=== PATIENT | female | born 1945 | race Caucasian/White ===

== ENCOUNTER → 2017-03-07 | Outpatient (CLI) | payer MEDICARE ==
--- NOTE | 2017-03-07 15:28 | FL ---
EXAMINATION TYPE: FL barium swallow DATE OF EXAM: 03/07/2017 LAP BANDING LIMITED ESOPHAGRAM: CLINICAL HISTORY: Dysphasia TECHNIQUE: Limited esophagram is performed utilizing 2-3 oz of barium. COMPARISON: 08/17/2010. FINDINGS: There is no evidence of obstruction or extravasation. Contrast spilled immediately from the esophagus into the stomach and subsequently into the small bowel. Lap band appear to be of normal orientation and stable from 08/17/2010. IMPRESSION: 1. No evidence of obstruction or extravasation.
[2017-03-07 15:46] VITALS: BP 119/83; PULSE 103; TEMP 98.6; BMI 31.7
== END ==
LOC: BARWHC3 14:00
PROVIDERS: ATTEND Surgery
DX: Z09 Encounter for follow-up examination after completed treatment for conditions other than malignant neoplasm (principal); Z98.84 Bariatric surgery status; R13.10 Dysphagia, unspecified; R11.2 Nausea with vomiting, unspecified
CPT/HCPCS: 74220; G0463; 99213

== ENCOUNTER 2018-03-12 11:01 | Day surgery (SDC) | payer MEDICARE ==
[2018-03-06 15:54] VITALS: BMI 30.3
[~2018-03-12 11:01] MED LIST: ALPRAZolam 0.25 MG TAB PO PRN; ALPRAZolam 0.5 MG TAB PO PRN; ASPIRIN 325 MG TAB PO STA; ATORVASTATIN 80 MG TAB PO STA; NITROGLYCERIN SL TABS 0.4 MG TAB SUBLINGUAL PRN; SODIUM CHLORIDE 0.9% 1,000 ML in EMPTY BAG 1 BAG IV ONE
[2018-03-12] MEDS ORDERED: GABAPENTIN 400 MG CAP PO STA (11:31)
[2018-03-12] MEDS ORDERED: HYDROcodone/APAP 5-325MG 1 EACH TAB ONE (11:32)
[2018-03-12] MEDS ORDERED: SODIUM CHLORIDE 0.9% 1,000 ML IV ONE (11:36)
[2018-03-12 11:47] LABS: Glucose,Whole Blood 128 mg/dL (75-99)
[2018-03-12 11:49] VITALS: TEMP 98
[2018-03-12] MEDS ORDERED: MIDAZOLAM 2 MG/2 ML VIAL IVP ONE (13:18)
[2018-03-12] MEDS ORDERED: LIDOCAINE 1% INJ 10MG/ML (20 ML MDV) SQ ONE (13:23)
[2018-03-12] MEDS: VERAPAMIL SYRINGE (5 MG/10 ML) INTRAARTER ONE ×2 (13:25→13:49)
[2018-03-12] MEDS ORDERED: BIVALIRUDIN BOLUS 250 MG/50 ML IV ONE (13:27)
[2018-03-12] MEDS ORDERED: BIVALIRUDIN 250 MG in SODIUM CHLORIDE 0.9% 50 ML IV ONE (13:29)
[2018-03-12] MEDS ORDERED: ADENOSINE 90 MG in SODIUM CHLORIDE 0.9% 60 ML IVP ONE (13:47)
[2018-03-12] MEDS ORDERED: RX INFO: IV CONTRAST WAS GIVEN 1 EACH MISC MISCELLANE PRN (13:53)
[2018-03-12] MEDS ORDERED: fentaNYL (PF) 50 MCG/ML 2 ML AMP IVP ONE (13:57)
[2018-03-12] MEDS ORDERED: IOPAMIDOL-370 125ML BTL INJ ONE (13:57)
[2018-03-12] MEDS ORDERED: SODIUM CHLORIDE 0.9% 1,000 ML IV SCH (14:00)
[2018-03-12 16:39] VITALS: RESP 16
[2018-03-12 17:06] VITALS: BP 156/87; PULSE 102
--- NOTE | 2018-03-12 19:51 | PCN ---
PROCEDURE NOTE DATE OF SERVICE: March 12, 2018 PERFORMING PHYSICIAN: Scotty Gonzalez MD. PROCEDURE PERFORMED: Factional flow reserve of the left circumflex. INDICATION: This is a pleasant 72-year-old female patient who underwent recently heart catheterization and that revealed intermediate to severe disease involving the left circumflex, which was brought today to undergo an FFR of the left circumflex. APPROACH: Right radial artery. COMPLICATION: None. LEVEL OF SEDATION: Moderate sedation length of 31 minutes. PROCEDURE DESCRIPTION: After obtaining an informed consent, the patient was brought to cardiac laboratory inspector. The right radial artery was cannulated using micropuncture technique and a micropuncture wire passed easily then I placed a 6-[place] sheath in the right radial artery. Subsequently I gave the patient 2 mg of verapamil IA. Anticoagulation was initiated using Angiomax. Subsequently I did engage the left main using JL3 guide. After zeroing the Doppler wire and equalizing between the Doppler wire and the guiding catheter, I did FFR per IV adenosine infusion after the left circumflex was wired. The FFR came in to be 0.96, which is nonischemic. The procedure was completed without any complication. CONCLUSION: Fractional flow reserve was performed on the left circumflex and came in to be nonischemic at 0.86. POSTPROCEDURE MANAGEMENT: Medical treatment and follow up with the patient. MMODL / IJN: [id number] /
== END 2018-03-12 18:37 | disposition home or self-care (01) ==
LOC: CATHCVL 11:01
PROVIDERS: ATTEND Internal Medicine Interventional Cardiology
DX: I25.10 Atherosclerotic heart disease of native coronary artery without angina pectoris (principal); I11.0 Hypertensive heart disease with heart failure; I50.33 Acute on chronic diastolic (congestive) heart failure; F17.210 Nicotine dependence, cigarettes, uncomplicated; I48.2 Chronic atrial fibrillation; E78.5 Hyperlipidemia, unspecified; I34.0 Nonrheumatic mitral (valve) insufficiency; Z79.01 Long term (current) use of anticoagulants; Z79.4 Long term (current) use of insulin; Z79.51 Long term (current) use of inhaled steroids; Z79.899 Other long term (current) drug therapy; Z88.5 Allergy status to narcotic agent
CPT/HCPCS: 93571; 93454; C1769 ×2; C1887 ×3; C1894; J2250; J2001; J3010; J0583; J0153; Q9967

== ENCOUNTER → 2018-05-04 | Outpatient (CLI) | payer MEDICARE ==
--- NOTE | 2018-05-04 14:43 | US ---
EXAMINATION TYPE: US duplex aorta DATE OF EXAM: 05/04/2018 COMPARISON: NONE CLINICAL HISTORY: Z13.9 Screening, I71.4 Abdominal Aortic Aneurysm. Screening EXAM MEASUREMENTS: Abdominal Aorta: Proximal: 1.9 x 1.5cm Mid: 1.5 x 1.8cm Distal: 1.2 x 1.4cm Bifurcation: obscured Technical limitations due to large amount of overlying bowel content. No evidence of AAA at this ti me within visualized portions. Bifurcation obscured. Calcifications noted throughout IMPRESSION: No evidence of AAA at this time within visualized portions.
== END | disposition home or self-care (01) ==
LOC: RADUSWWP 08:52
PROVIDERS: ATTEND Family Medicine
DX: Z13.6 Encounter for screening for cardiovascular disorders (principal)
CPT/HCPCS: 93979

== ENCOUNTER 2018-06-30 12:57 | Inpatient (IN) | payer MEDICARE ==
[2018-06-30] MEDS ORDERED: FUROSEMIDE 10 MG/ML 4 ML VIAL IV STA (13:23)
[2018-06-30] MEDS ORDERED: IPRATROPIUM-ALBUTEROL 3 ML NEB INHALATION STA ×2 (13:23→15:45)
--- NOTE | 2018-06-30 13:27 | ED ---
SOB HPI - General Chief Complaint: Shortness of Breath Stated Complaint: feet swelling/slurred speech Time Seen by Provider: 06/30/18 13:10 Source: patient, family Mode of arrival: wheelchair Limitations: no limitations - History of Present Illness Initial Comments: This is a 73-year-old female history of CHF who states she's had shortness of breath going on for about the past week with some exertional dyspnea. She states 4 days ago she had episodes of sharp chest pain or intermittent lasting for a told time about 30 minutes. She never had check after that. She states she's had ankle edema which is somewhat improved now her close her titer. She has not really noticed a weight gain. No fevers chills nausea vomiting sweats she feels like she had with previous CHF episodes. MD Complaint: shortness of breath - Related Data Home Medications Medication Instructions Recorded Confirmed ALPRAZolam [Xanax] 0.25 mg PO DAILY PRN 01/15/16 06/30/18 Ascorbic Acid [Vitamin C] 1,000 mg PO DAILY 01/15/16 06/30/18 Cholecalciferol [Vitamin D3] 1,000 unit PO DAILY 01/15/16 06/30/18 Citalopram Hydrobromide 40 mg PO DAILY 01/15/16 06/30/18 [Citalopram HBr] Furosemide [Lasix] 40 mg PO BID 01/15/16 06/30/18 Gabapentin 800 mg PO TID 01/15/16 06/30/18 HYDROcodone/APAP 5-325MG [[place] 1 tab PO TID PRN 01/15/16 06/30/18 5-325] Vitamin B Complex 1 cap PO DAILY 01/15/16 06/30/18 Vitamin E (Dl,Tocopheryl Acet) 400 unit PO DAILY 01/15/16 06/30/18 [Vitamin E] Insulin Glargine [Lantus] 30 unit SQ HS 05/04/16 06/30/18 Budesonide-Formot 160-4.5 Mcg 2 puff INHALATION RT-BID PRN 03/06/18 06/30/18 [Symbicort 160-4.5 Mcg Inhaler] Dulaglutide [Trulicity] 0.75 mg SQ TU 03/06/18 06/30/18 Metoprolol Tartrate [Lopressor] 100 mg PO BID 03/06/18 06/30/18 Previous Rx's Medication Instructions Recorded Atorvastatin [Lipitor] 20 mg PO HS #30 tab 01/17/16 Lisinopril [Zestril] 10 mg PO DAILY #0 05/05/16 Allergies Allergy/AdvReac Type Severity Reaction Status Date / Time digoxin Allergy Rash/Hives Verified 06/30/18 13:33 meperidine HCl [From Demerol] AdvReac SEIZURES Verified 06/30/18 13:33 morphine AdvReac Vomiting Verified 06/30/18 13:33 Review of Systems ROS Statement: Those systems with pertinent positive or pertinent negative responses have been documented in the HPI. ROS Other: All systems not noted in ROS Statement are negative. Past Medical History Past Medical History: Atrial Fibrillation, Heart Failure, Diabetes Mellitus, Hyperlipidemia, Hypertension, Pneumonia, Sleep Apnea/CPAP/BIPAP Additional Past Medical History / Comment(s): back and leg pain, looses balance History of Any Multi-Drug Resistant Organisms: None Reported Past Surgical History: Section Additional Past Surgical History / Comment(s): bilateral rotator cuff, right carotid endartectomy, lap band 2007, bilateral cataracts removed Past Anesthesia/Blood Transfusion Reactions: No Reported Reaction Past Psychological History: Anxiety, Depression Smoking Status: Former smoker - Past Family History Mother Family Medical History: No Reported History, Hypertension Father Family Medical History: Unable to Obtain General Exam - General Exam Comments Initial Comments: This is a well-developed asthenic appearing female who is awake alert oriented 3 Limitations: no limitations General appearance: alert, anxious Head exam: Present: atraumatic, normocephalic, normal inspection Eye exam: Present: normal appearance, PERRL, EOMI. Absent: scleral icterus, conjunctival injection, periorbital swelling ENT exam: Present: normal exam, mucous membranes moist Neck exam: Present: normal inspection, full ROM, other (No stridor JVD or bruits ). Absent: tenderness, meningismus, lymphadenopathy Respiratory exam: Present: normal lung sounds bilaterally, rales, decreased breath sounds. Absent: wheezes, rhonchi, stridor Cardiovascular Exam: Present: regular rate, normal rhythm, normal heart sounds. Absent: systolic murmur, diastolic murmur, rubs, gallop, clicks GI/Abdominal exam: Present: soft, normal bowel sounds. Absent: distended, tenderness, guarding, rebound, rigid Extremities exam: Present: normal inspection, full ROM, normal capillary refill , pedal edema. Absent: tenderness, joint swelling, calf tenderness Back exam: Present: normal inspection Neurological exam: Present: alert, oriented X3, CN II-XII intact Psychiatric exam: Present: normal affect, normal mood Skin exam: Present: warm, dry, intact, normal color. Absent: rash Course Vital Signs 06/30/18 06/30/18 13:04 13:44 Temperature 97.3 F L 98.4 F Pulse Rate 68 66 Respiratory 18 18 Rate Blood Pressure 103/70 109/81 O2 Sat by Pulse 97 100 Oximetry - Reevaluation(s) Reevaluation #1: 06/30/18 15:18 The patient did get slight relief from her dyspnea after the initial treatment Medical Decision Making - Medical Decision Making I did discuss the findings with patient family members as well as with Dr. colvin the patient will be admitted with cardiology consultation. Patient does see Dr. Hartman - Lab Data Result diagrams: 06/30/18 13:40 06/30/18 13:40 Lab Results 06/30/18 06/30/18 06/30/18 Range/Units 13:40 13:40 13:40 WBC 8.6 (3.8-10.6) k/uL RBC 4.24 (3.80-5.40) m/uL Hgb 12.7 (11.4-16.0) gm/dL Hct 40.7 (34.0-46.0) % MCV 95.9 (80.0-100.0) fL MCH 30.0 (25.0-35.0) pg MCHC 31.3 (31.0-37.0) g/dL RDW 15.0 (11.5-15.5) % Plt Count 229 (150-450) k/uL Neutrophils % 73 % Lymphocytes % 15 % Monocytes % 6 % Eosinophils % 4 % Basophils % 0 % Neutrophils # 6.2 (1.3-7.7) k/uL Lymphocytes # 1.3 (1.0-4.8) k/uL Monocytes # 0.6 (0-1.0) k/uL Eosinophils # 0.4 (0-0.7) k/uL Basophils # 0.0 (0-0.2) k/uL Hypochromasia Moderate PT (9.0-12.0) sec INR (<1.2) APTT (22.0-30.0) sec Sodium 136 L (137-145) mmol/L Potassium 6.0 H (3.5-5.1) mmol/L Chloride 99 (98-107) mmol/L Carbon Dioxide 24 (22-30) mmol/L Anion Gap 13 mmol/L BUN 32 H (7-17) mg/dL Creatinine 1.06 H (0.52-1.04) mg/dL Est GFR (CKD-EPI)AfAm 61 (>60 ml/min/1.73 sqM) Est GFR (CKD-EPI)NonAf 53 (>60 ml/min/1.73 sqM) Glucose 100 H (74-99) mg/dL Calcium 9.1 (8.4-10.2) mg/dL Magnesium 1.8 (1.6-2.3) mg/dL Total Bilirubin 0.7 (0.2-1.3) mg/dL AST 71 H (14-36) U/L ALT 62 H (9-52) U/L Alkaline Phosphatase 103 (38-126) U/L Total Creatine Kinase 70 (30-135) U/L CK-MB (CK-2) 0.9 (0.0-2.4) ng/mL CK-MB (CK-2) Rel Index 1.3 Troponin I 0.064 H* (0.000-0.034) ng/mL NT-Pro-B Natriuret Pep pg/mL Total Protein 6.5 (6.3-8.2) g/dL Albumin 3.5 (3.5-5.0) g/dL 06/30/18 06/30/18 Range/Units 13:40 13:40 WBC (3.8-10.6) k/uL RBC (3.80-5.40) m/uL Hgb (11.4-16.0) gm/dL Hct (34.0-46.0) % MCV (80.0-100.0) fL MCH (25.0-35.0) pg MCHC (31.0-37.0) g/dL RDW (11.5-15.5) % Plt Count (150-450) k/uL Neutrophils % % Lymphocytes % % Monocytes % % Eosinophils % % Basophils % % Neutrophils # (1.3-7.7) k/uL Lymphocytes # (1.0-4.8) k/uL Monocytes # (0-1.0) k/uL Eosinophils # (0-0.7) k/uL Basophils # (0-0.2) k/uL Hypochromasia PT 12.2 H (9.0-12.0) sec INR 1.2 H (<1.2) APTT 27.2 (22.0-30.0) sec Sodium (137-145) mmol/L Potassium (3.5-5.1) mmol/L Chloride (98-107) mmol/L Carbon Dioxide (22-30) mmol/L Anion Gap mmol/L BUN (7-17) mg/dL Creatinine (0.52-1.04) mg/dL Est GFR (CKD-EPI)AfAm (>60 ml/min/1.73 sqM) Est GFR (CKD-EPI)NonAf (>60 ml/min/1.73 sqM) Glucose (74-99) mg/dL Calcium (8.4-10.2) mg/dL Magnesium (1.6-2.3) mg/dL Total Bilirubin (0.2-1.3) mg/dL AST (14-36) U/L ALT (9-52) U/L Alkaline Phosphatase (38-126) U/L Total Creatine Kinase (30-135) U/L CK-MB (CK-2) (0.0-2.4) ng/mL CK-MB (CK-2) Rel Index Troponin I (0.000-0.034) ng/mL NT-Pro-B Natriuret Pep 6540 pg/mL Total Protein (6.3-8.2) g/dL Albumin (3.5-5.0) g/dL - EKG Data -: EKG Interpreted by Ar EKG shows normal: sinus rhythm (Sinus rhythm first-degree AV block rate is 66. Interval 214 QRS 80 QT since QTC 456/478 evidence of left axis deviation.) - Radiology Data Radiology results: report reviewed (I did review the imaging there does appear to be prominence of the interstitium consistent with congestive failure), image reviewed Critical Care Time Critical Care Time: Yes Critical Care Time: 31 minutes of critical care time which was initial presentation with history physical labs x-rays reevaluation patient responsive therapy discuss with the patient and family regarding findings discussion with the main physician review of old charting that was available admission orders and documentation of the above Disposition Clinical Impression: Congestive heart failure (CHF), Bronchospasm, acute, Renal insufficiency syndrome, Hyperkalemia, Elevated troponin Disposition: ADMITTED IP TO THIS [facility] Condition: Serious Referrals: Luis Carlos Dow MD [Primary Care Provider] - 1-2 days
[2018-06-30 14:01] LABS: Basophils % (A) 0 %; Eosinophils # (A) 0.4 k/uL (0-0.7); Eosinophils % (A) 4 %; HCT 40.7 % (34.0-46.0); HGB 12.7 gm/dL (11.4-16.0); Hypochromasia Moderate; Lymphocytes # (A) 1.3 k/uL (1.0-4.8); Lymphocytes % (A) 15 %; MCHC 31.3 g/dL (31.0-37.0); MCV 95.9 fL (80.0-100.0); Mean Platelet Volume 8.1; Monocytes # (A) 0.6 k/uL (0-1.0); Monocytes % (A) 6 %; Neutrophils # (A) 6.2 k/uL (1.3-7.7); Neutrophils % (A) 73 %; Platelet Count 229 k/uL (150-450); RBC 4.24 m/uL (3.80-5.40); WBC 8.6 k/uL (3.8-10.6)
[2018-06-30 14:13] LABS: Albumin 3.5 g/dL (3.5-5.0); Calcium 9.1 mg/dL (8.4-10.2); Total Bilirubin 0.7 mg/dL (0.2-1.3); Total Protein 6.5 g/dL (6.3-8.2)
[2018-06-30 14:32] LABS: Magnesium 1.8 mg/dL (1.6-2.3)
[2018-06-30 14:40] LABS: Creatine Kinase MB 0.9 ng/mL (0.0-2.4)
[2018-06-30 14:45] LABS: Troponin I 0.064 ng/mL (0.000-0.034)
--- NOTE | 2018-06-30 15:06 | XR ---
EXAMINATION TYPE: XR chest 2V DATE OF EXAM: 06/30/2018 COMPARISON: 05/04/2016 HISTORY: 73 year-old female shortness of breath, difficulty breathing TECHNIQUE: PA and lateral views FINDINGS: Heart mild to moderately enlarged. Diffuse interstitial changes. No sizable effusion or davin consoli dation. IMPRESSION: Mild/moderate cardiomegaly and interstitial changes. Correlate for mild CHF with pulmonary vascular c ongestion. No davin pulmonary edema.
[2018-06-30 15:13] LABS: INR 1.2 (<1.2); Partial Thromboplastin Time 27.2 sec (22.0-30.0); Prothrombin Time 12.2 sec (9.0-12.0)
[2018-06-30] MEDS ORDERED: ACETAMINOPHEN TAB 325 MG TAB PO STA (15:18)
[2018-06-30] MEDS ORDERED: SODIUM POLYSTYRENE SULFONATE 15 GM/60 ML BOTTLE PO ONE ×2 (15:22→22:26)
[2018-06-30] MEDS ORDERED: HEPARIN SODIUM,PORCINE 5,000 UNIT/ML 1 ML VIAL IV ONE (15:44)
[2018-06-30] MEDS ORDERED: HEPARIN SOD,PORK IN 0.45% NACL 25,000 UNIT in 0.45% NACL 1 250ML.BAG IV SCH (15:45)
[2018-06-30] MEDS: IPRATROPIUM-ALBUTEROL 3 ML NEB INHALATION SCH ×2 (16:16→19:05)
[2018-06-30 16:22] LABS: Glucose,Whole Blood 90 mg/dL (75-99)
[2018-06-30] MEDS: NITROGLYCERIN OINT 1 INCH/GM PACKET TOPICAL SCH ×2 (17:17→21:39)
[2018-06-30 17:24] LABS: Glucose,Whole Blood 140 mg/dL (75-99)
[2018-06-30] MEDS: INSULIN ASPART 100 UNIT/ML 1 ML 10 ML VIAL SQ SCH ×2 (17:40→21:39)
[2018-06-30] MEDS: GABAPENTIN 400 MG CAP PO SCH ×2 (17:40→21:38)
[2018-06-30] MEDS: METOPROLOL TARTRATE 50 MG TAB PO SCH (20:15)
[2018-06-30] MEDS: ATORVASTATIN 20 MG TAB PO SCH (20:15)
[2018-06-30] MEDS: ALPRAZolam 0.25 MG TAB PO PRN (20:16)
[2018-06-30] MEDS: HYDROcodone/APAP 5-325MG 1 EACH TAB PO PRN (20:16)
[2018-06-30 20:25] LABS: Glucose,Whole Blood 202 mg/dL (75-99)
[2018-06-30] MEDS ORDERED: INSULIN DETEMIR 100 UNIT/ML 10 ML VIAL SQ SCH (21:00)
[2018-06-30] MEDS ORDERED: FUROSEMIDE 40 MG TAB PO SCH (21:00)
[2018-06-30 21:09] LABS: Creatine Kinase MB 0.9 ng/mL (0.0-2.4)
[2018-06-30 22:13] LABS: Calcium 8.9 mg/dL (8.4-10.2)
[2018-06-30 22:22] LABS: Potassium 5.4 mmol/L (3.5-5.1)
[2018-06-30] MEDS ORDERED: ALPRAZolam 0.25 MG TAB PO PRN (22:45)
[2018-06-30] MEDS: FUROSEMIDE 40 MG TAB PO SCH (23:21)
[2018-07-01] MEDS: IPRATROPIUM-ALBUTEROL 3 ML NEB INHALATION SCH ×7 (01:32→23:50)
[2018-07-01 01:51] LABS: Creatine Kinase MB 0.7 ng/mL (0.0-2.4)
[2018-07-01 01:53] LABS: Troponin I 0.047 ng/mL (0.000-0.034)
[2018-07-01 02:02] LABS: Appearance,Urine Clear (Clear); Bacteria,Urine Rare /hpf; Bilirubin,Urine Negative (Negative); Blood,Urine Negative (Negative); Color,Urine Light Yellow; Glucose,Urine (UA) Negative (Negative); Ketones,Urine Negative (Negative); Leukocyte Esterase,Urine Moderate (Negative); Mucus,Urine Rare /hpf; Nitrite,Urine Negative (Negative); PH, Urine 6.5 (5.0-8.0); Protein,Urine Negative (Negative); RBC,Urine 1 /hpf (0-5); Specific Gravity,Urine 1.006 (1.001-1.035); Squamous Epithelial Cell,Urine 1 /hpf (0-4); Urobilinogen,Urine <2.0 mg/dL (<2.0); WBC,Urine 9 /hpf (0-5)
[2018-07-01 06:04] LABS: Glucose,Whole Blood 49 mg/dL (75-99)
[2018-07-01] MEDS: INSULIN ASPART 100 UNIT/ML 1 ML 10 ML VIAL SQ SCH ×4 (06:21→21:37)
[2018-07-01 06:22] LABS: Glucose,Whole Blood 89 mg/dL (75-99)
[2018-07-01] MEDS: PANTOPRAZOLE 40 MG TABLET PO SCH (06:23)
[2018-07-01] MEDS: SYMBICORT 160-4.5 MCG INHALER INHALATION PRN ×2 (07:17→19:39)
[2018-07-01 08:29] LABS: Basophils % (A) 0 %; Eosinophils # (A) 0.4 k/uL (0-0.7); Eosinophils % (A) 7 %; HCT 39.5 % (34.0-46.0); HGB 11.6 gm/dL (11.4-16.0); Hypochromasia Marked; Lymphocytes # (A) 1.2 k/uL (1.0-4.8); Lymphocytes % (A) 20 %; MCHC 29.3 g/dL (31.0-37.0); MCV 98.7 fL (80.0-100.0); Macrocytosis Slight; Mean Platelet Volume 7.7; Monocytes # (A) 0.3 k/uL (0-1.0); Monocytes % (A) 6 %; Neutrophils # (A) 3.7 k/uL (1.3-7.7); Neutrophils % (A) 65 %; Platelet Count 202 k/uL (150-450); RDW 15.1 % (11.5-15.5); WBC 5.8 k/uL (3.8-10.6)
[2018-07-01 08:41] LABS: Calcium 9.1 mg/dL (8.4-10.2); Potassium 4.5 mmol/L (3.5-5.1)
[2018-07-01] MEDS ORDERED: LISINOPRIL 10 MG TAB PO SCH (09:00)
--- NOTE | 2018-07-01 09:33 | HP ---
HISTORY AND PHYSICAL DATE OF SERVICE: 06/30/2018. I am covering for Dr. Dow. CHIEF COMPLAINT: Shortness of breath as well as leg swelling. HISTORY OF PRESENT ILLNESS: This 73-year-old woman with a past medical history of multiple medical problems including atrial fibrillation, CHF, diabetes, hypertension, history of pneumonia, history of sleep apnea, being followed by Dr. Luis Carlos Dow in the outpatient setting, complains of shortness of breath over the last one week and also exertional dyspnea. The patient also had episode of sharp chest pain, intermittent, lasting about 30 minutes. The patient came to [facility]. Chest x-ray showed CHF and BNP was elevated. The patient was admitted for evaluation and treatment. Troponin also found to be 0.64. Cardiology evaluation has been ordered. There is no history of fevers or rigors. No headache, loss of consciousness, seizures at this time. PAST MEDICAL HISTORY: History of atrial fibrillation, CHF, diabetes mellitus, hypertension, hyperlipidemia, history pneumonia, sleep apnea, history of anxiety and depression. MEDICATIONS: Home medications are: 1. Eliquis 5 mg p.o. b.i.d. 2. Lantus 30 units subcu at bedtime. 3. [place] 5 mg t.i.d. p.r.n. 4. Lasix 40 mg b.i.d. 5. Trulicity 0.7 mg subcu Monday. 6. Symbicort 160/4.5 two puffs b.i.d. 7. Lipitor 10 mg at bedtime. 8. Xanax 0.5 daily p.r.n. 9. Vitamin E 400 units daily. 10.Vitamin B complex 1 p.o. daily. 11.Lopressor 100 mg p.o. b.i.d. 12.Zestril 10 mg p.o. daily. 13.Gabapentin 800 mg p.o. t.i.d. 14.Celexa 40 mg. 15.Vitamin D 3000 daily. 16.Vitamin C 1000 daily. ALLERGIES: DIGOXIN, DEMEROL, MORPHINE. FAMILY HISTORY: History of hypertension in the family. SOCIAL HISTORY: Previous history of smoking. No history of current smoking or alcohol intake. REVIEW OF SYSTEMS: ENT: No diminished vision or hearing. CARDIOVASCULAR: As mentioned. GI: No nausea or vomiting. : None. ALLERGY/IMMUNOLOGY: None. MUSCULOSKELETAL: As mentioned. HEMATOLOGY: As mentioned. ENDOCRINE: As mentioned earlier. CONSTITUTIONAL: As mentioned. RHEUMATOLOGY: As mentioned. PSYCHIATRY: As mentioned. PHYSICAL EXAMINATION: GENERAL: Alert, oriented x3. VITAL SIGNS: Pulse 72, blood pressure 112/52, respirations 18, temperature 97 degrees, pulse ox 94% on room air. HEENT: Conjunctivae normal. Oral mucosa moist. NECK: No jugular venous distention. No lymph node enlargement. CARDIOVASCULAR: No stenosis. Ejection systolic murmur, especially at the bases. Bilateral scattered rhonchi and crackles. ABDOMEN: Soft, nontender. LEGS: Bilateral leg edema. NERVOUS SYSTEM: Higher functions as mentioned. Moves all limbs. LYMPHATICS: No lymph nodes palpable in the neck, axillae or groin. SKIN: No rash. LABS: WBC 8.2, hemoglobin 12.7. INR 1.2. Sodium 134, potassium 5.4, glucose 202. AST 71, ALT 62. Troponin 0.664. ASSESSMENT: 1. Congestive heart failure acute exacerbation with possibly acute on chronic diastolic dysfunction. Previous ejection fraction 50% to 60% in 2016. 2. Moderate mitral regurgitation on the previous echo. 3. Chest pain, rule out coronary artery disease. Troponin 0.064. 4. Increased creatinine with chronic kidney disease stage III. 5. Hyponatremia. 6. Hyperkalemia. 7. Diabetes mellitus type 2. 8. Atrial fibrillation. 9. History of congestive heart failure. 10.Diabetes mellitus type 2. 11.Hypertension. 12.History of pneumonia. 13.History of sleep apnea. 14.History of back and leg pain. 15.History of sections. 16.History of anxiety and depression. 17.Remote history of nicotine dependence. RECOMMENDATIONS AND DISCUSSION: In this 73-year-old woman who presented with multiple complex medical issues, we will monitor the patient closely, continue the current management. Will initiate IV diuresis and IV heparin also for elevated troponin. Cardiology consultation. Monitor fluid and electrolytes balance closely. Bronchodilators. Resume the home medications. Overall prognosis is guarded because of multiple complex medical issues. We will also repeat a 2D echo with Doppler. Prognosis is guarded. Further recommendations to follow. Medication reconciliation has been done. MMODL / IJN: [id number] /
[2018-07-01] MEDS: ASCORBIC ACID 500 MG TAB PO SCH (09:35)
[2018-07-01] MEDS: CITALOPRAM HYDROBROMIDE 20 MG TAB PO SCH (09:35)
[2018-07-01] MEDS: METOPROLOL TARTRATE 50 MG TAB PO SCH ×2 (09:35→21:37)
[2018-07-01] MEDS: CHOLECALCIFEROL 1,000 UNIT TAB PO SCH (09:35)
[2018-07-01] MEDS: GABAPENTIN 400 MG CAP PO SCH ×3 (09:35→21:37)
[2018-07-01] MEDS: VITAMIN E (DL,TOCOPHERYL ACET) 400 UNIT CAP PO SCH (09:35)
[2018-07-01] MEDS: NITROGLYCERIN OINT 1 INCH/GM PACKET TOPICAL SCH ×4 (09:36→21:48)
[2018-07-01] MEDS: FUROSEMIDE 40 MG TAB PO SCH (09:36)
[2018-07-01] MEDS: NON-FORMULARY DRUG (Vitamin B Complex [Vitamin B Complex] 1 CAP) PO SCH (09:36)
[2018-07-01] MEDS: HYDROcodone/APAP 5-325MG 1 EACH TAB PO PRN ×2 (09:43→21:44)
[2018-07-01 12:16] LABS: Glucose,Whole Blood 211 mg/dL (75-99)
--- NOTE | 2018-07-01 13:58 | P.CRDCN ---
History of Present Illness Consult date: 07/01/18 Requesting physician: Abdulkadir E Sheet Consult reason: congestive heart failure Chief complaint: Shortness of breath History of present illness: This is a pleasant 73-year-old female who follows with Dr. Hartman in the office. She has a known history of paroxysmal atrial fibrillation, diabetes , hyperlipidemia, hypertension, prior history of smoking, PAD, history of right- sided carotid endarterectomy with subsequent stenting, presents to the hospital with symptoms of progressively worsening shortness of breath for over a week duration. She also states that she had noticed swelling in her lower extremities and her clothes fit tighter than usual. She does weigh herself at home, states that her weight didn't seem to have gone out much. Chest x-ray on admission here revealed mild to moderate cardiomegaly and interstitial changes, correlate for mild CHF with pulmonary vascular congestion. EKG showed normal sinus rhythm with first-degree AV block, left axis deviation. Blood pressure 126/56, heart rate in the 70s, 94% on room air. White blood cell count 5.8, hemoglobin 11.6, platelet count 202. Sodium 138, potassium 4.5, BUN 33, creatinine 0.9. AST 71 and ALT 62. BNP level 6540. Troponins 0.06, 0.04, 0.04. Patient was initiated on IV Lasix in the emergency room and has been diuresing well. At the time of my examination today, she does state that the swelling is significantly improved in her lower extremities, and overall her breathing is improving although she still feels quite short of breath. Positive PND and orthopnea on presentation here. Past Medical History Past Medical History: Atrial Fibrillation, Heart Failure, Diabetes Mellitus, Hyperlipidemia, Hypertension, Pneumonia, Sleep Apnea/CPAP/BIPAP Additional Past Medical History / Comment(s): back and leg pain, looses balance History of Any Multi-Drug Resistant Organisms: None Reported Past Surgical History: Section Additional Past Surgical History / Comment(s): bilateral rotator cuff, right carotid endartectomy, lap band 2007, bilateral cataracts removed Past Anesthesia/Blood Transfusion Reactions: No Reported Reaction Past Psychological History: Anxiety, Depression Smoking Status: Former smoker Past Alcohol Use History: None Reported Past Drug Use History: None Reported - Past Family History Mother Family Medical History: No Reported History, Hypertension Father Family Medical History: Unable to Obtain Medications and Allergies Home Medications Medication Instructions Recorded Confirmed Type ALPRAZolam [Xanax] 0.25 mg PO DAILY PRN 01/15/16 06/30/18 History Ascorbic Acid [Vitamin C] 1,000 mg PO DAILY 01/15/16 06/30/18 History Cholecalciferol [Vitamin D3] 1,000 unit PO DAILY 01/15/16 06/30/18 History Citalopram Hydrobromide 40 mg PO DAILY 01/15/16 06/30/18 History [Citalopram HBr] Furosemide [Lasix] 40 mg PO BID 01/15/16 06/30/18 History Gabapentin 800 mg PO TID 01/15/16 06/30/18 History HYDROcodone/APAP 5-325MG [Ebro 1 tab PO TID PRN 01/15/16 06/30/18 History 5-325] Vitamin B Complex 1 cap PO DAILY 01/15/16 06/30/18 History Vitamin E (Dl,Tocopheryl Acet) 400 unit PO DAILY 01/15/16 06/30/18 History [Vitamin E] Atorvastatin [Lipitor] 20 mg PO HS #30 tab 01/17/16 06/30/18 Rx Insulin Glargine [Lantus] 30 unit SQ HS 05/04/16 06/30/18 History Lisinopril [Zestril] 10 mg PO DAILY #0 05/05/16 06/30/18 Rx Budesonide-Formot 160-4.5 Mcg 2 puff INHALATION RT-BID PRN 03/06/18 06/30/18 History [Symbicort 160-4.5 Mcg Inhaler] Dulaglutide [Trulicity] 0.75 mg SQ TU 03/06/18 06/30/18 History Metoprolol Tartrate [Lopressor] 100 mg PO BID 03/06/18 06/30/18 History Apixaban [Eliquis] 5 mg PO BID 06/30/18 06/30/18 History Allergies Allergy/AdvReac Type Severity Reaction Status Date / Time digoxin Allergy Rash/Hives Verified 06/30/18 13:33 meperidine HCl [From Demerol] AdvReac SEIZURES Verified 06/30/18 13:33 morphine AdvReac Vomiting Verified 06/30/18 13:33 Physical Exam Vitals: Vital Signs Temp Pulse Pulse Resp BP BP Pulse Ox 07/01/18 11:42 72 07/01/18 11:31 76 07/01/18 08:00 97 F L 63 18 127/55 94 L 07/01/18 07:29 76 07/01/18 07:18 72 07/01/18 04:00 97.5 F L 63 18 142/73 93 L 07/01/18 00:00 98 F 61 18 127/60 94 L 06/30/18 20:23 97.0 F L 72 18 112/53 94 L 06/30/18 19:44 68 06/30/18 19:32 97 06/30/18 19:31 70 06/30/18 16:57 98.0 F 65 16 110/63 98 06/30/18 16:22 67 16 06/30/18 16:14 67 16 06/30/18 16:05 68 18 130/63 93 L 06/30/18 15:35 98.2 F 66 15 146/65 99 Intake and Output 06/30/18 07/01/18 07/01/18 22:59 06:59 14:59 Intake Total 240 331.544 Output Total 1100 Balance 240 -1100 331.544 Intake: Intake, IV Titration 131.544 Amount Heparin Sod,Pork in 0.45% 131.544 NaCl 25,000 unit In 0.45 % NaCl 1 250ml.bag @ 12 UNITS/KG/HR 7.83 mls/hr IV .Q24H [facility] Rx#: [id number] Oral 240 200 Output: Urine 1100 Other: Voiding Method Toilet Toilet Toilet # Voids 1 Weight 67.5 kg 67 kg PHYSICAL EXAMINATION: GENERAL: 73-year-old female in no acute distress at the time of my examination HEENT: Head is atraumatic, normocephalic. Pupils equal, round. Sclera anicteric. Conjunctiva are clear. Mucous membranes of the mouth are moist. Neck is supple. There is elevated jugular venous pressure. No carotid bruit is heard. HEART EXAMINATION: Heart S1-S2 systolic murmur heard CHEST EXAMINATION: Reveal fine rales to bilateral bases, diminished air entry to the bases. ABDOMEN: Soft, nontender. Bowel sounds are heard. No organomegaly noted. EXTREMITIES: 2+ peripheral pulses with trace to 1+ evidence of peripheral edema and no calf tenderness noted. NEUROLOGIC patient is awake, alert and oriented 3 . . Results 07/01/18 07:38 07/01/18 07:38 Cardiac Enzymes 06/30/18 06/30/18 06/30/18 Range/Units 13:40 13:40 19:37 AST 71 H (14-36) U/L CK-MB (CK-2) 0.9 0.9 (0.0-2.4) ng/mL Troponin I 0.064 H* (0.000-0.034) ng/mL 06/30/18 07/01/18 Range/Units 19:37 01:01 AST (14-36) U/L CK-MB (CK-2) 0.7 (0.0-2.4) ng/mL Troponin I 0.042 H* 0.047 H* (0.000-0.034) ng/mL Coagulation 06/30/18 06/30/18 07/01/18 Range/Units 13:40 21:19 07:38 PT 12.2 H (9.0-12.0) sec APTT 27.2 57.4 H 35.1 H (22.0-30.0) sec Lipids 07/01/18 Range/Units 07:38 Triglycerides 77 (<150) mg/dL Cholesterol 89 (<200) mg/dL HDL Cholesterol 36 L (40-60) mg/dL CBC 06/30/18 07/01/18 Range/Units 13:40 07:38 WBC 8.6 5.8 (3.8-10.6) k/uL RBC 4.24 4.00 (3.80-5.40) m/uL Hgb 12.7 11.6 (11.4-16.0) gm/dL Hct 40.7 39.5 (34.0-46.0) % Plt Count 229 202 (150-450) k/uL Comprehensive Metabolic Panel 06/30/18 06/30/18 07/01/18 Range/Units 13:40 21:19 07:38 Sodium 136 L 134 L 138 (137-145) mmol/L Potassium 6.0 H 5.4 H 4.5 (3.5-5.1) mmol/L Chloride 99 96 L 99 (98-107) mmol/L Carbon Dioxide 24 27 29 (22-30) mmol/L BUN 32 H 38 H 33 H (7-17) mg/dL Creatinine 1.06 H 1.11 H 0.95 (0.52-1.04) mg/dL Glucose 100 H 206 H 140 H (74-99) mg/dL Calcium 9.1 8.9 9.1 (8.4-10.2) mg/dL AST 71 H (14-36) U/L ALT 62 H (9-52) U/L Alkaline Phosphatase 103 (38-126) U/L Total Protein 6.5 (6.3-8.2) g/dL Albumin 3.5 (3.5-5.0) g/dL Current Medications Generic Name Dose Route Start Last Admin Trade Name Freq PRN Reason Stop Dose Admin Acetaminophen 500 mg 06/30/18 22:44 Tylenol Tab PO Q6HR PRN Fever and/ or Pain Hydrocodone Bitart/Acetaminophen 1 each 06/30/18 15:39 07/01/18 09:43 Ebro 5-325 PO 1 each TID PRN Administration Pain Albuterol/Ipratropium 3 ml 06/30/18 16:00 07/01/18 11:31 Duoneb 0.5 Mg-3 Mg/3 Ml Soln INHALATION 3 ml RT-Q4H [facility] Administration Alprazolam 0.25 mg 06/30/18 15:39 06/30/18 20:16 Xanax PO 0.25 mg DAILY PRN Administration Anxiety Alprazolam 0.25 mg 06/30/18 22:45 Xanax PO TID PRN Anxiety Ascorbic Acid 1,000 mg 07/01/18 09:00 07/01/18 09:35 Vitamin C PO 1,000 mg DAILY [facility] Administration Atorvastatin Calcium 20 mg 06/30/18 21:00 06/30/18 20:15 Lipitor PO 20 mg HS [facility] Administration Budesonide/Formoterol Fumarate 2 puff 06/30/18 22:43 07/01/18 07:17 Symbicort 160-4.5 Mcg Inhaler INHALATION 2 puff RT-BID PRN Administration Shortness Of Breath Cholecalciferol 1,000 unit 07/01/18 09:00 07/01/18 09:35 Vitamin D3 PO 1,000 unit DAILY [facility] Administration Citalopram Hydrobromide 40 mg 07/01/18 09:00 07/01/18 09:35 Celexa PO 40 mg DAILY [facility] Administration Furosemide 40 mg 07/01/18 00:00 07/01/18 09:36 Lasix PO 40 mg Q8HR [facility] Administration Gabapentin 800 mg 06/30/18 16:00 07/01/18 09:35 Neurontin PO 800 mg TID [facility] Administration Heparin Sodium/Sodium Chloride 250 mls @ 7.83 mls/hr 06/30/18 15:45 07/01/18 09:30 25,000 unit/ Sodium Chloride IV 13.94 units/kg/hr .Q24H [facility] 9.1 mls/hr Titration Protocol 12 UNITS/KG/HR Insulin Aspart 0 unit 06/30/18 17:30 07/01/18 12:22 Novolog SQ 3 unit ACHS [facility] Administration Protocol Insulin Detemir 30 unit 06/30/18 21:00 06/30/18 21:39 Levemir SQ 30 unit HS [facility] Administration Metoprolol Tartrate 100 mg 06/30/18 21:00 07/01/18 09:35 Lopressor PO 100 mg BID [facility] Administration Nitroglycerin 0.5 inch 06/30/18 18:00 07/01/18 12:22 Nitro-Bid Oint TOPICAL 0.5 inch QID [facility] Administration Non-Formulary Medication 0.75 mg 07/03/18 12:00 Dulaglutide [Trulicity] SQ TU [facility] Non-Formulary Medication 1 cap 07/01/18 09:00 07/01/18 09:36 Vitamin B Complex [Vitamin B Complex] PO Not Given DAILY [facility] Pantoprazole Sodium 40 mg 07/01/18 07:30 07/01/18 06:23 Protonix PO 40 mg AC-BRKFST [facility] Administration Vitamin E 400 unit 07/01/18 09:00 07/01/18 09:35 Vitamin E PO 400 unit DAILY [facility] Administration Intake and Output 06/30/18 07/01/18 07/01/18 22:59 06:59 14:59 Intake Total 240 331.544 Output Total 1100 Balance 240 -1100 331.544 Intake: Intake, IV Titration 131.544 Amount Heparin Sod,Pork in 0.45% 131.544 NaCl 25,000 unit In 0.45 % NaCl 1 250ml.bag @ 12 UNITS/KG/HR 7.83 mls/hr IV .Q24H [facility] Rx#: [id number] Oral 240 200 Output: Urine 1100 Other: Voiding Method Toilet Toilet Toilet # Voids 1 Weight 67.5 kg 67 kg 07/01/18 07:38 07/01/18 07:38 EKG Interpretations (text) EKG shows a normal sinus rhythm with first-degree AV block. Assessment and Plan Plan: Assessment and plan #1 congestive cardiac failure, likely diastolic, acute on chronic. Most recent echo was performed in 2015 which revealed an ejection fraction of 55-60%. #2 coronary artery disease, patient underwent a cardiac catheterization which revealed intermediate to severe disease involving the circumflex, and FFR was performed on the left circumflex and came back to be nonischemic at 0.86. #3 hypertension #4 diabetes #5 hyperlipidemia #6 paroxysmal atrial fibrillation #7 PAD with prior carotid endarterectomy and stenting #8 sleep apnea #9 history of pneumonia #10 renal insufficiency #11 remote history of smoking #12 abnormality in troponin with no significant rise and fall pattern, not suggestive of acute coronary syndrome. Plan We will repeat an echocardiogram with Doppler study. Continue diuresing the patient with IV Lasix, monitoring intake and output along with daily weights and daily lytes BUN and creatinine. We'll discontinue the IV heparin and resume the patient's Eliquis. Further recommendations to follow. DNP note has been reviewed, I agree with a documented findings and plan of care. Patient was seen and examined.
[2018-07-01] MEDS ORDERED: Acetaminophen-Codeine 300-30mg TAB PO PRN (15:19)
--- NOTE | 2018-07-01 16:17 | CT ---
EXAMINATION TYPE: CT brain wo con DATE OF EXAM: 07/01/2018 COMPARISON: None HISTORY: Headache post fall. On blood thinners. CT DLP: 1078.4 mGycm Automated exposure control for dose reduction was used. FINDINGS: There is cerebral cortical atrophy. There is no mass effect nor midline shift. There is no sign of in tracranial hemorrhage. There is some cortical hypodensity inferior right frontal lobe. Calvarium is i ntact. IMPRESSION: CEREBRAL ATROPHY. OLD INFERIOR RIGHT FRONTAL LOBE CORTICAL INFARCT. NO ACUTE ABNORMALITY.
[2018-07-01 17:14] LABS: Glucose,Whole Blood 182 mg/dL (75-99)
[2018-07-01] MEDS: FUROSEMIDE 10 MG/ML 4 ML VIAL IV SCH ×2 (18:47→23:37)
[2018-07-01 21:18] LABS: Glucose,Whole Blood 219 mg/dL (75-99)
[2018-07-01] MEDS: ATORVASTATIN 20 MG TAB PO SCH (21:37)
[2018-07-01] MEDS: APIXABAN 5 MG TAB PO SCH (21:37)
[2018-07-01] MEDS: INSULIN DETEMIR 100 UNIT/ML 10 ML VIAL SQ SCH (21:37)
[2018-07-01] MEDS: ALPRAZolam 0.25 MG TAB PO PRN (21:44)
[2018-07-01] MEDS: ACETAMINOPHEN TAB 500 MG TAB PO PRN (23:35)
[2018-07-02] MEDS: IPRATROPIUM-ALBUTEROL 3 ML NEB INHALATION SCH ×5 (04:09→20:17)
[2018-07-02 06:01] LABS: Glucose,Whole Blood 134 mg/dL (75-99)
[2018-07-02] MEDS: INSULIN ASPART 100 UNIT/ML 1 ML 10 ML VIAL SQ SCH ×4 (06:15→21:38)
[2018-07-02] MEDS: PANTOPRAZOLE 40 MG TABLET PO SCH (06:15)
[2018-07-02 07:22] LABS: Basophils % (A) 0 %; Eosinophils # (A) 0.4 k/uL (0-0.7); Eosinophils % (A) 7 %; HCT 36.6 % (34.0-46.0); HGB 11.1 gm/dL (11.4-16.0); Hypochromasia Moderate; Lymphocytes % (A) 17 %; MCH 29.2 pg (25.0-35.0); MCHC 30.4 g/dL (31.0-37.0); MCV 95.9 fL (80.0-100.0); Mean Platelet Volume 7.9; Monocytes # (A) 0.3 k/uL (0-1.0); Monocytes % (A) 6 %; Neutrophils % (A) 68 %; Platelet Count 191 k/uL (150-450); RBC 3.82 m/uL (3.80-5.40); RDW 15.1 % (11.5-15.5); WBC 5.9 k/uL (3.8-10.6)
[2018-07-02 07:27] LABS: Potassium 4.5 mmol/L (3.5-5.1)
[2018-07-02] MEDS: SYMBICORT 160-4.5 MCG INHALER INHALATION PRN ×2 (07:42→20:19)
--- NOTE | 2018-07-02 07:50 | PN ---
PROGRESS NOTE DATE OF SERVICE: 07/01/2018 This 73-year-old woman who was admitted with CHF acute exacerbation also had medical history, some chest pain, also multiple consultants seen the patient. Cardiology following the patient closely. The brain CAT scan was also done which showed old inferior right frontal infarct. The patient also had a fall and the patient is on heparin also. No chest pain or palpitation. Patient complained of headache. REVIEW OF SYSTEMS: ENT: As mentioned earlier. CARDIOVASCULAR SYSTEM: As mentioned earlier. RESPIRATORY SYSTEM: As mentioned earlier. GI: No nausea. : No dysuria. NERVOUS SYSTEM: As mentioned earlier. CURRENT MEDICATIONS: Current medications are reviewed and include: 1. Tylenol p.r.n. 2. [place] 5 mg 3. DuoNeb q.i.d. and p.r.n. 4. Xanax 0.25 daily. 5. Eliquis 5 mg 7. Symbicort. 8. Vitamin D3. 9. Celexa. 10.Neurontin. 11.NovoLog. 12.Lopressor. Other medication doses are reviewed. PHYSICAL EXAMINATION: On exam, alert and oriented x3. Pulse 64, blood pressure 141/36, respiration 18, temperature 96.9, pulse ox 94% on room air. HEENT: Conjunctivae normal. NECK: No jugular venous distention. CARDIOVASCULAR: S1, S2 muffled. RESPIRATORY: Breath sounds diminished at the bases. Bilateral scattered rhonchi and crackles. Abdomen is soft, nontender. LEGS: No edema, no swelling. NERVOUS SYSTEM: No focal deficits. LABS: Labs are WBC 5.8, hemoglobin 11.6. ASSESSMENT: 1. Congestive heart failure acute exacerbation with possible acute on chronic diastolic dysfunction. Previous ejection fraction 50% to 60% in 2016. 2. Moderate mitral regurgitation on the previous echo. 3. Chest pain possible coronary artery disease. Troponin 0.064. 4. Increased creatinine with chronic kidney disease stage III. 5. Hyponatremia. 6. Hyperkalemia. 7. 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 8. Diabetes mellitus type 2. 9. Atrial fibrillation. 10.History of congestive heart failure. 11.Hypertension. 12.History of pneumonia. 13.History of headache. 14.History of sleep apnea. 15.History of back and leg pain. 16.History of section. 17.History of anxiety, depression. 18.Remote history of nicotine dependence. RECOMMENDATIONS AND DISCUSSION: Recommend to continue current medications, continue symptomatic treatment. CT scan as mentioned earlier. Continue the rest of medications. Closely follow with Cardiology. Guarded prognosis. PT, OT evaluation. Prognosis guarded. Further recommendations to follow. LAUREN / ANGEL: [id number] / MTDD
[2018-07-02] MEDS: NON-FORMULARY DRUG (Vitamin B Complex [Vitamin B Complex] 1 CAP) PO SCH (08:24)
[2018-07-02] MEDS: METOPROLOL TARTRATE 50 MG TAB PO SCH ×2 (08:32→21:38)
[2018-07-02] MEDS: VITAMIN E (DL,TOCOPHERYL ACET) 400 UNIT CAP PO SCH (08:32)
[2018-07-02] MEDS: APIXABAN 5 MG TAB PO SCH ×2 (08:32→21:38)
[2018-07-02] MEDS: ASCORBIC ACID 500 MG TAB PO SCH (08:32)
[2018-07-02] MEDS: NITROGLYCERIN OINT 1 INCH/GM PACKET TOPICAL SCH ×4 (08:33→21:40)
[2018-07-02] MEDS: CITALOPRAM HYDROBROMIDE 20 MG TAB PO SCH (08:33)
[2018-07-02] MEDS: CHOLECALCIFEROL 1,000 UNIT TAB PO SCH (08:33)
[2018-07-02] MEDS: FUROSEMIDE 10 MG/ML 4 ML VIAL IV SCH ×2 (08:33→16:32)
[2018-07-02] MEDS: GABAPENTIN 400 MG CAP PO SCH ×3 (08:33→21:38)
[2018-07-02 11:13] LABS: Glucose,Whole Blood 195 mg/dL (75-99)
--- NOTE | 2018-07-02 11:52 | P.PN ---
Subjective Progress Note Date: 07/02/18 This is a pleasant 73-year-old female who follows with Dr. Hartman in the office. She has a known history of paroxysmal atrial fibrillation, diabetes , hyperlipidemia, hypertension, prior history of smoking, PAD, history of right- sided carotid endarterectomy with subsequent stenting, presents to the hospital with symptoms of progressively worsening shortness of breath for over a week duration. She also states that she had noticed swelling in her lower extremities and her clothes fit tighter than usual. She does weigh herself at home, states that her weight didn't seem to have gone out much. Chest x-ray on admission here revealed mild to moderate cardiomegaly and interstitial changes, correlate for mild CHF with pulmonary vascular congestion. EKG showed normal sinus rhythm with first-degree AV block, left axis deviation. Blood pressure 126/56, heart rate in the 70s, 94% on room air. White blood cell count 5.8, hemoglobin 11.6, platelet count 202. Sodium 138, potassium 4.5, BUN 33, creatinine 0.9. AST 71 and ALT 62. BNP level 6540. Troponins 0.06, 0.04, 0.04. Patient was initiated on IV Lasix in the emergency room and has been diuresing well. At the time of my examination today, she does state that the swelling is significantly improved in her lower extremities, and overall her breathing is improving although she still feels quite short of breath. Positive PND and orthopnea on presentation here. 07/02/2018 Patient was seen and examined this morning, overall states that she's feeling better, diuresing well on IV Lasix. Creatinine today 0.8, echocardiogram with Doppler study remains pending. Blood pressure 102/60 with a heart rate in the 60s to 70s, 90% on room air. Objective - Vital Signs Vital signs: Vital Signs Temp 97.0 F L 07/02/18 07:40 Pulse 70 07/02/18 11:28 Resp 16 07/02/18 07:40 BP 102/62 07/02/18 07:40 Pulse Ox 90 L 07/02/18 07:40 Intake & Output 07/01/18 07/02/18 07/02/18 18:59 06:59 18:59 Intake Total 331.544 240 Output Total 1000 1999 Balance -668.456 -2000 240 Weight 68.4 kg Intake: Intake, IV Titration 131.544 Amount Heparin Sod,Pork in 0.45% 131.544 NaCl 25,000 unit In 0.45 % NaCl 1 250ml.bag @ 12 UNITS/KG/HR 7.83 mls/hr IV .Q24H [facility] Rx#: [id number] Oral 200 240 Output: Urine 1000 2000 Other: Voiding Method Toilet Toilet # Voids 1 - Exam PHYSICAL EXAMINATION: GENERAL: 73-year-old female in no acute distress at the time of my examination HEENT: Head is atraumatic, normocephalic. Pupils equal, round. Sclera anicteric. Conjunctiva are clear. Mucous membranes of the mouth are moist. Neck is supple. There is no elevated jugular venous pressure. No carotid bruit is heard. HEART EXAMINATION: Heart S1-S2 systolic murmur heard CHEST EXAMINATION: Reveal fine rales to bilateral bases, diminished air entry to the bases. ABDOMEN: Soft, nontender. Bowel sounds are heard. No organomegaly noted. EXTREMITIES: 2+ peripheral pulses with trace evidence of peripheral edema and no calf tenderness noted. NEUROLOGIC patient is awake, alert and oriented 3 . - Labs CBC & Chem 7: 07/02/18 06:42 07/02/18 06:42 Labs: Abnormal Lab Results - Last 24 Hours (Table) 07/01/18 07/01/18 07/01/18 Range/Units 12:09 17:08 21:16 Hgb (11.4-16.0) gm/dL MCHC (31.0-37.0) g/dL BUN (7-17) mg/dL Glucose (74-99) mg/dL POC Glucose (mg/dL) 211 H 182 H 219 H (75-99) mg/dL 07/02/18 07/02/18 07/02/18 Range/Units 06:00 06:42 06:42 Hgb 11.1 L (11.4-16.0) gm/dL MCHC 30.4 L (31.0-37.0) g/dL BUN 32 H (7-17) mg/dL Glucose 114 H (74-99) mg/dL POC Glucose (mg/dL) 134 H (75-99) mg/dL 07/02/18 Range/Units 11:11 Hgb (11.4-16.0) gm/dL MCHC (31.0-37.0) g/dL BUN (7-17) mg/dL Glucose (74-99) mg/dL POC Glucose (mg/dL) 195 H (75-99) mg/dL Assessment and Plan Plan: Assessment and plan #1 congestive cardiac failure, likely diastolic, acute on chronic. Most recent echo was performed in 2016 which revealed an ejection fraction of 55-60%. #2 coronary artery disease, patient underwent a cardiac catheterization which revealed intermediate to severe disease involving the circumflex, and FFR was performed on the left circumflex and came back to be nonischemic at 0.86. #3 hypertension #4 diabetes #5 hyperlipidemia #6 paroxysmal atrial fibrillation #7 PAD with prior carotid endarterectomy and stenting #8 sleep apnea #9 history of pneumonia #10 renal insufficiency #11 remote history of smoking #12 abnormality in troponin with no significant rise and fall pattern, not suggestive of acute coronary syndrome. Plan From cardiology's perspective, we'll recommend to continue current dose of IV Lasix. We will review the echocardiogram with Doppler study. Repeat chest x- ray in the morning. DNP note has been reviewed, I agree with a documented findings and plan of care. Patient was seen and examined.
--- NOTE | 2018-07-02 14:38 | XR ---
EXAMINATION TYPE: XR chest 2V DATE OF EXAM: 07/02/2018 COMPARISON: Chest x-ray from 2 days ago. HISTORY: CHF with shortness of breath. TECHNIQUE: Frontal and lateral views of the chest are obtained. FINDINGS: The cardiac silhouette size remains enlarged with atherosclerotic thoracic aorta. Mild [place] tral vascular congestion is felt to remain present. Eventrated right hemidiaphragm is seen. No large pleural effusion or pneumothorax is noted. Multilevel disc space narrowing is redemonstrated with mul tilevel spurring. IMPRESSION: Cardiomegaly with perhaps mild central vascular congestion. No significant change from p rior study.
[2018-07-02 15:02] VITALS: BMI 33.7
[2018-07-02 16:02] LABS: Glucose,Whole Blood 259 mg/dL (75-99)
[2018-07-02] MEDS: HYDROcodone/APAP 5-325MG 1 EACH TAB PO PRN (16:31)
--- NOTE | 2018-07-02 20:25 | PN ---
PROGRESS NOTE DATE OF SERVICE: 07/02/2018 This 73-year-old woman who was admitted with CHF acute exacerbation also had moderate mitral regurgitation. The patient being closely monitored. No chest pain. No palpitations. No fever. The most recent chest x-ray done showed today cardiomegaly with mild central vascular congestion. No chest pain. No palpitations. No fever. EXAM: Alert and oriented times three. Pulse 68. Blood pressure 130/72, respirations 16, temperature 98.2, pulse ox 91 percent on room air. HEENT: Conjunctivae normal. NECK: No jugular venous distention. CARDIOVASCULAR: S1, S2 muffled. RESPIRATORY: Breath sounds diminished in the bases. A few scattered rhonchi and crackles. ABDOMEN: Soft. Nontender. CENTRAL NERVOUS SYSTEM: No focal deficits. LABS: WBC 5.9, hemoglobin 11.1. ASSESSMENT: 1. Congestive heart failure acute exacerbation with acute on chronic diastolic dysfunction ejection fraction 50-60 percent in 2016. 2. Moderate mitral regurgitation on the previous echo. 3. Chest pain possible coronary artery disease, troponin 0.064. 4. Increased creatinine with chronic kidney disease stage 3. 5. Hyponatremia. 6. Hyperkalemia. 7. Cerebral atrophy and inferior right frontal lobe cortical infarct in the CT scan. 8. Diabetes mellitus type 2. 9. Atrial fibrillation. 10.Congestive heart failure. 11.Hypertension. 12.History of pneumonia. 13.History of headaches. 14.History of sleep apnea. 15.History of back and leg pain. 16.History of Caesarean section. 17.History of anxiety/depression. 18.Remote history of nicotine dependence. RECOMMENDATIONS AND DISCUSSION: Recommend to continue current medications, management and symptomatic treatment. Otherwise at this time I would recommend continue to monitor. The prognosis guarded. Monitor fluid and electrolytes balance closely. Further recommendations to follow. MMODL / IJN: [id number] /
[2018-07-02 21:16] LABS: Glucose,Whole Blood 201 mg/dL (75-99)
[2018-07-02] MEDS: ALPRAZolam 0.25 MG TAB PO PRN (21:38)
[2018-07-02] MEDS: ATORVASTATIN 20 MG TAB PO SCH (21:38)
[2018-07-02] MEDS: INSULIN DETEMIR 100 UNIT/ML 10 ML VIAL SQ SCH (21:57)
[2018-07-03] MEDS: IPRATROPIUM-ALBUTEROL 3 ML NEB INHALATION SCH ×6 (00:20→16:17)
[2018-07-03] MEDS: HYDROcodone/APAP 5-325MG 1 EACH TAB PO PRN (00:28)
[2018-07-03] MEDS: FUROSEMIDE 10 MG/ML 4 ML VIAL IV SCH ×2 (00:29→08:19)
[2018-07-03 06:05] LABS: Glucose,Whole Blood 112 mg/dL (75-99)
[2018-07-03] MEDS: INSULIN ASPART 100 UNIT/ML 1 ML 10 ML VIAL SQ SCH ×2 (06:07→12:23)
[2018-07-03] MEDS: PANTOPRAZOLE 40 MG TABLET PO SCH (06:23)
[2018-07-03] MEDS: ACETAMINOPHEN TAB 500 MG TAB PO PRN (06:42)
[2018-07-03 08:01] LABS: Basophils % (A) 1 %; Eosinophils # (A) 0.5 k/uL (0-0.7); Eosinophils % (A) 7 %; HCT 38.8 % (34.0-46.0); HGB 12.1 gm/dL (11.4-16.0); Hypochromasia Moderate; Lymphocytes # (A) 1.2 k/uL (1.0-4.8); Lymphocytes % (A) 18 %; MCH 29.8 pg (25.0-35.0); MCHC 31.2 g/dL (31.0-37.0); MCV 95.3 fL (80.0-100.0); Mean Platelet Volume 8.2; Monocytes # (A) 0.4 k/uL (0-1.0); Monocytes % (A) 7 %; Neutrophils # (A) 4.4 k/uL (1.3-7.7); Neutrophils % (A) 66 %; Platelet Count 201 k/uL (150-450); RBC 4.07 m/uL (3.80-5.40); RDW 15.1 % (11.5-15.5); WBC 6.6 k/uL (3.8-10.6)
[2018-07-03 08:12] LABS: Calcium 9.2 mg/dL (8.4-10.2); Potassium 4.6 mmol/L (3.5-5.1)
[2018-07-03] MEDS: GABAPENTIN 400 MG CAP PO SCH ×2 (08:18→15:30)
[2018-07-03] MEDS: ASCORBIC ACID 500 MG TAB PO SCH (08:18)
[2018-07-03] MEDS: APIXABAN 5 MG TAB PO SCH (08:18)
[2018-07-03] MEDS: NITROGLYCERIN OINT 1 INCH/GM PACKET TOPICAL SCH (08:18)
[2018-07-03] MEDS: CITALOPRAM HYDROBROMIDE 20 MG TAB PO SCH (08:18)
[2018-07-03] MEDS: CHOLECALCIFEROL 1,000 UNIT TAB PO SCH (08:18)
[2018-07-03] MEDS: METOPROLOL TARTRATE 50 MG TAB PO SCH (08:19)
[2018-07-03] MEDS: NON-FORMULARY DRUG (Vitamin B Complex [Vitamin B Complex] 1 CAP) PO SCH (08:19)
[2018-07-03] MEDS: VITAMIN E (DL,TOCOPHERYL ACET) 400 UNIT CAP PO SCH (08:19)
[2018-07-03 09:49] VITALS: RESP 16
[2018-07-03] MEDS: SYMBICORT 160-4.5 MCG INHALER INHALATION PRN (09:54)
[2018-07-03 11:51] LABS: Glucose,Whole Blood 132 mg/dL (75-99)
[2018-07-03] MEDS ORDERED: NON-FORMULARY DRUG (Dulaglutide [Trulicity] 0.75 MG) SQ SCH (12:00)
--- NOTE | 2018-07-03 12:43 | P.PN ---
Subjective Progress Note Date: 07/03/18 This is a pleasant 73-year-old female who follows with Dr. Hartman in the office. She has a known history of paroxysmal atrial fibrillation, diabetes , hyperlipidemia, hypertension, prior history of smoking, PAD, history of right- sided carotid endarterectomy with subsequent stenting, presents to the hospital with symptoms of progressively worsening shortness of breath for over a week duration. She also states that she had noticed swelling in her lower extremities and her clothes fit tighter than usual. She does weigh herself at home, states that her weight didn't seem to have gone out much. Chest x-ray on admission here revealed mild to moderate cardiomegaly and interstitial changes, correlate for mild CHF with pulmonary vascular congestion. EKG showed normal sinus rhythm with first-degree AV block, left axis deviation. Blood pressure 126/56, heart rate in the 70s, 94% on room air. White blood cell count 5.8, hemoglobin 11.6, platelet count 202. Sodium 138, potassium 4.5, BUN 33, creatinine 0.9. AST 71 and ALT 62. BNP level 6540. Troponins 0.06, 0.04, 0.04. Patient was initiated on IV Lasix in the emergency room and has been diuresing well. At the time of my examination today, she does state that the swelling is significantly improved in her lower extremities, and overall her breathing is improving although she still feels quite short of breath. Positive PND and orthopnea on presentation here. 07/02/2018 Patient was seen and examined this morning, overall states that she's feeling better, diuresing well on IV Lasix. Creatinine today 0.8, echocardiogram with Doppler study remains pending. Blood pressure 102/60 with a heart rate in the 60s to 70s, 90% on room air. 07/03/2018 Patient seen and examined today, breathing is significantly improved, no further edema. Weight is down 1 kg, creatinine 1.0. Chest x-ray showed significant improvement. Objective - Vital Signs Vital signs: Vital Signs Temp 97.7 F 07/03/18 12:00 Pulse 61 07/03/18 12:00 Resp 16 07/03/18 12:00 BP 138/70 07/03/18 12:00 Pulse Ox 94 L 07/03/18 12:00 Intake & Output 07/02/18 07/03/1819 18:59 06:59 18:59 Intake Total 960 240 Output Total 400 2425 Balance 560 -2425 240 Weight 68.4 kg 67.4 kg Intake: Oral 960 240 Output: Urine 400 2425 Other: # Voids 2 - Exam PHYSICAL EXAMINATION: GENERAL: 73-year-old female in no acute distress at the time of my examination HEENT: Head is atraumatic, normocephalic. Pupils equal, round. Sclera anicteric. Conjunctiva are clear. Mucous membranes of the mouth are moist. Neck is supple. There is no elevated jugular venous pressure. No carotid bruit is heard. HEART EXAMINATION: Heart S1-S2 systolic murmur heard CHEST EXAMINATION: Clear to auscultation and mild diminished air entry to the bases ABDOMEN: Soft, nontender. Bowel sounds are heard. No organomegaly noted. EXTREMITIES: 2+ peripheral pulses with no evidence of peripheral edema and no calf tenderness noted. NEUROLOGIC patient is awake, alert and oriented 3 . - Labs CBC & Chem 7: 07/03/18 07:07 07/03/18 07:07 Labs: Abnormal Lab Results - Last 24 Hours (Table) 07/02/18 07/02/18 07/03/18 Range/Units 15:57 21:13 06:04 Carbon Dioxide (22-30) mmol/L BUN (7-17) mg/dL POC Glucose (mg/dL) 259 H 201 H 112 H (75-99) mg/dL 07/03/18 07/03/18 Range/Units 07:07 11:46 Carbon Dioxide 31 H (22-30) mmol/L BUN 31 H (7-17) mg/dL POC Glucose (mg/dL) 132 H (75-99) mg/dL Assessment and Plan Plan: Assessment and plan #1 congestive cardiac failure, likely diastolic, acute on chronic. Most recent echo was performed in 2016 which revealed an ejection fraction of 55-60%. #2 coronary artery disease, patient underwent a cardiac catheterization which revealed intermediate to severe disease involving the circumflex, and FFR was performed on the left circumflex and came back to be nonischemic at 0.86. #3 hypertension #4 diabetes #5 hyperlipidemia #6 paroxysmal atrial fibrillation #7 PAD with prior carotid endarterectomy and stenting #8 sleep apnea #9 history of pneumonia #10 renal insufficiency #11 remote history of smoking #12 abnormality in troponin with no significant rise and fall pattern, not suggestive of acute coronary syndrome. Plan From cardiology's perspective, we'll discontinue the IV Lasix and start the patient on oral diuretics. Discharged home once cleared by primary. We will make her a follow-up appointment in the office post discharge. DNP note has been reviewed, I agree with a documented findings and plan of care. Patient was seen and examined.
--- NOTE | 2018-07-03 15:24 | P.DS ---
Providers Date of admission: 06/30/18 15:36 Expected date of discharge: 07/03/18 Attending physician: Luis Carlos Glover Consults: 06/30/18 15:36 Consult Physician Routine Consulting Provider: Scotty Gonzalez Consult Reason/Comments: At bedtime, elevated troponin Do you want consulting provider notified?: Yes Primary care physician: Luis Carlos Dow Hospital Course: Final Diagnoses: - acute on chronic CHF exacerbation, diastolic dysfunction, EF 55-60% congestive cardiac failure, likely diastolic, acute on chronic. -Moderate mitral regurgitation on previous echo -Chest pain, possibly CAD, troponin 0.064, not suggestive of acute coronary syndrome pathway as per cardiology. -Acute on chronic renal failure, stage III. Improving. 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 Evaluated by cardiology. Diuresind well on Lasix IV push. Significant clinical improvement. Cleared by cardiology for discharge. Patient is being discharged home in a stable condition with guarded prognosis. EXAM: GENERAL: Sitting up at side of bed, no acute distress, alert and oriented 3 CARDIOVASCULAR: S1, S2 muffled. Systolic murmur RESPIRATION: Breath sounds diminished in the bases. No rhonchi or crackles. ABDOMEN: Soft, nontender . No guarding. no masses palpable.Bowel sounds heard. No focal deficits. The impression and plan of care has been dictated as directed. : I performed a history and examination of this patient, discussed the same with the dictator. I agree with the dictator's note ,documented as a scribe. Any additional findings or plans will be noted. Time taken: 35 minutes Patient Condition at Discharge: Stable Plan - Discharge Summary Discharge Rx Participant: No New Discharge Prescriptions: New Pantoprazole [Protonix] 40 mg PO AC-BRKFST #30 tablet. Continue Cholecalciferol [Vitamin D3] 1,000 unit PO DAILY Ascorbic Acid [Vitamin C] 1,000 mg PO DAILY Vitamin B Complex 1 cap PO DAILY Gabapentin 800 mg PO TID Furosemide [Lasix] 40 mg PO BID Vitamin E (Dl,Tocopheryl Acet) [Vitamin E] 400 unit PO DAILY HYDROcodone/APAP 5-325MG [[place] 5-325] 1 tab PO TID PRN PRN Reason: Pain ALPRAZolam [Xanax] 0.25 mg PO DAILY PRN PRN Reason: Anxiety Citalopram Hydrobromide [Citalopram HBr] 40 mg PO DAILY Atorvastatin [Lipitor] 20 mg PO HS #30 tab Metoprolol Tartrate [Lopressor] 100 mg PO BID Budesonide-Formot 160-4.5 Mcg [Symbicort 160-4.5 Mcg Inhaler] 2 puff INHALATION RT-BID PRN PRN Reason: Shortness Of Breath Dulaglutide [Trulicity] 0.75 mg SQ TU Apixaban [Eliquis] 5 mg PO BID Changed Insulin Glargine [Lantus] 20 unit SQ HS #0 Discontinued Lisinopril [Zestril] 10 mg PO DAILY #0 Discharge Medication List ALPRAZolam [Xanax] 0.25 mg PO DAILY PRN 01/15/16 [History] Ascorbic Acid [Vitamin C] 1,000 mg PO DAILY 01/15/16 [History] Cholecalciferol [Vitamin D3] 1,000 unit PO DAILY 01/15/16 [History] Citalopram Hydrobromide [Citalopram HBr] 40 mg PO DAILY 01/15/16 [History] Furosemide [Lasix] 40 mg PO BID 01/15/16 [History] Gabapentin 800 mg PO TID 01/15/16 [History] HYDROcodone/APAP 5-325MG [[place] 5-325] 1 tab PO TID PRN 01/15/16 [History] Vitamin B Complex 1 cap PO DAILY 01/15/16 [History] Vitamin E (Dl,Tocopheryl Acet) [Vitamin E] 400 unit PO DAILY 01/15/16 [History] Atorvastatin [Lipitor] 20 mg PO HS #30 tab 01/17/16 [Rx] Budesonide-Formot 160-4.5 Mcg [Symbicort 160-4.5 Mcg Inhaler] 2 puff INHALATION RT-BID PRN 03/06/18 [History] Dulaglutide [Trulicity] 0.75 mg SQ TU 03/06/18 [History] Metoprolol Tartrate [Lopressor] 100 mg PO BID 03/06/18 [History] Apixaban [Eliquis] 5 mg PO BID 06/30/18 [History] Insulin Glargine [Lantus] 20 unit SQ HS #0 07/03/18 [Rx] Pantoprazole [Protonix] 40 mg PO AC-BRKFST #30 tablet. 07/03/18 [Rx] Follow up Appointment(s)/Referral(s): Luis Carlos Dow MD [Primary Care Provider] - 07/09/18 11:15 am (Monday with WATER PUMP OPERATOR) Scotty Gonzalez MD [STAFF PHYSICIAN] - 07/17/18 3:00 pm (Monday) Ambulatory/Diagnostic Orders: Complete Blood Count w/diff [LAB.AMB] Time Frame: 3 Days, Location: None Selected Patient Instructions/Handouts: Heart Failure (DC)
[2018-07-03] MEDS ORDERED: FUROSEMIDE 40 MG TAB PO SCH (16:00)
[2018-07-03 16:37] LABS: Glucose,Whole Blood 254 mg/dL (75-99)
[2018-07-03 17:05] VITALS: BP 152/59; PULSE 67; TEMP 97.5
--- NOTE | 2018-07-03 18:35 | ECHOF ---
Referral Reason:chf MEASUREMENTS -------- HEIGHT: 147.3 cm WEIGHT: 68.0 kg BP: 127/66 RVIDd: 4.4 cm (< 3.3) IVSd: 1.0 cm (0.6 - 1.1) LVIDd: 3.9 cm (3.9 - 5.3) LVPWd: 1.3 cm (0.6 - 1.1) IVSs: 1.6 cm LVIDs: 2.6 cm LVPWs: 1.7 cm LAESV Index (A-L): 56.73 ml/m Ao Diam: 2.6 cm (2.0 - 3.7) AV Cusp: 1.1 cm (1.5 - 2.6) LA Diam: 4.3 cm (2.7 - 3.8) MV EXCURSION: 17.354 mm (> 18.000) MV EF SLOPE: 37 mm/s (70 - 150) EPSS: 1.2 cm MV E Bola: 1.89 m/s MV DecT: 259 ms MV A Bola: 0.80 m/s MV E/A Ratio: 2.35 AV maxP.15 mmHg AV meanP.13 mmHg RAP: 20.00 mmHg RVSP: 86.61 mmHg FINDINGS -------- Sinus rhythm. This was a technically good study. The left ventricular size is normal. Left ventricular wall thickness is normal. Overall left vent ricular systolic function is normal with, an EF between 55 - 60 %. The right ventricle is moderate to severely enlarged. LA is severely dilated >40 ml/m2 The right atrium is mildly enlarged. Aortic valve is trileaflet and is mildly thickened. There is mild aortic stenosis present. Peak/m ellen gradient across the Aortic Valve is 19.15mmHg / 10.13mmHg. The mitral valve leaflets are moderately thickened. Moderate mitral annular calcification present. Mild mitral regurgitation is present. Mild mitral stenosis. Severe tricuspid regurgitation present. There is severe pulmonary hypertension. PAP not well quanti fied. Pulmonic valve appears structurally normal. The aortic root size is normal. The inferior vena cava is dilated with no significant inspiratory collapse which is consistent estima delphine right atrial pressure of >20 mmHg. The pericardium is normal. CONCLUSIONS -------- 1. Sinus rhythm. 2. This was a technically good study. 3. The left ventricular size is normal. 4. Left ventricular wall thickness is normal. 5. Overall left ventricular systolic function is normal with, an EF between 55 - 60 %. 6. The right ventricle is moderate to severely enlarged. 7. LA is severely dilated >40 ml/m2 8. The right atrium is mildly enlarged. 9. Aortic valve is trileaflet and is mildly thickened. 10. There is mild aortic stenosis present. 11. Peak/mean gradient across the Aortic Valve is 19.15mmHg / 10.13mmHg. 12. The mitral valve leaflets are moderately thickened. 13. Moderate mitral annular calcification present. 14. Mild mitral regurgitation is present. 15. Severe tricuspid regurgitation present. 16. There is severe pulmonary hypertension. 17. Pulmonic valve appears structurally normal. 18. The aortic root size is normal. 19. The inferior vena cava is dilated with no significant inspiratory collapse which is consistent es timated right atrial pressure of >20 mmHg. 20. The pericardium is normal. BRUSH FILLER HAND: Mayra Strange RDCS
== END 2018-07-03 17:09 | disposition home or self-care (01) | DRG 291 ==
LOC: EC 12:57 → 3SCARD 15:36
PROVIDERS: ADMIT Family Medicine; ATTEND Family Medicine
DX: I13.0 Hypertensive heart and chronic kidney disease with heart failure and stage 1 through stage 4 chronic kidney disease, or unspecified chronic kidney disease (principal); I50.33 Acute on chronic diastolic (congestive) heart failure; E87.1 Hypo-osmolality and hyponatremia; N17.9 Acute kidney failure, unspecified; E11.22 Type 2 diabetes mellitus with diabetic chronic kidney disease; E87.5 Hyperkalemia; N18.3 Chronic kidney disease, stage 3 (moderate); I34.0 Nonrheumatic mitral (valve) insufficiency; I48.0 Paroxysmal atrial fibrillation; E78.5 Hyperlipidemia, unspecified; F41.9 Anxiety disorder, unspecified; G31.9 Degenerative disease of nervous system, unspecified; I25.10 Atherosclerotic heart disease of native coronary artery without angina pectoris; J98.01 Acute bronchospasm; I44.0 Atrioventricular block, first degree; G47.30 Sleep apnea, unspecified; R77.8 Other specified abnormalities of plasma proteins; Z79.01 Long term (current) use of anticoagulants; Z79.51 Long term (current) use of inhaled steroids; Z79.4 Long term (current) use of insulin; Z79.899 Other long term (current) drug therapy; Z87.01 Personal history of pneumonia (recurrent); Z99.89 Dependence on other enabling machines and devices; Z98.891 History of uterine scar from previous surgery; Z87.891 Personal history of nicotine dependence; Z86.73 Personal history of transient ischemic attack (TIA), and cerebral infarction without residual deficits; Z86.79 Personal history of other diseases of the circulatory system; Z95.828 Presence of other vascular implants and grafts; Z98.84 Bariatric surgery status; Z98.42 Cataract extraction status, left eye; Z98.41 Cataract extraction status, right eye; Z88.5 Allergy status to narcotic agent; Z88.8 Allergy status to other drugs, medicaments and biological substances; Z82.49 Family history of ischemic heart disease and other diseases of the circulatory system
CPT/HCPCS: 36415; 70450; 71046; 80048; 80053; 80061; 81001; 82550; 82553; 83735; 83880; 84484; 85025; 85610; 85730; 93005; 93306; 94640; 94760; 96374; 96375; 99291

== ENCOUNTER → 2018-08-24 | Outpatient (CLI) | payer MEDICARE ==
--- NOTE | 2018-08-24 17:43 | XR ---
EXAMINATION TYPE: XR chest 2V DATE OF EXAM: 08/24/2018 COMPARISON: 07/02/2018 INDICATION: Injury to chest injury to left shoulder and rib pain fall TECHNIQUE: Frontal and lateral views of the chest are obtained. FINDINGS: The heart size is enlarged. The pulmonary vasculature is normal. The lungs are clear. No pneumothorax is evident. Spondylosis and scoliosis within the thoracic spine . IMPRESSION: 1. Cardiomegaly. 2. No pneumothorax is evident. No displaced rib fractures are evident. 3. Scoliosis
--- NOTE | 2018-08-24 17:44 | XR ---
EXAMINATION TYPE: XR shoulder complete LT DATE OF EXAM: 08/24/2018 COMPARISON: NONE HISTORY: Pain TECHNIQUE: Shoulder examined in 3 views FINDINGS: The humeral head articulates with the glenoid. The acromio-clavicular junction is normal. No acute fractures or dislocations are evident. Postsurgical anchors are within the humeral head A follow up study can be performed 7-10 days from acute trauma for continued pain. IMPRESSION: 1. Normal Shoulder postsurgical changes.
== END | disposition home or self-care (01) ==
LOC: RADXRMAIN 12:53
PROVIDERS: ATTEND Family Medicine
DX: S20.212A Contusion of left front wall of thorax, initial encounter (principal); S49.92XA Unspecified injury of left shoulder and upper arm, initial encounter; I51.7 Cardiomegaly; M41.84 Other forms of scoliosis, thoracic region; Z98.890 Other specified postprocedural states
CPT/HCPCS: 71046

== ENCOUNTER 2018-09-13 18:29 | Inpatient (IN) | payer MEDICARE ==
[2018-09-13] MEDS: MORPHINE SULFATE 2 MG/ML SYRINGE IVP STA ×2 (19:18→19:20)
[2018-09-13] MEDS: ONDANSETRON 4 MG/2 ML VIAL IVP STA ×2 (19:18→19:20)
[2018-09-13 19:25] LABS: Basophils % (A) 0 %; Eosinophils # (A) 0.1 k/uL (0-0.7); Eosinophils % (A) 1 %; HCT 39.1 % (34.0-46.0); HGB 11.8 gm/dL (11.4-16.0); Hypochromasia Moderate; Lymphocytes # (A) 0.5 k/uL (1.0-4.8); Lymphocytes % (A) 3 %; MCH 29.3 pg (25.0-35.0); MCHC 30.2 g/dL (31.0-37.0); Mean Platelet Volume 8.2; Monocytes # (A) 0.8 k/uL (0-1.0); Monocytes % (A) 4 %; Neutrophils # (A) 18.9 k/uL (1.3-7.7); Neutrophils % (A) 92 %; Platelet Count 264 k/uL (150-450); RBC 4.03 m/uL (3.80-5.40); RDW 14.7 % (11.5-15.5); WBC 20.6 k/uL (3.8-10.6)
[2018-09-13] MEDS ORDERED: HYDROmorphone 1 MG/ML 1 ML SYRINGE IVP STA (19:26)
[2018-09-13 19:36] LABS: INR 1.4 (<1.2); Partial Thromboplastin Time 29.7 sec (22.0-30.0); Prothrombin Time 13.9 sec (9.0-12.0)
--- NOTE | 2018-09-13 19:44 | CT ---
EXAMINATION TYPE: CT brain wo con DATE OF EXAM: 09/13/2018 COMPARISON: 07/01/2018 HISTORY: Multiple fall injuries CT DLP: 1032.4 mGycm Automated exposure control for dose reduction was used. FINDINGS: There is cerebral cortical atrophy. There is no mass effect nor midline shift. There is no sign of in tracranial hemorrhage. There is hypodensity inferior right frontal lobe. Calvarium is intact. IMPRESSION: OLD INFARCT IN THE RIGHT FRONTAL LOBE. NO ACUTE INTRACRANIAL ABNORMALITY. CEREBRAL ATROPHY. NO CHANGE .
--- NOTE | 2018-09-13 19:47 | ED ---
Fall HPI <Jean-Pierre Brenner - Last Filed: 09/13/18 21:50> - General Source: patient, family Mode of arrival: wheelchair <Yulissa Sharpe - Last Filed: 09/13/18 23:32> - General Chief Complaint: Fall Stated Complaint: fall, confusion, knocked out Time Seen by Provider: 09/13/18 18:47 - History of Present Illness Initial Comments: 73-year-old female patient is brought to the emergency department today for evaluation of frequent falls. Over the last 3 days patient has fallen multiple times. Today patient apparently fell in the bathroom and did strike her head. She is unsure if she lost consciousness. Reports that she was lying on the floor for a couple of hours. Patient states she is unsure why she keeps falling. Family member states that it seems like her legs seem to give out on her. Patient states she has been having some shortness of breath and family members state she has gained 10lbs over the last couple of weeks. She does report frequent cough. She denies extremity swelling. Patient is reporting "tailbone" pain after her falls. She denies any radiation of the pain down her legs, loss of bowel or bladder control, or saddle anesthesia. Patient family states she has been increasingly confused throughout the day. Patient denies any dizziness, headache, visual changes, numbness or tingling to her extremities, or focal weakness. Patient denies any recent rash, fever, chills, chest pain, abdominal pain, nausea, vomiting, diarrhea, constipation, hematuria, dysuria, urinary urgency, urinary frequency, or any other complaints. (Yulissa Sharpe) - Related Data Home Medications Medication Instructions Recorded Confirmed ALPRAZolam [Xanax] 0.25 mg PO DAILY PRN 01/15/16 09/13/18 Ascorbic Acid [Vitamin C] 1,000 mg PO DAILY 01/15/16 09/13/18 Cholecalciferol [Vitamin D3] 1,000 unit PO DAILY 01/15/16 09/13/18 Citalopram Hydrobromide 40 mg PO DAILY 01/15/16 09/13/18 [Citalopram HBr] Furosemide [Lasix] 40 mg PO DAILY 01/15/16 09/13/18 Gabapentin 800 mg PO TID 01/15/16 09/13/18 Vitamin B Complex 1 cap PO DAILY 01/15/16 09/13/18 Vitamin E (Dl,Tocopheryl Acet) 400 unit PO DAILY 01/15/16 09/13/18 [Vitamin E] Dulaglutide [Trulicity] 0.75 mg SQ TU 03/06/18 09/13/18 Metoprolol Tartrate [Lopressor] 100 mg PO BID 03/06/18 09/13/18 Apixaban [Eliquis] 5 mg PO BID 06/30/18 09/13/18 HYDROcodone/APAP 7.5-325MG [[place] 1 tab PO TID PRN 09/13/18 09/13/18 7.5-325] Insulin Glargine [Lantus] 30 unit SQ HS 09/13/18 09/13/18 metFORMIN HCL [metFORMIN HCL ER 1,000 mg PO BID 09/13/18 09/13/18 Osmotic] Previous Rx's Medication Instructions Recorded Atorvastatin [Lipitor] 20 mg PO HS #30 tab 01/17/16 Pantoprazole [Protonix] 40 mg PO AC-BRKFST #30 tablet. 07/03/18 Allergies Allergy/AdvReac Type Severity Reaction Status Date / Time digoxin Allergy Rash/Hives Verified 09/13/18 19:14 meperidine HCl [From Demerol] AdvReac SEIZURES Verified 09/13/18 19:14 morphine AdvReac Vomiting Verified 09/13/18 19:14 Review of Systems ROS Other: All systems not noted in ROS Statement are negative. <Jean-Pierre Brenner - Last Filed: 09/13/18 21:50> ROS Other: All systems not noted in ROS Statement are negative. <Yulissa Sharpe - Last Filed: 09/13/18 23:32> ROS Statement: Those systems with pertinent positive or pertinent negative responses have been documented in the HPI. Past Medical History Past Medical History: Atrial Fibrillation, Heart Failure, COPD, Diabetes Mellitus, Hyperlipidemia, Hypertension, Pneumonia, Sleep Apnea/CPAP/BIPAP Additional Past Medical History / Comment(s): back and leg pain, looses balance History of Any Multi-Drug Resistant Organisms: None Reported Past Surgical History: Section Additional Past Surgical History / Comment(s): bilateral rotator cuff, right carotid endartectomy, lap band 2007, bilateral cataracts removed Past Anesthesia/Blood Transfusion Reactions: No Reported Reaction Past Psychological History: Anxiety, Depression Smoking Status: Former smoker Past Alcohol Use History: None Reported Past Drug Use History: None Reported - Past Family History Mother Family Medical History: No Reported History, Hypertension Father Family Medical History: Unable to Obtain <Yulissa Sharpe - Last Filed: 09/13/18 23:32> General Exam Limitations: no limitations General appearance: alert, in no apparent distress, other (This is a well- developed, well-nourished adult female patient in no acute distress. Vital signs upon presentation are temperature 98.8F, pulse 134, respirations 18, blood pressure 116/72, pulse ox 97% on room air.) Eye exam: Present: normal appearance, PERRL, EOMI. Absent: scleral icterus, conjunctival injection, periorbital swelling ENT exam: Present: normal exam, normal oropharynx, mucous membranes moist Neck exam: Present: normal inspection, full ROM, other (Nontender, no step-off, no deformity to firm midline palpation of the posterior cervical spine. Full range of motion without pain or limitation.). Absent: tenderness, meningismus, lymphadenopathy Respiratory exam: Present: rales (Left lung posteriorly and anteriorly). Absent: normal lung sounds bilaterally, respiratory distress, wheezes, rhonchi, stridor Cardiovascular Exam: Present: regular rate, normal rhythm, normal heart sounds. Absent: systolic murmur, diastolic murmur, rubs, gallop, clicks GI/Abdominal exam: Present: soft, normal bowel sounds. Absent: distended, tenderness, guarding, rebound, rigid Back exam: Present: normal inspection, vertebral tenderness (Sacral) Neurological exam: Present: alert, oriented X3, CN II-XII intact, other (Strength in all 4 extremities is 4/5) Psychiatric exam: Present: normal affect, normal mood Skin exam: Present: warm, dry, intact, normal color. Absent: rash <Yulissa Sharpe - Last Filed: 09/13/18 23:32> Course <Jean-Pierre Brenner - Last Filed: 09/13/18 21:50> <Yulissa Sharpe - Last Filed: 09/13/18 23:32> Vital Signs 09/13/18 09/13/18 09/13/18 18:34 19:30 20:00 Temperature 98.8 F Pulse Rate 134 H 134 H 130 H Respiratory 18 12 12 Rate Blood Pressure 116/72 113/76 124/79 O2 Sat by Pulse 87 L 95 94 L Oximetry 09/13/18 09/13/18 09/13/18 20:24 20:30 21:00 Temperature 98.9 F Pulse Rate 128 H 129 H Respiratory 12 12 Rate Blood Pressure 124/79 127/66 O2 Sat by Pulse 94 L 94 L Oximetry 09/13/18 09/13/18 22:00 23:15 Temperature Pulse Rate 120 H 123 H Respiratory 16 16 Rate Blood Pressure 103/55 99/69 O2 Sat by Pulse 95 96 Oximetry - Reevaluation(s) Reevaluation #1: 09/13/18 20:15 Patient diagnosed with sepsis at this time. 2100ml of fluid ordered per protocol, will monitor patient's breathing status. There is concern for PE so CT angio of the chest will be ordered. Antibiotics initiated. (Yulissa Sharpe) Reevaluation #2: 09/13/18 21:50 N P supervision: I proceeded [id number] evaluation the patient she did present with reports of frequent falls for past several days. She does demonstrate evidence of a pneumonic process CAT scan shows no PE however. She has elevated white count low-grade temperature lactic acid is elevated at 4.1 some this is likely on the basis of renal insufficiency in addition to evidence of infection. The BNP is markedly elevated though there is no clinical evidence other than some basilar rales of CHF. I did discuss the case with Dr. Glover. Patient will be admitted. (Jean-Pierre Brenner) Procedures - Sepsis Sepsis Focused Exam #1 Time Sepsis Criteria Met: 21:50 Sepsis Focused Exam Date: 09/13/18 Sepsis Focused Exam Time: 23:31 Sepsis Focused Exam Complete: Yes Vital Signs & RN Notes Reviewed: Yes Capillary Refill: < 2 Seconds: Fingers, Toes Peripheral Pulses: Normal: Radial (R), Radial (L) Skin Color: Normal for Patient Respiratory Exam: rales (Left posterior lobe) Cardiovascular Exam: tachycardia <Yulissa Sharpe - Last Filed: 09/13/18 23:32> Medical Decision Making - Lab Data Result diagrams: 09/13/18 19:03 09/13/18 19:03 <Jean-Pierre Brenner - Last Filed: 09/13/18 21:50> - Lab Data Result diagrams: 09/13/18 19:03 09/13/18 19:03 - Radiology Data Radiology results: report reviewed, image reviewed <Yulissa Sharpe - Last Filed: 09/13/18 23:32> - Medical Decision Making 73-year-old female patient presented to the emergency department today with multiple complaints including frequent falls, weakness, confusion, shortness of breath, and cough. Physical examination did reveal crackles in the left posterior lung arevalo. Patient was tachycardic in the 130s with oxygen saturation in the 80s upon arrival. Initially patient was afebrile with normal pressure. Labs reviewed and did reveal an elevated white blood cell count at 20.6 with a neutrophil count of 18.9. Sodium 134, BUN 36, creatinine 1.17, glucose 300, anion gap of 15,, bili 2.2, mildly elevated AST, a LT, troponin 0.033, BNP 19,200. Lactic acid 4.1. Chest x-ray showed no evidence for heart failure however there was evidence for new left lower lobe pneumonia. Patient's oxygen saturation continued to be low and heart rate continued to be high so we did obtain a CT of the chest to rule out pulmonary embolism, this is negative for PE however did show some consolidation and atelectasis at the left lower lung base. Given lab findings, x-ray findings, CT findings, and patient's symptoms is concerned for pneumonia with sepsis, we'll start azithromycin and Rocephin. Blood sugar has been treated with insulin. We did ordered 2100 mL of normal saline per sepsis protocol. Patient was evaluated after 1 L of fluid respiratory status remains intact and she denies any current shortness of breath we will continue fluids at this time. Patient will be admitted to the hospital for further IV antibiotics, evaluation, and treatment. She'll be admitted to Dr. Glover covering for Dr. Dow. (Yulissa Sharpe) - Lab Data Lab Results 09/13/18 09/13/18 09/13/18 Range/Units 19:03 19:03 19:03 WBC 20.6 H (3.8-10.6) k/uL RBC 4.03 (3.80-5.40) m/uL Hgb 11.8 (11.4-16.0) gm/dL Hct 39.1 (34.0-46.0) % MCV 97.0 (80.0-100.0) fL MCH 29.3 (25.0-35.0) pg MCHC 30.2 L (31.0-37.0) g/dL RDW 14.7 (11.5-15.5) % Plt Count 264 (150-450) k/uL Neutrophils % 92 % Lymphocytes % 3 % Monocytes % 4 % Eosinophils % 1 % Basophils % 0 % Neutrophils # 18.9 H (1.3-7.7) k/uL Lymphocytes # 0.5 L (1.0-4.8) k/uL Monocytes # 0.8 (0-1.0) k/uL Eosinophils # 0.1 (0-0.7) k/uL Basophils # 0.0 (0-0.2) k/uL Hypochromasia Moderate PT (9.0-12.0) sec INR (<1.2) APTT (22.0-30.0) sec Sodium 134 L (137-145) mmol/L Potassium 4.6 (3.5-5.1) mmol/L Chloride 94 L (98-107) mmol/L Carbon Dioxide 25 (22-30) mmol/L Anion Gap 15 mmol/L BUN 36 H (7-17) mg/dL Creatinine 1.17 H (0.52-1.04) mg/dL Est GFR (CKD-EPI)AfAm 54 (>60 ml/min/1.73 sqM) Est GFR (CKD-EPI)NonAf 47 (>60 ml/min/1.73 sqM) Glucose 300 H (74-99) mg/dL Lactic Ac Sepsis Rflx Plasma Lactic Acid Alok 4.1 H* (0.7-2.0) mmol/L Calcium 9.6 (8.4-10.2) mg/dL Total Bilirubin 2.2 H (0.2-1.3) mg/dL AST 94 H (14-36) U/L ALT 89 H (9-52) U/L Alkaline Phosphatase 144 H (38-126) U/L Creatine Kinase 76 (30-135) U/L Troponin I (0.000-0.034) ng/mL NT-Pro-B Natriuret Pep pg/mL Total Protein 7.0 (6.3-8.2) g/dL Albumin 3.8 (3.5-5.0) g/dL 09/13/18 09/13/18 09/13/18 Range/Units 19:03 19:03 19:03 WBC (3.8-10.6) k/uL RBC (3.80-5.40) m/uL Hgb (11.4-16.0) gm/dL Hct (34.0-46.0) % MCV (80.0-100.0) fL MCH (25.0-35.0) pg MCHC (31.0-37.0) g/dL RDW (11.5-15.5) % Plt Count (150-450) k/uL Neutrophils % % Lymphocytes % % Monocytes % % Eosinophils % % Basophils % % Neutrophils # (1.3-7.7) k/uL Lymphocytes # (1.0-4.8) k/uL Monocytes # (0-1.0) k/uL Eosinophils # (0-0.7) k/uL Basophils # (0-0.2) k/uL Hypochromasia PT 13.9 H (9.0-12.0) sec INR 1.4 H (<1.2) APTT 29.7 (22.0-30.0) sec Sodium (137-145) mmol/L Potassium (3.5-5.1) mmol/L Chloride (98-107) mmol/L Carbon Dioxide (22-30) mmol/L Anion Gap mmol/L BUN (7-17) mg/dL Creatinine (0.52-1.04) mg/dL Est GFR (CKD-EPI)AfAm (>60 ml/min/1.73 sqM) Est GFR (CKD-EPI)NonAf (>60 ml/min/1.73 sqM) Glucose (74-99) mg/dL Lactic Ac Sepsis Rflx Plasma Lactic Acid Alok (0.7-2.0) mmol/L Calcium (8.4-10.2) mg/dL Total Bilirubin (0.2-1.3) mg/dL AST (14-36) U/L ALT (9-52) U/L Alkaline Phosphatase (38-126) U/L Creatine Kinase (30-135) U/L Troponin I 0.033 (0.000-0.034) ng/mL NT-Pro-B Natriuret Pep 22163 pg/mL Total Protein (6.3-8.2) g/dL Albumin (3.5-5.0) g/dL 09/13/18 Range/Units 19:55 WBC (3.8-10.6) k/uL RBC (3.80-5.40) m/uL Hgb (11.4-16.0) gm/dL Hct (34.0-46.0) % MCV (80.0-100.0) fL MCH (25.0-35.0) pg MCHC (31.0-37.0) g/dL RDW (11.5-15.5) % Plt Count (150-450) k/uL Neutrophils % % Lymphocytes % % Monocytes % % Eosinophils % % Basophils % % Neutrophils # (1.3-7.7) k/uL Lymphocytes # (1.0-4.8) k/uL Monocytes # (0-1.0) k/uL Eosinophils # (0-0.7) k/uL Basophils # (0-0.2) k/uL Hypochromasia PT (9.0-12.0) sec INR (<1.2) APTT (22.0-30.0) sec Sodium (137-145) mmol/L Potassium (3.5-5.1) mmol/L Chloride (98-107) mmol/L Carbon Dioxide (22-30) mmol/L Anion Gap mmol/L BUN (7-17) mg/dL Creatinine (0.52-1.04) mg/dL Est GFR (CKD-EPI)AfAm (>60 ml/min/1.73 sqM) Est GFR (CKD-EPI)NonAf (>60 ml/min/1.73 sqM) Glucose (74-99) mg/dL Lactic Ac Sepsis Rflx Y Plasma Lactic Acid Alok (0.7-2.0) mmol/L Calcium (8.4-10.2) mg/dL Total Bilirubin (0.2-1.3) mg/dL AST (14-36) U/L ALT (9-52) U/L Alkaline Phosphatase (38-126) U/L Creatine Kinase (30-135) U/L Troponin I (0.000-0.034) ng/mL NT-Pro-B Natriuret Pep pg/mL Total Protein (6.3-8.2) g/dL Albumin (3.5-5.0) g/dL - Radiology Data CT brain without contrast was obtained. Report reviewed in its entirety. 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 No acute intracranial abnormality. Cerebral atrophy. No change. Two-view x-ray of the chest is obtained. Report is reviewed in its entirety. Impression by Dr. Early shows new left lower lobe pneumonia compared to last exam. Cardiomegaly. No heart failure seen. 5 views of the lumbosacral spine were obtained. Report was reviewed in its entirety. Impression by Dr. Early shows multilevel spondylosis. Degenerative first-degree L3 to [address] spondylolisthesis. No compression fracture. CT of the chest angiography for PE was obtained. Report is reviewed in its entirety. Impression by Dr. Early shows no evidence of pulmonary embolism. Moderate cardiomegaly. Interstitial pulmonary fibrotic changes in the lower lo bes. There is a 5 cm area of airspace consolidation atelectasis in the left lower lobe. (Yulissa Sharpe) Disposition <Jean-Pierre Brenner - Last Filed: 09/13/18 21:50> Decision to Admit Reason: Admit from EC Decision Date: 09/13/18 Decision Time: 22:07 <Yulissa Sharpe - Last Filed: 09/13/18 23:32> Clinical Impression: Pneumonia, Sepsis, Renal insufficiency, CHF (congestive heart failure) Disposition: ADMITTED IP TO THIS HOSP Condition: Serious Referrals: Luis Carlos Dow MD [Primary Care Provider] - 1-2 days
[2018-09-13 19:50] LABS: Albumin 3.8 g/dL (3.5-5.0); Calcium 9.6 mg/dL (8.4-10.2); Potassium 4.6 mmol/L (3.5-5.1); Total Bilirubin 2.2 mg/dL (0.2-1.3)
--- NOTE | 2018-09-13 19:51 | XR ---
EXAMINATION TYPE: XR chest 2V DATE OF EXAM: 09/13/2018 COMPARISON: 08/24/2018 HISTORY: Weakness TECHNIQUE: Frontal and lateral views of the chest are obtained. FINDINGS: Heart is enlarged. There is no heart failure. Costophrenic angles are clear. Thoracic aort a is atheromatous. There is patchy infiltrate in the left lower lobe in the anterior segment. Bony th orax is intact. IMPRESSION: There is new left lower lobe pneumonia compared to last exam. Cardiomegaly. No heart fabrice lure seen.
[2018-09-13] MEDS ORDERED: AZITHROMYCIN 500 MG in SODIUM CHLORIDE 0.9% 250 ML IVPB STA (20:02)
[2018-09-13] MEDS ORDERED: INSULIN ASPART (NovoLOG) 100 UNIT/ML VIAL SQ STA (20:04)
[2018-09-13] MEDS ORDERED: cefTRIAXone IN SWFI 1,000 MG/10 ML SYRINGE IVP STA (20:10)
[2018-09-13] MEDS ORDERED: SODIUM CHLORIDE 0.9% 1,000 ML IV ONE (20:15)
[2018-09-13] MEDS ORDERED: ACETAMINOPHEN TAB 500 MG TAB PO STA (20:15)
--- NOTE | 2018-09-13 20:16 | XR ---
EXAMINATION TYPE: XR lumbosacral spine min 4V DATE OF EXAM: 09/13/2018 COMPARISON: NONE HISTORY: Pain TECHNIQUE: 5 views FINDINGS: Vertebra have fairly normal alignment. There is degenerative disc space narrowing from L3 t o S1. There is obliteration of the L4-5 disc. Posterior elements are intact. There is no compression fracture. Sacroiliac joints are intact. There is a few millimeter anterior subluxation of L3 in relat ion to L4. IMPRESSION: Multilevel spondylosis. Degenerative first-degree L3-4 spondylolisthesis. No compression fracture.
[2018-09-13] MEDS ORDERED: SODIUM CHLORIDE 0.9% 1,100 ML IV ONE (20:31)
--- NOTE | 2018-09-13 21:10 | CT ---
EXAMINATION TYPE: CT chest angio for PE DATE OF EXAM: 09/13/2018 COMPARISON: None HISTORY: Fall, confusion, knocked out chest pain CT DLP: 372.9 mGycm Automated exposure control for dose reduction was used. CONTRAST: CT Chest for pulmonary embolism performed with with IV Contrast, patient injected with 80 mL of Isovu e 300. FINDINGS: There are 3-D post processed images. There is coarse interstitial density in both lungs. There is some airspace consolidation atelectasis left lower lobe. Heart is enlarged. There is no pericardial effusion. Thoracic aorta is atheromatous. There is no mediastinal adenopathy. There are no hilar masses. There is normal contrast opacification of the pulmonary arteries. There are no filling defects. The b arti thorax is intact. There is spurring in the thoracic spine.. IMPRESSION: No evidence of pulmonary embolism. Moderate cardiomegaly. Interstitial pulmonary fibrotic changes in the lower lobes. There is 5 cm area of airspace consolidation and atelectasis left lower lobe.
[2018-09-13] MEDS ORDERED: ACETAMINOPHEN TAB 325 MG TAB PO PRN (21:49)
[2018-09-13] MEDS ORDERED: NALOXONE 0.4 MG/ML 1 ML VIAL IV PRN (21:49)
[2018-09-13] MEDS ORDERED: ALPRAZolam 0.25 MG TAB PO PRN (21:57)
[2018-09-13 23:53] LABS: Glucose,Whole Blood 223 mg/dL (75-99)
[2018-09-14] MEDS: APIXABAN 5 MG TAB PO SCH ×3 (00:02→21:27)
[2018-09-14] MEDS: METOPROLOL TARTRATE 25 MG TAB PO SCH ×3 (00:02→21:29)
[2018-09-14] MEDS: GABAPENTIN 400 MG CAP PO SCH ×4 (00:04→21:29)
[2018-09-14] MEDS ORDERED: EPINEPHrine 10 ML SYRINGE (0.1 MG/ML) ONE ×2 (00:08→11:29)
[2018-09-14 06:03] LABS: Glucose,Whole Blood 218 mg/dL (75-99)
[2018-09-14] MEDS: INSULIN ASPART (NovoLOG) 100 UNIT/ML VIAL SQ SCH ×4 (06:06→21:26)
[2018-09-14 06:55] LABS: Basophils % (A) 0 %; Eosinophils % (A) 0 %; HCT 34.7 % (34.0-46.0); HGB 10.8 gm/dL (11.4-16.0); Hypochromasia Moderate; Lymphocytes # (A) 0.7 k/uL (1.0-4.8); Lymphocytes % (A) 4 %; MCH 30.2 pg (25.0-35.0); MCV 97.3 fL (80.0-100.0); Mean Platelet Volume 7.8; Monocytes # (A) 0.7 k/uL (0-1.0); Monocytes % (A) 4 %; Neutrophils # (A) 15.8 k/uL (1.3-7.7); Neutrophils % (A) 91 %; Platelet Count 241 k/uL (150-450); RBC 3.57 m/uL (3.80-5.40); WBC 17.4 k/uL (3.8-10.6)
[2018-09-14 07:23] LABS: Albumin 3.3 g/dL (3.5-5.0); Calcium 8.9 mg/dL (8.4-10.2); Potassium 4.4 mmol/L (3.5-5.1); Total Bilirubin 0.9 mg/dL (0.2-1.3); Total Protein 6.2 g/dL (6.3-8.2)
[2018-09-14] MEDS ORDERED: PANTOPRAZOLE 40 MG TABLET PO SCH (07:30)
[2018-09-14] MEDS ORDERED: FUROSEMIDE 40 MG TAB PO SCH (09:00)
[2018-09-14] MEDS ORDERED: METOPROLOL TARTRATE 25 MG TAB PO SCH (09:00)
[2018-09-14] MEDS ORDERED: APIXABAN 5 MG TAB PO SCH (09:00)
[2018-09-14] MEDS ORDERED: NON-FORMULARY DRUG (Vitamin B Complex [Vitamin B Complex] 1 CAP) PO SCH (09:00)
[2018-09-14] MEDS: CITALOPRAM HYDROBROMIDE 20 MG TAB PO SCH (09:04)
[2018-09-14] MEDS: VITAMIN E (DL,TOCOPHERYL ACET) 400 UNIT CAP PO SCH (09:04)
[2018-09-14] MEDS: CHOLECALCIFEROL 1,000 UNIT TAB PO SCH (09:04)
[2018-09-14] MEDS: ASCORBIC ACID 500 MG TAB PO SCH (09:04)
[2018-09-14] MEDS ORDERED: NOREPINEPHRINE 1 MG/ML 4 ML VIAL IV ONE (11:29)
[2018-09-14 11:35] LABS: Glucose,Whole Blood 252 mg/dL (75-99)
[2018-09-14] MEDS ORDERED: DILTIAZEM DRIP BOLUS FROM BAG 1 MG SOLN IV ONE (13:12)
[2018-09-14] MEDS: DILTIAZEM 125 MG in SODIUM CHLORIDE 0.9% 100 ML IV SCH (13:42)
[2018-09-14] MEDS ORDERED: SODIUM CHLORIDE 0.9% 500 ML 500 ML IV ONE ×2 (14:06→14:51)
--- NOTE | 2018-09-14 15:50 | P.HPIM ---
History of Present Illness 71-year-old female came in emergency department with frequent falls, is found to have leukocytosis sources with crackles in the right lower lung bases because of which patient underwent imaging studies which showed right lower lobe c onsolidation 8 sprays disease and interstitial fibrosis. Patient was diagnosed with chronic diastolic dysfunction the past does have chronic A. fib presently sinus rhythm sinus tachycardia. Patient is on Eliquis. Patient remains tachycardic history is also complaining of shortness of breath no wheezing on exam patient does not have any elevated JVD. Patient will be hydrated cautiously and closely patient was started on Rocephin and the azithromycin I'm switching Rocephin to cefepime because of her recent hospitalization couple months ago need to be treated for healthcare associated pneumonia blood cultures and sputum cultures are were obtained Review of Systems REVIEW OF SYSTEMS: CONSTITUTIONAL: No fever, no malaise, no fatigue. HEENT: No recent visual problems or hearing problems. Denied any sore throat. CARDIOVASCULAR: No chest pain, orthopnea, PND, no palpitations, no syncope. PULMONARY: As mentioned in HPI GASTROINTESTINAL: No diarrhea, no nausea, no vomiting, no abdominal pain. NEUROLOGICAL: No headaches, no weakness, no numbness. HEMATOLOGICAL: Denies any bleeding or petechiae. GENITOURINARY: Denies any burning micturition, frequency, or urgency. MUSCULOSKELETAL/RHEUMATOLOGICAL: Denies any joint pain, swelling, or any muscle pain. ENDOCRINE: Denies any polyuria or polydipsia. The rest of the 14-point review of systems is negative. Past Medical History Past Medical History: Atrial Fibrillation, Heart Failure, COPD, Diabetes Mellitus, Hyperlipidemia, Hypertension, Pneumonia, Sleep Apnea/CPAP/BIPAP Additional Past Medical History / Comment(s): back and leg pain, looses balance History of Any Multi-Drug Resistant Organisms: None Reported Past Surgical History: Section Additional Past Surgical History / Comment(s): bilateral rotator cuff, right carotid endartectomy, lap band 2008, bilateral cataracts removed Past Anesthesia/Blood Transfusion Reactions: No Reported Reaction Past Psychological History: Anxiety, Depression Smoking Status: Former smoker Past Alcohol Use History: None Reported Past Drug Use History: None Reported - Past Family History Mother Family Medical History: No Reported History, Hypertension Father Family Medical History: Unable to Obtain Medications and Allergies Home Medications Medication Instructions Recorded Confirmed Type ALPRAZolam [Xanax] 0.25 mg PO DAILY PRN 01/15/16 09/13/18 History Ascorbic Acid [Vitamin C] 1,000 mg PO DAILY 01/15/16 09/13/18 History Cholecalciferol [Vitamin D3] 1,000 unit PO DAILY 01/15/16 09/13/18 History Citalopram Hydrobromide 40 mg PO DAILY 01/15/16 09/13/18 History [Citalopram HBr] Furosemide [Lasix] 40 mg PO DAILY 01/15/16 09/13/18 History Gabapentin 800 mg PO TID 01/15/16 09/13/18 History Vitamin B Complex 1 cap PO DAILY 01/15/16 09/13/18 History Vitamin E (Dl,Tocopheryl Acet) 400 unit PO DAILY 01/15/16 09/13/18 History [Vitamin E] Atorvastatin [Lipitor] 20 mg PO HS #30 tab 01/17/16 09/13/18 Rx Dulaglutide [Trulicity] 0.75 mg SQ TU 03/06/18 09/13/18 History Metoprolol Tartrate [Lopressor] 100 mg PO BID 03/06/18 09/13/18 History Apixaban [Eliquis] 5 mg PO BID 06/30/18 09/13/18 History Pantoprazole [Protonix] 40 mg PO AC-AGUSTINAKFSAlvin #30 tablet. 07/03/18 09/13/18 Rx HYDROcodone/APAP 7.5-325MG [[place] 1 tab PO TID PRN 09/13/18 09/13/18 History 7.5-325] Insulin Glargine [Lantus] 30 unit SQ HS 09/13/18 09/13/18 History metFORMIN HCL [metFORMIN HCL ER 1,000 mg PO BID 09/13/18 09/13/18 History Osmotic] Allergies Allergy/AdvReac Type Severity Reaction Status Date / Time digoxin Allergy Rash/Hives Verified 09/13/18 19:14 meperidine HCl [From Demerol] AdvReac SEIZURES Verified 09/13/18 19:14 morphine AdvReac Vomiting Verified 09/13/18 19:14 Physical Exam Vitals: Vital Signs Temp Pulse Pulse Resp BP BP Pulse Ox 09/14/18 08:00 95 09/14/18 07:55 97.6 F 130 H 20 118/67 97 03/22/19 04:00 98.5 F 125 H 20 124/83 95 09/14/18 00:00 98.3 F 131 H 19 128/86 92 L 09/13/18 23:15 123 H 16 99/69 96 09/13/18 22:00 120 H 16 103/55 95 09/13/18 21:00 129 H 12 127/66 94 L 09/13/18 20:30 128 H 12 124/79 94 L 09/13/18 20:24 98.9 F 09/13/18 20:00 130 H 12 124/79 94 L 09/13/18 19:30 134 H 12 113/76 95 09/13/18 18:34 98.8 F 134 H 18 116/72 87 L Intake and Output 09/14/18 09/14/18 09/14/18 06:59 14:59 22:59 Intake Total 200 720 Output Total 1 Balance 199 720 Intake: Oral 200 720 Output: Urine 1 Other: # Bowel Movements 1 Weight 69 kg PHYSICAL EXAMINATION: GENERAL: The patient is alert and oriented x3, not in any acute distress. Well developed, well nourished. HEENT: Pupils are round and equally reacting to light. EOMI. No scleral icterus. No conjunctival pallor. Normocephalic, atraumatic. No pharyngeal erythema. No thyromegaly. CARDIOVASCULAR: S1 and S2 present. No murmurs, rubs, or gallops. PULMONARY: Yessica and right lower lung bases ABDOMEN: Soft, nontender, nondistended, normoactive bowel sounds. No palpable organomegaly. MUSCULOSKELETAL: No joint swelling or deformity. EXTREMITIES: No cyanosis, clubbing, or pedal edema. NEUROLOGICAL: Gross neurological examination did not reveal any focal deficits. SKIN: No rashes. Results CBC & Chem 7: 09/14/18 06:29 09/14/18 06:29 Labs: Abnormal Lab Results - Last 24 Hours (Table) 09/13/18 09/13/18 09/13/18 Range/Units 19:03 19:03 19:03 WBC 20.6 H (3.8-10.6) k/uL RBC (3.80-5.40) m/uL Hgb (11.4-16.0) gm/dL MCHC 30.2 L (31.0-37.0) g/dL Neutrophils # 18.9 H (1.3-7.7) k/uL Lymphocytes # 0.5 L (1.0-4.8) k/uL PT (9.0-12.0) sec INR (<1.2) Sodium 134 L (137-145) mmol/L Chloride 94 L (98-107) mmol/L BUN 36 H (7-17) mg/dL Creatinine 1.17 H (0.52-1.04) mg/dL Glucose 300 H (74-99) mg/dL POC Glucose (mg/dL) (75-99) mg/dL Plasma Lactic Acid Alok 4.1 H* (0.7-2.0) mmol/L Total Bilirubin 2.2 H (0.2-1.3) mg/dL AST 94 H (14-36) U/L ALT 89 H (9-52) U/L Alkaline Phosphatase 144 H (38-126) U/L Total Protein (6.3-8.2) g/dL Albumin (3.5-5.0) g/dL 09/13/18 09/13/18 09/14/18 Range/Units 19:03 23:52 06:00 WBC (3.8-10.6) k/uL RBC (3.80-5.40) m/uL Hgb (11.4-16.0) gm/dL MCHC (31.0-37.0) g/dL Neutrophils # (1.3-7.7) k/uL Lymphocytes # (1.0-4.8) k/uL PT 13.9 H (9.0-12.0) sec INR 1.4 H (<1.2) Sodium (137-145) mmol/L Chloride (98-107) mmol/L BUN (7-17) mg/dL Creatinine (0.52-1.04) mg/dL Glucose (74-99) mg/dL POC Glucose (mg/dL) 223 H 218 H (75-99) mg/dL Plasma Lactic Acid Alok (0.7-2.0) mmol/L Total Bilirubin (0.2-1.3) mg/dL AST (14-36) U/L ALT (9-52) U/L Alkaline Phosphatase (38-126) U/L Total Protein (6.3-8.2) g/dL Albumin (3.5-5.0) g/dL 09/14/18 09/14/18 09/14/18 Range/Units 06:29 06:29 11:23 WBC 17.4 H (3.8-10.6) k/uL RBC 3.57 L (3.80-5.40) m/uL Hgb 10.8 L (11.4-16.0) gm/dL MCHC (31.0-37.0) g/dL Neutrophils # 15.8 H (1.3-7.7) k/uL Lymphocytes # 0.7 L (1.0-4.8) k/uL PT (9.0-12.0) sec INR (<1.2) Sodium (137-145) mmol/L Chloride (98-107) mmol/L BUN 38 H (7-17) mg/dL Creatinine (0.52-1.04) mg/dL Glucose 215 H (74-99) mg/dL POC Glucose (mg/dL) 252 H (75-99) mg/dL Plasma Lactic Acid Alok (0.7-2.0) mmol/L Total Bilirubin (0.2-1.3) mg/dL AST 53 H (14-36) U/L ALT 77 H (9-52) U/L Alkaline Phosphatase (38-126) U/L Total Protein 6.2 L (6.3-8.2) g/dL Albumin 3.3 L (3.5-5.0) g/dL Assessment and Plan Plan: -Sepsis: Secondary to pneumonia patient admitted to be treated for healthcare associated pneumonia because of her hospitalization less than 3 months ago patient will be started on cefepime certain cultures and the blood cultures are pending. Patient will need IV hydration patient means tachycardic Lasix will be held. Patient does have chronic diastolic dysfunction need close monitoring for pulmonary edema. -Congestive heart failure chronic diastolic dysfunction presently not in acute exacerbation patient will be cautiously hydrated with close clinical monitoring -Sinus tachycardia history of A. fib probably proximal A. fib continue with a nticoagulation patient sinus tachycardia secondary to sepsis patient will be hydrated as mentioned above discontinue Cardizem drip continue with metoprolol -COPD without any significant exacerbation presently can you to inhalational treatments -Type 2 diabetes mellitus -Hyperlipidemia -Hypertension -Sleep apnea. For above-mentioned chronic mental problems patient will be resumed and continued on appropriate home medications patient will not need any additional pharmacology DVT prophylaxis as patient is already on Eliquis
[2018-09-14] MEDS ORDERED: CEFEPIME 1 GM in SODIUM CHLORIDE 0.9% 100 ML IVPB SCH (16:00)
[2018-09-14 16:37] LABS: Glucose,Whole Blood 173 mg/dL (75-99)
[2018-09-14] MEDS: CEFEPIME 1 GM in SODIUM CHLORIDE 0.9% 50 ML IVPB SCH (16:49)
[2018-09-14 20:41] LABS: Glucose,Whole Blood 261 mg/dL (75-99)
[2018-09-14 20:51] LABS: Appearance,Urine Clear (Clear); Bilirubin,Urine Negative (Negative); Blood,Urine Negative (Negative); Color,Urine Yellow; Glucose,Urine (UA) Negative (Negative); Hyaline Casts,Urine 4 /lpf (0-2); Ketones,Urine Negative (Negative); Leukocyte Esterase,Urine Small (Negative); Mucus,Urine Rare /hpf; Nitrite,Urine Negative (Negative); PH, Urine 5.5 (5.0-8.0); Protein,Urine Negative (Negative); RBC,Urine 1 /hpf (0-5); Specific Gravity,Urine 1.017 (1.001-1.035); Squamous Epithelial Cell,Urine 4 /hpf (0-4); Urobilinogen,Urine <2.0 mg/dL (<2.0); WBC,Urine 5 /hpf (0-5)
[2018-09-14] MEDS ORDERED: AZITHROMYCIN 500 MG in SODIUM CHLORIDE 0.9% 250 ML IVPB SCH (21:00)
[2018-09-14] MEDS: HYDROcodone/APAP 7.5-325MG 1 EACH TAB PO PRN (21:27)
[2018-09-14] MEDS: INSULIN DETEMIR (LEVEMIR) 100 UNIT/ML SYR SQ SCH (21:27)
[2018-09-14] MEDS: ATORVASTATIN 20 MG TAB PO SCH (21:27)
[2018-09-14] MEDS ORDERED: ONDANSETRON 4 MG/2 ML VIAL IVP PRN (22:59)
[2018-09-14] MEDS ORDERED: ALPRAZolam 0.25 MG TAB PO PRN (23:01)
[2018-09-14 23:10] LABS: Glucose,Whole Blood 316 mg/dL (75-99)
[2018-09-14] MEDS ORDERED: SUCCINYLCHOLINE CHLORIDE VIAL 200 MG/10 ML VIAL IV ONE (23:30)
[2018-09-14] MEDS ORDERED: MIDAZOLAM 1 MG/ML 5 ML VIAL ONE (23:30)
--- NOTE | 2018-09-14 23:44 | ED ---
Medical Decision Making - Medical Decision Making I was called to the floor for a CODE BLUE for this patient. Arrived to find ACLS for call in progress. Patient receiving CPR and had just received a dose of epinephrine. Patient did have ROSC, Shelia after my arrival there. The patient resumed spontaneous breathing. The patient however was not responsive and not protecting airway therefore was intubated by the DIRECTOR OF SUPPLY CHAIN with assistance from myself. The patient does have blood pressure and heart rate is tachycardic. Patient will be transferred to the ICU. - Lab Data Result diagrams: 09/18/18 04:26 09/18/18 04:26 Lab Results 09/13/18 09/13/18 09/13/18 Range/Units 00:01 19:03 19:03 WBC 20.6 H (3.8-10.6) k/uL RBC 4.03 (3.80-5.40) m/uL Hgb 11.8 (11.4-16.0) gm/dL Hct 39.1 (34.0-46.0) % MCV 97.0 (80.0-100.0) fL MCH 29.3 (25.0-35.0) pg MCHC 30.2 L (31.0-37.0) g/dL RDW 14.7 (11.5-15.5) % Plt Count 264 (150-450) k/uL Neutrophils % 92 % Lymphocytes % 3 % Monocytes % 4 % Eosinophils % 1 % Basophils % 0 % Neutrophils # 18.9 H (1.3-7.7) k/uL Lymphocytes # 0.5 L (1.0-4.8) k/uL Monocytes # 0.8 (0-1.0) k/uL Eosinophils # 0.1 (0-0.7) k/uL Basophils # 0.0 (0-0.2) k/uL Hypochromasia Moderate PT (9.0-12.0) sec INR (<1.2) APTT (22.0-30.0) sec Sodium 134 L (137-145) mmol/L Potassium 4.6 (3.5-5.1) mmol/L Chloride 94 L (98-107) mmol/L Carbon Dioxide 25 (22-30) mmol/L Anion Gap 15 mmol/L BUN 36 H (7-17) mg/dL Creatinine 1.17 H (0.52-1.04) mg/dL Est GFR (CKD-EPI)AfAm 54 (>60 ml/min/1.73 sqM) Est GFR (CKD-EPI)NonAf 47 (>60 ml/min/1.73 sqM) Glucose 300 H (74-99) mg/dL Lactic Ac Sepsis Rflx Plasma Lactic Acid Alok 1.4 (0.7-2.0) mmol/L Calcium 9.6 (8.4-10.2) mg/dL Total Bilirubin 2.2 H (0.2-1.3) mg/dL AST 94 H (14-36) U/L ALT 89 H (9-52) U/L Alkaline Phosphatase 144 H (38-126) U/L Creatine Kinase 76 (30-135) U/L Troponin I (0.000-0.034) ng/mL NT-Pro-B Natriuret Pep pg/mL Total Protein 7.0 (6.3-8.2) g/dL Albumin 3.8 (3.5-5.0) g/dL 09/13/18 09/13/18 09/13/18 Range/Units 19:03 19:03 19:03 WBC (3.8-10.6) k/uL RBC (3.80-5.40) m/uL Hgb (11.4-16.0) gm/dL Hct (34.0-46.0) % MCV (80.0-100.0) fL MCH (25.0-35.0) pg MCHC (31.0-37.0) g/dL RDW (11.5-15.5) % Plt Count (150-450) k/uL Neutrophils % % Lymphocytes % % Monocytes % % Eosinophils % % Basophils % % Neutrophils # (1.3-7.7) k/uL Lymphocytes # (1.0-4.8) k/uL Monocytes # (0-1.0) k/uL Eosinophils # (0-0.7) k/uL Basophils # (0-0.2) k/uL Hypochromasia PT 13.9 H (9.0-12.0) sec INR 1.4 H (<1.2) APTT 29.7 (22.0-30.0) sec Sodium (137-145) mmol/L Potassium (3.5-5.1) mmol/L Chloride (98-107) mmol/L Carbon Dioxide (22-30) mmol/L Anion Gap mmol/L BUN (7-17) mg/dL Creatinine (0.52-1.04) mg/dL Est GFR (CKD-EPI)AfAm (>60 ml/min/1.73 sqM) Est GFR (CKD-EPI)NonAf (>60 ml/min/1.73 sqM) Glucose (74-99) mg/dL Lactic Ac Sepsis Rflx Plasma Lactic Acid Alok 4.1 H* (0.7-2.0) mmol/L Calcium (8.4-10.2) mg/dL Total Bilirubin (0.2-1.3) mg/dL AST (14-36) U/L ALT (9-52) U/L Alkaline Phosphatase (38-126) U/L Creatine Kinase (30-135) U/L Troponin I (0.000-0.034) ng/mL NT-Pro-B Natriuret Pep 28737 pg/mL Total Protein (6.3-8.2) g/dL Albumin (3.5-5.0) g/dL 09/13/18 09/13/18 Range/Units 19:03 19:55 WBC (3.8-10.6) k/uL RBC (3.80-5.40) m/uL Hgb (11.4-16.0) gm/dL Hct (34.0-46.0) % MCV (80.0-100.0) fL MCH (25.0-35.0) pg MCHC (31.0-37.0) g/dL RDW (11.5-15.5) % Plt Count (150-450) k/uL Neutrophils % % Lymphocytes % % Monocytes % % Eosinophils % % Basophils % % Neutrophils # (1.3-7.7) k/uL Lymphocytes # (1.0-4.8) k/uL Monocytes # (0-1.0) k/uL Eosinophils # (0-0.7) k/uL Basophils # (0-0.2) k/uL Hypochromasia PT (9.0-12.0) sec INR (<1.2) APTT (22.0-30.0) sec Sodium (137-145) mmol/L Potassium (3.5-5.1) mmol/L Chloride (98-107) mmol/L Carbon Dioxide (22-30) mmol/L Anion Gap mmol/L BUN (7-17) mg/dL Creatinine (0.52-1.04) mg/dL Est GFR (CKD-EPI)AfAm (>60 ml/min/1.73 sqM) Est GFR (CKD-EPI)NonAf (>60 ml/min/1.73 sqM) Glucose (74-99) mg/dL Lactic Ac Sepsis Rflx Y Plasma Lactic Acid Alok (0.7-2.0) mmol/L Calcium (8.4-10.2) mg/dL Total Bilirubin (0.2-1.3) mg/dL AST (14-36) U/L ALT (9-52) U/L Alkaline Phosphatase (38-126) U/L Creatine Kinase (30-135) U/L Troponin I 0.033 (0.000-0.034) ng/mL NT-Pro-B Natriuret Pep pg/mL Total Protein (6.3-8.2) g/dL Albumin (3.5-5.0) g/dL Disposition Clinical Impression: Pneumonia, Sepsis, Renal insufficiency, CHF (congestive heart failure) Disposition: ADMITTED IP TO THIS HOSP Condition: Serious Is patient prescribed a controlled substance at d/c from ED?: No Procedures - Sepsis Sepsis Focused Exam #1 Time Sepsis Criteria Met: 21:50
[2018-09-14 23:46] LABS: Glucose,Whole Blood 336 mg/dL (75-99)
[2018-09-15] MEDS ORDERED: SODIUM BICARB 8.4% 50 ML SYR (1 MEQ/ML) ONE (00:10)
[2018-09-15 00:32] LABS: Allen Test Performed? Yes
[2018-09-15 00:33] LABS: ABG PCO2 43 mmHg (35-45); ABG PO2 170 mmHg (83-108); ABG TCO2 10 mmol/L (19-24)
[2018-09-15] MEDS ORDERED: VANCOMYCIN IV PER PHARMACY 1 EACH MISC MISCELLANE PRN (00:53)
[2018-09-15] MEDS ORDERED: SODIUM CHLORIDE 0.9% 2,000 ML IV ONE (00:53)
--- NOTE | 2018-09-15 00:59 | XR ---
EXAM: XR Chest, 1 View CLINICAL HISTORY: Reason: intubated, code blue TECHNIQUE: Frontal view of the chest. COMPARISON: Chest x-ray 09/13/2018 FINDINGS: Lungs: Pulmonary vascular congestion. Bilateral pulmonary opacities most suggestive of congestive failure and pulmonary edema. Pleural space: Probable small left pleural effusion. No evidence of pneumothorax. Heart: Prominent enlargement of cardiac silhouette. Mediastinum: Unremarkable. Bones/joints: Degenerative changes about both shoulders. Tubes, lines and devices: Endotracheal tube has its tip approximately 3.5 cm above the myesha. Nasogastric tube extends into the stomach, distal tip not included on chest radiograph. IMPRESSION: Interval placement of endotracheal tube with its tip well above the myesha. Nasogastric tube extends into the stomach. Prominent cardiomegaly with findings suggestive of congestive failure and pulmonary edema. Small left pleural effusion. <MYCVCSECTION> Critical Value [employer] 09/15/18 01:18 Verify Receipt Verified receipt with JEREMIAS Leon in 3S (patient is moving to ICU) on 09/15 01:18 (-04:00)
[2018-09-15] MEDS: NOREPINEPHRINE 4 MG in SODIUM CHLORIDE 0.9% 250 ML IV SCH (01:00)
[2018-09-15 01:17] LABS: HGB 11.7 gm/dL (11.4-16.0); Hypochromasia Marked; MCHC 27.2 g/dL (31.0-37.0); Macrocytosis Moderate; Platelet Count 224 k/uL (150-450); RBC 4.02 m/uL (3.80-5.40); RDW 14.7 % (11.5-15.5); WBC 20.6 k/uL (3.8-10.6)
[2018-09-15 01:21] LABS: MCV 106.9 fL (80.0-100.0)
[2018-09-15 01:35] LABS: Albumin 2.8 g/dL (3.5-5.0); Calcium 8.3 mg/dL (8.4-10.2); Magnesium 2.1 mg/dL (1.6-2.3); Phosphorus 7.4 mg/dL (2.5-4.5); Potassium 4.4 mmol/L (3.5-5.1); Total Bilirubin 0.9 mg/dL (0.2-1.3); Total Protein 5.6 g/dL (6.3-8.2)
[2018-09-15 01:59] LABS: ABG HCO3 15 mmol/L (21-25); ABG Oxygen Saturation 99.9 % (94-97); ABG PCO2 32 mmHg (35-45); ABG PH 7.28 (7.35-7.45); ABG PO2 323 mmHg (83-108); ABG TCO2 16 mmol/L (19-24); Allen Test Performed? Yes
[2018-09-15] MEDS ORDERED: VANCOMYCIN 1,250 MG in SODIUM CHLORIDE 0.9% 250 ML IVPB SCH ×2 (02:00→21:00)
[2018-09-15] MEDS: IPRATROPIUM-ALBUTEROL 3 ML NEB INHALATION SCH ×6 (03:09→23:22)
[2018-09-15] MEDS: PROPOFOL 1,000 MG in EMPTY BAG 1 BAG IV SCH ×3 (03:15→21:41)
[2018-09-15] MEDS: DILTIAZEM 125 MG in SODIUM CHLORIDE 0.9% 100 ML IV SCH ×2 (03:20→16:43)
[2018-09-15] MEDS: LEVOFLOXACIN 500MG-D5W PMX 500 MG in DEXTROSE/WATER 1 100ML.BAG IVPB SCH (03:32)
[2018-09-15 03:59] LABS: Appearance,Urine Clear (Clear); Bacteria,Urine Rare /hpf; Bilirubin,Urine Negative (Negative); Blood,Urine Negative (Negative); Color,Urine Yellow; Glucose,Urine (UA) Negative (Negative); Ketones,Urine Negative (Negative); Leukocyte Esterase,Urine Negative (Negative); Mucus,Urine Rare /hpf; Nitrite,Urine Negative (Negative); PH, Urine 5.5 (5.0-8.0); Protein,Urine 1+ (Negative); Specific Gravity,Urine 1.017 (1.001-1.035); Squamous Epithelial Cell,Urine <1 /hpf (0-4)
[2018-09-15] MEDS: HYDROcodone/APAP 7.5-325MG 1 EACH TAB PO PRN (04:43)
[2018-09-15 05:25] LABS: ABG Base Excess -4.6 mmol/L; ABG HCO3 19 mmol/L (21-25); ABG Oxygen Saturation 98.6 % (94-97); ABG PCO2 26 mmHg (35-45); ABG PH 7.48 (7.35-7.45); ABG PO2 151 mmHg (83-108); ABG TCO2 20 mmol/L (19-24); Allen Test Performed? Yes
[2018-09-15 05:38] LABS: Basophils % (A) 0 %; Eosinophils # (A) 0.1 k/uL (0-0.7); Eosinophils % (A) 0 %; HCT 32.7 % (34.0-46.0); HGB 10.3 gm/dL (11.4-16.0); Hypochromasia Slight; Lymphocytes # (A) 0.6 k/uL (1.0-4.8); Lymphocytes % (A) 5 %; MCH 30.6 pg (25.0-35.0); MCHC 31.5 g/dL (31.0-37.0); Mean Platelet Volume 7.8; Monocytes # (A) 0.8 k/uL (0-1.0); Monocytes % (A) 6 %; Neutrophils # (A) 12.3 k/uL (1.3-7.7); Neutrophils % (A) 89 %; Platelet Count 186 k/uL (150-450); RBC 3.36 m/uL (3.80-5.40); WBC 13.9 k/uL (3.8-10.6)
[2018-09-15 05:39] LABS: MCV 97.2 fL (80.0-100.0)
[2018-09-15 05:42] LABS: Calcium 7.4 mg/dL (8.4-10.2); Magnesium 1.5 mg/dL (1.6-2.3); Phosphorus 2.9 mg/dL (2.5-4.5); Potassium 3.8 mmol/L (3.5-5.1)
[2018-09-15] MEDS: CEFEPIME 1 GM in SODIUM CHLORIDE 0.9% 50 ML IVPB SCH ×3 (06:01→16:53)
[2018-09-15 06:27] LABS: Glucose,Whole Blood 242 mg/dL (75-99)
--- NOTE | 2018-09-15 06:44 | XR ---
EXAMINATION TYPE: XR chest 1V portable DATE OF EXAM: 09/15/2018 HISTORY: Tube placement. REFERENCE: Previous study dated 09/15/2018. FINDINGS: The patient is ET tube and NG tube remain in place, unchanged in appearance. The heart is enlarged. There is left basilar airspace disease. There is a small left effusion. Vascul ar congestion and pulmonary edema have improved slightly. IMPRESSION: IMPROVING CHANGES OF PULMONARY EDEMA AND CONGESTIVE HEART FAILURE.
[2018-09-15] MEDS ORDERED: POTASSIUM BICARBONATE/CIT AC 20 MEQ TABLET.EFF NG-TUBE SCH (07:00)
[2018-09-15 09:08] LABS: Glucose,Whole Blood 230 mg/dL (75-99)
[2018-09-15] MEDS: MAGNESIUM SULFATE-D5W PMX 1 GM in DEXTROSE/WATER 1 100ML.BAG IVPB SCH ×2 (09:21→10:11)
[2018-09-15] MEDS: CHLORHEXIDINE GLUCONATE 15 ML CUP MUCOUS MEM SCH ×2 (09:21→21:28)
[2018-09-15] MEDS: VITAMIN E (DL,TOCOPHERYL ACET) 400 UNIT CAP PO SCH (09:22)
[2018-09-15] MEDS: ASCORBIC ACID 500 MG TAB PO SCH (09:22)
[2018-09-15] MEDS: GABAPENTIN 400 MG CAP PO SCH ×3 (09:22→21:28)
[2018-09-15] MEDS: CITALOPRAM HYDROBROMIDE 20 MG TAB PO SCH (09:22)
[2018-09-15] MEDS: CHOLECALCIFEROL 1,000 UNIT TAB PO SCH (09:22)
[2018-09-15] MEDS: APIXABAN 5 MG TAB PO SCH ×2 (09:22→21:29)
[2018-09-15] MEDS: PANTOPRAZOLE 40 MG/10 ML VIAL IV SCH (09:23)
[2018-09-15] MEDS: METOPROLOL TARTRATE 25 MG TAB PO SCH ×2 (09:23→21:33)
[2018-09-15] MEDS: INSULIN ASPART (NovoLOG) 100 UNIT/ML VIAL SQ SCH ×3 (09:24→19:41)
[2018-09-15 11:55] LABS: Glucose,Whole Blood 213 mg/dL (75-99)
[2018-09-15] MEDS ORDERED: CISATRACURIUM 2 MG/ML 5 ML VIAL IV ONE (13:00)
--- NOTE | 2018-09-15 13:58 | XR ---
EXAMINATION TYPE: XR chest 1V portable DATE OF EXAM: 09/15/2018 HISTORY: central line verification. REFERENCE: Previous study dated 09/15/2018. FINDINGS: The patient is ET tube and NG tube remain in place, unchanged in appearance. A left subclav stephen catheter is been inserted. Its tip is at the cavoatrial junction. The heart is enlarged. There is bibasilar airspace disease, worse on the left than the right. There i s a left-sided effusion. IMPRESSION: I DO NOT SEE A POST CATHETER INSERTION COMPLICATION.
--- NOTE | 2018-09-15 14:38 | P.CNPUL ---
History of Present Illness Consult date: 09/15/18 Chief complaint: Acute cardiopulmonary arrest History of present illness: This is a 71-year-old female patient who comes into the hospital because of generalized weakness, difficulty with mobility, frequent falls and suspicion for an underlying pneumonia. The patient was initially brought into the emergency department. She has fallen multiple times at home. She has fallen in the bathroom and she did have a head trauma. No reported history of loss of consciousness. The patient was laying down the floor for a couple of hours before she was found by friends. At that point the patient was transferred to our hospital. According to the family the patient gained weight in the order of 10 pounds over the past couple of weeks. The patient reported pain over her tailbone he has she denied having any chest pain. She denies having any other complaints. In the emergency, the patient was diagnosed having a left lower lobe pneumonia. The patient underwent CT angiogram of the chest that showed a limited left lower lobe pulmonary infiltration and for that reason the patient was hospitalized and she was started on antibiotics. Overnight, the patient went into an acute cardiac arrest. The patient was found to be in PEA. She was started on CPR. Code team was activated and the patient was immediately intubated with a #7 orotracheal tube. The initial code was for a total of 3 minutes and following that the patient got to the ICU. She had another episode of PEA here in the ICU that lasts for 4 minutes. During which the patient received CPR and the patient received epinephrine. She had spontaneous return and circulation. I was informed of the admission overnight. I Patient intubated. Initial blood gas showed metabolic acidosis with a pH of 6.9. I made the necessary vent changes. I give the patient fluids and she immediately received a total of 3-1/2 L. The patient's subsequent blood gases showed a pH of 7.48 with a pCO2 of 26 and pO2 151 and this was done this morning while her being on an assist-control mode of ventilator with a rate of 24 and tidal volume of 500 with an FiO2 of 60% and a PEEP of 5. She remained having atrial fibrillation however the rate was somewhere between 101 20. She briefly req uired some pressors in the form of levo fed and she's been off pressors since 3 AM this morning. Urine output was adequate in the order of 20-30 mL an hour. The patient was given Broderson spectrum of antibiotics and the patient was covered with a combination of vancomycin, Levaquin and cefepime and Zithromax were discontinued. She is currently afebrile. She is sedated with Diprivan. Cardiac rhythm is A. fib. CAT scan of the brain that was done in emergency department showed no acute abnormalities. Echocardiogram was ordered and the results are still pending for now. The cardiac enzymes showed a troponin of 0.06. The EKG was nonspecific and was consistent atrial fibrillation. The p atient had a non-anion gap metabolic acidosis with serum bicarb level of 18 improving compared to yesterday. Creatinine was as high as 1.5 and has dropped down to 1.25. UA erythematous admission was also negative. No seizure activity. Upon getting a brief sedation holiday the patient was able to arouse and move extremities without any limitation In terms of her past medical history, the patient is known to have history of diabetes mellitus, history of chronic atrial fibrillation for which she has been maintained on long-term anticoagulation with Eliquis. The patient also has history of coronary artery disease. The patient had intermediate to severe disease involving the left circumflex and the last catheterization was done by Dr. Hartman back in February 2018 and the patient underwent a fractional flow reserve of the left circumflex and the findings were negative for ischemia. The patient also has history of hypertension, sleep apnea, hyperlipidemia and previous echocardiogram has revealed an ejection of 55-60% and this was based on a echocardiogram from June 2018. The patient had moderate severe RV enlargement, RA was mildly enlarged, mild aortic stenosis, moderate mitral regurgitation and severe tricuspid regurgitation and severe pulmonary hypertension was identified. Review of Systems ROS unobtainable: due to endotracheal tube Past Medical History Past Medical History: Atrial Fibrillation, Heart Failure, COPD, Diabetes Mellitus, Hyperlipidemia, Hypertension, Pneumonia, Sleep Apnea/CPAP/BIPAP Additional Past Medical History / Comment(s): Severe pulmonary hypertension, preserved LV function with an ejection fraction of 55%, diabetes mellitus, chronic atrial fibrillation, hypertension, hyperlipidemia, obstructive sleep apnea, history of falls, chronic arthritis, chronic back pain, History of Any Multi-Drug Resistant Organisms: None Reported Past Surgical History: Section Additional Past Surgical History / Comment(s): bilateral rotator cuff, right carotid endartectomy, lap band 2007, bilateral cataracts removed Past Anesthesia/Blood Transfusion Reactions: No Reported Reaction Past Psychological History: Anxiety, Depression Smoking Status: Former smoker Past Alcohol Use History: None Reported Past Drug Use History: None Reported - Past Family History Mother Family Medical History: No Reported History, Hypertension Father Family Medical History: Unable to Obtain Medications and Allergies Home Medications Medication Instructions Recorded Confirmed Type ALPRAZolam [Xanax] 0.25 mg PO DAILY PRN 01/15/16 09/13/18 History Ascorbic Acid [Vitamin C] 1,000 mg PO DAILY 01/15/16 09/13/18 History Cholecalciferol [Vitamin D3] 1,000 unit PO DAILY 01/15/16 09/13/18 History Citalopram Hydrobromide 40 mg PO DAILY 01/15/16 09/13/18 History [Citalopram HBr] Furosemide [Lasix] 40 mg PO DAILY 01/15/16 09/13/18 History Gabapentin 800 mg PO TID 01/15/16 09/13/18 History Vitamin B Complex 1 cap PO DAILY 01/15/16 09/13/18 History Vitamin E (Dl,Tocopheryl Acet) 400 unit PO DAILY 01/15/16 09/13/18 History [Vitamin E] Atorvastatin [Lipitor] 20 mg PO HS #30 tab 01/17/16 09/13/18 Rx Dulaglutide [Trulicity] 0.75 mg SQ TU 03/06/18 09/13/18 History Metoprolol Tartrate [Lopressor] 100 mg PO BID 03/06/18 09/13/18 History Apixaban [Eliquis] 5 mg PO BID 06/30/18 09/13/18 History Pantoprazole [Protonix] 40 mg PO AC-BRKFST #30 tablet. 07/03/18 09/13/18 Rx HYDROcodone/APAP 7.5-325MG [[place]ranford 1 tab PO TID PRN 09/13/18 09/13/18 History 7.5-325] Insulin Glargine [Lantus] 30 unit SQ HS 09/13/18 09/13/18 History metFORMIN HCL [metFORMIN HCL ER 1,000 mg PO BID 09/13/18 09/13/18 History Osmotic] Allergies Allergy/AdvReac Type Severity Reaction Status Date / Time digoxin Allergy Rash/Hives Verified 09/13/18 19:14 meperidine HCl [From Demerol] AdvReac SEIZURES Verified 09/13/18 19:14 morphine AdvReac Vomiting Verified 09/13/18 19:14 Physical Exam Vitals: Vital Signs Temp Pulse Pulse Pulse Resp BP Pulse Ox 09/15/18 11:45 120 H 09/15/18 11:32 115 H 09/15/18 08:02 108 H 09/15/18 07:52 120 H 09/15/18 06:00 110 H 24 100 09/15/18 05:45 115 H 24 100 09/15/18 05:30 116 H 24 100 09/15/18 05:15 114 H 24 100 09/15/18 05:00 115 H 24 100 09/15/18 04:45 118 H 24 100 09/15/18 04:30 118 H 24 99 09/15/18 04:15 120 H 24 99 09/15/18 04:00 118 H 24 99 09/15/18 03:45 98.6 F 116 H 24 98 09/15/18 03:30 115 H 24 99 09/15/18 03:25 117 H 09/15/18 03:15 115 H 24 100 09/15/18 03:11 112 H 09/15/18 03:00 112 H 24 100 09/15/18 02:45 112 H 24 100 09/15/18 02:30 117 H 24 99 09/15/18 02:15 121 H 24 98 09/15/18 02:00 109 H 24 108/73 98 09/15/18 01:45 70 24 100 09/15/18 01:30 112 H 24 77/39 99 09/15/18 01:15 97.9 F 112 H 24 76/48 100 09/15/18 01:00 106 H 20 75/50 100 09/15/18 00:45 124 H 20 79/56 100 09/15/18 00:30 128 H 20 84/47 98 09/15/18 00:15 125 H 20 107/74 94 L 09/14/18 20:00 112 H 09/14/18 19:40 112 H 14 09/14/18 19:33 96.5 F L 112 H 14 96/54 96 09/14/18 17:02 125 H 14 09/14/18 16:00 97.5 F L 125 H 18 115/58 100 Intake and Output 09/14/18 09/15/18 09/15/18 22:59 06:59 14:59 Intake Total 2109 2119.625 127.61 Output Total 380 205 Balance 2109 1739.625 -77.39 Intake: IV 2059 80 NS 2059 80 Intake, IV Titration 1050 59.625 47.61 Amount Cefepime 1 gm In Sodium 50 Chloride 0.9% 50 ml @ 100 mls/hr IVPB Q8HR STACI Rx# :[id number] Norepinephrine 4 mg In 43.375 Sodium Chloride 0.9% 250 ml @ 0.02 MCG/KG/MIN 5. 258 mls/hr IV .Q24H STACI Rx#:[id number] Propofol 1,000 mg In 16.250 47.61 Empty Bag 1 bag @ Titrate IV .Q0M STACI Rx#: [id number] Sodium Chloride 0.9% 500 1000 ml 500 ml @ 999 mls/hr IV .Q31M ONE Rx#:[id number] Oral 1060 Output: Urine 380 205 Other: Voiding Method Toilet Indwelling Catheter # Voids 1 Gen. appearance, comfortable sedated on a mechanical ventilator on Diprivan. Very much success with the mechanical ventilator for now. Head exam was generally normal. There was no scleral icterus or corneal arcus. Mucous membranes were moist. Neck was supple and without jugular venous distension, thyromegaly, or carotid bruits. Carotids were easily palpable bilaterally. There was no adenopathy. The patient has positive JVDs. The patient has a #7 orotracheal tube. The patient also has a orogastric tube in place. No neck stiffness. Lungs sounds are diminished and there is some crackles at lung bases bilaterally along some scattered rhonchi. Heart sounds are irregular S1-S2 and there is accentuation of the second heart sound. Faint murmur can be also appreciated. Abdominal exam revealed normal bowel sounds. The abdomen was soft, non-tender, and without masses, organomegaly, or appreciable enlargement of the abdominal aorta. Extremities show some varicose veins bilaterally. No cyanosis or clubbing at this point in time. Examination of the skin revealed no evidence of significant rashes, suspicious appearing nevi or other concerning lesions. Neurologic the patient is sedated however the patient has been grimacing to painful stimulation in all 4 extremities and she has equal and symmetrical pupils which are reactive to light. No nystagmus. No clonus. No neck stiffness. Results - Laboratory Findings CBC and BMP: 09/15/18 05:00 09/15/18 05:00 ABG ABG pH 7.48 (7.35-7.45) H 09/15/18 05:22 ABG pCO2 26 mmHg (35-45) L 09/15/18 05:22 ABG pO2 151 mmHg (83-108) H 09/15/18 05:22 ABG O2 Saturation 98.6 % (94-97) H 09/15/18 05:22 PT/INR, D-dimer PT 13.9 sec (9.0-12.0) H 09/13/18 19:03 INR 1.4 (<1.2) H 09/13/18 19:03 D-Dimer 13.10 mg/L FEU (<0.60) H 09/15/18 00:59 Abnormal lab findings: Abnormal Labs 09/13/18 09/13/18 09/13/18 19:03 19:03 19:03 WBC 20.6 H RBC Hgb Hct MCV MCHC 30.2 L Neutrophils # 18.9 H Lymphocytes # 0.5 L PT INR D-Dimer ABG pH ABG pCO2 ABG pO2 ABG HCO3 ABG Total CO2 ABG O2 Saturation Sodium 134 L Chloride 94 L Carbon Dioxide BUN 36 H Creatinine 1.17 H Glucose 300 H POC Glucose (mg/dL) Plasma Lactic Acid Alok 4.1 H* Calcium Phosphorus Magnesium Total Bilirubin 2.2 H AST 94 H ALT 89 H Alkaline Phosphatase 144 H Troponin I Total Protein Albumin Urine Protein Ur Leukocyte Esterase Urine Bacteria Hyaline Casts Urine Mucus 09/13/18 09/13/18 09/14/18 19:03 23:52 06:00 WBC RBC Hgb Hct MCV MCHC Neutrophils # Lymphocytes # PT 13.9 H INR 1.4 H D-Dimer ABG pH ABG pCO2 ABG pO2 ABG HCO3 ABG Total CO2 ABG O2 Saturation Sodium Chloride Carbon Dioxide BUN Creatinine Glucose POC Glucose (mg/dL) 223 H 218 H Plasma Lactic Acid Alok Calcium Phosphorus Magnesium Total Bilirubin AST ALT Alkaline Phosphatase Troponin I Total Protein Albumin Urine Protein Ur Leukocyte Esterase Urine Bacteria Hyaline Casts Urine Mucus 09/14/18 09/14/18 09/14/18 06:29 06:29 11:23 WBC 17.4 H RBC 3.57 L Hgb 10.8 L Hct MCV MCHC Neutrophils # 15.8 H Lymphocytes # 0.7 L PT INR D-Dimer ABG pH ABG pCO2 ABG pO2 ABG HCO3 ABG Total CO2 ABG O2 Saturation Sodium Chloride Carbon Dioxide BUN 38 H Creatinine Glucose 215 H POC Glucose (mg/dL) 252 H Plasma Lactic Acid Alok Calcium Phosphorus Magnesium Total Bilirubin AST 53 H ALT 77 H Alkaline Phosphatase Troponin I Total Protein 6.2 L Albumin 3.3 L Urine Protein Ur Leukocyte Esterase Urine Bacteria Hyaline Casts Urine Mucus 09/14/18 09/14/18 09/14/18 16:28 18:30 20:40 WBC RBC Hgb Hct MCV MCHC Neutrophils # Lymphocytes # PT INR D-Dimer ABG pH ABG pCO2 ABG pO2 ABG HCO3 ABG Total CO2 ABG O2 Saturation Sodium Chloride Carbon Dioxide BUN Creatinine Glucose POC Glucose (mg/dL) 173 H 261 H Plasma Lactic Acid Alok Calcium Phosphorus Magnesium Total Bilirubin AST ALT Alkaline Phosphatase Troponin I Total Protein Albumin Urine Protein Ur Leukocyte Esterase Small H Urine Bacteria Hyaline Casts 4 H Urine Mucus Rare H 09/14/18 09/14/18 09/15/18 23:08 23:45 00:23 WBC RBC Hgb Hct MCV MCHC Neutrophils # Lymphocytes # PT INR D-Dimer ABG pH <7.00 L* ABG pCO2 ABG pO2 170 H ABG HCO3 9 L* ABG Total CO2 10 L ABG O2 Saturation 98.0 H Sodium Chloride Carbon Dioxide BUN Creatinine Glucose POC Glucose (mg/dL) 316 H 336 H Plasma Lactic Acid Alok Calcium Phosphorus Magnesium Total Bilirubin AST ALT Alkaline Phosphatase Troponin I Total Protein Albumin Urine Protein Ur Leukocyte Esterase Urine Bacteria Hyaline Casts Urine Mucus 09/15/18 09/15/18 09/15/18 00:59 00:59 00:59 WBC 20.6 H RBC Hgb Hct MCV 106.9 H D MCHC 27.2 L Neutrophils # Lymphocytes # PT INR D-Dimer 13.10 H ABG pH ABG pCO2 ABG pO2 ABG HCO3 ABG Total CO2 ABG O2 Saturation Sodium 136 L Chloride Carbon Dioxide 15 L BUN 39 H Creatinine 1.59 H Glucose 270 H POC Glucose (mg/dL) Plasma Lactic Acid Alok Calcium 8.3 L Phosphorus 7.4 H Magnesium Total Bilirubin AST 428 H ALT 193 H Alkaline Phosphatase 267 H Troponin I Total Protein 5.6 L Albumin 2.8 L Urine Protein Ur Leukocyte Esterase Urine Bacteria Hyaline Casts Urine Mucus 09/15/18 09/15/18 09/15/18 01:27 03:28 05:00 WBC 13.9 H RBC 3.36 L Hgb 10.3 L Hct 32.7 L MCV MCHC Neutrophils # 12.3 H Lymphocytes # 0.6 L PT INR D-Dimer ABG pH 7.28 L ABG pCO2 32 L ABG pO2 323 H ABG HCO3 15 L ABG Total CO2 16 L ABG O2 Saturation 99.9 H Sodium Chloride Carbon Dioxide BUN Creatinine Glucose POC Glucose (mg/dL) Plasma Lactic Acid Alok Calcium Phosphorus Magnesium Total Bilirubin AST ALT Alkaline Phosphatase Troponin I Total Protein Albumin Urine Protein 1+ H Ur Leukocyte Esterase Urine Bacteria Rare H Hyaline Casts Urine Mucus Rare H 09/15/18 09/15/18 09/15/18 05:00 05:22 06:26 WBC RBC Hgb Hct MCV MCHC Neutrophils # Lymphocytes # PT INR D-Dimer ABG pH 7.48 H ABG pCO2 26 L ABG pO2 151 H ABG HCO3 19 L ABG Total CO2 ABG O2 Saturation 98.6 H Sodium 134 L Chloride 108 H Carbon Dioxide 18 L BUN 44 H Creatinine 1.25 H Glucose 233 H POC Glucose (mg/dL) 242 H Plasma Lactic Acid Alok Calcium 7.4 L Phosphorus Magnesium 1.5 L Total Bilirubin AST ALT Alkaline Phosphatase Troponin I Total Protein Albumin Urine Protein Ur Leukocyte Esterase Urine Bacteria Hyaline Casts Urine Mucus 09/15/18 09/15/18 09/15/18 07:20 09:06 11:53 WBC RBC Hgb Hct MCV MCHC Neutrophils # Lymphocytes # PT INR D-Dimer ABG pH ABG pCO2 ABG pO2 ABG HCO3 ABG Total CO2 ABG O2 Saturation Sodium Chloride Carbon Dioxide BUN Creatinine Glucose POC Glucose (mg/dL) 230 H 213 H Plasma Lactic Acid Alok Calcium Phosphorus Magnesium Total Bilirubin AST ALT Alkaline Phosphatase Troponin I 0.060 H* Total Protein Albumin Urine Protein Ur Leukocyte Esterase Urine Bacteria Hyaline Casts Urine Mucus - Diagnostic Findings Chest x-ray: image reviewed Assessment and Plan Plan: Assessment 1 Acute cardio pulmonary arrest, currently under investigation. The patient is hemodynamically stable. Exact cause for this underlying cardiac/pulmonary arrest is not clear. Suspect pulmonary edema causing respiratory failure and subsequent cardiac arrest. 2 severe right-sided heart failure with pulmonary hypertension 3 chronic atrial fibrillation 4 acute hypoxic respiratory failure currently intubated on a mechanical ventilator 5 acute kidney injury improving and creatinine is down to 1.25 6 diabetes mellitus 7 hypertension 8 hyperlipidemia 9 carotid artery disease 10. Performance and functional status with frequent falls which was one of the main reason for this patient presented to the hospital. 11 limited left lower lobe pneumonia currently on a combination of antibiotics. Plan 2 new vent support. The necessary vent changes were done. Incidental triple- lumen catheter. Monitor CVP. Repeat an echocardiogram. Consider diuretics. The patient's echocardiogram is completed and would like to get this patient negative fluid balance. The chest exit is showing some degree of pulmonary vessel congestion and edema. Keep the patient sedated for now. We'll use pressors if needed. Continue Eliquis. Broad-spectrum antibiotic coverage. We'll continue to follow make further recommendations based on her progress. Condition is critical for now. This evaluation was done and more than 30 minutes. Case was discussed with the family. Time with Patient: Greater than 30
[2018-09-15] MEDS ORDERED: MAGNESIUM SULFATE-D5W PMX 1 GM in DEXTROSE/WATER 1 100ML.BAG IVPB ONE (16:04)
--- NOTE | 2018-09-15 16:10 | P.PN ---
Subjective History of present illness, from records 71-year-old female came in emergency department with frequent falls, is found to have leukocytosis sources with crackles in the right lower lung bases because of which patient underwent imaging studies which showed right lower lobe consolidation 8 sprays disease and interstitial fibrosis. Patient was diagnosed with chronic diastolic dysfunction the past does have chronic A. fib presently sinus rhythm sinus tachycardia. Patient is on Eliquis. Patient remains tachycardic history is also complaining of shortness of breath no wheezing on exam patient does not have any elevated JVD. Patient will be hydrated cautiously and closely patient was started on Rocephin and the azithromycin I'm switching Rocephin to cefepime because of her recent hospitalization couple months ago need to be treated for healthcare associated pneumonia blood cultures and sputum cultures are were obtained However patient overnight did coded twice and she was resuscitated over few minutes, 4-5 minutes, patient was resuscitated back. However she needed to be intubated and go to the intensive care unit. Patient could not provide information. Patient antibiotic, but was upgraded to cefepime plus levofloxacin. He was still tachycardic with heart rate 108-120. Blood pressure 105/65. Her FiO2 is 60% while intubated. Her WBC is coming down to 13.9 K. Rest of CBC was unremarkable and stable. Her creatinine is coming down 1.5 to 1.2. Troponin is slightly elevated at 0.06. Ejection fraction 55-60%, with moderate mitral regurgitation and severe tricuspid regurgitation and severe pulmonary hypertension. And to continue on Eliquis for now. Chest x-ray showing bibasilar airspace disease, worse on the left side, with left-sided pleural effusion. Liver enzymes are elevated. Bilirubin within normal limits. Magnesium 1.5. Review of system: N/a Medication: Tylenol, albuterol, Eliquis, vitamin C, Lipitor, vitamin D, chlorhexidine, Celexa, Cardizem, Neurontin, Independence, insulin, Lopressor, Narcan, ~CT, liver fluids drip, Zofran, Protonix, vitamin E, propofol. Objective - Vital Signs Vital signs: Vital Signs Temp 98.6 F 09/15/18 03:45 Pulse 120 H 09/15/18 11:45 Resp 24 09/15/18 06:00 BP 108/73 09/15/18 02:00 Pulse Ox 100 09/15/18 06:00 Intake & Output 09/14/18 09/15/18 09/15/18 18:59 06:59 18:59 Intake Total 2610 2339.625 207.61 Output Total 380 385 Balance 2610 1959.625 -177.39 Intake: IV 2060 160 NS 2060 160 Intake, IV Titration 1050 59.625 47.61 Amount Cefepime 1 gm In Sodium 50 Chloride 0.9% 50 ml @ 100 mls/hr IVPB Q8HR [facility] Rx# :[id number] Norepinephrine 4 mg In 43.375 Sodium Chloride 0.9% 250 ml @ 0.02 MCG/KG/MIN 5. 258 mls/hr IV .Q24H [facility] Rx#:[id number] Propofol 1,000 mg In 16.250 47.61 Empty Bag 1 bag @ Titrate IV .Q0M [facility] Rx#: [id number] Sodium Chloride 0.9% 500 1000 ml 500 ml @ 999 mls/hr IV .Q31M ONE Rx#:[id number] Oral 1560 220 Output: Urine 380 385 Other: Voiding Method Indwelling Catheter # Voids 1 ABP, PAP, CO, CI - Last Documented Arterial Blood Pressure 105/65 - Exam -GENERAL: Patient is intubated and sedated HEENT: Pupils are round and equally reacting to light. EOMI. No scleral icterus. No conjunctival pallor. Normocephalic, atraumatic. No pharyngeal erythema. No thyromegaly. CARDIOVASCULAR: S1 and S2 present. No murmurs, rubs, or gallops. PULMONARY: Chest is clear to auscultation, no wheezing or crackles. ABDOMEN: Soft, nontender, nondistended, normoactive bowel sounds. No palpable organomegaly. MUSCULOSKELETAL: No joint swelling or deformity. -EXTREMITIES: No cyanosis, clubbing, . Bilateral leg edema. NEUROLOGICAL: Gross neurological examination did not reveal any focal deficits. SKIN: No rashes. - Labs CBC & Chem 7: 09/15/18 05:00 09/15/18 05:00 Labs: Abnormal Lab Results - Last 24 Hours (Table) 09/14/18 09/14/18 09/14/18 Range/Units 16:28 18:30 20:40 WBC (3.8-10.6) k/uL RBC (3.80-5.40) m/uL Hgb (11.4-16.0) gm/dL Hct (34.0-46.0) % MCV (80.0-100.0) fL MCHC (31.0-37.0) g/dL Neutrophils # (1.3-7.7) k/uL Lymphocytes # (1.0-4.8) k/uL D-Dimer (<0.60) mg/L FEU ABG pH (7.35-7.45) ABG pCO2 (35-45) mmHg ABG pO2 (83-108) mmHg ABG HCO3 (21-25) mmol/L ABG Total CO2 (19-24) mmol/L ABG O2 Saturation (94-97) % Sodium (137-145) mmol/L Chloride (98-107) mmol/L Carbon Dioxide (22-30) mmol/L BUN (7-17) mg/dL Creatinine (0.52-1.04) mg/dL Glucose (74-99) mg/dL POC Glucose (mg/dL) 173 H 261 H (75-99) mg/dL Calcium (8.4-10.2) mg/dL Phosphorus (2.5-4.5) mg/dL Magnesium (1.6-2.3) mg/dL AST (14-36) U/L ALT (9-52) U/L Alkaline Phosphatase (38-126) U/L Troponin I (0.000-0.034) ng/mL Total Protein (6.3-8.2) g/dL Albumin (3.5-5.0) g/dL Urine Protein (Negative) Ur Leukocyte Esterase Small H (Negative) Urine Bacteria (None) /hpf Hyaline Casts 4 H (0-2) /lpf Urine Mucus Rare H (None) /hpf 09/14/18 09/14/18 09/15/18 Range/Units 23:08 23:45 00:23 WBC (3.8-10.6) k/uL RBC (3.80-5.40) m/uL Hgb (11.4-16.0) gm/dL Hct (34.0-46.0) % MCV (80.0-100.0) fL MCHC (31.0-37.0) g/dL Neutrophils # (1.3-7.7) k/uL Lymphocytes # (1.0-4.8) k/uL D-Dimer (<0.60) mg/L FEU ABG pH <7.00 L* (7.35-7.45) ABG pCO2 (35-45) mmHg ABG pO2 170 H (83-108) mmHg ABG HCO3 9 L* (21-25) mmol/L ABG Total CO2 10 L (19-24) mmol/L ABG O2 Saturation 98.0 H (94-97) % Sodium (137-145) mmol/L Chloride (98-107) mmol/L Carbon Dioxide (22-30) mmol/L BUN (7-17) mg/dL Creatinine (0.52-1.04) mg/dL Glucose (74-99) mg/dL POC Glucose (mg/dL) 316 H 336 H (75-99) mg/dL Calcium (8.4-10.2) mg/dL Phosphorus (2.5-4.5) mg/dL Magnesium (1.6-2.3) mg/dL AST (14-36) U/L ALT (9-52) U/L Alkaline Phosphatase (38-126) U/L Troponin I (0.000-0.034) ng/mL Total Protein (6.3-8.2) g/dL Albumin (3.5-5.0) g/dL Urine Protein (Negative) Ur Leukocyte Esterase (Negative) Urine Bacteria (None) /hpf Hyaline Casts (0-2) /lpf Urine Mucus (None) /hpf 09/15/18 09/15/18 09/15/18 Range/Units 00:59 00:59 00:59 WBC 20.6 H (3.8-10.6) k/uL RBC (3.80-5.40) m/uL Hgb (11.4-16.0) gm/dL Hct (34.0-46.0) % MCV 106.9 H D (80.0-100.0) fL MCHC 27.2 L (31.0-37.0) g/dL Neutrophils # (1.3-7.7) k/uL Lymphocytes # (1.0-4.8) k/uL D-Dimer 13.10 H (<0.60) mg/L FEU ABG pH (7.35-7.45) ABG pCO2 (35-45) mmHg ABG pO2 (83-108) mmHg ABG HCO3 (21-25) mmol/L ABG Total CO2 (19-24) mmol/L ABG O2 Saturation (94-97) % Sodium 136 L (137-145) mmol/L Chloride (98-107) mmol/L Carbon Dioxide 15 L (22-30) mmol/L BUN 39 H (7-17) mg/dL Creatinine 1.59 H (0.52-1.04) mg/dL Glucose 270 H (74-99) mg/dL POC Glucose (mg/dL) (75-99) mg/dL Calcium 8.3 L (8.4-10.2) mg/dL Phosphorus 7.4 H (2.5-4.5) mg/dL Magnesium (1.6-2.3) mg/dL AST 428 H (14-36) U/L ALT 193 H (9-52) U/L Alkaline Phosphatase 267 H (38-126) U/L Troponin I (0.000-0.034) ng/mL Total Protein 5.6 L (6.3-8.2) g/dL Albumin 2.8 L (3.5-5.0) g/dL Urine Protein (Negative) Ur Leukocyte Esterase (Negative) Urine Bacteria (None) /hpf Hyaline Casts (0-2) /lpf Urine Mucus (None) /hpf 09/15/18 09/15/18 09/15/18 Range/Units 01:27 03:28 05:00 WBC 13.9 H (3.8-10.6) k/uL RBC 3.36 L (3.80-5.40) m/uL Hgb 10.3 L (11.4-16.0) gm/dL Hct 32.7 L (34.0-46.0) % MCV (80.0-100.0) fL MCHC (31.0-37.0) g/dL Neutrophils # 12.3 H (1.3-7.7) k/uL Lymphocytes # 0.6 L (1.0-4.8) k/uL D-Dimer (<0.60) mg/L FEU ABG pH 7.28 L (7.35-7.45) ABG pCO2 32 L (35-45) mmHg ABG pO2 323 H (83-108) mmHg ABG HCO3 15 L (21-25) mmol/L ABG Total CO2 16 L (19-24) mmol/L ABG O2 Saturation 99.9 H (94-97) % Sodium (137-145) mmol/L Chloride (98-107) mmol/L Carbon Dioxide (22-30) mmol/L BUN (7-17) mg/dL Creatinine (0.52-1.04) mg/dL Glucose (74-99) mg/dL POC Glucose (mg/dL) (75-99) mg/dL Calcium (8.4-10.2) mg/dL Phosphorus (2.5-4.5) mg/dL Magnesium (1.6-2.3) mg/dL AST (14-36) U/L ALT (9-52) U/L Alkaline Phosphatase (38-126) U/L Troponin I (0.000-0.034) ng/mL Total Protein (6.3-8.2) g/dL Albumin (3.5-5.0) g/dL Urine Protein 1+ H (Negative) Ur Leukocyte Esterase (Negative) Urine Bacteria Rare H (None) /hpf Hyaline Casts (0-2) /lpf Urine Mucus Rare H (None) /hpf 09/15/18 09/15/18 09/15/18 Range/Units 05:00 05:22 06:26 WBC (3.8-10.6) k/uL RBC (3.80-5.40) m/uL Hgb (11.4-16.0) gm/dL Hct (34.0-46.0) % MCV (80.0-100.0) fL MCHC (31.0-37.0) g/dL Neutrophils # (1.3-7.7) k/uL Lymphocytes # (1.0-4.8) k/uL D-Dimer (<0.60) mg/L FEU ABG pH 7.48 H (7.35-7.45) ABG pCO2 26 L (35-45) mmHg ABG pO2 151 H (83-108) mmHg ABG HCO3 19 L (21-25) mmol/L ABG Total CO2 (19-24) mmol/L ABG O2 Saturation 98.6 H (94-97) % Sodium 134 L (137-145) mmol/L Chloride 108 H (98-107) mmol/L Carbon Dioxide 18 L (22-30) mmol/L BUN 44 H (7-17) mg/dL Creatinine 1.25 H (0.52-1.04) mg/dL Glucose 233 H (74-99) mg/dL POC Glucose (mg/dL) 242 H (75-99) mg/dL Calcium 7.4 L (8.4-10.2) mg/dL Phosphorus (2.5-4.5) mg/dL Magnesium 1.5 L (1.6-2.3) mg/dL AST (14-36) U/L ALT (9-52) U/L Alkaline Phosphatase (38-126) U/L Troponin I (0.000-0.034) ng/mL Total Protein (6.3-8.2) g/dL Albumin (3.5-5.0) g/dL Urine Protein (Negative) Ur Leukocyte Esterase (Negative) Urine Bacteria (None) /hpf Hyaline Casts (0-2) /lpf Urine Mucus (None) /hpf 09/15/18 09/15/18 09/15/18 Range/Units 07:20 09:06 11:53 WBC (3.8-10.6) k/uL RBC (3.80-5.40) m/uL Hgb (11.4-16.0) gm/dL Hct (34.0-46.0) % MCV (80.0-100.0) fL MCHC (31.0-37.0) g/dL Neutrophils # (1.3-7.7) k/uL Lymphocytes # (1.0-4.8) k/uL D-Dimer (<0.60) mg/L FEU ABG pH (7.35-7.45) ABG pCO2 (35-45) mmHg ABG pO2 (83-108) mmHg ABG HCO3 (21-25) mmol/L ABG Total CO2 (19-24) mmol/L ABG O2 Saturation (94-97) % Sodium (137-145) mmol/L Chloride (98-107) mmol/L Carbon Dioxide (22-30) mmol/L BUN (7-17) mg/dL Creatinine (0.52-1.04) mg/dL Glucose (74-99) mg/dL POC Glucose (mg/dL) 230 H 213 H (75-99) mg/dL Calcium (8.4-10.2) mg/dL Phosphorus (2.5-4.5) mg/dL Magnesium (1.6-2.3) mg/dL AST (14-36) U/L ALT (9-52) U/L Alkaline Phosphatase (38-126) U/L Troponin I 0.060 H* (0.000-0.034) ng/mL Total Protein (6.3-8.2) g/dL Albumin (3.5-5.0) g/dL Urine Protein (Negative) Ur Leukocyte Esterase (Negative) Urine Bacteria (None) /hpf Hyaline Casts (0-2) /lpf Urine Mucus (None) /hpf Microbiology - Last 24 Hours (Table) 09/13/18 20:46 Blood Culture - Preliminary Blood No Growth after 24 hours Assessment and Plan Assessment: -Status post cardiac arrest, with acute hypoxic respiratory failure, patient is intubated and in the ICU -Severe sepsis, secondary to pneumonia -Right sided heart failure with pulmonary hypertension -Atrial fibrillation, on Eliquis -Diabetes mellitus,-essential hypertension -Hyperlipidemia -History of coronary artery disease -Generalized weakness -Multilevel spondylolisthesis Plan: This is a 73 years old female who presents with severe sepsis and pneumonia, so she had cardiac arrest. She is intubated intensive care unit. Continue with p ulmonary/critical care recommendation. Continue with broad-spectrum antibiotics. Continue with the Eliquis. Continue present treatment.Labs and medication were reviewed.. Continue same treatment. Continue with symptomatic treatment. Resume home medication. Monitor lytes and vitals. DVT and GI prophylaxis. Further recommendations of the clinical course of the patient DVT prophylaxis: Eliquis GI Prophylaxis: Ppi Prognosis is guarded
--- NOTE | 2018-09-15 17:24 | CONS ---
CONSULTATION This is a 73-year-old lady with a known history of COPD. She has chronic atrial fibrillation. She was brought into the emergency room with an episode of having fallen a few times. It is unsure as to what the cause of her fall was. However, she was hospitalized and she has a known history of COPD and also chronic persistent atrial fibrillation, for which she is on metoprolol and Eliquis 5 mg b.i.d. Apparently while she was on the floor she had an episode of bradycardia, but this was never properly documented. I am unable to find this in the note. She was found unresponsive and a code was called. There was apparently some pulseless electrical activity. The exact circumstances and the rhythm at the time of the code was unclear to me. However, she received brief CPR and epinephrine, resuscitated, brought into the ICU. While she was in the ICU also unfortunately we do not have any rhythm strips, but she had another episode when she was not responsive, and there was no rhythm to correlate at that time. She had another spell and received brief CPR as well. At the time of my evaluation, she is in atrial fibrillation. The rate is moderate. She is deeply sedated on a propofol drip. I have not seen any documented pauses since the episode of early this morning in the ICU. She is resting comfortably at the time of my evaluation. She is not on any drips. Her Levophed which was used very briefly has been discontinued. She is only on a propofol drip. PAST MEDICAL HISTORY: Past medical history is remarkable for chronic persistent atrial fibrillation, type 2 diabetes, hypertension, hyperlipidemia, history of pneumonia and probable sleep apnea. She has had previous rotator cuff surgery and a lap band procedure in the past and also a right carotid endarterectomy. SOCIAL HISTORY: Patient is a past smoker. Does not consume alcohol. The patient has oxygen-dependent COPD. PHYSICAL EXAMINATION: Blood pressure is 112/80. Pulse rate is about 108 per minute, irregular. HEENT unremarkable. Fundus was not examined by me. Patient is on a ventilator. Heart exam reveals S1, S2 with irregular rate, rhythm, short systolic murmur. Lungs reveal diminished air entry, bilateral lung arevalo. Abdomen is soft, nontender. Lower extremities reveal diminished pulses. Central nervous system assessment was not performed. Patient is on a ventilator. Review of the chart suggests that there was an echo performed in June 2018 which revealed ejection fraction of about 50% to 55% with aortic valve sclerosis with mild gradient across the aortic valve. There was also significant pulmonary hypertension, but this was not well quantified. IMPRESSION: 1. Episode of CPR on 2 occasions, and unfortunately there was no availability of a concomitant rhythm tracing to suggest if this was a bradycardia episode or a tachycardia episode. No arrhythmia since then. 2. History of what seems to be a paroxysmal atrial fibrillation, on Lopressor and Eliquis. 3. Episode of CPR x2, probably related to a bradyarrhythmia, but this has not been quantified. 4. Type 2 diabetes mellitus. 5. Sleep apnea syndrome. 6. History of pneumonia. 7. History of previous carotid surgery. 8. History of a non-critical CAD with a negative FFR in the left circumflex artery. RECOMMENDATIONS: I am recommending that we will continue to monitor her closely, avoid beta blockers for now. Check serial troponins and echocardiogram. Supplement magnesium and potassium. Based on clinical course, I will make further recommendations. Prognosis remains guarded. MMODL / IJN: [id number] /
--- NOTE | 2018-09-15 18:29 | PCN ---
PROCEDURE NOTE PREOP DIAGNOSIS: Acute cardiopulmonary arrest. POSTOP DIAGNOSIS: Acute cardiopulmonary arrest. PROCEDURE: Insertion of triple-lumen catheter. TRIPLE LUMEN CATHETER PLACEMENT: Indication Hemodynamic monitoring/Intravenous access. A time-out was completed verifying correct patient, procedure, site, positioning, and implant(s) or special equipment if applicable. The patient was placed in a dependent position appropriate for triple lumen catheter placement based on the vein to be cannulated. The patient's left shoulder was prepped and draped in sterile fashion. 1% Lidocaine was used to anesthetize the surrounding skin area. A triple lumen 9F Cordis catheter was introduced into the subclavian vein using Seldinger technique. The catheter was threaded smoothly over the guide wire and appropriate blood return was obtained. Each lumen of the catheter was evacuated of air and flushed with sterile saline. The catheter was then sutured in place to the skin and a sterile dressing applied. Perfusion to the extremity distal to the point of catheter insertion was checked and found to be adequate. No bedside complications or bleeding. MMODL / IJN: [id number] /
--- NOTE | 2018-09-15 18:30 | ECHOF ---
Referral Reason:EF function MEASUREMENTS -------- HEIGHT: 142.2 cm WEIGHT: 68.9 kg BP: 112/66 RVIDd: 2.5 cm (< 3.3) IVSd: 1.3 cm (0.6 - 1.1) LVIDd: 3.4 cm (3.9 - 5.3) LVPWd: 1.4 cm (0.6 - 1.1) IVSs: 1.6 cm LVIDs: 2.6 cm LVPWs: 1.7 cm LAESV Index (A-L): 41.46 ml/m Ao Diam: 2.7 cm (2.0 - 3.7) AV Cusp: 1.0 cm (1.5 - 2.6) LA Diam: 4.6 cm (2.7 - 3.8) EPSS: 0.6 cm AV maxP.71 mmHg AV meanP.78 mmHg RAP: 15.00 mmHg RVSP: 53.97 mmHg MV EF SLOPE: 86.57 mm/s (70 - 150) MV EXCURSION: 1.90 cm (> 18.000) FINDINGS -------- Atrial fibrillation. This was a technically adequate study. The left ventricular size is normal. There is mild concentric left ventricular hypertrophy. Overa ll left ventricular systolic function is mildly impaired with, an EF between 45 - 50 %. Septal Hypo kinesis The right ventricle is mildly enlarged. LA is severely dilated >40 ml/m2 RA appears enlarged. Aortic valve is trileaflet and is moderately thickened. Trace amount of aortic regurgitation. Th ere is mild aortic stenosis present. Peak/mean gradient across the Aortic Valve is 14.71mmHg / 8.78 mmHg. The mitral valve leaflets are mild to moderately thickened. Mild mitral annular calcification pres ent. Veuk-gl-iuzpmkqy mitral regurgitation is present. Xbrz-lh-egjkdfxc tricuspid regurgitation present. There is mild to moderate pulmonary hypertension. The right ventricular systolic pressure, as measured by Doppler, is 53.97mmHg. Trace/mild (physiologic) pulmonic regurgitation. The aortic root size is normal. The inferior vena cava is dilated with poor inspiratory collapse which is consistent with estimated r ight atrial pressure of 20 mmHg. There is a small, generalized pericardial effusion present. CONCLUSIONS -------- 1. Atrial fibrillation. 2. This was a technically adequate study. 3. The left ventricular size is normal. 4. There is mild concentric left ventricular hypertrophy. 5. Septal Hypokinesis 6. LA is severely dilated >40 ml/m2 7. RA appears enlarged. 8. Aortic valve is trileaflet and is moderately thickened. 9. Trace amount of aortic regurgitation. 10. There is mild aortic stenosis present. 11. Peak/mean gradient across the Aortic Valve is 14.71mmHg / 8.78mmHg. 12. Mild mitral annular calcification present. 13. Vuxm-mi-jvlqveuk mitral regurgitation is present. 14. Lexc-gi-hyorenpb tricuspid regurgitation present. 15. There is mild to moderate pulmonary hypertension. 16. The right ventricular systolic pressure, as measured by Doppler, is 53.97mmHg. 17. Trace/mild (physiologic) pulmonic regurgitation. 18. The aortic root size is normal. 19. There is a small, generalized pericardial effusion present. BULLARD OPERATOR: Davon Mahoney RDCS
[2018-09-15 18:51] LABS: Glucose,Whole Blood 144 mg/dL (75-99)
[2018-09-15] MEDS ORDERED: AZITHROMYCIN 500 MG TAB PO SCH (21:00)
[2018-09-15] MEDS: ATORVASTATIN 20 MG TAB PO SCH (21:28)
[2018-09-15] MEDS: INSULIN DETEMIR (LEVEMIR) 100 UNIT/ML SYR SQ SCH (21:28)
[2018-09-15 21:46] LABS: Glucose,Whole Blood 154 mg/dL (75-99)
--- NOTE | 2018-09-15 23:26 | CT ---
EXAM: CT Head Without Intravenous Contrast CLINICAL HISTORY: ITS.REASON CT Reason: right side weakness TECHNIQUE: Axial computed tomography images of the head/brain without intravenous contrast. CTDI is 50 mGy and DLP is 1099 mGy-cm. This CT exam was performed using one or more of the following dose reduction techniques: automated exposure control, adjustment of the mA and/or kV according to patient size, and/or use of iterative reconstruction technique. COMPARISON: 09/13/18 CT head FINDINGS: No hemorrhage, hydrocephalus or mass effect. Unchanged encephalomalacia of the right inferior frontal lobe. No new large hypodensities. IMPRESSION: No acute hemorrhage, hydrocephalus, or mass effect.
[2018-09-16] MEDS: CEFEPIME 1 GM in SODIUM CHLORIDE 0.9% 50 ML IVPB SCH ×3 (00:13→20:39)
[2018-09-16 00:27] LABS: Glucose,Whole Blood 137 mg/dL (75-99)
[2018-09-16] MEDS: INSULIN ASPART (NovoLOG) 100 UNIT/ML VIAL SQ SCH ×5 (00:28→23:42)
[2018-09-16] MEDS: LEVOFLOXACIN 500MG-D5W PMX 500 MG in DEXTROSE/WATER 1 100ML.BAG IVPB SCH (00:49)
[2018-09-16] MEDS: NOREPINEPHRINE 4 MG in SODIUM CHLORIDE 0.9% 250 ML IV SCH (03:07)
[2018-09-16] MEDS: DILTIAZEM 125 MG in SODIUM CHLORIDE 0.9% 100 ML IV SCH ×3 (03:08→23:41)
[2018-09-16] MEDS: IPRATROPIUM-ALBUTEROL 3 ML NEB INHALATION SCH ×6 (03:38→23:16)
[2018-09-16 05:09] LABS: ABG Base Excess -2.3 mmol/L; ABG HCO3 20 mmol/L (21-25); ABG Oxygen Saturation 96.5 % (94-97); ABG PCO2 23 mmHg (35-45); ABG PO2 85 mmHg (83-108); ABG TCO2 21 mmol/L (19-24); Allen Test Performed? Yes
[2018-09-16 05:14] LABS: Basophils % (A) 0 %; Eosinophils # (A) 0.3 k/uL (0-0.7); Eosinophils % (A) 3 %; HCT 32.1 % (34.0-46.0); HGB 10.4 gm/dL (11.4-16.0); Hypochromasia Slight; Lymphocytes % (A) 12 %; MCH 30.8 pg (25.0-35.0); MCHC 32.6 g/dL (31.0-37.0); MCV 94.4 fL (80.0-100.0); Mean Platelet Volume 8.2; Monocytes # (A) 0.5 k/uL (0-1.0); Monocytes % (A) 6 %; Neutrophils # (A) 6.6 k/uL (1.3-7.7); Neutrophils % (A) 78 %; Platelet Count 187 k/uL (150-450); RDW 15.5 % (11.5-15.5); WBC 8.5 k/uL (3.8-10.6)
[2018-09-16 05:35] LABS: ABG PH 7.56 (7.35-7.45)
[2018-09-16 05:35] LABS: Magnesium 1.9 mg/dL (1.6-2.3); Phosphorus 2.5 mg/dL (2.5-4.5); Potassium 3.3 mmol/L (3.5-5.1)
[2018-09-16 05:56] LABS: Glucose,Whole Blood 120 mg/dL (75-99)
[2018-09-16] MEDS ORDERED: Potassium Replacement Protocol 1 EACH MISC MISCELLANE PRN (05:59)
[2018-09-16] MEDS ORDERED: Magnesium Replacement Protocol 1 EACH MISC MISCELLANE PRN (05:59)
[2018-09-16] MEDS ORDERED: Phosphorus Replacement Protoco 1 EACH MISC MISCELLANE PRN (05:59)
[2018-09-16] MEDS: MAGNESIUM SULFATE-D5W PMX 1 GM in DEXTROSE/WATER 1 100ML.BAG IVPB SCH ×2 (06:25→09:33)
[2018-09-16] MEDS: POTASSIUM CHLORIDE 20 MEQ in WATER FOR INJECTION 1 100ML.BAG IVPB SCH ×2 (06:25→07:46)
[2018-09-16] MEDS: PROPOFOL 1,000 MG in EMPTY BAG 1 BAG IV SCH (06:26)
[2018-09-16] MEDS ORDERED: POTASSIUM PHOSPHATE 10 MMOL in SODIUM CHLORIDE 0.9% 100 ML IV ONE (06:30)
--- NOTE | 2018-09-16 08:48 | PN ---
PROGRESS NOTE This is a lady who had 2 episodes of CPR for pulseless electrical activity type picture. She is in atrial fib which is not new. She is still on a vent. Today she will probably be given a sedation already to see how she recovers. Hemodynamically, she is stable. She is also somewhat tachycardic. I am recommending that we add IV Cardizem bolus and drip in addition to the metoprolol tartrate that she is getting orally. We will also continue Eliquis. Echo revealed ejection fraction of 45%-50% with septal hypokinesia. S1, S2 heard normally, irregular rhythm noted. Short systolic murmur noted. Lungs revealed decent air entry with the respirator assisted breaths. Rest of physical exam unchanged. Neurological exam was not performed. MARCIANOL / GREGORION: [id number] /
--- NOTE | 2018-09-16 08:52 | XR ---
EXAMINATION TYPE: XR chest 1V portable DATE OF EXAM: 09/16/2018 Comparison: 09/15/2018 Clinical History: 73-year-old female tube placement Findings: ET tube tip approximately 2.7 cm from the myesha. Left subclavian CVC tip in the right atrium. NG tub e courses below the diaphragm. Heart remains enlarged. Interstitial prominence with increasing bibasi lar opacities and underlying effusions. Impression: Cardiomegaly with interstitial changes and increasing bibasilar opacities and pleural effusions. Bi elate for possible CHF as an etiology.
[2018-09-16] MEDS ORDERED: POTASSIUM BICARBONATE/CIT AC 20 MEQ TABLET.EFF PO ONE (09:00)
[2018-09-16] MEDS ORDERED: DILTIAZEM DRIP BOLUS FROM BAG 1 MG SOLN IV ONE (09:00)
[2018-09-16] MEDS: CHLORHEXIDINE GLUCONATE 15 ML CUP MUCOUS MEM SCH ×2 (09:33→20:34)
[2018-09-16] MEDS: ASCORBIC ACID 500 MG TAB PO SCH (09:34)
[2018-09-16] MEDS: APIXABAN 5 MG TAB PO SCH ×2 (09:34→20:34)
[2018-09-16] MEDS: CHOLECALCIFEROL 1,000 UNIT TAB PO SCH (09:35)
[2018-09-16] MEDS: GABAPENTIN 400 MG CAP PO SCH ×3 (09:35→20:35)
[2018-09-16] MEDS: CITALOPRAM HYDROBROMIDE 20 MG TAB PO SCH (09:35)
[2018-09-16] MEDS: PANTOPRAZOLE 40 MG/10 ML VIAL IV SCH (09:35)
[2018-09-16] MEDS: VITAMIN E (DL,TOCOPHERYL ACET) 400 UNIT CAP PO SCH (09:35)
[2018-09-16] MEDS: METOPROLOL TARTRATE 25 MG TAB PO SCH ×2 (09:35→20:35)
--- NOTE | 2018-09-16 11:20 | P.PN ---
Subjective Progress Note Date: 09/16/18 On today's evaluation of 09/16/2018 I'm seeing this patient for a follow-up. This morning the patient is intubated on a mechanical ventilator. She is calm and comfortable. She is on propofol.. Overnight she was given a sedation holiday and his was noted and the patient was noted that the patient was not moving her right lower extremity effectively. Based on this a CAT scan of the brain was obtained and it was negative for any acute abnormalities on an acute CVA or bleed. This morning were doing the same. The patient is currently off the propofol hour monitoring her mentation very closely. He would open up her eyes pH is withdrawing to painful stim additional 4 extremities. The ventilator from this morning was set at a tidal volume of 500 with an FiO2 of 40% and a PEEP of 5 and a respiratory rate of 24 the blood gas showed a pH of 7.56 with a pCO2 of 23 and pO2 of 85 and this was consistent with respiratory alkalosis. Based on this, the necessity ventilator changes will be done. The chest x-rays also showing cardiomegaly and pulmonary interstitial edema. The patient has not required diuresis. The patient is producing a good 100 mL of urine output on hourly basis. In terms of antibiotic coverage, the patient currently is on a combination of cefepime and Levaquin. Also, Cardizem drip was started at 5 mg an hour earlier this morning as the patient was encountering symptoms like tachycardia with an underlying rhythm IV atrial fibrillation. She is on it was for long-term anticoagulation. Her outpatient medications have been the consult. The daughters have a ride from [place] and I informed them and update them on her condition. Otherwise, no other significant events overnight. The patient is resting comfortably in bed for now. Echocardiogram was noted an d the patient was found to have severe pulmonary hypertension with a PA pressure of around 53. The patient's ejection fraction is 45-50%. There is [id number] MR, mild to moderate tricuspid regurgitation and no other significant valvular abnormalities. No evidence of any significant pericardial effusion. Objective - Vital Signs Vital signs: Vital Signs Temp 98.7 F 09/16/18 04:00 Pulse 120 H 09/16/18 07:49 Resp 24 09/16/18 07:00 BP 105/65 09/15/18 19:50 Pulse Ox 97 09/16/18 04:00 Intake & Output 09/15/18 09/16/18 09/16/18 18:59 06:59 18:59 Intake Total 412.61 752.700 26 Output Total 385 1050 50 Balance 27.61 -297.300 -24 Weight 77.9 kg Intake: IV 265 662 26 Cefepime 1 gm In Sodium 50 Chloride 0.9% 50 ml @ 100 mls/hr IVPB Q8HR [facility] Rx# :[id number] Levofloxacin 500Mg-D5w 100 Pmx 500 mg In Dextrose/ Water 1 100ml.bag @ 100 mls/hr IVPB Q24H [facility] Rx#: [id number] Magnesium Sulfate-D5w Pmx 100 1 gm In Dextrose/Water 1 100ml.bag @ 100 mls/hr IVPB ONCE ONE Rx#: [id number] NS 220 240 20 Potassium Chloride 20 meq 100 In Water For Injection 1 100ml.bag @ 50 mls/hr IVPB Q2H [facility] Rx#: [id number] Pressure Bags 45 72 6 Intake, IV Titration 147.61 90.700 Amount Propofol 1,000 mg In 147.61 90.700 Empty Bag 1 bag @ Titrate IV .Q0M [facility] Rx#: [id number] Output: Urine 385 1050 50 Other: Voiding Method Indwelling Catheter Indwelling Catheter ABP, PAP, CO, CI - Last Documented Arterial Blood Pressure 108/57 - Exam Gen. appearance, comfortable sedated on a mechanical ventilator on Diprivan. Very much success with the mechanical ventilator for now. Head exam was generally normal. There was no scleral icterus or corneal arcus. Mucous membranes were moist. Neck was supple and without jugular venous distension, thyromegaly, or carotid bruits. Carotids were easily palpable bilaterally. There was no adenopathy. The patient has positive JVDs. The patient has a #7 orotracheal tube. The patient also has a orogastric tube in place. No neck stiffness. Lungs sounds are diminished and there is some crackles at lung bases bilaterally along some scattered rhonchi. Heart sounds are irregular S1-S2 and there is accentuation of the second heart sound. Faint murmur can be also appreciated. Abdominal exam revealed normal bowel sounds. The abdomen was soft, non-tender, and without masses, organomegaly, or appreciable enlargement of the abdominal aorta. Extremities show some varicose veins bilaterally. No cyanosis or clubbing at this point in time. Examination of the skin revealed no evidence of significant rashes, suspicious appearing nevi or other concerning lesions. Neurologic the patient is sedated however the patient has been grimacing to painful stimulation in all 4 extremities and she has equal and symmetrical pupils which are reactive to light. No nystagmus. No clonus. No neck stiffness. - Labs CBC & Chem 7: 09/16/18 05:00 09/16/18 05:00 Labs: Abnormal Lab Results - Last 24 Hours (Table) 09/15/18 09/15/18 09/15/18 Range/Units 11:53 15:25 18:48 RBC (3.80-5.40) m/uL Hgb (11.4-16.0) gm/dL Hct (34.0-46.0) % ABG pH (7.35-7.45) ABG pCO2 (35-45) mmHg ABG HCO3 (21-25) mmol/L Potassium (3.5-5.1) mmol/L Chloride (98-107) mmol/L Carbon Dioxide (22-30) mmol/L BUN (7-17) mg/dL Creatinine (0.52-1.04) mg/dL Glucose (74-99) mg/dL POC Glucose (mg/dL) 213 H 144 H (75-99) mg/dL Calcium (8.4-10.2) mg/dL Troponin I 0.049 H* (0.000-0.034) ng/mL 09/15/18 09/16/18 09/16/18 Range/Units 21:45 00:25 05:00 RBC 3.40 L (3.80-5.40) m/uL Hgb 10.4 L (11.4-16.0) gm/dL Hct 32.1 L (34.0-46.0) % ABG pH (7.35-7.45) ABG pCO2 (35-45) mmHg ABG HCO3 (21-25) mmol/L Potassium (3.5-5.1) mmol/L Chloride (98-107) mmol/L Carbon Dioxide (22-30) mmol/L BUN (7-17) mg/dL Creatinine (0.52-1.04) mg/dL Glucose (74-99) mg/dL POC Glucose (mg/dL) 154 H 137 H (75-99) mg/dL Calcium (8.4-10.2) mg/dL Troponin I (0.000-0.034) ng/mL 09/16/18 09/16/18 09/16/18 Range/Units 05:00 05:00 05:06 RBC (3.80-5.40) m/uL Hgb (11.4-16.0) gm/dL Hct (34.0-46.0) % ABG pH 7.56 H* (7.35-7.45) ABG pCO2 23 L (35-45) mmHg ABG HCO3 20 L (21-25) mmol/L Potassium 3.3 L (3.5-5.1) mmol/L Chloride 113 H (98-107) mmol/L Carbon Dioxide 19 L (22-30) mmol/L BUN 36 H (7-17) mg/dL Creatinine 1.09 H (0.52-1.04) mg/dL Glucose 117 H (74-99) mg/dL POC Glucose (mg/dL) (75-99) mg/dL Calcium 8.0 L (8.4-10.2) mg/dL Troponin I 0.038 H* (0.000-0.034) ng/mL 09/16/18 Range/Units 05:55 RBC (3.80-5.40) m/uL Hgb (11.4-16.0) gm/dL Hct (34.0-46.0) % ABG pH (7.35-7.45) ABG pCO2 (35-45) mmHg ABG HCO3 (21-25) mmol/L Potassium (3.5-5.1) mmol/L Chloride (98-107) mmol/L Carbon Dioxide (22-30) mmol/L BUN (7-17) mg/dL Creatinine (0.52-1.04) mg/dL Glucose (74-99) mg/dL POC Glucose (mg/dL) 120 H (75-99) mg/dL Calcium (8.4-10.2) mg/dL Troponin I (0.000-0.034) ng/mL Microbiology - Last 24 Hours (Table) 09/15/18 23:21 Sputum Culture - Preliminary Sputum 09/15/18 01:02 Blood Culture - Preliminary Blood No Growth after 24 hours 09/13/18 20:46 Blood Culture - Preliminary Blood No Growth after 48 hours Assessment and Plan Plan: Assessment 1 Acute cardio pulmonary arrest, currently under investigation. The patient is hemodynamically stable. Exact cause for this underlying cardiac/pulmonary arrest is not clear. Suspect pulmonary edema causing respiratory failure and subsequent cardiac arrest. On today's evaluation of 09/16/2018, the patient remains hemodynamically stable on no pressors. The blood gases from today showing a component of respiratory alkalosis and necessity ventilator changes will be done. The patient will be given a sedation holiday. Underlying neuro status will be reevaluated. There is a concern for a CVA as the patient was noted not to move the right lower extremity. The patient CAT scan of the brain came back negative. 2 severe right-sided heart failure with pulmonary hypertension, a repeat echocardiac Yeyo was done and the patient has significant pulmonary hypertension without any LV dysfunction. 3 chronic atrial fibrillation, started on a Cardizem drip at 5 mg an hour and the patient is currently on Eliquis 4 acute hypoxic respiratory failure currently intubated on a mechanical ventilator 5 acute kidney injury improving and the creatinine is down to 1.01. 6 diabetes mellitus 7 hypertension 8 hyperlipidemia 9 carotid artery disease 10. Performance and functional status with frequent falls which was one of the main reason for this patient presented to the hospital. 11 limited left lower lobe pneumonia currently on a combination of antibiotics. Plan The ventilator support. Dropped the tidal volume 450. Dropped a respiratory rate down to 14. FiO2 at 40%. Add Lasix 20 mg IV push every 12 hours. Continue Cardizem drip for rate control. Continue Eliquis for long-term and to coagulation. Continue same antibiotic coverage and the patient is currently on a combination of Levaquin and cefepime. Proceed with sedation holiday. May need another CAT scan of the brain within next 24 hours if there is any true concern for a stroke. We will initiate tube feeds today if we are unable to extubate. This will largely depend on her progress, sedation holiday, weaning parameters and her ability to proceed with a spontaneous breathing trial. Daughter is at the bedside. She was updated on her condition. We'll continue to follow and make further recommendations based on her progress. Respiratory care evaluation more than 30 minutes Time with Patient: Greater than 30
[2018-09-16 12:58] LABS: Glucose,Whole Blood 169 mg/dL (75-99)
[2018-09-16] MEDS: FUROSEMIDE 10 MG/ML 2 ML VIAL IV SCH ×2 (13:05→20:38)
--- NOTE | 2018-09-16 14:12 | P.PN ---
Subjective History of present illness, from records 71-year-old female came in emergency department with frequent falls, is found to have leukocytosis sources with crackles in the right lower lung bases because of which patient underwent imaging studies which showed right lower lobe consolidation 8 sprays disease and interstitial fibrosis. Patient was diagnosed with chronic diastolic dysfunction the past does have chronic A. fib presently sinus rhythm sinus tachycardia. Patient is on Eliquis. Patient remains tachycardic history is also complaining of shortness of breath no wheezing on exam patient does not have any elevated JVD. Patient will be hydrated cautiously and closely patient was started on Rocephin and the azithromycin I'm switching Rocephin to cefepime because of her recent hospitalization couple months ago need to be treated for healthcare associated pneumonia blood cultures and sputum cultures are were obtained However patient overnight did coded twice and she was resuscitated over few minutes, 4-5 minutes, patient was resuscitated back. However she needed to be intubated and go to the intensive care unit. Patient could not provide information. Patient antibiotic, but was upgraded to cefepime plus levofloxacin. He was still tachycardic with heart rate 108-120. Blood pressure 105/65. Her FiO2 is 60% while intubated. Her WBC is coming down to 13.9 K. Rest of CBC was unremarkable and stable. Her creatinine is coming down 1.5 to 1.2. Troponin is slightly elevated at 0.06. Ejection fraction 55-60%, with moderate mitral regurgitation and severe tricuspid regurgitation and severe pulmonary hypertension. And to continue on Eliquis for now. Chest x-ray showing bibasilar airspace disease, worse on the left side, with left-sided pleural effusion. Liver enzymes are elevated. Bilirubin within normal limits. Magnesium 1.5. 09/16/2018 Patient remains in the ICU, intubated and sedated. Critical-care input and management is appreciated. Patient is on FiO2 of 40% and PEEP of 5. Sedation is weaned off for possible extubation today or tomorrow. Patient is started on diuresis by Lasix. Cardiology team are following the patient for her A. fib with rapid ventricular rate which has been managed by beta sydni and Cardizem drips. Patient also might need Levophed at times. She has negative CAT scan of the head for suspected stroke. Family at bedside . Review of system: N/a Medication: Tylenol, albuterol, Eliquis, vitamin C, Lipitor, vitamin D, chlorhexidine, Celexa, Cardizem, Neurontin, [place], insulin, Lopressor, Narcan, ~CT, liver fluids drip, Zofran, Protonix, vitamin E, propofol. Objective - Vital Signs Vital signs: Vital Signs Temp 98.6 F 09/16/18 12:00 Pulse 198 H 09/16/18 13:00 Resp 21 09/16/18 13:00 BP 106/71 09/16/18 13:00 Pulse Ox 100 09/16/18 12:00 Intake & Output 09/15/18 09/16/18 09/16/18 18:59 06:59 18:59 Intake Total 412.61 752.700 536 Output Total 385 1050 1075 Balance 27.61 -297.300 -539 Weight 77.9 kg Intake: IV 265 662 536 Cefepime 1 gm In Sodium 50 100 Chloride 0.9% 50 ml @ 100 mls/hr IVPB Q8HR [facility] Rx# :[id number] Levofloxacin 500Mg-D5w 100 Pmx 500 mg In Dextrose/ Water 1 100ml.bag @ 100 mls/hr IVPB Q24H [facility] Rx#: [id number] Magnesium Sulfate-D5w Pmx 100 100 1 gm In Dextrose/Water 1 100ml.bag @ 100 mls/hr IVPB ONCE ONE Rx#: [id number] NS 220 240 200 Potassium Chloride 20 meq 100 100 In Water For Injection 1 100ml.bag @ 50 mls/hr IVPB Q2H [facility] Rx#: [id number] Pressure Bags 45 72 36 Intake, IV Titration 147.61 90.700 Amount Propofol 1,000 mg In 147.61 90.700 Empty Bag 1 bag @ Titrate IV .Q0M [facility] Rx#: [id number] Output: Urine 385 1050 1075 Other: Voiding Method Indwelling Catheter Indwelling Catheter ABP, PAP, CO, CI - Last Documented Arterial Blood Pressure 101/59 - Exam -GENERAL: Patient is intubated and sedated HEENT: Pupils are round and equally reacting to light. EOMI. No scleral icterus. No conjunctival pallor. Normocephalic, atraumatic. No pharyngeal erythema. No thyromegaly. CARDIOVASCULAR: S1 and S2 present. No murmurs, rubs, or gallops. PULMONARY: Chest is clear to auscultation, no wheezing or crackles. ABDOMEN: Soft, nontender, nondistended, normoactive bowel sounds. No palpable organomegaly. MUSCULOSKELETAL: No joint swelling or deformity. -EXTREMITIES: No cyanosis, clubbing, . Bilateral leg edema. NEUROLOGICAL: Gross neurological examination did not reveal any focal deficits. SKIN: No rashes. - Labs CBC & Chem 7: 09/16/18 05:00 09/16/18 05:00 Labs: Abnormal Lab Results - Last 24 Hours (Table) 09/15/18 09/15/18 09/15/18 Range/Units 15:25 18:48 21:45 RBC (3.80-5.40) m/uL Hgb (11.4-16.0) gm/dL Hct (34.0-46.0) % ABG pH (7.35-7.45) ABG pCO2 (35-45) mmHg ABG HCO3 (21-25) mmol/L Potassium (3.5-5.1) mmol/L Chloride (98-107) mmol/L Carbon Dioxide (22-30) mmol/L BUN (7-17) mg/dL Creatinine (0.52-1.04) mg/dL Glucose (74-99) mg/dL POC Glucose (mg/dL) 144 H 154 H (75-99) mg/dL Calcium (8.4-10.2) mg/dL Troponin I 0.049 H* (0.000-0.034) ng/mL 09/16/18 09/16/18 09/16/18 Range/Units 00:25 05:00 05:00 RBC 3.40 L (3.80-5.40) m/uL Hgb 10.4 L (11.4-16.0) gm/dL Hct 32.1 L (34.0-46.0) % ABG pH (7.35-7.45) ABG pCO2 (35-45) mmHg ABG HCO3 (21-25) mmol/L Potassium 3.3 L (3.5-5.1) mmol/L Chloride 113 H (98-107) mmol/L Carbon Dioxide 19 L (22-30) mmol/L BUN 36 H (7-17) mg/dL Creatinine 1.09 H (0.52-1.04) mg/dL Glucose 117 H (74-99) mg/dL POC Glucose (mg/dL) 137 H (75-99) mg/dL Calcium 8.0 L (8.4-10.2) mg/dL Troponin I (0.000-0.034) ng/mL 09/16/18 09/16/18 09/16/18 Range/Units 05:00 05:06 05:55 RBC (3.80-5.40) m/uL Hgb (11.4-16.0) gm/dL Hct (34.0-46.0) % ABG pH 7.56 H* (7.35-7.45) ABG pCO2 23 L (35-45) mmHg ABG HCO3 20 L (21-25) mmol/L Potassium (3.5-5.1) mmol/L Chloride (98-107) mmol/L Carbon Dioxide (22-30) mmol/L BUN (7-17) mg/dL Creatinine (0.52-1.04) mg/dL Glucose (74-99) mg/dL POC Glucose (mg/dL) 120 H (75-99) mg/dL Calcium (8.4-10.2) mg/dL Troponin I 0.038 H* (0.000-0.034) ng/mL 09/16/18 Range/Units 12:56 RBC (3.80-5.40) m/uL Hgb (11.4-16.0) gm/dL Hct (34.0-46.0) % ABG pH (7.35-7.45) ABG pCO2 (35-45) mmHg ABG HCO3 (21-25) mmol/L Potassium (3.5-5.1) mmol/L Chloride (98-107) mmol/L Carbon Dioxide (22-30) mmol/L BUN (7-17) mg/dL Creatinine (0.52-1.04) mg/dL Glucose (74-99) mg/dL POC Glucose (mg/dL) 169 H (75-99) mg/dL Calcium (8.4-10.2) mg/dL Troponin I (0.000-0.034) ng/mL Microbiology - Last 24 Hours (Table) 09/15/18 23:21 Sputum Culture - Preliminary Sputum 09/15/18 01:02 Blood Culture - Preliminary Blood No Growth after 24 hours 09/13/18 20:46 Blood Culture - Preliminary Blood No Growth after 48 hours Assessment and Plan Assessment: -Status post cardiac arrest, with acute hypoxic respiratory failure, patient is intubated and in the ICU -Severe sepsis, secondary to pneumonia -Right sided heart failure with pulmonary hypertension. No LV dysfunction -Atrial fibrillation, on Eliquis -Diabetes mellitus,-essential hypertension -Hyperlipidemia -History of coronary artery disease -Generalized weakness -Multilevel spondylolisthesis Plan: This is a 73 years old female who presents with severe sepsis and pneumonia, so she had cardiac arrest. She is intubated intensive care unit. Continue with pulmonary/critical care recommendation. Continue with broad-spectrum antibiotics. Continue with the Eliquis. Continue present treatment.Labs and medication were reviewed.. Continue same treatment. Continue with symptomatic treatment. Resume home medication. Monitor lytes and vitals. DVT and GI pr ophylaxis. Further recommendations of the clinical course of the patient DVT prophylaxis: Eliquis GI Prophylaxis: Ppi Prognosis is guarded
[2018-09-16 17:42] LABS: Glucose,Whole Blood 153 mg/dL (75-99)
[2018-09-16] MEDS ORDERED: POTASSIUM BICARBONATE/CIT AC 20 MEQ TABLET.EFF NG-TUBE SCH (20:00)
[2018-09-16] MEDS: ATORVASTATIN 20 MG TAB PO SCH (20:34)
[2018-09-16 21:06] LABS: Glucose,Whole Blood 129 mg/dL (75-99)
[2018-09-16] MEDS: INSULIN DETEMIR (LEVEMIR) 100 UNIT/ML SYR SQ SCH (21:40)
[2018-09-16 23:39] LABS: Glucose,Whole Blood 142 mg/dL (75-99)
[2018-09-17] MEDS: NOREPINEPHRINE 4 MG in SODIUM CHLORIDE 0.9% 250 ML IV SCH (01:00)
[2018-09-17] MEDS: IPRATROPIUM-ALBUTEROL 3 ML NEB INHALATION SCH ×7 (03:40→23:13)
[2018-09-17] MEDS ORDERED: VANCOMYCIN 1,250 MG in SODIUM CHLORIDE 0.9% 250 ML IVPB SCH (04:00)
[2018-09-17 04:29] LABS: ABG Base Excess -4.8 mmol/L; ABG HCO3 20 mmol/L (21-25); ABG Oxygen Saturation 95.6 % (94-97); ABG PCO2 31 mmHg (35-45); ABG PH 7.42 (7.35-7.45); ABG PO2 86 mmHg (83-108); ABG TCO2 21 mmol/L (19-24); Allen Test Performed? Yes
[2018-09-17 04:49] LABS: Basophils % (A) 0 %; Eosinophils # (A) 0.2 k/uL (0-0.7); Eosinophils % (A) 2 %; HCT 35.8 % (34.0-46.0); HGB 10.8 gm/dL (11.4-16.0); Hypochromasia Moderate; Lymphocytes # (A) 0.7 k/uL (1.0-4.8); Lymphocytes % (A) 6 %; MCH 28.9 pg (25.0-35.0); MCV 96.5 fL (80.0-100.0); Mean Platelet Volume 8.6; Monocytes # (A) 0.8 k/uL (0-1.0); Monocytes % (A) 7 %; Neutrophils # (A) 9.7 k/uL (1.3-7.7); Neutrophils % (A) 83 %; Platelet Count 203 k/uL (150-450); RBC 3.72 m/uL (3.80-5.40); RDW 15.5 % (11.5-15.5); WBC 11.6 k/uL (3.8-10.6)
[2018-09-17 05:13] LABS: Calcium 8.7 mg/dL (8.4-10.2); Magnesium 1.8 mg/dL (1.6-2.3); Potassium 3.9 mmol/L (3.5-5.1)
[2018-09-17 05:58] LABS: Glucose,Whole Blood 171 mg/dL (75-99)
[2018-09-17] MEDS ORDERED: POTASSIUM CHLORIDE ER 20 MEQ TAB.ER PO SCH (06:00)
[2018-09-17] MEDS: INSULIN ASPART (NovoLOG) 100 UNIT/ML VIAL SQ SCH ×4 (06:02→23:16)
[2018-09-17] MEDS: MAGNESIUM SULFATE-D5W PMX 1 GM in DEXTROSE/WATER 1 100ML.BAG IVPB SCH ×2 (06:02→07:08)
[2018-09-17] MEDS ORDERED: POTASSIUM BICARBONATE/CIT AC 20 MEQ TABLET.EFF NG-TUBE SCH ×2 (07:00)
--- NOTE | 2018-09-17 07:08 | XR ---
EXAMINATION TYPE: XR chest 1V portable DATE OF EXAM: 09/17/2018 COMPARISON: 09/16/2018 HISTORY: Ventilatory dependent respiratory failure. TECHNIQUE: Single frontal view of the chest is obtained. FINDINGS: There is stable positioning of the endotracheal and enteric tubes. Retrocardiac density re rashad however there is improved aeration of the right lung base. Minimal pulmonary vascular congestio n is again evident. Heart is enlarged. Rotator cuff anchors are again seen within the humeral heads. IMPRESSION: Improved aeration of the right lung base with stable retrocardiac airspace disease that may represent a small pleural effusion with atelectasis or persistent pneumonia. Interstitial edema, likely from congestive heart failure, has also improved.
[2018-09-17] MEDS: METOPROLOL TARTRATE 25 MG TAB PO SCH ×2 (08:31→20:47)
[2018-09-17] MEDS: CHOLECALCIFEROL 1,000 UNIT TAB PO SCH (08:32)
[2018-09-17] MEDS: APIXABAN 5 MG TAB PO SCH ×2 (08:32→20:47)
[2018-09-17] MEDS: ASCORBIC ACID 500 MG TAB PO SCH (08:32)
[2018-09-17] MEDS: GABAPENTIN 400 MG CAP PO SCH ×3 (08:32→20:47)
[2018-09-17] MEDS: CITALOPRAM HYDROBROMIDE 20 MG TAB PO SCH (08:33)
[2018-09-17] MEDS: CHLORHEXIDINE GLUCONATE 15 ML CUP MUCOUS MEM SCH ×2 (08:33→20:46)
[2018-09-17] MEDS: FUROSEMIDE 10 MG/ML 2 ML VIAL IV SCH ×2 (08:33→20:46)
[2018-09-17] MEDS: PANTOPRAZOLE 40 MG/10 ML VIAL IV SCH (08:33)
[2018-09-17] MEDS: VITAMIN E (DL,TOCOPHERYL ACET) 400 UNIT CAP PO SCH (08:34)
[2018-09-17] MEDS: CEFEPIME 1 GM in SODIUM CHLORIDE 0.9% 50 ML IVPB SCH ×2 (08:43→20:45)
[2018-09-17 10:46] LABS: Calcium 8.8 mg/dL (8.4-10.2); Magnesium 2.2 mg/dL (1.6-2.3); Phosphorus 3.4 mg/dL (2.5-4.5)
[2018-09-17 11:40] LABS: ABG Base Excess -5.1 mmol/L; ABG HCO3 20 mmol/L (21-25); ABG Oxygen Saturation 96.7 % (94-97); ABG PCO2 33 mmHg (35-45); ABG PH 7.39 (7.35-7.45); ABG PO2 88 mmHg (83-108); ABG TCO2 21 mmol/L (19-24); Allen Test Performed? Yes
--- NOTE | 2018-09-17 11:57 | P.PN ---
Subjective Progress Note Date: 09/17/18 Principal diagnosis: Acute cardiopulmonary arrest requiring intubation and mechanical ventilation. This is a 71-year-old female patient who comes into the hospital because of gene ralized weakness, difficulty with mobility, frequent falls and suspicion for an underlying pneumonia. The patient was initially brought into the emergency department. She has fallen multiple times at home. She has fallen in the bathroom and she did have a head trauma. No reported history of loss of consciousness. The patient was laying down the floor for a couple of hours before she was found by friends. At that point the patient was transferred to our hospital. According to the family the patient gained weight in the order of 10 pounds over the past couple of weeks. The patient reported pain over her tailbone he has she denied having any chest pain. She denies having any other complaints. In the emergency, the patient was diagnosed having a left lower lobe pneumonia. The patient underwent CT angiogram of the chest that showed a limited left lower lobe pulmonary infiltration and for that reason the patient was hospitalized and she was started on antibiotics. Overnight, the patient went into an acute cardiac arrest. The patient was found to be in PEA. She was started on CPR. Code team was activated and the patient was immediately intubated with a #7 orotracheal tube. The initial code was for a total of 3 minutes and following that the patient got to the ICU. She had another episode of PEA here in the ICU that lasts for 4 minutes. During which the patient received CPR and the patient received epinephrine. She had spontaneous return and circulation. Initial blood gas showed metabolic acidosis with a pH of 6.9. Necessary vent changes were made by Dr. Kerr over the phone.. Gave the patient fluids and she immediately received a total of 3-1/2 L. The patient's subsequent blood gases showed a pH of 7.48 with a pCO2 of 26 and pO2 151 and this was done this morning while her being on an assist-control mode of ventilator with a rate of 24 and tidal volume of 500 with an FiO2 of 60% and a PEEP of 5. She briefly required some pressors in the form of levo fed and she's been off pressors since 3 AM this morning. Urine output was adequate in the order of 20-30 mL an hour. The patient was given Broderson spectrum of antibiotics and the patient was covered with a combination of vancomycin, Levaquin and cefepime and Zithromax were discontinued. She is currently afebrile. She is sedated with Diprivan. Cardiac rhythm is A. fib. CAT scan of the brain that was done in emergency department showed no acute abnormalities. Echocardiogram was ordered and the results are still pending for now. The cardiac enzymes showed a troponin of 0.06. The EKG was nonspecific and was consistent atrial fibrillation. The patient had a non-anion gap metabolic acidosis with serum bicarb level of 18 improving compared to yesterday. Creatinine was as high as 1.5 and has dropped down to 1.25. UA erythematous admission was also negative. No seizure activity. Upon getting a brief sedation holiday the patient was able to arouse and move extremities without any limitation the patient is known to have history of diabetes mellitus, history of chronic atrial fibrillation for which she has been maintained on long-term anticoagulation with Eliquis. The patient also has history of coronary artery disease. The patient had intermediate to severe disease involving the left circumflex and the last catheterization was done by Dr. Hartman back in February 2018 and the patient underwent a fractional flow reserve of the left circumflex and the findings were negative for ischemia. The patient also has history of hypertension, sleep apnea, hyperlipidemia and previous echocardiogram has revealed an ejection of 55-60% and this was based on a echocardiogram from June 2018. The patient had moderate severe RV enlargement, RA was mildly enlarged, mild aortic stenosis, moderate mitral regurgitation and severe tricuspid regurgitation and severe pulmonary hypertension was identified. Patient was reevaluated today on 09/17/2018, remains on mechanical ventilation, and her ventilator settings are assist control rate of 16 FiO2 of 40%, tidal volume of 450, and PEEP of 5. Patient has been off propofol for the last 2 days, she is arousable, followed all simple instructions, she was wiggling her toes, squeezing hands, and sticking out her tongue upon request. Patient seemed to be appropriate, hence I recommended a trial of pressure support of 10 and C PAP. Patient has a size 7.0 endotracheal tube. Chest x-ray was reviewed, showed improved aeration of the right lung base, small pleural effusion was noted, and atelectasis is noted. Slight interstitial edema is also suspected but improved since admission. ABG this morning showed a pO2 of 88 pCO2 of 33 pH of 7.39. Patient has orogastric tube in place, may consider initiation of tube feeding if the patient is not extubated today. Her basic metabolic profile is normal. And the rest of the labs were noted to be relatively unremarkable. Objective - Vital Signs Vital signs: Vital Signs Temp 99.3 F 09/17/18 08:00 Pulse 100 09/17/18 11:38 Resp 16 09/17/18 09:56 BP 137/67 09/17/18 09:56 Pulse Ox 96 09/17/18 09:56 Intake & Output 09/16/18 09/17/18 09/17/18 18:59 06:59 18:59 Intake Total 666 440.833 323 Output Total 1875 1400 620 Balance -1209 -959.167 -297 Weight 73.7 kg Intake: IV 666 388 178 Cefepime 1 gm In Sodium 100 50 100 Chloride 0.9% 50 ml @ 100 mls/hr IVPB Q8HR [facility] Rx# :[id number] Magnesium Sulfate-D5w Pmx 100 1 gm In Dextrose/Water 1 100ml.bag @ 100 mls/hr IVPB ONCE ONE Rx#: [id number] NS 280 260 60 Potassium Chloride 20 meq 120 In Water For Injection 1 100ml.bag @ 50 mls/hr IVPB Q2H [facility] Rx#: [id number] Pressure Bags 66 78 18 Intake, IV Titration 52.833 85 Amount Diltiazem 125 mg In 52.833 85 Sodium Chloride 0.9% 100 ml @ Per Protocol IV .Q0M [facility] Rx#:[id number] Oral 60 Output: Urine 1875 1400 620 Other: Voiding Method Indwelling Catheter Indwelling Catheter Indwelling Catheter ABP, PAP, CO, CI - Last Documented Arterial Blood Pressure 125/53 - Exam Physical Exam: Revealed a 73-year-old female, on mechanical ventilation, arousable, followed instructions, in no distress. Head: Atraumatic, normocephalic. HEENT:[Neck is supple.] [No neck masses.] [No thyromegaly.] [No JVD.] Chest: [Clear throughout, minimal fine crackles at the bases, no rhonchi and no wheezes, symmetrical chest expansion noted. Cardiac Exam: [Normal S1 and S2, no S3 gallop, no murmur.] Abdomen: [Soft, nontender, no megaly, no rebound, no guarding, normal bowel sounds.] Extremities: [No clubbing, no edema, no cyanosis.] Neurological Exam: Arousable, follows all simple instructions, [No focal neurologic deficit.] Psychiatric: Normal mood, affect and mental status examination. Lymphatics: No lymphadenopathy. Skin: No rashes. - Labs CBC & Chem 7: 09/17/18 04:34 09/17/18 10:04 Labs: Abnormal Lab Results - Last 24 Hours (Table) 09/16/18 09/16/18 09/16/18 Range/Units 12:56 17:40 21:03 WBC (3.8-10.6) k/uL RBC (3.80-5.40) m/uL Hgb (11.4-16.0) gm/dL MCHC (31.0-37.0) g/dL Neutrophils # (1.3-7.7) k/uL Lymphocytes # (1.0-4.8) k/uL ABG pCO2 (35-45) mmHg ABG HCO3 (21-25) mmol/L Chloride (98-107) mmol/L Carbon Dioxide (22-30) mmol/L BUN (7-17) mg/dL Glucose (74-99) mg/dL POC Glucose (mg/dL) 169 H 153 H 129 H (75-99) mg/dL 09/16/18 09/17/18 09/17/18 Range/Units 23:38 04:25 04:34 WBC 11.6 H (3.8-10.6) k/uL RBC 3.72 L (3.80-5.40) m/uL Hgb 10.8 L (11.4-16.0) gm/dL MCHC 30.0 L (31.0-37.0) g/dL Neutrophils # 9.7 H (1.3-7.7) k/uL Lymphocytes # 0.7 L (1.0-4.8) k/uL ABG pCO2 31 L (35-45) mmHg ABG HCO3 20 L (21-25) mmol/L Chloride (98-107) mmol/L Carbon Dioxide (22-30) mmol/L BUN (7-17) mg/dL Glucose (74-99) mg/dL POC Glucose (mg/dL) 142 H (75-99) mg/dL 09/17/18 09/17/18 09/17/18 Range/Units 04:34 05:56 10:04 WBC (3.8-10.6) k/uL RBC (3.80-5.40) m/uL Hgb (11.4-16.0) gm/dL MCHC (31.0-37.0) g/dL Neutrophils # (1.3-7.7) k/uL Lymphocytes # (1.0-4.8) k/uL ABG pCO2 (35-45) mmHg ABG HCO3 (21-25) mmol/L Chloride 113 H 113 H (98-107) mmol/L Carbon Dioxide 19 L 20 L (22-30) mmol/L BUN 26 H 23 H (7-17) mg/dL Glucose 143 H 169 H (74-99) mg/dL POC Glucose (mg/dL) 171 H (75-99) mg/dL 09/17/18 Range/Units 11:37 WBC (3.8-10.6) k/uL RBC (3.80-5.40) m/uL Hgb (11.4-16.0) gm/dL MCHC (31.0-37.0) g/dL Neutrophils # (1.3-7.7) k/uL Lymphocytes # (1.0-4.8) k/uL ABG pCO2 33 L (35-45) mmHg ABG HCO3 20 L (21-25) mmol/L Chloride (98-107) mmol/L Carbon Dioxide (22-30) mmol/L BUN (7-17) mg/dL Glucose (74-99) mg/dL POC Glucose (mg/dL) (75-99) mg/dL Microbiology - Last 24 Hours (Table) 09/15/18 01:02 Blood Culture - Preliminary Blood No Growth after 48 hours 09/13/18 20:46 Blood Culture - Preliminary Blood No Growth after 72 hours 09/15/18 23:21 Gram Stain - Preliminary Sputum Sputum Culture - Preliminary Assessment and Plan Assessment: Impression: Cardiopulmonary arrest, exact etiology is not clear, investigation is in progress. History of severe right sided congestive heart failure and pulmonary hypertension, presently improving. Chronic atrial fibrillation Acute hypoxic respiratory failure requiring intubation and mechanical ventil ation during her cardiac arrest. Acute kidney injury improving Carotid artery disease Possible left lower lobe pneumonia, could also be related to atelectasis, on antibiotics empirically. Type 2 diabetes Recommendation: Continue ventilatory support, patient will be placed on pressure support and CPAP trial, we will recheck ABG on pressure support mode of mechanical ventilation and CPAP, and if reasonable may consider extubating the patient. In the meantime continue present treatment including empiric antibiotics, cardiac meds for atrial fibrillation, continue insulin, bronchodilators, GI and DVT prophylaxis, we will hold on the tube feeding just in case if we end up extubating the patient in the next few hours. Even if extubated, the patient will need to be closely monitored in the intensive care unit. Her family is all at bedside, discussed her condition with them, and made aware that she may be extubated later today. Critical care time is 35 minutes. Time with Patient: Greater than 30
[2018-09-17] MEDS: DILTIAZEM 125 MG in SODIUM CHLORIDE 0.9% 100 ML IV SCH ×2 (12:20→23:09)
[2018-09-17 12:21] LABS: Glucose,Whole Blood 194 mg/dL (75-99)
[2018-09-17 12:29] LABS: ABG HCO3 9 mmol/L (21-25); ABG PH <7.00 (7.35-7.45)
--- NOTE | 2018-09-17 17:39 | P.PN ---
Subjective Patient remains in the intensive care unit. Patient was extubated this morning no noted to be on BiPAP. Discussed condition with family. Patient remains full code. Patient continues on Cardizem for uncontrolled atrial fibrillation. Patient able to understand simple commands. Objective - Vital Signs Vital signs: Vital Signs Temp 98.7 F 09/17/18 16:00 Pulse 98 09/17/18 17:00 Resp 19 09/17/18 17:00 BP 148/63 09/17/18 17:00 Pulse Ox 98 09/17/18 17:00 Intake & Output 09/16/18 09/17/18 09/17/18 18:59 06:59 18:59 Intake Total 666 440.833 583.042 Output Total 1875 1400 1320 Balance -1209 -959.167 -736.958 Weight 73.7 kg Intake: IV 666 388 360 Cefepime 1 gm In Sodium 100 50 100 Chloride 0.9% 50 ml @ 100 mls/hr IVPB Q8HR [facility] Rx# :[id number] Magnesium Sulfate-D5w Pmx 100 1 gm In Dextrose/Water 1 100ml.bag @ 100 mls/hr IVPB ONCE ONE Rx#: [id number] NS 280 260 200 Potassium Chloride 20 meq 120 In Water For Injection 1 100ml.bag @ 50 mls/hr IVPB Q2H [facility] Rx#: [id number] Pressure Bags 66 78 60 Intake, IV Titration 52.833 163.042 Amount Diltiazem 125 mg In 52.833 163.042 Sodium Chloride 0.9% 100 ml @ Per Protocol IV .Q0M [facility] Rx#:[id number] Oral 60 Output: Urine 1875 1400 1320 Other: Voiding Method Indwelling Catheter Indwelling Catheter Indwelling Catheter ABP, PAP, CO, CI - Last Documented Arterial Blood Pressure 125/53 - Constitutional General appearance: Present: mild distress - EENT Eyes: Present: PERRLA Ears: bilateral: normal - Neck Neck: Present: normal ROM - Respiratory Respiratory: bilateral: diminished, rhonchi - Cardiovascular Rhythm: irregularly irregular - Gastrointestinal General gastrointestinal: Present: soft - Integumentary Integumentary: Present: normal - Neurologic Neurologic: Present: CNII-XII intact - Musculoskeletal Musculoskeletal: Present: generalized weakness - Psychiatric Psychiatric Comment(s): Patient able to respond to simple commands - Labs CBC & Chem 7: 09/17/18 04:34 09/17/18 10:04 Labs: Abnormal Lab Results - Last 24 Hours (Table) 09/15/18 09/16/18 09/16/18 Range/Units 00:23 17:40 21:03 WBC (3.8-10.6) k/uL RBC (3.80-5.40) m/uL Hgb (11.4-16.0) gm/dL MCHC (31.0-37.0) g/dL Neutrophils # (1.3-7.7) k/uL Lymphocytes # (1.0-4.8) k/uL ABG pH <7.00 L* (7.35-7.45) ABG pCO2 (35-45) mmHg ABG HCO3 9 L* (21-25) mmol/L Chloride (98-107) mmol/L Carbon Dioxide (22-30) mmol/L BUN (7-17) mg/dL Glucose (74-99) mg/dL POC Glucose (mg/dL) 153 H 129 H (75-99) mg/dL 09/16/18 09/17/18 09/17/18 Range/Units 23:38 04:25 04:34 WBC 11.6 H (3.8-10.6) k/uL RBC 3.72 L (3.80-5.40) m/uL Hgb 10.8 L (11.4-16.0) gm/dL MCHC 30.0 L (31.0-37.0) g/dL Neutrophils # 9.7 H (1.3-7.7) k/uL Lymphocytes # 0.7 L (1.0-4.8) k/uL ABG pH (7.35-7.45) ABG pCO2 31 L (35-45) mmHg ABG HCO3 20 L (21-25) mmol/L Chloride (98-107) mmol/L Carbon Dioxide (22-30) mmol/L BUN (7-17) mg/dL Glucose (74-99) mg/dL POC Glucose (mg/dL) 142 H (75-99) mg/dL 09/17/18 09/17/18 09/17/18 Range/Units 04:34 05:56 10:04 WBC (3.8-10.6) k/uL RBC (3.80-5.40) m/uL Hgb (11.4-16.0) gm/dL MCHC (31.0-37.0) g/dL Neutrophils # (1.3-7.7) k/uL Lymphocytes # (1.0-4.8) k/uL ABG pH (7.35-7.45) ABG pCO2 (35-45) mmHg ABG HCO3 (21-25) mmol/L Chloride 113 H 113 H (98-107) mmol/L Carbon Dioxide 19 L 20 L (22-30) mmol/L BUN 26 H 23 H (7-17) mg/dL Glucose 143 H 169 H (74-99) mg/dL POC Glucose (mg/dL) 171 H (75-99) mg/dL 09/17/18 09/17/18 Range/Units 11:37 12:13 WBC (3.8-10.6) k/uL RBC (3.80-5.40) m/uL Hgb (11.4-16.0) gm/dL MCHC (31.0-37.0) g/dL Neutrophils # (1.3-7.7) k/uL Lymphocytes # (1.0-4.8) k/uL ABG pH (7.35-7.45) ABG pCO2 33 L (35-45) mmHg ABG HCO3 20 L (21-25) mmol/L Chloride (98-107) mmol/L Carbon Dioxide (22-30) mmol/L BUN (7-17) mg/dL Glucose (74-99) mg/dL POC Glucose (mg/dL) 194 H (75-99) mg/dL Microbiology - Last 24 Hours (Table) 09/15/18 23:21 Gram Stain - Preliminary Sputum Sputum Culture - Preliminary 09/15/18 01:02 Blood Culture - Preliminary Blood No Growth after 48 hours 09/13/18 20:46 Blood Culture - Preliminary Blood No Growth after 72 hours - Imaging and Cardiology Chest x-ray: report reviewed CT Scan - head: report reviewed Assessment and Plan Plan: Assessment Post cardiac arrest 2 with acute hypoxic respiratory failure patient intubated in the intensive care unit Patient now extubated on BiPAP Sepsis secondary to pneumonia Right-sided Congestive heart failure severe pulmonary hypertension Atrial fibrillation on Cardizem Diabetes type 2 Hypertension Hyperlipidemia History of coronary disease Generalized weakness Acute kidney injury Plan Patient on Levaquin and cefepime Continue consultation with liquor bridge operator Continue consultation with cardiology When stabilized MRI of the brain
[2018-09-17 17:41] LABS: Glucose,Whole Blood 181 mg/dL (75-99)
[2018-09-17 20:46] LABS: Glucose,Whole Blood 179 mg/dL (75-99)
[2018-09-17] MEDS: INSULIN DETEMIR (LEVEMIR) 100 UNIT/ML SYR SQ SCH (20:46)
[2018-09-17] MEDS: ATORVASTATIN 20 MG TAB PO SCH (20:47)
--- NOTE | 2018-09-17 21:23 | PN ---
PROGRESS NOTE Mrs. Thomas is a lady who is still on a vent. She has had what appears to be a cardiac arrest type picture. There was a question of bradycardia, but we have not seen any such bradyarrhythmia. She remains in atrial fibrillation. Rate is in the 90-110 range. She is on 10 mg of Cardizem, which we will continue. Weaning efforts are in progress. I would recommend that we switch her to oral medications if she is weaned when she is able to take oral pills. LV function is fairly well preserved. She is off Levophed. Vitals are stable today. Blood pressure is 118. Pulse rate is about 110. S1, S2 heard normally with irregular rhythm. Lungs reveal improved air entry. Abdomen and lower extremity exam unchanged. Hopefully patient will be weaned today. MMODL / IJN: [id number] /
[2018-09-17 23:15] LABS: Glucose,Whole Blood 202 mg/dL (75-99)
[2018-09-18] MEDS ORDERED: LEVOFLOXACIN 500 MG TAB PO SCH
[2018-09-18] MEDS: NOREPINEPHRINE 4 MG in SODIUM CHLORIDE 0.9% 250 ML IV SCH (00:27)
[2018-09-18 04:46] LABS: African American GFR (CKD) >90 (>60 ml/min/1.73 sqM); Anion Gap 9 mmol/L; Blood Urea Nitrogen 21 mg/dL (7-17); Calcium 8.7 mg/dL (8.4-10.2); Carbon Dioxide 21 mmol/L (22-30); Chloride 115 mmol/L (98-107); Glucose 183 mg/dL (74-99); Magnesium 1.7 mg/dL (1.6-2.3); Phosphorus 3.6 mg/dL (2.5-4.5); Potassium 3.4 mmol/L (3.5-5.1); Sodium 145 mmol/L (137-145)
[2018-09-18 04:49] LABS: Anisocytosis Slight; HCT 31.9 % (34.0-46.0); HGB 10.1 gm/dL (11.4-16.0); Hypochromasia Moderate; MCH 30.7 pg (25.0-35.0); MCHC 31.6 g/dL (31.0-37.0); MCV 96.9 fL (80.0-100.0); Macrocytosis Slight; Mean Platelet Volume 8.8; Platelet Count 169 k/uL (150-450); RDW 16.2 % (11.5-15.5); WBC 11.4 k/uL (3.8-10.6)
[2018-09-18] MEDS: IPRATROPIUM-ALBUTEROL 3 ML NEB INHALATION SCH ×6 (05:10→23:49)
[2018-09-18] MEDS: POTASSIUM CHLORIDE 20 MEQ in WATER FOR INJECTION 1 100ML.BAG IVPB SCH ×2 (06:11→09:32)
[2018-09-18] MEDS: MAGNESIUM SULFATE-D5W PMX 1 GM in DEXTROSE/WATER 1 100ML.BAG IVPB SCH ×2 (06:12→08:45)
[2018-09-18 06:19] LABS: Glucose,Whole Blood 180 mg/dL (75-99)
[2018-09-18] MEDS: INSULIN ASPART (NovoLOG) 100 UNIT/ML VIAL SQ SCH ×4 (06:21→23:37)
--- NOTE | 2018-09-18 08:14 | XR ---
EXAMINATION TYPE: XR chest 1V portable DATE OF EXAM: 09/18/2018 COMPARISON: 09/17/2018 HISTORY: Shortness of breath. Follow-up for ventilatory dependent respiratory failure with recent ext ubation. TECHNIQUE: Single frontal view of the chest is obtained. FINDINGS: There has been interval extubation and removal of the enteric tube. Subclavian approach a left-sided central venous catheter again terminates within the high right atrium. Cardiomediastinal s ilhouette is enlarged with obscuration of the retrocardiac airspace and silhouetting of the left marianne diaphragm and costophrenic angle. Right costophrenic angle is slightly blunted. Continued improvement of the pulmonary vascular congestion, now appearing resolved. Left humeral head rotator cuff repair anchors are present. IMPRESSION: Interval extubation and removal of the enteric tube with persistent retrocardiac opacity , small left pleural effusion and trace right pleural effusion.
[2018-09-18] MEDS: CEFEPIME 1 GM in SODIUM CHLORIDE 0.9% 50 ML IVPB SCH ×2 (08:45→20:25)
[2018-09-18] MEDS: CHLORHEXIDINE GLUCONATE 15 ML CUP MUCOUS MEM SCH (08:48)
[2018-09-18] MEDS: FUROSEMIDE 10 MG/ML 2 ML VIAL IV SCH ×2 (09:32→20:26)
[2018-09-18] MEDS: DEXTROSE 5%-0.45% NACL 1,000 ML IV SCH (10:30)
[2018-09-18] MEDS: APIXABAN 5 MG TAB PO SCH ×2 (11:08→20:25)
[2018-09-18] MEDS: METOPROLOL TARTRATE 25 MG TAB PO SCH ×2 (11:08→20:26)
[2018-09-18] MEDS: GABAPENTIN 400 MG CAP PO SCH ×3 (11:13→20:26)
[2018-09-18] MEDS: NON-FORMULARY DRUG (Dulaglutide [Trulicity] 0.75 MG) SQ SCH (11:13)
[2018-09-18 11:45] LABS: Glucose,Whole Blood 239 mg/dL (75-99)
--- NOTE | 2018-09-18 11:49 | P.PN ---
Subjective Patient awake and alert. Continues to have weakness on the right side. Noted difficulty with swallowing solids study ordered Objective - Vital Signs Vital signs: Vital Signs Temp 97.7 F 09/18/18 08:00 Pulse 121 H 09/18/18 11:32 Resp 15 09/18/18 11:00 BP 146/55 09/17/18 18:59 Pulse Ox 95 09/18/18 11:00 Intake & Output 09/17/18 09/18/18 09/18/18 18:59 06:59 18:59 Intake Total 622.709 505.250 774.334 Output Total 1395 1095 615 Balance -772.291 -589.750 159.334 Weight 72.8 kg 72.8 kg Intake: IV 386 388 104 Cefepime 1 gm In Sodium 100 50 Chloride 0.9% 50 ml @ 100 mls/hr IVPB Q8HR [facility] Rx# :[id number] NS 220 260 80 Pressure Bags 66 78 24 Intake, IV Titration 176.709 117.250 550.334 Amount Cefepime 1 gm In Sodium 50 Chloride 0.9% 50 ml @ 100 mls/hr IVPB Q12HR [facility] Rx #:[id number] Dextrose 5%-0.45% NaCl 1, 50 000 ml @ 50 mls/hr IV . Q20H [facility] Rx#:[id number] Diltiazem 125 mg In 176.709 117.250 50.334 Sodium Chloride 0.9% 100 ml @ Per Protocol IV .Q0M [facility] Rx#:[id number] Magnesium Sulfate-D5w Pmx 200 1 gm In Dextrose/Water 1 100ml.bag @ 100 mls/hr IVPB Q1H [facility] Rx#: [id number] Potassium Chloride 20 meq 200 In Water For Injection 1 100ml.bag @ 50 mls/hr IVPB Q2H [facility] Rx#: [id number] Oral 60 120 Output: Urine 1395 1095 615 Other: Voiding Method Indwelling Catheter Indwelling Catheter ABP, PAP, CO, CI - Last Documented Arterial Blood Pressure 162/73 - Constitutional General appearance: Present: mild distress - EENT Eyes: Present: PERRLA Ears: bilateral: normal - Neck Neck: Present: normal ROM - Respiratory Respiratory: bilateral: rhonchi - Cardiovascular Rhythm: irregularly irregular - Gastrointestinal General gastrointestinal: Present: soft - Integumentary Integumentary: Present: normal - Neurologic Neurologic: Present: CNII-XII intact - Musculoskeletal Musculoskeletal: Present: generalized weakness - Psychiatric Psychiatric Comment(s): Awake and alert able to state and name and birthdate - Labs CBC & Chem 7: 09/18/18 04:26 09/18/18 04:26 Labs: Abnormal Lab Results - Last 24 Hours (Table) 09/15/18 09/17/18 09/17/18 Range/Units 00:23 12:13 17:38 WBC (3.8-10.6) k/uL RBC (3.80-5.40) m/uL Hgb (11.4-16.0) gm/dL Hct (34.0-46.0) % RDW (11.5-15.5) % ABG pH <7.00 L* (7.35-7.45) ABG HCO3 9 L* (21-25) mmol/L Potassium (3.5-5.1) mmol/L Chloride (98-107) mmol/L Carbon Dioxide (22-30) mmol/L BUN (7-17) mg/dL Glucose (74-99) mg/dL POC Glucose (mg/dL) 194 H 181 H (75-99) mg/dL 09/17/18 09/17/18 09/18/18 Range/Units 20:44 23:14 04:26 WBC 11.4 H (3.8-10.6) k/uL RBC 3.30 L (3.80-5.40) m/uL Hgb 10.1 L (11.4-16.0) gm/dL Hct 31.9 L (34.0-46.0) % RDW 16.2 H (11.5-15.5) % ABG pH (7.35-7.45) ABG HCO3 (21-25) mmol/L Potassium (3.5-5.1) mmol/L Chloride (98-107) mmol/L Carbon Dioxide (22-30) mmol/L BUN (7-17) mg/dL Glucose (74-99) mg/dL POC Glucose (mg/dL) 179 H 202 H (75-99) mg/dL 09/18/18 09/18/18 09/18/18 Range/Units 04:26 06:18 11:43 WBC (3.8-10.6) k/uL RBC (3.80-5.40) m/uL Hgb (11.4-16.0) gm/dL Hct (34.0-46.0) % RDW (11.5-15.5) % ABG pH (7.35-7.45) ABG HCO3 (21-25) mmol/L Potassium 3.4 L (3.5-5.1) mmol/L Chloride 115 H (98-107) mmol/L Carbon Dioxide 21 L (22-30) mmol/L BUN 21 H (7-17) mg/dL Glucose 183 H (74-99) mg/dL POC Glucose (mg/dL) 180 H 239 H (75-99) mg/dL Microbiology - Last 24 Hours (Table) 09/15/18 23:21 Gram Stain - Final Sputum Sputum Culture - Final 09/15/18 01:02 Blood Culture - Preliminary Blood No Growth after 72 hours 09/13/18 20:46 Blood Culture - Preliminary Blood No Growth after 96 hours - Imaging and Cardiology Chest x-ray: report reviewed Assessment and Plan Plan: Assessment Post cardiac arrest 2 CEA with acute hypoxic respiratory failure patient was intubated and in ICU Patient remains in ICU but extubated Severe sepsis secondary to pneumonia Right-sided heart failure with severe pulmonary hypertension Atrial fib on Cardizem drip Diabetes type 2 Hypertension Hyperlipidemia History of coronary disease History of CVA Generalized weakness Acute kidney injury Plan Continue antibiotics Pulmonology and cardiology Swallow study
[2018-09-18] MEDS: DILTIAZEM 125 MG in SODIUM CHLORIDE 0.9% 100 ML IV SCH (14:11)
--- NOTE | 2018-09-18 15:05 | P.PN ---
Subjective Progress Note Date: 09/18/18 Principal diagnosis: Acute cardiopulmonary arrest requiring intubation and mechanical ventilation. This is a 71-year-old female patient who comes into the hospital because of gene ralized weakness, difficulty with mobility, frequent falls and suspicion for an underlying pneumonia. The patient was initially brought into the emergency department. She has fallen multiple times at home. She has fallen in the bathroom and she did have a head trauma. No reported history of loss of consciousness. The patient was laying down the floor for a couple of hours before she was found by friends. At that point the patient was transferred to our hospital. According to the family the patient gained weight in the order of 10 pounds over the past couple of weeks. The patient reported pain over her tailbone he has she denied having any chest pain. She denies having any other complaints. In the emergency, the patient was diagnosed having a left lower lobe pneumonia. The patient underwent CT angiogram of the chest that showed a limited left lower lobe pulmonary infiltration and for that reason the patient was hospitalized and she was started on antibiotics. Overnight, the patient went into an acute cardiac arrest. The patient was found to be in PEA. She was started on CPR. Code team was activated and the patient was immediately intubated with a #7 orotracheal tube. The initial code was for a total of 3 minutes and following that the patient got to the ICU. She had another episode of PEA here in the ICU that lasts for 4 minutes. During which the patient received CPR and the patient received epinephrine. She had spontaneous return and circulation. Initial blood gas showed metabolic acidosis with a pH of 6.9. Necessary vent changes were made by Dr. Kerr over the phone.. Gave the patient fluids and she immediately received a total of 3-1/2 L. The patient's subsequent blood gases showed a pH of 7.48 with a pCO2 of 26 and pO2 151 and this was done this morning while her being on an assist-control mode of ventilator with a rate of 24 and tidal volume of 500 with an FiO2 of 60% and a PEEP of 5. She briefly required some pressors in the form of levo fed and she's been off pressors since 3 AM this morning. Urine output was adequate in the order of 20-30 mL an hour. The patient was given Broderson spectrum of antibiotics and the patient was covered with a combination of vancomycin, Levaquin and cefepime and Zithromax were discontinued. She is currently afebrile. She is sedated with Diprivan. Cardiac rhythm is A. fib. CAT scan of the brain that was done in emergency department showed no acute abnormalities. Echocardiogram was ordered and the results are still pending for now. The cardiac enzymes showed a troponin of 0.06. The EKG was nonspecific and was consistent atrial fibrillation. The patient had a non-anion gap metabolic acidosis with serum bicarb level of 18 improving compared to yesterday. Creatinine was as high as 1.5 and has dropped down to 1.25. UA erythematous admission was also negative. No seizure activity. Upon getting a brief sedation holiday the patient was able to arouse and move extremities without any limitation the patient is known to have history of diabetes mellitus, history of chronic atrial fibrillation for which she has been maintained on long-term anticoagulation with Eliquis. The patient also has history of coronary artery disease. The patient had intermediate to severe disease involving the left circumflex and the last catheterization was done by Dr. Hartman back in February 2018 and the patient underwent a fractional flow reserve of the left circumflex and the findings were negative for ischemia. The patient also has history of hypertension, sleep apnea, hyperlipidemia and previous echocardiogram has revealed an ejection of 55-60% and this was based on a echocardiogram from June 2018. The patient had moderate severe RV enlargement, RA was mildly enlarged, mild aortic stenosis, moderate mitral regurgitation and severe tricuspid regurgitation and severe pulmonary hypertension was identified. Patient was reevaluated today on 09/17/2018, remains on mechanical ventilation, and her ventilator settings are assist control rate of 16 FiO2 of 40%, tidal volume of 450, and PEEP of 5. Patient has been off propofol for the last 2 days, she is arousable, followed all simple instructions, she was wiggling her toes, squeezing hands, and sticking out her tongue upon request. Patient seemed to be appropriate, hence I recommended a trial of pressure support of 10 and C PAP. Patient has a size 7.0 endotracheal tube. Chest x-ray was reviewed, showed improved aeration of the right lung base, small pleural effusion was noted, and atelectasis is noted. Slight interstitial edema is also suspected but improved since admission. ABG this morning showed a pO2 of 88 pCO2 of 33 pH of 7.39. Patient has orogastric tube in place, may consider initiation of tube feeding if the patient is not extubated today. Her basic metabolic profile is normal. And the rest of the labs were noted to be relatively unremarkable. Patient was reevaluated today on 09/18/2018, off mechanical ventilation, she was extubated yesterday uneventfully. She was marginal, and she required to be placed on BiPAP overnight. This morning the patient seems to be more awake, able to clear her secretions, and her cough seems to be a bit stronger, hence she was placed on a nasal cannula. In the meantime remains on bronchodilators, being evaluated at bedside for swallow evaluation. Her heart rate remains high despite of Cardizem at 10 mg per hour, and she may be placed on oral beta blockers. Patient seems to be weak, but appropriate. Her labs were reviewed including normal metabolic profile potassium is a bit low at 3.4 CBC is relatively normal. Chest x-ray showed mostly left lower lobe atelectasis, difficult to rule out underlying pneumonia involving the left lower lobe. Patient remains on Levaquin and cefepime in the meantime. Family is at bedside, and I updated them on her condition. Objective - Vital Signs Vital signs: Vital Signs Temp 97.9 F 09/18/18 12:00 Pulse 79 09/18/18 14:00 Resp 16 09/18/18 14:00 BP 146/55 09/17/18 18:59 Pulse Ox 95 09/18/18 14:00 Intake & Output 09/17/18 09/18/18 09/18/18 18:59 06:59 18:59 Intake Total 622.709 505.250 965.583 Output Total 1395 1095 910 Balance -772.291 -589.750 55.583 Weight 72.8 kg 72.8 kg Intake: IV 386 388 122 Cefepime 1 gm In Sodium 100 50 Chloride 0.9% 50 ml @ 100 mls/hr IVPB Q8HR [facility] Rx# :[id number] NS 220 260 80 Pressure Bags 66 78 42 Intake, IV Titration 176.709 117.250 723.583 Amount Cefepime 1 gm In Sodium 50 Chloride 0.9% 50 ml @ 100 mls/hr IVPB Q12HR [facility] Rx #:[id number] Dextrose 5%-0.45% NaCl 1, 200 000 ml @ 50 mls/hr IV . Q20H [facility] Rx#:[id number] Diltiazem 125 mg In 176.709 117.250 73.583 Sodium Chloride 0.9% 100 ml @ Per Protocol IV .Q0M [facility] Rx#:[id number] Magnesium Sulfate-D5w Pmx 200 1 gm In Dextrose/Water 1 100ml.bag @ 100 mls/hr IVPB Q1H [facility] Rx#: [id number] Potassium Chloride 20 meq 200 In Water For Injection 1 100ml.bag @ 50 mls/hr IVPB Q2H [facility] Rx#: [id number] Oral 60 120 Output: Urine 1395 1095 910 Other: Voiding Method Indwelling Catheter Indwelling Catheter ABP, PAP, CO, CI - Last Documented Arterial Blood Pressure 140/61 - Exam Physical Exam: Revealed a 73-year-old female, on 3 L nasal cannula in no distress. Head: Atraumatic, normocephalic. HEENT:[Neck is supple.] [No neck masses.] [No thyromegaly.] [No JVD.] Chest: [ minimal fine crackles at the bases, no rhonchi and no wheezes, symmetrical chest expansion noted. Cardiac Exam: [Normal S1 and S2, no S3 gallop, no murmur.] Abdomen: [Soft, nontender, no megaly, no rebound, no guarding, normal bowel sounds.] Extremities: [No clubbing, no edema, no cyanosis.] Neurological Exam: Awake, follows all simple instructions, [No focal neurologic deficit.] Psychiatric: Normal mood, affect and mental status examination. Lymphatics: No lymphadenopathy. Skin: No rashes. - Labs CBC & Chem 7: 09/18/18 04:26 09/18/18 04:26 Labs: Abnormal Lab Results - Last 24 Hours (Table) 09/17/18 09/17/18 09/17/18 Range/Units 17:38 20:44 23:14 WBC (3.8-10.6) k/uL RBC (3.80-5.40) m/uL Hgb (11.4-16.0) gm/dL Hct (34.0-46.0) % RDW (11.5-15.5) % Potassium (3.5-5.1) mmol/L Chloride (98-107) mmol/L Carbon Dioxide (22-30) mmol/L BUN (7-17) mg/dL Glucose (74-99) mg/dL POC Glucose (mg/dL) 181 H 179 H 202 H (75-99) mg/dL 09/18/18 09/18/18 09/18/18 Range/Units 04:26 04:26 06:18 WBC 11.4 H (3.8-10.6) k/uL RBC 3.30 L (3.80-5.40) m/uL Hgb 10.1 L (11.4-16.0) gm/dL Hct 31.9 L (34.0-46.0) % RDW 16.2 H (11.5-15.5) % Potassium 3.4 L (3.5-5.1) mmol/L Chloride 115 H (98-107) mmol/L Carbon Dioxide 21 L (22-30) mmol/L BUN 21 H (7-17) mg/dL Glucose 183 H (74-99) mg/dL POC Glucose (mg/dL) 180 H (75-99) mg/dL 09/18/18 Range/Units 11:43 WBC (3.8-10.6) k/uL RBC (3.80-5.40) m/uL Hgb (11.4-16.0) gm/dL Hct (34.0-46.0) % RDW (11.5-15.5) % Potassium (3.5-5.1) mmol/L Chloride (98-107) mmol/L Carbon Dioxide (22-30) mmol/L BUN (7-17) mg/dL Glucose (74-99) mg/dL POC Glucose (mg/dL) 239 H (75-99) mg/dL Microbiology - Last 24 Hours (Table) 09/15/18 23:21 Gram Stain - Final Sputum Sputum Culture - Final 09/15/18 01:02 Blood Culture - Preliminary Blood No Growth after 72 hours 09/13/18 20:46 Blood Culture - Preliminary Blood No Growth after 96 hours Assessment and Plan Assessment: Impression: Cardiopulmonary arrest, exact etiology is not clear, investigation is in progress. History of severe right sided congestive heart failure and pulmonary hypertension, presently improving. Chronic atrial fibrillation Acute hypoxic respiratory failure requiring intubation and mechanical ventilation extubated on 09/17/2018 Acute kidney injury improving Carotid artery disease Possible left lower lobe pneumonia, could also be related to atelectasis, on antibiotics empirically. Type 2 diabetes Recommendation: Continue present meds including antibiotics, bronchodilators, Cardizem and beta blockers, continue incentive spirometry, nutritional support, this would be done after swallow evaluation and see the patient could swallow easily without aspiration. Continue empiric antibiotics. She is presently on Levaquin and cefepime. Continue GI and DVT prophylaxis. Continue to monitor in the ICU for at least the next 24 hours. Updated her family in her condition, prognosis remains guarded considering her multiple comorbid conditions. Time with Patient: Less than 30
--- NOTE | 2018-09-18 15:31 | FL ---
Modified barium swallow. HISTORY: Dysphagia. Modified barium swallow was performed with the department of speech pathology. The patient was prese nted with various consistencies of barium. There is no evidence for aspiration or penetration. Full report is to follow from the department of speech pathology. Impression: Normal study.
[2018-09-18] MEDS: CITALOPRAM HYDROBROMIDE 20 MG TAB PO SCH (17:36)
[2018-09-18] MEDS: PANTOPRAZOLE 40 MG TABLET PO SCH (17:36)
[2018-09-18] MEDS: VITAMIN E (DL,TOCOPHERYL ACET) 400 UNIT CAP PO SCH (17:37)
[2018-09-18] MEDS: CHOLECALCIFEROL 1,000 UNIT TAB PO SCH (17:37)
[2018-09-18] MEDS: ASCORBIC ACID 500 MG TAB PO SCH (17:37)
[2018-09-18 18:31] LABS: Glucose,Whole Blood 293 mg/dL (75-99)
[2018-09-18] MEDS: ATORVASTATIN 20 MG TAB PO SCH (20:25)
[2018-09-18 21:26] LABS: Glucose,Whole Blood 395 mg/dL (75-99)
[2018-09-18] MEDS: INSULIN DETEMIR (LEVEMIR) 100 UNIT/ML SYR SQ SCH (21:35)
[2018-09-18 23:30] LABS: Glucose,Whole Blood 380 mg/dL (75-99)
[2018-09-18] MEDS: POTASSIUM CHLORIDE 10 MEQ in WATER FOR INJECTION 1 100ML.BAG IVPB SCH (23:39)
[2018-09-19] MEDS: POTASSIUM CHLORIDE 10 MEQ in WATER FOR INJECTION 1 100ML.BAG IVPB SCH (00:44)
[2018-09-19] MEDS: NOREPINEPHRINE 4 MG in SODIUM CHLORIDE 0.9% 250 ML IV SCH (00:45)
[2018-09-19 01:12] LABS: Glucose,Whole Blood 319 mg/dL (75-99)
[2018-09-19] MEDS: IPRATROPIUM-ALBUTEROL 3 ML NEB INHALATION SCH ×6 (03:37→23:10)
[2018-09-19 04:38] LABS: HCT 33.2 % (34.0-46.0); HGB 10.5 gm/dL (11.4-16.0); Hypochromasia Moderate; MCH 30.6 pg (25.0-35.0); MCHC 31.5 g/dL (31.0-37.0); MCV 96.9 fL (80.0-100.0); Mean Platelet Volume 8.8; Platelet Count 231 k/uL (150-450); RBC 3.43 m/uL (3.80-5.40); RDW 15.9 % (11.5-15.5); WBC 14.9 k/uL (3.8-10.6)
[2018-09-19 04:48] LABS: African American GFR (CKD) >90 (>60 ml/min/1.73 sqM); Anion Gap 7 mmol/L; Blood Urea Nitrogen 21 mg/dL (7-17); Calcium 8.5 mg/dL (8.4-10.2); Carbon Dioxide 21 mmol/L (22-30); Chloride 108 mmol/L (98-107); Glucose 226 mg/dL (74-99); Phosphorus 2.7 mg/dL (2.5-4.5); Sodium 136 mmol/L (137-145)
[2018-09-19 05:07] LABS: Magnesium 1.9 mg/dL (1.6-2.3)
[2018-09-19] MEDS: DEXTROSE 5%-0.45% NACL 1,000 ML IV SCH (05:57)
[2018-09-19] MEDS: MAGNESIUM SULFATE-D5W PMX 1 GM in DEXTROSE/WATER 1 100ML.BAG IVPB SCH ×2 (05:57→06:59)
[2018-09-19 07:07] LABS: Glucose,Whole Blood 241 mg/dL (75-99)
[2018-09-19] MEDS: INSULIN ASPART (NovoLOG) 100 UNIT/ML VIAL SQ SCH ×4 (07:07→20:47)
--- NOTE | 2018-09-19 07:28 | XR ---
EXAMINATION TYPE: XR chest 1V portable DATE OF EXAM: 09/19/2018 Comparison: 09/18/2018 Clinical History: 73-year-old female Tube placement Findings: Left subclavian CVC tip remains in the right atrium. Heart remains enlarged with diffuse interstitial prominence. Increasing left basilar retrocardiac opacity and similar mild patchy right basilar opaci ty. Impression: Cardiomegaly and interstitial changes, possible mild pulmonary vascular congestion. Small left pleura l effusion with prominent left basilar and retrocardiac atelectasis and/or consolidation has increase d in the interval.
[2018-09-19] MEDS: VITAMIN E (DL,TOCOPHERYL ACET) 400 UNIT CAP PO SCH (08:21)
[2018-09-19] MEDS: PANTOPRAZOLE 40 MG TABLET PO SCH (08:21)
[2018-09-19] MEDS: CITALOPRAM HYDROBROMIDE 20 MG TAB PO SCH (08:21)
[2018-09-19] MEDS: CHOLECALCIFEROL 1,000 UNIT TAB PO SCH (08:21)
[2018-09-19] MEDS: APIXABAN 5 MG TAB PO SCH ×2 (08:21→20:47)
[2018-09-19] MEDS: FUROSEMIDE 10 MG/ML 2 ML VIAL IV SCH ×2 (08:21→20:27)
[2018-09-19] MEDS: ASCORBIC ACID 500 MG TAB PO SCH (08:21)
[2018-09-19] MEDS: GABAPENTIN 400 MG CAP PO SCH ×4 (08:21→20:47)
[2018-09-19] MEDS: METOPROLOL TARTRATE 25 MG TAB PO SCH ×2 (08:21→20:47)
[2018-09-19] MEDS: CEFEPIME 1 GM in SODIUM CHLORIDE 0.9% 50 ML IVPB SCH ×2 (09:40→20:26)
--- NOTE | 2018-09-19 11:01 | P.PN ---
Subjective Progress Note Date: 09/19/18 Principal diagnosis: Acute cardiopulmonary arrest requiring intubation and mechanical ventilation. This is a 71-year-old female patient who comes into the hospital because of gene ralized weakness, difficulty with mobility, frequent falls and suspicion for an underlying pneumonia. The patient was initially brought into the emergency department. She has fallen multiple times at home. She has fallen in the bathroom and she did have a head trauma. No reported history of loss of consciousness. The patient was laying down the floor for a couple of hours before she was found by friends. At that point the patient was transferred to our hospital. According to the family the patient gained weight in the order of 10 pounds over the past couple of weeks. The patient reported pain over her tailbone he has she denied having any chest pain. She denies having any other complaints. In the emergency, the patient was diagnosed having a left lower lobe pneumonia. The patient underwent CT angiogram of the chest that showed a limited left lower lobe pulmonary infiltration and for that reason the patient was hospitalized and she was started on antibiotics. Overnight, the patient went into an acute cardiac arrest. The patient was found to be in PEA. She was started on CPR. Code team was activated and the patient was immediately intubated with a #7 orotracheal tube. The initial code was for a total of 3 minutes and following that the patient got to the ICU. She had another episode of PEA here in the ICU that lasts for 4 minutes. During which the patient received CPR and the patient received epinephrine. She had spontaneous return and circulation. Initial blood gas showed metabolic acidosis with a pH of 6.9. Necessary vent changes were made by Dr. Kerr over the phone.. Gave the patient fluids and she immediately received a total of 3-1/2 L. The patient's subsequent blood gases showed a pH of 7.48 with a pCO2 of 26 and pO2 151 and this was done this morning while her being on an assist-control mode of ventilator with a rate of 24 and tidal volume of 500 with an FiO2 of 60% and a PEEP of 5. She briefly required some pressors in the form of levo fed and she's been off pressors since 3 AM this morning. Urine output was adequate in the order of 20-30 mL an hour. The patient was given Broderson spectrum of antibiotics and the patient was covered with a combination of vancomycin, Levaquin and cefepime and Zithromax were discontinued. She is currently afebrile. She is sedated with Diprivan. Cardiac rhythm is A. fib. CAT scan of the brain that was done in emergency department showed no acute abnormalities. Echocardiogram was ordered and the results are still pending for now. The cardiac enzymes showed a troponin of 0.06. The EKG was nonspecific and was consistent atrial fibrillation. The patient had a non-anion gap metabolic acidosis with serum bicarb level of 18 improving compared to yesterday. Creatinine was as high as 1.5 and has dropped down to 1.25. UA erythematous admission was also negative. No seizure activity. Upon getting a brief sedation holiday the patient was able to arouse and move extremities without any limitation the patient is known to have history of diabetes mellitus, history of chronic atrial fibrillation for which she has been maintained on long-term anticoagulation with Eliquis. The patient also has history of coronary artery disease. The patient had intermediate to severe disease involving the left circumflex and the last catheterization was done by Dr. Hartman back in February 2018 and the patient underwent a fractional flow reserve of the left circumflex and the findings were negative for ischemia. The patient also has history of hypertension, sleep apnea, hyperlipidemia and previous echocardiogram has revealed an ejection of 55-60% and this was based on a echocardiogram from June 2018. The patient had moderate severe RV enlargement, RA was mildly enlarged, mild aortic stenosis, moderate mitral regurgitation and severe tricuspid regurgitation and severe pulmonary hypertension was identified. Patient was reevaluated today on 09/17/2018, remains on mechanical ventilation, and her ventilator settings are assist control rate of 16 FiO2 of 40%, tidal volume of 450, and PEEP of 5. Patient has been off propofol for the last 2 days, she is arousable, followed all simple instructions, she was wiggling her toes, squeezing hands, and sticking out her tongue upon request. Patient seemed to be appropriate, hence I recommended a trial of pressure support of 10 and C PAP. Patient has a size 7.0 endotracheal tube. Chest x-ray was reviewed, showed improved aeration of the right lung base, small pleural effusion was noted, and atelectasis is noted. Slight interstitial edema is also suspected but improved since admission. ABG this morning showed a pO2 of 88 pCO2 of 33 pH of 7.39. Patient has orogastric tube in place, may consider initiation of tube feeding if the patient is not extubated today. Her basic metabolic profile is normal. And the rest of the labs were noted to be relatively unremarkable. Patient was reevaluated today on 09/18/2018, off mechanical ventilation, she was extubated yesterday uneventfully. She was marginal, and she required to be placed on BiPAP overnight. This morning the patient seems to be more awake, able to clear her secretions, and her cough seems to be a bit stronger, hence she was placed on a nasal cannula. In the meantime remains on bronchodilators, being evaluated at bedside for swallow evaluation. Her heart rate remains high despite of Cardizem at 10 mg per hour, and she may be placed on oral beta blockers. Patient seems to be weak, but appropriate. Her labs were reviewed including normal metabolic profile potassium is a bit low at 3.4 CBC is relatively normal. Chest x-ray showed mostly left lower lobe atelectasis, difficult to rule out underlying pneumonia involving the left lower lobe. Patient remains on Levaquin and cefepime in the meantime. Family is at bedside, and I updated them on her condition. Patient was reevaluated today on 09/19/2018, remains off mechanical ventilation, patient seems to be more lethargic this morning, she is a bit difficult to arouse, but she is arousable and follows simple instructions, but not as good as she was yesterday. Patient does have shallow breathing, seems to be using her abdominal muscles at times, her chest x-ray showed worsening left lower lobe hencChest x-ray did show slight increase in the interstitium, possible some pulmonary congestion, and a small left pleural effusion with retrocardiac atelectasis or consolidation. Patient did pass her swallow evaluation yesterday, and now she is receiving oral pills. After evaluating the patient, I recommended we placed the patient back on BiPAP. WBC count is up at 14.9, electrolytes and basic metabolic profile are normal. Cultures of the sputum and blood have been nondiagnostic so far. Patient remains empirically on antibiotics. Family is at bedside, and they were updated on her condition, there is definite worsening in her overall clinical status today compared to yesterday. Patient remains full code as per her own wishes previously expressed to her family members. Objective - Vital Signs Vital signs: Vital Signs Temp 96.8 F L 09/19/18 09:00 Pulse 79 09/19/18 09:00 Resp 22 09/19/18 09:00 BP 138/107 09/19/18 09:00 Pulse Ox 97 09/19/18 08:00 Intake & Output 09/18/18 09/19/18 09/19/18 18:59 06:59 18:59 Intake Total 2184.250 782.450 112 Output Total 1085 612 125 Balance 1099.250 170.450 -13 Weight 72.8 kg 75.7 kg Intake: IV 146 728 112 Dextrose 5%-0.45% NaCl 1, 650 100 000 ml @ 50 mls/hr IV . Q20H [facility] Rx#:[id number] NS 80 Pressure Bags 66 78 12 Intake, IV Titration 958.250 54.450 Amount Cefepime 1 gm In Sodium 50 Chloride 0.9% 50 ml @ 100 mls/hr IVPB Q12HR [facility] Rx #:[id number] Dextrose 5%-0.45% NaCl 1, 400 000 ml @ 50 mls/hr IV . Q20H [facility] Rx#:[id number] Diltiazem 125 mg In 108.250 54.450 Sodium Chloride 0.9% 100 ml @ Per Protocol IV .Q0M [facility] Rx#:[id number] Magnesium Sulfate-D5w Pmx 200 1 gm In Dextrose/Water 1 100ml.bag @ 100 mls/hr IVPB Q1H [facility] Rx#: [id number] Potassium Chloride 20 meq 200 In Water For Injection 1 100ml.bag @ 50 mls/hr IVPB Q2H [facility] Rx#: [id number] Oral 1080 Output: Urine 1085 612 125 Other: Voiding Method Indwelling Catheter Indwelling Catheter Indwelling Catheter ABP, PAP, CO, CI - Last Documented Arterial Blood Pressure 155/67 - Exam Physical Exam: Revealed a 73-year-old female, placed presently on BiPAP noted to be in mild respiratory distress before placement on BiPAP Head: Atraumatic, normocephalic. HEENT:[Neck is supple.] [No neck masses.] [No thyromegaly.] [No JVD.] Chest: [Diminished breath sounds and crackles at the bases especially at the left base. No rhonchi and no wheezes. No chest wall tenderness. Symmetrical chest expansion Cardiac Exam: [Normal S1 and S2, no S3 gallop, no murmur.] Abdomen: [Soft, nontender, no megaly, no rebound, no guarding, normal bowel sounds.] Extremities: [No clubbing, no edema, no cyanosis.] Neurological Exam: Lethargic, but arousable, follows simple instructions and noted to be generally weak and fatigued. Psychiatric: Blunted mood and affect, questionable mental status at this point. Lymphatics: No lymphadenopathy. Skin: No rashes. - Labs CBC & Chem 7: 09/19/18 04:18 09/19/18 04:18 Labs: Abnormal Lab Results - Last 24 Hours (Table) 09/18/18 09/18/18 09/18/18 Range/Units 11:43 18:30 21:24 WBC (3.8-10.6) k/uL RBC (3.80-5.40) m/uL Hgb (11.4-16.0) gm/dL Hct (34.0-46.0) % RDW (11.5-15.5) % Sodium (137-145) mmol/L Chloride (98-107) mmol/L Carbon Dioxide (22-30) mmol/L BUN (7-17) mg/dL Glucose (74-99) mg/dL POC Glucose (mg/dL) 239 H 293 H 395 H (75-99) mg/dL 09/18/18 09/19/18 09/19/18 Range/Units 23:28 01:09 04:18 WBC 14.9 H (3.8-10.6) k/uL RBC 3.43 L (3.80-5.40) m/uL Hgb 10.5 L (11.4-16.0) gm/dL Hct 33.2 L (34.0-46.0) % RDW 15.9 H (11.5-15.5) % Sodium (137-145) mmol/L Chloride (98-107) mmol/L Carbon Dioxide (22-30) mmol/L BUN (7-17) mg/dL Glucose (74-99) mg/dL POC Glucose (mg/dL) 380 H 319 H (75-99) mg/dL 09/19/18 09/19/18 Range/Units 04:18 07:05 WBC (3.8-10.6) k/uL RBC (3.80-5.40) m/uL Hgb (11.4-16.0) gm/dL Hct (34.0-46.0) % RDW (11.5-15.5) % Sodium 136 L (137-145) mmol/L Chloride 108 H (98-107) mmol/L Carbon Dioxide 21 L (22-30) mmol/L BUN 21 H (7-17) mg/dL Glucose 226 H (74-99) mg/dL POC Glucose (mg/dL) 241 H (75-99) mg/dL Microbiology - Last 24 Hours (Table) 09/15/18 01:02 Blood Culture - Preliminary Blood No Growth after 96 hours 09/13/18 20:46 Blood Culture - Preliminary Blood No Growth after 120 hours 09/15/18 23:21 Gram Stain - Final Sputum Sputum Culture - Final Assessment and Plan Assessment: Impression: Cardiopulmonary arrest, exact etiology remains unclear. History of severe right sided congestive heart failure and pulmonary hypertension, presently improving. Remains on diuretics, Lasix at 20 mg IV push every 12 hours. Chronic atrial fibrillation, on oral beta blockers. And on anticoagulation therapy. Acute hypoxic respiratory failure requiring intubation and mechanical ventilation extubated on 09/17/2018 Acute kidney injury improving Carotid artery disease Possible left lower lobe pneumonia, could also be related to atelectasis, on antibiotics empirically. Patient is presently on Levaquin and cefepime. Type 2 diabetes Recommendation: Continue present supportive care measures, continue to monitor the patient in the ICU, placed on BiPAP again today, patient passed her swallow evaluation, hence will restart her beta blockers she is presently on metoprolol at 100 mg by mouth twice a day, advanced diet as tolerated once her mental status improves. Continue incentive spirometry. Continue aspiration precautions. Continue bronchodilators. Continue cefepime and Levaquin. Continue GI and DVT prophylaxis. Patient will remain in the ICU, discussed her condition with her daughter at bedside. She remains full code. Time with Patient: Less than 30
[2018-09-19 11:55] LABS: Glucose,Whole Blood 164 mg/dL (75-99)
--- NOTE | 2018-09-19 11:57 | P.PN ---
Subjective Patient remains in intensive care unit. Needing BiPAP. Noted rest her difficulty with use of assess her muscles. Able to respond to questions. Mahamed nayak at bedside. Discussed CODE STATUS patient is full code at this time. Continues consultation with pulmonology and cardiology Objective - Vital Signs Vital signs: Vital Signs Temp 96.8 F L 09/19/18 09:00 Pulse 92 09/19/18 11:39 Resp 22 09/19/18 09:00 BP 138/107 09/19/18 09:00 Pulse Ox 97 09/19/18 08:00 Intake & Output 09/18/18 09/19/18 09/19/18 18:59 06:59 18:59 Intake Total 2184.250 782.450 112 Output Total 1085 612 125 Balance 1099.250 170.450 -13 Weight 72.8 kg 75.7 kg Intake: IV 146 728 112 Dextrose 5%-0.45% NaCl 1, 650 100 000 ml @ 50 mls/hr IV . Q20H [facility] Rx#:[id number] NS 80 Pressure Bags 66 78 12 Intake, IV Titration 958.250 54.450 Amount Cefepime 1 gm In Sodium 50 Chloride 0.9% 50 ml @ 100 mls/hr IVPB Q12HR [facility] Rx #:[id number] Dextrose 5%-0.45% NaCl 1, 400 000 ml @ 50 mls/hr IV . Q20H [facility] Rx#:[id number] Diltiazem 125 mg In 108.250 54.450 Sodium Chloride 0.9% 100 ml @ Per Protocol IV .Q0M [facility] Rx#:[id number] Magnesium Sulfate-D5w Pmx 200 1 gm In Dextrose/Water 1 100ml.bag @ 100 mls/hr IVPB Q1H [facility] Rx#: [id number] Potassium Chloride 20 meq 200 In Water For Injection 1 100ml.bag @ 50 mls/hr IVPB Q2H [facility] Rx#: [id number] Oral 1080 Output: Urine 1085 612 125 Other: Voiding Method Indwelling Catheter Indwelling Catheter Indwelling Catheter ABP, PAP, CO, CI - Last Documented Arterial Blood Pressure 155/67 - Constitutional General appearance: Present: obese - EENT Eyes: Present: PERRLA Ears: bilateral: normal - Neck Neck: Present: normal ROM - Respiratory Respiratory: bilateral: rhonchi - Cardiovascular Rhythm: irregularly irregular - Gastrointestinal General gastrointestinal: Present: soft - Integumentary Integumentary: Present: normal - Neurologic Neurologic: Present: CNII-XII intact - Musculoskeletal Musculoskeletal: Present: generalized weakness - Psychiatric Psychiatric Comment(s): Patient responsive to rule out verbal continue medication - Labs CBC & Chem 7: 09/19/18 04:18 09/19/18 04:18 Labs: Abnormal Lab Results - Last 24 Hours (Table) 09/18/18 09/18/18 09/18/18 Range/Units 18:30 21:24 23:28 WBC (3.8-10.6) k/uL RBC (3.80-5.40) m/uL Hgb (11.4-16.0) gm/dL Hct (34.0-46.0) % RDW (11.5-15.5) % Sodium (137-145) mmol/L Chloride (98-107) mmol/L Carbon Dioxide (22-30) mmol/L BUN (7-17) mg/dL Glucose (74-99) mg/dL POC Glucose (mg/dL) 293 H 395 H 380 H (75-99) mg/dL 09/19/18 09/19/18 09/19/18 Range/Units 01:09 04:18 04:18 WBC 14.9 H (3.8-10.6) k/uL RBC 3.43 L (3.80-5.40) m/uL Hgb 10.5 L (11.4-16.0) gm/dL Hct 33.2 L (34.0-46.0) % RDW 15.9 H (11.5-15.5) % Sodium 136 L (137-145) mmol/L Chloride 108 H (98-107) mmol/L Carbon Dioxide 21 L (22-30) mmol/L BUN 21 H (7-17) mg/dL Glucose 226 H (74-99) mg/dL POC Glucose (mg/dL) 319 H (75-99) mg/dL 09/19/18 Range/Units 07:05 WBC (3.8-10.6) k/uL RBC (3.80-5.40) m/uL Hgb (11.4-16.0) gm/dL Hct (34.0-46.0) % RDW (11.5-15.5) % Sodium (137-145) mmol/L Chloride (98-107) mmol/L Carbon Dioxide (22-30) mmol/L BUN (7-17) mg/dL Glucose (74-99) mg/dL POC Glucose (mg/dL) 241 H (75-99) mg/dL Microbiology - Last 24 Hours (Table) 09/15/18 01:02 Blood Culture - Preliminary Blood No Growth after 96 hours 09/13/18 20:46 Blood Culture - Preliminary Blood No Growth after 120 hours 09/15/18 23:21 Gram Stain - Final Sputum Sputum Culture - Final Assessment and Plan Plan: Assessment Post cardiac arrest with acute hypoxic Crestor he failure patient was intubated now extubated on BiPAP Sepsis secondary to pneumonia left lower lobe Right-sided heart failure with lobe severe pulmonary hypertension Atrial fib controlled on beta sydni Diabetes type 2 Hypertension Hyperlipidemia History of coronary disease Generalized weakness Acute kidney injury Plan Continue BiPAP as needed continue to monitor ICU Continue consultation with cardiology and pulmonology Patient on antibiotics
[2018-09-19] MEDS: LEVOFLOXACIN 500 MG TAB PO SCH (14:57)
[2018-09-19 18:14] LABS: Glucose,Whole Blood 76 mg/dL (75-99)
[2018-09-19] MEDS: INSULIN DETEMIR (LEVEMIR) 100 UNIT/ML SYR SQ SCH (20:27)
[2018-09-19 20:29] LABS: Glucose,Whole Blood 67 mg/dL (75-99)
[2018-09-19] MEDS ORDERED: DEXTROSE 50% SYRINGE 50 ML IVP ONE (20:33)
[2018-09-19] MEDS ORDERED: DEXTROSE 50% SYRINGE 50 ML IVP STA (20:35)
[2018-09-19] MEDS: ATORVASTATIN 20 MG TAB PO SCH (20:47)
[2018-09-19 21:00] LABS: Glucose,Whole Blood 133 mg/dL (75-99)
[2018-09-19 23:16] LABS: Glucose,Whole Blood 154 mg/dL (75-99)
[2018-09-20] MEDS: DILTIAZEM 125 MG in SODIUM CHLORIDE 0.9% 100 ML IV SCH ×2 (00:10→17:00)
[2018-09-20] MEDS: NOREPINEPHRINE 4 MG in SODIUM CHLORIDE 0.9% 250 ML IV SCH (01:26)
[2018-09-20 01:41] LABS: Glucose,Whole Blood 149 mg/dL (75-99)
[2018-09-20] MEDS: INSULIN ASPART (NovoLOG) 100 UNIT/ML VIAL SQ SCH ×5 (01:43→21:26)
[2018-09-20] MEDS: DEXTROSE 5%-0.45% NACL 1,000 ML IV SCH ×2 (01:44→21:27)
[2018-09-20] MEDS: IPRATROPIUM-ALBUTEROL 3 ML NEB INHALATION SCH ×6 (03:19→23:30)
[2018-09-20 04:00] LABS: HCT 33.5 % (34.0-46.0); HGB 10.5 gm/dL (11.4-16.0); Hypochromasia Moderate; MCH 29.7 pg (25.0-35.0); MCHC 31.2 g/dL (31.0-37.0); MCV 95.3 fL (80.0-100.0); Mean Platelet Volume 8.8; Platelet Count 236 k/uL (150-450); RBC 3.52 m/uL (3.80-5.40); RDW 15.2 % (11.5-15.5); WBC 12.5 k/uL (3.8-10.6)
[2018-09-20 04:09] LABS: African American GFR (CKD) >90 (>60 ml/min/1.73 sqM); Anion Gap 8 mmol/L; Blood Urea Nitrogen 17 mg/dL (7-17); Calcium 8.5 mg/dL (8.4-10.2); Carbon Dioxide 21 mmol/L (22-30); Chloride 109 mmol/L (98-107); Glucose 181 mg/dL (74-99); Magnesium 1.6 mg/dL (1.6-2.3); Phosphorus 2.6 mg/dL (2.5-4.5); Potassium 3.9 mmol/L (3.5-5.1); Sodium 138 mmol/L (137-145)
[2018-09-20] MEDS ORDERED: Potassium Replacement Protocol 1 EACH MISC MISCELLANE PRN (05:56)
[2018-09-20] MEDS: POTASSIUM CHLORIDE 10 MEQ in WATER FOR INJECTION 1 100ML.BAG IVPB SCH ×2 (06:08→07:04)
[2018-09-20] MEDS: MAGNESIUM SULFATE-D5W PMX 1 GM in DEXTROSE/WATER 1 100ML.BAG IVPB SCH ×2 (06:08→07:04)
[2018-09-20 06:58] LABS: Glucose,Whole Blood 215 mg/dL (75-99)
--- NOTE | 2018-09-20 07:23 | XR ---
EXAMINATION TYPE: XR chest 1V portable DATE OF EXAM: 09/20/2018 HISTORY: Shortness of breath. COMPARISON: 09/19/2018 TECHNIQUE: Single view of the chest is submitted. FINDINGS: Demonstrated are scattered senescent parenchymal change. Pulmonary venous congestion with scattered infiltrates and small effusions. Central venous line uncha nged. Continued cardiomegaly. Hilar and mediastinal structures are within normal limits. Degenerative changes are seen of the dorsal spine. IMPRESSION: 1. Findings felt to reflect improving congestive failure.
[2018-09-20] MEDS: ASCORBIC ACID 500 MG TAB PO SCH (08:29)
[2018-09-20] MEDS: VITAMIN E (DL,TOCOPHERYL ACET) 400 UNIT CAP PO SCH (08:30)
[2018-09-20] MEDS: FUROSEMIDE 10 MG/ML 2 ML VIAL IV SCH ×2 (08:30→21:25)
[2018-09-20] MEDS: CITALOPRAM HYDROBROMIDE 20 MG TAB PO SCH (08:30)
[2018-09-20] MEDS: PANTOPRAZOLE 40 MG TABLET PO SCH (08:30)
[2018-09-20] MEDS: CHOLECALCIFEROL 1,000 UNIT TAB PO SCH (08:30)
[2018-09-20] MEDS: METOPROLOL TARTRATE 25 MG TAB PO SCH (08:31)
[2018-09-20] MEDS: APIXABAN 5 MG TAB PO SCH (08:31)
[2018-09-20] MEDS: GABAPENTIN 400 MG CAP PO SCH ×2 (08:31→17:29)
[2018-09-20] MEDS: CEFEPIME 1 GM in SODIUM CHLORIDE 0.9% 50 ML IVPB SCH ×2 (08:36→21:28)
[2018-09-20] MEDS ORDERED: FUROSEMIDE 10 MG/ML 4 ML VIAL IV STA (08:48)
[2018-09-20 09:48] LABS: Glucose,Whole Blood 208 mg/dL (75-99)
--- NOTE | 2018-09-20 10:38 | US ---
EXAMINATION TYPE: US chest DATE OF EXAM: 09/20/2018 COMPARISON: CXR CLINICAL HISTORY: Possible paracentesis of left side. Effusion TECHNIQUE: Targeted ultrasound of the posterior lower bilateral hemithoraces EXAM MEASUREMENTS: Right post chest, no fluid visualized Left Pleural Effusion pocket size: 1.8 cm Right side NOT marked for possible thoracentesis outside the dept. Left side NOT marked for possible thoracentesis outside the dept. Pulmonologists are able to review the images in the patient?s EMR. IMPRESSIONS: Small left-sided pleural effusion.
[2018-09-20 12:40] LABS: Glucose,Whole Blood 245 mg/dL (75-99)
--- NOTE | 2018-09-20 12:46 | P.PN ---
Subjective Progress Note Date: 09/20/18 Principal diagnosis: Acute cardiopulmonary arrest requiring intubation and mechanical ventilation. This is a 71-year-old female patient who comes into the hospital because of gene ralized weakness, difficulty with mobility, frequent falls and suspicion for an underlying pneumonia. The patient was initially brought into the emergency department. She has fallen multiple times at home. She has fallen in the bathroom and she did have a head trauma. No reported history of loss of consciousness. The patient was laying down the floor for a couple of hours before she was found by friends. At that point the patient was transferred to our hospital. According to the family the patient gained weight in the order of 10 pounds over the past couple of weeks. The patient reported pain over her tailbone he has she denied having any chest pain. She denies having any other complaints. In the emergency, the patient was diagnosed having a left lower lobe pneumonia. The patient underwent CT angiogram of the chest that showed a limited left lower lobe pulmonary infiltration and for that reason the patient was hospitalized and she was started on antibiotics. Overnight, the patient went into an acute cardiac arrest. The patient was found to be in PEA. She was started on CPR. Code team was activated and the patient was immediately intubated with a #7 orotracheal tube. The initial code was for a total of 3 minutes and following that the patient got to the ICU. She had another episode of PEA here in the ICU that lasts for 4 minutes. During which the patient received CPR and the patient received epinephrine. She had spontaneous return and circulation. Initial blood gas showed metabolic acidosis with a pH of 6.9. Necessary vent changes were made by Dr. Kerr over the phone.. Gave the patient fluids and she immediately received a total of 3-1/2 L. The patient's subsequent blood gases showed a pH of 7.48 with a pCO2 of 26 and pO2 151 and this was done this morning while her being on an assist-control mode of ventilator with a rate of 24 and tidal volume of 500 with an FiO2 of 60% and a PEEP of 5. She briefly required some pressors in the form of levo fed and she's been off pressors since 3 AM this morning. Urine output was adequate in the order of 20-30 mL an hour. The patient was given Broderson spectrum of antibiotics and the patient was covered with a combination of vancomycin, Levaquin and cefepime and Zithromax were discontinued. She is currently afebrile. She is sedated with Diprivan. Cardiac rhythm is A. fib. CAT scan of the brain that was done in emergency department showed no acute abnormalities. Echocardiogram was ordered and the results are still pending for now. The cardiac enzymes showed a troponin of 0.06. The EKG was nonspecific and was consistent atrial fibrillation. The patient had a non-anion gap metabolic acidosis with serum bicarb level of 18 improving compared to yesterday. Creatinine was as high as 1.5 and has dropped down to 1.25. UA erythematous admission was also negative. No seizure activity. Upon getting a brief sedation holiday the patient was able to arouse and move extremities without any limitation the patient is known to have history of diabetes mellitus, history of chronic atrial fibrillation for which she has been maintained on long-term anticoagulation with Eliquis. The patient also has history of coronary artery disease. The patient had intermediate to severe disease involving the left circumflex and the last catheterization was done by Dr. Hartman back in February 2018 and the patient underwent a fractional flow reserve of the left circumflex and the findings were negative for ischemia. The patient also has history of hypertension, sleep apnea, hyperlipidemia and previous echocardiogram has revealed an ejection of 55-60% and this was based on a echocardiogram from June 2018. The patient had moderate severe RV enlargement, RA was mildly enlarged, mild aortic stenosis, moderate mitral regurgitation and severe tricuspid regurgitation and severe pulmonary hypertension was identified. Patient was reevaluated today on 09/17/2018, remains on mechanical ventilation, and her ventilator settings are assist control rate of 16 FiO2 of 40%, tidal volume of 450, and PEEP of 5. Patient has been off propofol for the last 2 days, she is arousable, followed all simple instructions, she was wiggling her toes, squeezing hands, and sticking out her tongue upon request. Patient seemed to be appropriate, hence I recommended a trial of pressure support of 10 and C PAP. Patient has a size 7.0 endotracheal tube. Chest x-ray was reviewed, showed improved aeration of the right lung base, small pleural effusion was noted, and atelectasis is noted. Slight interstitial edema is also suspected but improved since admission. ABG this morning showed a pO2 of 88 pCO2 of 33 pH of 7.39. Patient has orogastric tube in place, may consider initiation of tube feeding if the patient is not extubated today. Her basic metabolic profile is normal. And the rest of the labs were noted to be relatively unremarkable. Patient was reevaluated today on 09/18/2018, off mechanical ventilation, she was extubated yesterday uneventfully. She was marginal, and she required to be placed on BiPAP overnight. This morning the patient seems to be more awake, able to clear her secretions, and her cough seems to be a bit stronger, hence she was placed on a nasal cannula. In the meantime remains on bronchodilators, being evaluated at bedside for swallow evaluation. Her heart rate remains high despite of Cardizem at 10 mg per hour, and she may be placed on oral beta blockers. Patient seems to be weak, but appropriate. Her labs were reviewed including normal metabolic profile potassium is a bit low at 3.4 CBC is relatively normal. Chest x-ray showed mostly left lower lobe atelectasis, difficult to rule out underlying pneumonia involving the left lower lobe. Patient remains on Levaquin and cefepime in the meantime. Family is at bedside, and I updated them on her condition. Patient was reevaluated today on 09/19/2018, remains off mechanical ventilation, patient seems to be more lethargic this morning, she is a bit difficult to arouse, but she is arousable and follows simple instructions, but not as good as she was yesterday. Patient does have shallow breathing, seems to be using her abdominal muscles at times, her chest x-ray showed worsening left lower lobe hencChest x-ray did show slight increase in the interstitium, possible some pulmonary congestion, and a small left pleural effusion with retrocardiac atelectasis or consolidation. Patient did pass her swallow evaluation yesterday, and now she is receiving oral pills. After evaluating the patient, I recommended we placed the patient back on BiPAP. WBC count is up at 14.9, electrolytes and basic metabolic profile are normal. Cultures of the sputum and blood have been nondiagnostic so far. Patient remains empirically on antibiotics. Family is at bedside, and they were updated on her condition, there is definite worsening in her overall clinical status today compared to yesterday. Patient remains full code as per her own wishes previously expressed to her family members. Patient was reevaluated today on 09/12/2018, went on BiPAP through the night, seems to be more awake this morning, and she is able to swallow her medications without any issue. Patient is still weak, she has a very poor cough, follows simple instructions, in no distress. I switched the patient from BiPAP to nasal cannula, encourage the patient to do some deep coughing and deep breathing, recommended a dose of Lasix early today because of chest x-ray showed some pleural effusion and possibly some component of congestive heart failure. However ultrasound of the chest did not show much fluid to be safely drained by thoracentesis. Chest x-ray was reviewed and labs were reviewed her CBC is relatively normal left lites are normal renal profile is normal family is at bedside, and they were updated on her condition. Overall the patient remains marginal, and I don't feel she is ready to be transferred out of the ICU yet. As a matter of fact I have a strong feeling that if her condition gets any worse she may end up adding to be intubated again. In the meantime we have been managing her overall condition with BiPAP intermittently, and at times on nasal cannula. Patient remains on bronchodilators, she is back on Cardizem drip because of atrial fibrillation, he is also on beta blockers, antibiotics enriquez remains on Levaquin. She is also on cefepime. All cultures including sputum and blood have been negative so far. Objective - Vital Signs Vital signs: Vital Signs Temp 98.5 F 09/20/18 08:00 Pulse 87 09/20/18 12:05 Resp 23 09/20/18 11:42 BP 109/46 09/20/18 11:42 Pulse Ox 98 09/20/18 11:42 Intake & Output 09/19/18 09/20/18 09/20/18 18:59 06:59 18:59 Intake Total 672 651.883 816 Output Total 1790 1410 355 Balance -1118 -758.117 461 Weight 73.2 kg 73.2 kg Intake: IV 672 616 336 Dextrose 5%-0.45% NaCl 1, 600 550 300 000 ml @ 50 mls/hr IV . Q20H [facility] Rx#:[id number] Pressure Bags 72 66 36 Intake, IV Titration 35.883 Amount Diltiazem 125 mg In 35.883 Sodium Chloride 0.9% 100 ml @ Per Protocol IV .Q0M [facility] Rx#:[id number] Oral 480 Output: Urine 1790 1410 355 Other: Voiding Method Indwelling Catheter Indwelling Catheter Indwelling Catheter ABP, PAP, CO, CI - Last Documented Arterial Blood Pressure 100/63 - Exam Physical Exam: Revealed a 73-year-old female, off BiPAP, on 6 L nasal cannula, in no distress. Head: Atraumatic, normocephalic. HEENT:[Neck is supple.] [No neck masses.] [No thyromegaly.] [No JVD.] Chest: [Diminished breath sounds and crackles at the bases especially at the left base. No rhonchi and no wheezes. No chest wall tenderness. Symmetrical chest expansion patient is noted to have poor cough, and unable to clear secretions well on her own. Cardiac Exam: [Normal S1 and S2, no S3 gallop, no murmur.] Abdomen: [Soft, nontender, no megaly, no rebound, no guarding, normal bowel sounds.] Extremities: [No clubbing, no edema, no cyanosis.] Neurological Exam: Lethargic, arousable, follows simple instructions and noted to be generally weak and fatigued. Psychiatric: Blunted mood and affect, questionable mental status at this point. Lymphatics: No lymphadenopathy. Skin: No rashes. - Labs CBC & Chem 7: 09/20/18 03:49 09/20/18 03:49 Labs: Abnormal Lab Results - Last 24 Hours (Table) 09/19/18 09/19/18 09/19/18 Range/Units 20:27 20:58 23:14 WBC (3.8-10.6) k/uL RBC (3.80-5.40) m/uL Hgb (11.4-16.0) gm/dL Hct (34.0-46.0) % Chloride (98-107) mmol/L Carbon Dioxide (22-30) mmol/L Glucose (74-99) mg/dL POC Glucose (mg/dL) 67 L 133 H 154 H (75-99) mg/dL 09/20/18 09/20/18 09/20/18 Range/Units 01:38 03:49 03:49 WBC 12.5 H (3.8-10.6) k/uL RBC 3.52 L (3.80-5.40) m/uL Hgb 10.5 L (11.4-16.0) gm/dL Hct 33.5 L (34.0-46.0) % Chloride 109 H (98-107) mmol/L Carbon Dioxide 21 L (22-30) mmol/L Glucose 181 H (74-99) mg/dL POC Glucose (mg/dL) 149 H (75-99) mg/dL 09/20/18 09/20/18 Range/Units 06:56 09:46 WBC (3.8-10.6) k/uL RBC (3.80-5.40) m/uL Hgb (11.4-16.0) gm/dL Hct (34.0-46.0) % Chloride (98-107) mmol/L Carbon Dioxide (22-30) mmol/L Glucose (74-99) mg/dL POC Glucose (mg/dL) 215 H 208 H (75-99) mg/dL Microbiology - Last 24 Hours (Table) 09/15/18 01:02 Blood Culture - Preliminary Blood No Growth after 120 hours 09/13/18 20:46 Blood Culture - Final Blood No Growth after 144 hours Assessment and Plan Assessment: Impression: Cardiopulmonary arrest, exact etiology remains unclear. I suspect the patient may have sustained minimal degree of anoxic encephalopathy to explain her present mental status and profound weakness and lethargy. History of severe right sided congestive heart failure and pulmonary hypertension, presently improving. Remains on diuretics, Lasix at 20 mg IV push every 12 hours. Chronic atrial fibrillation, on oral beta blockers. And on anticoagulation therapy. She is now on Cardizem drip at 15 mg per hour. Cardiology is following. Acute hypoxic respiratory failure requiring intubation and mechanical ventilation extubated on 09/17/2018 Acute kidney injury improving Carotid artery disease Possible left lower lobe pneumonia, could also be related to atelectasis, on antibiotics empirically. Patient is presently on Levaquin and cefepime. Ultrasound of the chest did not reveal much fluid to be drained on the left side. Type 2 diabetes Recommendation: Continue antibiotics, diuretics, bronchodilators, continue BiPAP intermittently, advanced diet as tolerated, continue beta blockers and Cardizem drip, continue incentive spirometry, physical therapy, continue GI and DVT prophylaxis, ultrasound of the chest was reviewed and discussed with her rj aguilar at bedside, patient is not quite ready to be transferred out of the ICU at this point. We'll continue to follow. Prognosis obviously seems to be poor and guarded Time with Patient: Less than 30
[2018-09-20 16:57] LABS: Glucose,Whole Blood 272 mg/dL (75-99)
[2018-09-20] MEDS: LEVOFLOXACIN 500 MG TAB PO SCH (17:29)
--- NOTE | 2018-09-20 19:07 | PN ---
PROGRESS NOTE I am covering for Dr. Dow. DATE OF SERVICE: 09/20/2018 This 73-year-old woman with a past medical history of multiple medical problems, including history of CHF, history of chronic atrial fibrillation, history of hypoxic respiratory failure, had multiple episodes of cardiorespiratory arrest. The patient also possibly had mild anoxic encephalopathy. Patient is being closely monitored in ICU at this time. A chest ultrasound was also done today which showed some small left- sided pleural effusion. Patient also had some difficulty in swallowing, even though patient passed a video fluoroscopic swallow test. Patient is being closely monitored in ICU. Multiple consultants, including Dr. Alcala, are following the patient closely. Past medical history reviewed. The patient is also in and out of Cardizem drip. Beta sydni was initiated but Cardizem drip is also being used. REVIEW OF SYSTEMS: CARDIOVASCULAR SYSTEM: As mentioned earlier. RESPIRATORY SYSTEM: As mentioned earlier. GI: No nausea, vomiting. : No dysuria or retention. NERVOUS SYSTEM: No numbness, weakness.. CURRENT MEDICATIONS: Reviewed. They include: 1. Tylenol p.r.n. 2. Sherman 7.5 t.i.d. p.r.n. 3. DuoNeb q.i.d. and p.r.n. 4. Eliquis 5 mg p.o. b.i.d. 5. Vitamin C 1000 mg daily. 6. Lipitor 20 mg at bedtime. 7. Cefepime 1 gram IV b.i.d. 8. Vitamin D. 9. Celexa 40 mg daily. 10.Cardizem drip. 11.Lasix 20 mg IV b.i.d. 12.Neurontin 800 mg p.o. t.i.d. 13.NovoLog scale. 14.Levemir. 15.Levaquin. 16.Lopressor. 17.Magnesium replacement per protocol. 18.Protonix. 19.Vitamin E. PHYSICAL EXAMINATION: Patient is alert, oriented x3. Pulse is 107, irregular. Blood pressure is 142/57, respiration 22, temperature normal, pulse ox 100% on 5% nasal cannula. HEENT: Conjunctivae normal. Oral mucosa moist. NECK: No jugular venous distention. No carotid bruit. No lymph node enlargement. CARDIOVASCULAR SYSTEM: S1, S2 irregular. RESPIRATORY SYSTEM: Breath sounds diminished at the bases. Bilateral scattered rhonchi and crackles. ABDOMEN: Soft, obese, non-tender. LEGS: Mild bilateral leg edema. NERVOUS SYSTEM: Diffusely weak. LABS: Accu-Cheks 247. Otherwise, WBC 12.5, hemoglobin 10.5, sodium 138, potassium 3.9. ASSESSMENT: 1. Status post multiple episodes of cardiac arrest with acute hypoxic respiratory failure and status post mechanical ventilation. 2. On BiPAP. 3. Sepsis secondary to pneumonia in left lower lobe, possibly gram-negative. 4. Right-sided heart failure with severe pulmonary hypertension. 5. Atrial fibrillation, recurrent, controlled with beta blockers and Cardizem drip p.r.n. 6. Diabetes mellitus, type 2. 7. Hypertension. 8. Hyperlipidemia. 9. History of coronary artery disease. 10.Generalized weakness. 11.Acute kidney injury. RECOMMENDATIONS AND DISCUSSION: I recommend to continue current medications, continue with the monitoring, symptomatic treatment. Repeat labs will be ordered. Otherwise, continue to follow with the multiple consultants. Cautious diuresis. Continue with the broad-spectrum IV antibiotics. Continue the rest of the medications. The overall prognosis is guarded because of multiple complex medical issues. The most recent chest x-ray and ultrasound were also reviewed personally. Once again, prognosis overall is guarded, which I discussed at length with the family and the patient, who understand and agree. Further recommendations to follow. MMODL / IJN: [id number] /
[2018-09-20 20:50] LABS: Glucose,Whole Blood 301 mg/dL (75-99)
[2018-09-20] MEDS ORDERED: HEPARIN SODIUM,PORCINE 5,000 UNIT/ML 1 ML VIAL IV ONE (20:53)
[2018-09-20] MEDS: METOPROLOL TARTRATE 5 MG/5 ML VIAL IVP SCH (21:25)
[2018-09-20] MEDS: INSULIN DETEMIR (LEVEMIR) 100 UNIT/ML SYR SQ SCH (21:26)
[2018-09-20 21:34] LABS: INR 1.3 (<1.2); Partial Thromboplastin Time 32.6 sec (22.0-30.0); Prothrombin Time 13.4 sec (9.0-12.0)
[2018-09-20] MEDS: HEPARIN SOD,PORK IN 0.45% NACL 25,000 UNIT in 0.45% NACL 1 250ML.BAG IV SCH (21:59)
[2018-09-21] MEDS: NOREPINEPHRINE 4 MG in SODIUM CHLORIDE 0.9% 250 ML IV SCH (01:10)
[2018-09-21] MEDS: DILTIAZEM 125 MG in SODIUM CHLORIDE 0.9% 100 ML IV SCH ×2 (01:21→22:25)
[2018-09-21 01:29] LABS: Glucose,Whole Blood 278 mg/dL (75-99)
[2018-09-21] MEDS: INSULIN ASPART (NovoLOG) 100 UNIT/ML VIAL SQ SCH ×5 (01:30→23:36)
[2018-09-21] MEDS: METOPROLOL TARTRATE 5 MG/5 ML VIAL IVP SCH ×4 (03:46→20:55)
[2018-09-21] MEDS: IPRATROPIUM-ALBUTEROL 3 ML NEB INHALATION SCH ×6 (04:21→23:25)
[2018-09-21] MEDS: HEPARIN SODIUM,PORCINE 5,000 UNIT/ML 1 ML VIAL IV PRN ×2 (04:38→16:32)
[2018-09-21 06:10] LABS: Glucose 219 mg/dL (74-99)
[2018-09-21 06:11] LABS: African American GFR (CKD) >90 (>60 ml/min/1.73 sqM); Anion Gap 6 mmol/L; Blood Urea Nitrogen 17 mg/dL (7-17); Calcium 8.2 mg/dL (8.4-10.2); Carbon Dioxide 23 mmol/L (22-30); Chloride 108 mmol/L (98-107); Potassium 3.6 mmol/L (3.5-5.1); Sodium 137 mmol/L (137-145)
[2018-09-21 07:15] LABS: Glucose,Whole Blood 245 mg/dL (75-99)
[2018-09-21 08:04] LABS: Basophils % (A) 0 %; Eosinophils # (A) 0.1 k/uL (0-0.7); Eosinophils % (A) 1 %; HCT 31.1 % (34.0-46.0); HGB 9.9 gm/dL (11.4-16.0); Hypochromasia Moderate; Lymphocytes # (A) 0.5 k/uL (1.0-4.8); Lymphocytes % (A) 4 %; MCH 30.4 pg (25.0-35.0); MCHC 31.8 g/dL (31.0-37.0); MCV 95.5 fL (80.0-100.0); Mean Platelet Volume 9.2; Monocytes # (A) 0.7 k/uL (0-1.0); Monocytes % (A) 7 %; Neutrophils # (A) 9.7 k/uL (1.3-7.7); Neutrophils % (A) 86 %; Platelet Count 238 k/uL (150-450); RBC 3.26 m/uL (3.80-5.40); RDW 15.3 % (11.5-15.5); WBC 11.2 k/uL (3.8-10.6)
--- NOTE | 2018-09-21 09:05 | XR ---
EXAMINATION TYPE: XR chest 1V portable DATE OF EXAM: 09/21/2018 COMPARISON: 09/20/2018 HISTORY: Shortness of breath TECHNIQUE: Single frontal view of the chest is obtained. FINDINGS: Left subclavian approach central venous catheter again terminates in the high right atrium . There is a new right basilar opacity and blunting of the costophrenic angle. There is a persistent retrocardiac opacity and small layering left pleural effusion. Mild pulmonary interstitial edema is e vident as well as an enlarged cardiomediastinal silhouette. No sizable pneumothorax. Osseous structur es are grossly intact with surgical anchors of the left humerus from prior rotator cuff repair. Multi level mild degenerative changes of the spine. IMPRESSION: New right basilar airspace disease and small layering pleural effusions with persistent retrocardiac opacity and mild pulmonary vascular congestion. Congestive heart failure should be consi dered.
[2018-09-21] MEDS ORDERED: FUROSEMIDE 10 MG/ML 10 ML VIAL IV STA (09:49)
[2018-09-21] MEDS: CEFEPIME 1 GM in SODIUM CHLORIDE 0.9% 50 ML IVPB SCH ×2 (10:17→21:48)
[2018-09-21] MEDS: PANTOPRAZOLE 40 MG/10 ML VIAL IVP SCH (10:23)
[2018-09-21] MEDS: FUROSEMIDE 10 MG/ML 2 ML VIAL IV SCH (10:24)
[2018-09-21 12:09] LABS: Glucose,Whole Blood 179 mg/dL (75-99)
--- NOTE | 2018-09-21 12:28 | P.PN ---
Subjective Progress Note Date: 09/21/18 Principal diagnosis: Acute cardiopulmonary arrest requiring intubation and mechanical ventilation. This is a 71-year-old female patient who comes into the hospital because of gene ralized weakness, difficulty with mobility, frequent falls and suspicion for an underlying pneumonia. The patient was initially brought into the emergency department. She has fallen multiple times at home. She has fallen in the bathroom and she did have a head trauma. No reported history of loss of consciousness. The patient was laying down the floor for a couple of hours before she was found by friends. At that point the patient was transferred to our hospital. According to the family the patient gained weight in the order of 10 pounds over the past couple of weeks. The patient reported pain over her tailbone he has she denied having any chest pain. She denies having any other complaints. In the emergency, the patient was diagnosed having a left lower lobe pneumonia. The patient underwent CT angiogram of the chest that showed a limited left lower lobe pulmonary infiltration and for that reason the patient was hospitalized and she was started on antibiotics. Overnight, the patient went into an acute cardiac arrest. The patient was found to be in PEA. She was started on CPR. Code team was activated and the patient was immediately intubated with a #7 orotracheal tube. The initial code was for a total of 3 minutes and following that the patient got to the ICU. She had another episode of PEA here in the ICU that lasts for 4 minutes. During which the patient received CPR and the patient received epinephrine. She had spontaneous return and circulation. Initial blood gas showed metabolic acidosis with a pH of 6.9. Necessary vent changes were made by Dr. Kerr over the phone.. Gave the patient fluids and she immediately received a total of 3-1/2 L. The patient's subsequent blood gases showed a pH of 7.48 with a pCO2 of 26 and pO2 151 and this was done this morning while her being on an assist-control mode of ventilator with a rate of 24 and tidal volume of 500 with an FiO2 of 60% and a PEEP of 5. She briefly required some pressors in the form of levo fed and she's been off pressors since 3 AM this morning. Urine output was adequate in the order of 20-30 mL an hour. The patient was given Broderson spectrum of antibiotics and the patient was covered with a combination of vancomycin, Levaquin and cefepime and Zithromax were discontinued. She is currently afebrile. She is sedated with Diprivan. Cardiac rhythm is A. fib. CAT scan of the brain that was done in emergency department showed no acute abnormalities. Echocardiogram was ordered and the results are still pending for now. The cardiac enzymes showed a troponin of 0.06. The EKG was nonspecific and was consistent atrial fibrillation. The patient had a non-anion gap metabolic acidosis with serum bicarb level of 18 improving compared to yesterday. Creatinine was as high as 1.5 and has dropped down to 1.25. UA erythematous admission was also negative. No seizure activity. Upon getting a brief sedation holiday the patient was able to arouse and move extremities without any limitation the patient is known to have history of diabetes mellitus, history of chronic atrial fibrillation for which she has been maintained on long-term anticoagulation with Eliquis. The patient also has history of coronary artery disease. The patient had intermediate to severe disease involving the left circumflex and the last catheterization was done by Dr. Hartman back in February 2018 and the patient underwent a fractional flow reserve of the left circumflex and the findings were negative for ischemia. The patient also has history of hypertension, sleep apnea, hyperlipidemia and previous echocardiogram has revealed an ejection of 55-60% and this was based on a echocardiogram from June 2018. The patient had moderate severe RV enlargement, RA was mildly enlarged, mild aortic stenosis, moderate mitral regurgitation and severe tricuspid regurgitation and severe pulmonary hypertension was identified. Patient was reevaluated today on 09/17/2018, remains on mechanical ventilation, and her ventilator settings are assist control rate of 16 FiO2 of 40%, tidal volume of 450, and PEEP of 5. Patient has been off propofol for the last 2 days, she is arousable, followed all simple instructions, she was wiggling her toes, squeezing hands, and sticking out her tongue upon request. Patient seemed to be appropriate, hence I recommended a trial of pressure support of 10 and C PAP. Patient has a size 7.0 endotracheal tube. Chest x-ray was reviewed, showed improved aeration of the right lung base, small pleural effusion was noted, and atelectasis is noted. Slight interstitial edema is also suspected but improved since admission. ABG this morning showed a pO2 of 88 pCO2 of 33 pH of 7.39. Patient has orogastric tube in place, may consider initiation of tube feeding if the patient is not extubated today. Her basic metabolic profile is normal. And the rest of the labs were noted to be relatively unremarkable. Patient was reevaluated today on 09/18/2018, off mechanical ventilation, she was extubated yesterday uneventfully. She was marginal, and she required to be placed on BiPAP overnight. This morning the patient seems to be more awake, able to clear her secretions, and her cough seems to be a bit stronger, hence she was placed on a nasal cannula. In the meantime remains on bronchodilators, being evaluated at bedside for swallow evaluation. Her heart rate remains high despite of Cardizem at 10 mg per hour, and she may be placed on oral beta blockers. Patient seems to be weak, but appropriate. Her labs were reviewed including normal metabolic profile potassium is a bit low at 3.4 CBC is relatively normal. Chest x-ray showed mostly left lower lobe atelectasis, difficult to rule out underlying pneumonia involving the left lower lobe. Patient remains on Levaquin and cefepime in the meantime. Family is at bedside, and I updated them on her condition. Patient was reevaluated today on 09/19/2018, remains off mechanical ventilation, patient seems to be more lethargic this morning, she is a bit difficult to arouse, but she is arousable and follows simple instructions, but not as good as she was yesterday. Patient does have shallow breathing, seems to be using her abdominal muscles at times, her chest x-ray showed worsening left lower lobe hencChest x-ray did show slight increase in the interstitium, possible some pulmonary congestion, and a small left pleural effusion with retrocardiac atelectasis or consolidation. Patient did pass her swallow evaluation yesterday, and now she is receiving oral pills. After evaluating the patient, I recommended we placed the patient back on BiPAP. WBC count is up at 14.9, electrolytes and basic metabolic profile are normal. Cultures of the sputum and blood have been nondiagnostic so far. Patient remains empirically on antibiotics. Family is at bedside, and they were updated on her condition, there is definite worsening in her overall clinical status today compared to yesterday. Patient remains full code as per her own wishes previously expressed to her family members. Patient was reevaluated today on 09/20/2018, went on BiPAP through the night, seems to be more awake this morning, and she is able to swallow her medications without any issue. Patient is still weak, she has a very poor cough, follows simple instructions, in no distress. I switched the patient from BiPAP to nasal cannula, encourage the patient to do some deep coughing and deep breathing, recommended a dose of Lasix early today because of chest x-ray showed some pleural effusion and possibly some component of congestive heart failure. However ultrasound of the chest did not show much fluid to be safely drained by thoracentesis. Chest x-ray was reviewed and labs were reviewed her CBC is relatively normal left lites are normal renal profile is normal family is at bedside, and they were updated on her condition. Overall the patient remains marginal, and I don't feel she is ready to be transferred out of the ICU yet. As a matter of fact I have a strong feeling that if her condition gets any worse she may end up adding to be intubated again. In the meantime we have been managing her overall condition with BiPAP intermittently, and at times on nasal cannula. Patient remains on bronchodilators, she is back on Cardizem drip because of atrial fibrillation, he is also on beta blockers, antibiotics enriquez remains on Levaquin. She is also on cefepime. All cultures including sputum and blood have been negative so far. Patient was reevaluated today on 09/21/2018, presently on nasal cannula, patient is basically about the same. Continues to have very weak cough, and unable to clear secretions well on her own. She needs to be encouraged to cough, she remains on bronchodilators, remains on diuretics, and she remains on Cardizem drip. Her chest x-ray is showing worseningwith new bibasilar airspace disease, and small bilateral pleural effusions, retrocardiac opacity remains about the same. She did receive a dose of Lasix today at 60 mg IV push, and she will intermittently be placed on BiPAP. Family is at bedside, and I updated them on her condition, I will not be surprised if the patient entered requiring intubation and mechanical ventilation. Her overall pulmonary status is marginal at best.chest x-ray was reviewed and discussed with the family CBC is normal basic metabolic profile is normal. Objective - Vital Signs Vital signs: Vital Signs Temp 100.1 F H 09/21/18 12:00 Pulse 125 H 03/29/19 12:00 Resp 19 09/21/18 12:00 BP 170/72 09/21/18 12:00 Pulse Ox 96 09/21/18 12:00 Intake & Output 09/20/18 09/21/18 09/21/18 18:59 06:59 18:59 Intake Total 1283.667 894.727 56 Output Total 1025 617 50 Balance 258.667 277.727 6 Weight 73.2 kg 79.6 kg 79.6 kg Intake: IV 672 672 56 Dextrose 5%-0.45% NaCl 1, 600 600 50 000 ml @ 50 mls/hr IV . Q20H [facility] Rx#:[id number] Pressure Bags 72 72 6 Intake, IV Titration 131.667 222.727 Amount Cefepime 1 gm In Sodium 50 Chloride 0.9% 50 ml @ 100 mls/hr IVPB Q12HR [facility] Rx #:[id number] Diltiazem 125 mg In 131.667 114.167 Sodium Chloride 0.9% 100 ml @ Per Protocol IV .Q0M [facility] Rx#:[id number] Heparin Sod,Pork in 0.45% 58.56 NaCl 25,000 unit In 0.45 % NaCl 1 250ml.bag @ 12 UNITS/KG/HR 8.784 mls/hr IV .Q24H [facility] Rx#: [id number] Oral 480 Output: Urine 1025 617 50 Other: Voiding Method Indwelling Catheter Indwelling Catheter ABP, PAP, CO, CI - Last Documented Arterial Blood Pressure 162/72 - Exam Physical Exam: Revealed a 73-year-old female, off BiPAP, on high flow nasal cannula. Head: Atraumatic, normocephalic. HEENT:[Neck is supple.] [No neck masses.] [No thyromegaly.] [No JVD.] Chest: [Diminished breath sounds and crackles at the bases especially at the left base. No rhonchi and no wheezes. No chest wall tenderness. Symmetrical chest expansion Cardiac Exam: [Normal S1 and S2, no S3 gallop, no murmur.] Abdomen: [Soft, nontender, no megaly, no rebound, no guarding, normal bowel sounds.] Extremities: [No clubbing, no edema, no cyanosis.] Neurological Exam: Lethargic, arousable, follows simple instructions and noted to be generally weak and fatigued. Psychiatric: Blunted mood and affect, questionable mental status at this point. Lymphatics: No lymphadenopathy. Skin: No rashes. - Labs CBC & Chem 7: 09/21/18 05:30 09/21/18 05:30 Labs: Abnormal Lab Results - Last 24 Hours (Table) 09/20/18 09/20/18 09/20/18 Range/Units 12:39 16:55 20:47 WBC (3.8-10.6) k/uL RBC (3.80-5.40) m/uL Hgb (11.4-16.0) gm/dL Hct (34.0-46.0) % Neutrophils # (1.3-7.7) k/uL Lymphocytes # (1.0-4.8) k/uL PT (9.0-12.0) sec INR (<1.2) APTT (22.0-30.0) sec Chloride (98-107) mmol/L Glucose (74-99) mg/dL POC Glucose (mg/dL) 245 H 272 H 301 H (75-99) mg/dL Calcium (8.4-10.2) mg/dL 09/20/18 09/21/18 09/21/18 Range/Units 21:10 01:25 04:05 WBC (3.8-10.6) k/uL RBC (3.80-5.40) m/uL Hgb (11.4-16.0) gm/dL Hct (34.0-46.0) % Neutrophils # (1.3-7.7) k/uL Lymphocytes # (1.0-4.8) k/uL PT 13.4 H (9.0-12.0) sec INR 1.3 H (<1.2) APTT 32.6 H 42.3 H (22.0-30.0) sec Chloride (98-107) mmol/L Glucose (74-99) mg/dL POC Glucose (mg/dL) 278 H (75-99) mg/dL Calcium (8.4-10.2) mg/dL 09/21/18 09/21/18 09/21/18 Range/Units 05:30 05:30 07:11 WBC 11.2 H (3.8-10.6) k/uL RBC 3.26 L (3.80-5.40) m/uL Hgb 9.9 L (11.4-16.0) gm/dL Hct 31.1 L (34.0-46.0) % Neutrophils # 9.7 H (1.3-7.7) k/uL Lymphocytes # 0.5 L (1.0-4.8) k/uL PT (9.0-12.0) sec INR (<1.2) APTT (22.0-30.0) sec Chloride 108 H (98-107) mmol/L Glucose 219 H (74-99) mg/dL POC Glucose (mg/dL) 245 H (75-99) mg/dL Calcium 8.2 L (8.4-10.2) mg/dL 09/21/18 Range/Units 11:54 WBC (3.8-10.6) k/uL RBC (3.80-5.40) m/uL Hgb (11.4-16.0) gm/dL Hct (34.0-46.0) % Neutrophils # (1.3-7.7) k/uL Lymphocytes # (1.0-4.8) k/uL PT (9.0-12.0) sec INR (<1.2) APTT (22.0-30.0) sec Chloride (98-107) mmol/L Glucose (74-99) mg/dL POC Glucose (mg/dL) 179 H (75-99) mg/dL Calcium (8.4-10.2) mg/dL Microbiology - Last 24 Hours (Table) 09/15/18 01:02 Blood Culture - Final Blood No Growth after 144 hours Assessment and Plan Assessment: Impression: Cardiopulmonary arrest, exact etiology remains unclear. I suspect the patient may have sustained minimal degree of anoxic encephalopathy to explain her present mental status and profound weakness and lethargy. History of severe right sided congestive heart failure and pulmonary hypertension, presently improving. Remains on diuretics, Lasix at 20 mg IV push every 12 hours. Chronic atrial fibrillation, on oral beta blockers. And on anticoagulation therapy. She is now on Cardizem drip at 15 mg per hour. Cardiology is following. Acute hypoxic respiratory failure requiring intubation and mechanical ventilation extubated on 09/17/2018 Acute kidney injury improving Carotid artery disease Possible left lower lobe pneumonia, could also be related to atelectasis, on antibiotics empirically. Patient is presently on Levaquin and cefepime. Ultrasound of the chest did not reveal much fluid to be drained on the left side. Type 2 diabetes Recommendation: Discussed her condition with the family, patient remains full code, I will continue present supportive care measures including bronchodilators diuretics antibiotics, she will be intermittently on BiPAP, continue Cardizem drip, continue incentive spirometry, continue GI and DVT prophylaxis, will di urese the patient a bit more today, however I have a feeling that the patient will eventually require intubation mechanical ventilation. Family was made aware of her very poor marginal pulmonary status. We'll continue to follow. Patient will remain in the ICU. As she remains marginal at best. Time with Patient: Less than 30
[2018-09-21] MEDS: METOPROLOL TARTRATE 5 MG/5 ML VIAL IVP PRN ×2 (12:30→23:37)
[2018-09-21] MEDS ORDERED: MVI, ADULT NO.4 WITH VIT K 10 ML, TRACE (CONC-1ML/DOSE) 1 ML in AMINO ACID 5%-D15W+LYTE... IV SCH ×3 (15:30)
[2018-09-21] MEDS: FAT EMULSION 20% 250 ML IV SCH (16:28)
[2018-09-21 16:33] LABS: Ionized Calcium 4.9 mg/dL (4.5-5.3)
[2018-09-21 16:40] LABS: Albumin 2.6 g/dL (3.5-5.0)
[2018-09-21 17:01] LABS: Glucose,Whole Blood 181 mg/dL (75-99)
[2018-09-21] MEDS: LEVOFLOXACIN 500MG-D5W PMX 500 MG in DEXTROSE/WATER 1 100ML.BAG IVPB SCH (17:25)
[2018-09-21] MEDS ORDERED: POTASSIUM CHLORIDE ER 20 MEQ TAB.ER PO SCH (18:00)
[2018-09-21] MEDS: FUROSEMIDE 10 MG/ML 4 ML VIAL IV SCH ×2 (18:56→23:36)
[2018-09-21] MEDS: DEXTROSE 5%-0.45% NACL 1,000 ML IV SCH (18:57)
[2018-09-21] MEDS: POTASSIUM CHLORIDE 20 MEQ in WATER FOR INJECTION 1 100ML.BAG IVPB SCH ×3 (19:07→23:56)
--- NOTE | 2018-09-21 19:59 | PN ---
PROGRESS NOTE I am covering for Dr. Dow. DATE OF SERVICE: 09/21/2018. This 73-year-old woman was admitted with multiple medical problems including CHF, history of chronic atrial fibrillation with history of multiple episodes of cardiac arrest, was on BiPAP, still on BiPAP because of hypoxia. Patient also has pneumonia. Patient also had atrial fibrillation with fast ventricular rate. Patient being closely monitored. The most recent chest x-ray done today which was reviewed personally by me showed evidence of bilateral pneumonia and possibly some CHF also. The patient is closely monitored at this time. The patient being closely monitored in the ICU. PAST MEDICAL HISTORY: Past medical history and review of systems could not be taken. CURRENT MEDICATIONS: Are as noted and include: 1. Tylenol 650 q.6h p.r.n. 2. Randolph 7.5 p.r.n. 3. DuoNeb q.i.d. and p.r.n. 4. Cefepime 1 g IV b.i.d. 5. Cardizem drip. 6. TPN. 7. Lasix 20 mg IV b.i.d. 8. Levemir. 9. Levaquin. 10.Lopressor. PHYSICAL EXAM: Patient is alert and oriented x1. Pulse is 112, blood pressure is respiration 24, temperature 98.2, pulse ox 94% on BiPAP, 40% FIO2. HEENT: Conjunctivae normal. NECK: No jugular venous distention. CARDIOVASCULAR: S1, S2 muffled. RESPIRATIONS: Breath sounds diminished in the bases. A few scattered rhonchi and crackles. ABDOMEN: Soft, nontender. Legs are no edema, no swelling. CENTRAL NERVOUS SYSTEM: No focal deficits. LABS: WBC 11.2, hemoglobin 9.9, sodium 137 and creatinine is 0.63. ASSESSMENT: 1. Status post multiple episodes of cardiac arrest with acute hypoxic respiratory failure status post mechanical ventilation. 2. On BIPAP. 3. Sepsis secondary to pneumonia left lower lobe possibly gram-negative. 4. Congestive heart failure acute exacerbation with acute on chronic systolic and diastolic dysfunction, ejection fraction 45 to 50%. 5. Septal hypokinesis. 6. LA severely dilated. 7. Mild to moderate mitral and tricuspid regurgitations. 8. Right-sided heart failure, pulmonary hypertension, atrial fibrillation recurrent, controlled with beta blockers and Cardizem drip p.r.n. 9. Diabetes mellitus type 2. 10.Hypertension. 11.Hyperlipidemia. 12.History of coronary artery disease. 13.Generalized weakness. 14.Acute kidney injury. 15.FULL CODE. RECOMMENDATIONS AND DISCUSSION: In this 73-year-old woman who presented with multiple complex medical issues, we will monitor the patient closely, continue the current medications, management and symptomatic treatment. Otherwise, I recommend continue with Cardizem drip. I also recommend increase the dose of Lasix and monitor fluid and electrolytes balance closely. Guarded prognosis because of multiple complex medical issues. Continue the heparin drip and continue the rest of medications. We will monitor lytes also closely. Potassium will be supplemented. Further recommendations to follow. See orders for details. MMODL / IJN: [id number] / MTDVilma
[2018-09-21] MEDS: INSULIN DETEMIR (LEVEMIR) 100 UNIT/ML SYR SQ SCH (20:30)
[2018-09-21] MEDS: HEPARIN SOD,PORK IN 0.45% NACL 25,000 UNIT in 0.45% NACL 1 250ML.BAG IV SCH (21:49)
[2018-09-21 23:29] LABS: Glucose,Whole Blood 228 mg/dL (75-99)
[2018-09-22] MEDS: NOREPINEPHRINE 4 MG in SODIUM CHLORIDE 0.9% 250 ML IV SCH (00:50)
[2018-09-22] MEDS: METOPROLOL TARTRATE 5 MG/5 ML VIAL IVP SCH ×4 (02:24→21:11)
[2018-09-22] MEDS: IPRATROPIUM-ALBUTEROL 3 ML NEB INHALATION SCH ×5 (03:24→19:57)
[2018-09-22 05:46] LABS: Basophils % (A) 0 %; Eosinophils # (A) 0.2 k/uL (0-0.7); Eosinophils % (A) 1 %; HCT 31.4 % (34.0-46.0); HGB 9.9 gm/dL (11.4-16.0); Hypochromasia Moderate; Lymphocytes # (A) 0.6 k/uL (1.0-4.8); Lymphocytes % (A) 4 %; MCH 29.6 pg (25.0-35.0); MCHC 31.6 g/dL (31.0-37.0); MCV 93.5 fL (80.0-100.0); Mean Platelet Volume 8.6; Monocytes # (A) 0.7 k/uL (0-1.0); Monocytes % (A) 5 %; Neutrophils # (A) 14.1 k/uL (1.3-7.7); Neutrophils % (A) 90 %; Platelet Count 243 k/uL (150-450); RBC 3.35 m/uL (3.80-5.40); RDW 15.3 % (11.5-15.5); WBC 15.7 k/uL (3.8-10.6)
[2018-09-22 06:05] LABS: African American GFR (CKD) >90 (>60 ml/min/1.73 sqM); Anion Gap 8 mmol/L; Blood Urea Nitrogen 16 mg/dL (7-17); Calcium 8.3 mg/dL (8.4-10.2); Carbon Dioxide 25 mmol/L (22-30); Chloride 106 mmol/L (98-107); Glucose 193 mg/dL (74-99); Magnesium 1.3 mg/dL (1.6-2.3); Potassium 3.1 mmol/L (3.5-5.1); Sodium 139 mmol/L (137-145)
[2018-09-22 06:09] LABS: Glucose,Whole Blood 215 mg/dL (75-99)
--- NOTE | 2018-09-22 06:23 | XR ---
EXAMINATION TYPE: XR chest 1V portable DATE OF EXAM: 09/22/2018 HISTORY: shortness of breath . REFERENCE: Previous study dated 09/21/2018. FINDINGS: There is a left subclavian catheter in place. Its tip is at the cavoatrial junction. The heart is enlarged. There is vascular congestion and subtle interstitial change. There are small, bilateral effusions. There is confluent airspace disease in the left lung base. Aeration at the right lung base has improved. IMPRESSION: CHANGES COMPATIBLE WITH IMPROVING PULMONARY EDEMA.
[2018-09-22] MEDS: INSULIN ASPART (NovoLOG) 100 UNIT/ML VIAL SQ SCH ×3 (06:30→18:51)
[2018-09-22] MEDS: MAGNESIUM SULFATE-D5W PMX 1 GM in DEXTROSE/WATER 1 100ML.BAG IVPB SCH ×3 (06:30→13:30)
[2018-09-22] MEDS: POTASSIUM CHLORIDE 20 MEQ in WATER FOR INJECTION 1 100ML.BAG IVPB SCH ×4 (06:31→23:05)
[2018-09-22] MEDS: PANTOPRAZOLE 40 MG/10 ML VIAL IVP SCH (11:36)
[2018-09-22] MEDS: FAT EMULSION 20% 250 ML IV SCH (11:37)
[2018-09-22] MEDS: CEFEPIME 1 GM in SODIUM CHLORIDE 0.9% 50 ML IVPB SCH ×2 (11:37→21:00)
[2018-09-22] MEDS: FUROSEMIDE 10 MG/ML 4 ML VIAL IV SCH ×2 (11:37→17:35)
[2018-09-22] MEDS: ACETAMINOPHEN SUPPOSITORY 650 MG SUPP RECTAL PRN ×2 (11:38→18:52)
[2018-09-22 11:57] LABS: Glucose,Whole Blood 214 mg/dL (75-99)
--- NOTE | 2018-09-22 13:10 | P.PN ---
Subjective Progress Note Date: 09/22/18 Principal diagnosis: Acute cardiopulmonary arrest requiring intubation and mechanical ventilation. This is a 71-year-old female patient who comes into the hospital because of gene ralized weakness, difficulty with mobility, frequent falls and suspicion for an underlying pneumonia. The patient was initially brought into the emergency department. She has fallen multiple times at home. She has fallen in the bathroom and she did have a head trauma. No reported history of loss of consciousness. The patient was laying down the floor for a couple of hours before she was found by friends. At that point the patient was transferred to our hospital. According to the family the patient gained weight in the order of 10 pounds over the past couple of weeks. The patient reported pain over her tailbone he has she denied having any chest pain. She denies having any other complaints. In the emergency, the patient was diagnosed having a left lower lobe pneumonia. The patient underwent CT angiogram of the chest that showed a limited left lower lobe pulmonary infiltration and for that reason the patient was hospitalized and she was started on antibiotics. Overnight, the patient went into an acute cardiac arrest. The patient was found to be in PEA. She was started on CPR. Code team was activated and the patient was immediately intubated with a #7 orotracheal tube. The initial code was for a total of 3 minutes and following that the patient got to the ICU. She had another episode of PEA here in the ICU that lasts for 4 minutes. During which the patient received CPR and the patient received epinephrine. She had spontaneous return and circulation. Initial blood gas showed metabolic acidosis with a pH of 6.9. Necessary vent changes were made by Dr. Kerr over the phone.. Gave the patient fluids and she immediately received a total of 3-1/2 L. The patient's subsequent blood gases showed a pH of 7.48 with a pCO2 of 26 and pO2 151 and this was done this morning while her being on an assist-control mode of ventilator with a rate of 24 and tidal volume of 500 with an FiO2 of 60% and a PEEP of 5. She briefly required some pressors in the form of levo fed and she's been off pressors since 3 AM this morning. Urine output was adequate in the order of 20-30 mL an hour. The patient was given Broderson spectrum of antibiotics and the patient was covered with a combination of vancomycin, Levaquin and cefepime and Zithromax were discontinued. She is currently afebrile. She is sedated with Diprivan. Cardiac rhythm is A. fib. CAT scan of the brain that was done in emergency department showed no acute abnormalities. Echocardiogram was ordered and the results are still pending for now. The cardiac enzymes showed a troponin of 0.06. The EKG was nonspecific and was consistent atrial fibrillation. The patient had a non-anion gap metabolic acidosis with serum bicarb level of 18 improving compared to yesterday. Creatinine was as high as 1.5 and has dropped down to 1.25. UA erythematous admission was also negative. No seizure activity. Upon getting a brief sedation holiday the patient was able to arouse and move extremities without any limitation the patient is known to have history of diabetes mellitus, history of chronic atrial fibrillation for which she has been maintained on long-term anticoagulation with Eliquis. The patient also has history of coronary artery disease. The patient had intermediate to severe disease involving the left circumflex and the last catheterization was done by Dr. Hartman back in February 2018 and the patient underwent a fractional flow reserve of the left circumflex and the findings were negative for ischemia. The patient also has history of hypertension, sleep apnea, hyperlipidemia and previous echocardiogram has revealed an ejection of 55-60% and this was based on a echocardiogram from June 2018. The patient had moderate severe RV enlargement, RA was mildly enlarged, mild aortic stenosis, moderate mitral regurgitation and severe tricuspid regurgitation and severe pulmonary hypertension was identified. Patient was reevaluated today on 09/17/2018, remains on mechanical ventilation, and her ventilator settings are assist control rate of 16 FiO2 of 40%, tidal volume of 450, and PEEP of 5. Patient has been off propofol for the last 2 days, she is arousable, followed all simple instructions, she was wiggling her toes, squeezing hands, and sticking out her tongue upon request. Patient seemed to be appropriate, hence I recommended a trial of pressure support of 10 and C PAP. Patient has a size 7.0 endotracheal tube. Chest x-ray was reviewed, showed improved aeration of the right lung base, small pleural effusion was noted, and atelectasis is noted. Slight interstitial edema is also suspected but improved since admission. ABG this morning showed a pO2 of 88 pCO2 of 33 pH of 7.39. Patient has orogastric tube in place, may consider initiation of tube feeding if the patient is not extubated today. Her basic metabolic profile is normal. And the rest of the labs were noted to be relatively unremarkable. Patient was reevaluated today on 09/18/2018, off mechanical ventilation, she was extubated yesterday uneventfully. She was marginal, and she required to be placed on BiPAP overnight. This morning the patient seems to be more awake, able to clear her secretions, and her cough seems to be a bit stronger, hence she was placed on a nasal cannula. In the meantime remains on bronchodilators, being evaluated at bedside for swallow evaluation. Her heart rate remains high despite of Cardizem at 10 mg per hour, and she may be placed on oral beta blockers. Patient seems to be weak, but appropriate. Her labs were reviewed including normal metabolic profile potassium is a bit low at 3.4 CBC is relatively normal. Chest x-ray showed mostly left lower lobe atelectasis, difficult to rule out underlying pneumonia involving the left lower lobe. Patient remains on Levaquin and cefepime in the meantime. Family is at bedside, and I updated them on her condition. Patient was reevaluated today on 09/19/2018, remains off mechanical ventilation, patient seems to be more lethargic this morning, she is a bit difficult to arouse, but she is arousable and follows simple instructions, but not as good as she was yesterday. Patient does have shallow breathing, seems to be using her abdominal muscles at times, her chest x-ray showed worsening left lower lobe hencChest x-ray did show slight increase in the interstitium, possible some pulmonary congestion, and a small left pleural effusion with retrocardiac atelectasis or consolidation. Patient did pass her swallow evaluation yesterday, and now she is receiving oral pills. After evaluating the patient, I recommended we placed the patient back on BiPAP. WBC count is up at 14.9, electrolytes and basic metabolic profile are normal. Cultures of the sputum and blood have been nondiagnostic so far. Patient remains empirically on antibiotics. Family is at bedside, and they were updated on her condition, there is definite worsening in her overall clinical status today compared to yesterday. Patient remains full code as per her own wishes previously expressed to her family members. Patient was reevaluated today on 09/20/2018, went on BiPAP through the night, seems to be more awake this morning, and she is able to swallow her medications without any issue. Patient is still weak, she has a very poor cough, follows simple instructions, in no distress. I switched the patient from BiPAP to nasal cannula, encourage the patient to do some deep coughing and deep breathing, recommended a dose of Lasix early today because of chest x-ray showed some pleural effusion and possibly some component of congestive heart failure. However ultrasound of the chest did not show much fluid to be safely drained by thoracentesis. Chest x-ray was reviewed and labs were reviewed her CBC is relatively normal left lites are normal renal profile is normal family is at bedside, and they were updated on her condition. Overall the patient remains marginal, and I don't feel she is ready to be transferred out of the ICU yet. As a matter of fact I have a strong feeling that if her condition gets any worse she may end up adding to be intubated again. In the meantime we have been managing her overall condition with BiPAP intermittently, and at times on nasal cannula. Patient remains on bronchodilators, she is back on Cardizem drip because of atrial fibrillation, he is also on beta blockers, antibiotics enriquez remains on Levaquin. She is also on cefepime. All cultures including sputum and blood have been negative so far. Patient was reevaluated today on 09/21/2018, presently on nasal cannula, patient is basically about the same. Continues to have very weak cough, and unable to clear secretions well on her own. She needs to be encouraged to cough, she remains on bronchodilators, remains on diuretics, and she remains on Cardizem drip. Her chest x-ray is showing worseningwith new bibasilar airspace disease, and small bilateral pleural effusions, retrocardiac opacity remains about the same. She did receive a dose of Lasix today at 60 mg IV push, and she will intermittently be placed on BiPAP. Family is at bedside, and I updated them on her condition, I will not be surprised if the patient entered requiring intubation and mechanical ventilation. Her overall pulmonary status is marginal at best.chest x-ray was reviewed and discussed with the family CBC is normal basic metabolic profile is normal. Patient is still in the intensive care unit, evaluated on , overall critical status is about the same, intermittently on BiPAP, and sometimes on high flow nasal cannula. Patient is still generally weak, has some difficulty clearing his secretions, chest x-ray showed definite improvement. Remains on Cardizem drip, remains on beta blockers, I recommended reconsultation of cardiology to reevaluate. Patient remains on antibiotics, remains on diuretics, and intermittently [id number] on BiPAP. I will recommend increasing her Lasix dose on a daily basis since she is better with diuretics and better with BiPAP. Labs and chest x-ray were reviewed and discussed with the patient and her family at bedside Objective - Vital Signs Vital signs: Vital Signs Temp 98.4 F 09/22/18 04:00 Pulse 125 H 09/22/18 12:41 Resp 19 09/22/18 07:00 BP 129/87 09/22/18 07:00 Pulse Ox 97 09/22/18 08:30 Intake & Output 09/21/18 09/22/18 09/22/18 18:59 06:59 18:59 Intake Total 867.518 0630.076 86 Output Total 1370 1675 105 Balance -474.554 -152.924 -19 Weight 78.653 kg 78.1 kg Intake: IV 746.875 4432.497 86 Dextrose 5%-0.45% NaCl 1, 600 600 50 000 ml @ 50 mls/hr IV . Q20H [facility] Rx#:[id number] Fat Emulsion 20% 250 ml @ 41.666 187.497 20.833 mls/hr IV DAILY [facility] Rx#:[id number] Mvi, Adult No.4 with Vit 60 360 30 K 10 ml Trace (Conc-1Ml/ Dose) 1 ml In Amino Acid 5%-D15w+Lytes*E* 1,000 ml @ 30 mls/hr IV .Q24H [facility] Rx#:[id number] Pressure Bags 72 72 6 Intake, IV Titration 121.78 212.579 Amount Diltiazem 125 mg In 146.833 Sodium Chloride 0.9% 100 ml @ Per Protocol IV .Q0M [facility] Rx#:[id number] Heparin Sod,Pork in 0.45% 121.78 65.746 NaCl 25,000 unit In 0.45 % NaCl 1 250ml.bag @ 12 UNITS/KG/HR 8.784 mls/hr IV .Q24H [facility] Rx#: [id number] Oral 90 Output: Urine 1370 1675 105 Other: Voiding Method Indwelling Catheter Indwelling Catheter ABP, PAP, CO, CI - Last Documented Arterial Blood Pressure 163/90 - Exam Physical Exam: Revealed a 73-year-old female, on BiPAP 12 and 6, and 40% FiO2 Head: Atraumatic, normocephalic. HEENT:[Neck is supple.] [No neck masses.] [No thyromegaly.] [No JVD.] Chest: [Diminished breath sounds and crackles at the bases especially at the left base. No rhonchi and no wheezes. No chest wall tenderness. Symmetrical chest expansion Cardiac Exam: [Normal S1 and S2, no S3 gallop, no murmur.] Abdomen: [Soft, nontender, no megaly, no rebound, no guarding, normal bowel sounds.] Extremities: [No clubbing, no edema, no cyanosis.] Neurological Exam: Noted to be generally weak, arousable, follows instructions. Psychiatric: Blunted mood and affect, questionable mental status at this point. Lymphatics: No lymphadenopathy. Skin: No rashes. - Labs CBC & Chem 7: 09/22/18 05:35 09/22/18 05:35 Labs: Abnormal Lab Results - Last 24 Hours (Table) 09/21/18 09/21/18 09/21/18 Range/Units 13:45 16:20 16:57 WBC (3.8-10.6) k/uL RBC (3.80-5.40) m/uL Hgb (11.4-16.0) gm/dL Hct (34.0-46.0) % Neutrophils # (1.3-7.7) k/uL Lymphocytes # (1.0-4.8) k/uL APTT 39.6 H (22.0-30.0) sec Potassium (3.5-5.1) mmol/L Glucose (74-99) mg/dL POC Glucose (mg/dL) 181 H (75-99) mg/dL Calcium (8.4-10.2) mg/dL Magnesium (1.6-2.3) mg/dL Albumin 2.6 L (3.5-5.0) g/dL 09/21/18 09/21/18 09/22/18 Range/Units 22:50 23:28 05:35 WBC 15.7 H (3.8-10.6) k/uL RBC 3.35 L (3.80-5.40) m/uL Hgb 9.9 L (11.4-16.0) gm/dL Hct 31.4 L (34.0-46.0) % Neutrophils # 14.1 H (1.3-7.7) k/uL Lymphocytes # 0.6 L (1.0-4.8) k/uL APTT 58.0 H (22.0-30.0) sec Potassium (3.5-5.1) mmol/L Glucose (74-99) mg/dL POC Glucose (mg/dL) 228 H (75-99) mg/dL Calcium (8.4-10.2) mg/dL Magnesium (1.6-2.3) mg/dL Albumin (3.5-5.0) g/dL 09/22/18 09/22/18 09/22/18 Range/Units 05:35 05:58 08:10 WBC (3.8-10.6) k/uL RBC (3.80-5.40) m/uL Hgb (11.4-16.0) gm/dL Hct (34.0-46.0) % Neutrophils # (1.3-7.7) k/uL Lymphocytes # (1.0-4.8) k/uL APTT 50.6 H (22.0-30.0) sec Potassium 3.1 L (3.5-5.1) mmol/L Glucose 193 H (74-99) mg/dL POC Glucose (mg/dL) 215 H (75-99) mg/dL Calcium 8.3 L (8.4-10.2) mg/dL Magnesium 1.3 L (1.6-2.3) mg/dL Albumin (3.5-5.0) g/dL 09/22/18 Range/Units 11:55 WBC (3.8-10.6) k/uL RBC (3.80-5.40) m/uL Hgb (11.4-16.0) gm/dL Hct (34.0-46.0) % Neutrophils # (1.3-7.7) k/uL Lymphocytes # (1.0-4.8) k/uL APTT (22.0-30.0) sec Potassium (3.5-5.1) mmol/L Glucose (74-99) mg/dL POC Glucose (mg/dL) 214 H (75-99) mg/dL Calcium (8.4-10.2) mg/dL Magnesium (1.6-2.3) mg/dL Albumin (3.5-5.0) g/dL Microbiology - Last 24 Hours (Table) 09/21/18 22:50 Urine Culture - Preliminary Urine,Catheterized Assessment and Plan Assessment: Impression: Cardiopulmonary arrest, exact etiology remains unclear. I suspect the patient may have sustained minimal degree of anoxic encephalopathy to explain her present mental status and profound weakness and lethargy. History of severe right sided congestive heart failure and pulmonary hypertension, presently improving. Remains on diuretics, Lasix at 20 mg IV push every 12 hours. Chronic atrial fibrillation, on oral beta blockers. And on anticoagulation therapy. She is now on Cardizem drip at 15 mg per hour. Cardiology is anca mcnamara. Acute hypoxic respiratory failure requiring intubation and mechanical ventilation extubated on 09/17/2018 Acute kidney injury improving Carotid artery disease Possible left lower lobe pneumonia, could also be related to atelectasis, on antibiotics empirically. Patient is presently on Levaquin and cefepime. Ultrasound of the chest did not reveal much fluid to be drained on the left s hiram. Type 2 diabetes Recommendation: Her family/daughters were updated again on her condition, rem ains quite marginal, patient is not bad enough to intubate, and she is not good enough to be transferred out of the ICU. Her overall cut all condition remains very marginal. Hence I recommended that we continue supportive care measures, diuretics antibiotics bronchodilators, Cardizem, beta blockers, GI and DVT prophylaxis, PEEP patient is also on TPN. We'll continue to follow, will continue to monitor closely in the ICU. The prognosis remains poor and guarded. Time with Patient: Less than 30
[2018-09-22] MEDS: DEXTROSE 5%-0.45% NACL 1,000 ML IV SCH (13:37)
[2018-09-22] MEDS: DILTIAZEM 125 MG in SODIUM CHLORIDE 0.9% 100 ML IV SCH (13:38)
[2018-09-22] MEDS: METOPROLOL TARTRATE 5 MG/5 ML VIAL IVP PRN ×2 (13:38→19:53)
[2018-09-22] MEDS ORDERED: 1: AMINO ACID 5%-D15W+LYTES*E* 1,000 ML 2: MVI, ADULT NO.4 WITH VIT K 10 ML, TRACE (CON IV SCH ×3 (15:30)
[2018-09-22] MEDS: LEVOFLOXACIN 500MG-D5W PMX 500 MG in DEXTROSE/WATER 1 100ML.BAG IVPB SCH (16:24)
[2018-09-22] MEDS: HEPARIN SOD,PORK IN 0.45% NACL 25,000 UNIT in 0.45% NACL 1 250ML.BAG IV SCH (16:45)
[2018-09-22] MEDS: methylPREDNISolone SOD SUCCI 125 MG/2 ML VIAL IV SCH (17:35)
[2018-09-22] MEDS: [UNRECOGNIZED DRUG - OTHER] IV SCH ×10 (17:45)
[2018-09-22] MEDS: MAGNESIUM SULFATE IV SCH ×10 (17:45)
[2018-09-22] MEDS: POTASSIUM CHLORIDE IV SCH ×10 (17:45)
--- NOTE | 2018-09-22 18:15 | PN ---
PROGRESS NOTE DATE OF SERVICE: 09/22/2018. I am covering for Dr. Dow. This 73-year-old woman who was admitted with multiple episodes of cardiac arrest also had features of pneumonia. The patient has atrial fibrillation with fast ventricular rate. The patient is also confused. Patient also had significant breathing difficulties and as well as congestive heart failure acute exacerbation also. The patient is also on TPN. The patient also had multiple valvular abnormalities also. Patient closely monitored in ICU. Multiple consultants are following the patient closely. The most recent chest x-ray which was done today was reviewed by me personally showed significant cardiomegaly as well as some evidence of CHF as well. PAST MEDICAL HISTORY: Reviewed. REVIEW OF SYSTEMS: Cardiovascular system: No angina or palpitations. RESPIRATORY: As mentioned earlier. GI no nausea or vomiting. as mentioned earlier. Central nervous system: Diffusely weak and confused. CURRENT MEDICATIONS ARE: Reviewed and include: 1. Tylenol p.r.n. 2. [place] 7.5 mg t.i.d. p.r.n. 3. DuoNeb q.i.d. and p.r.n. 4. Cefepime 1 g IV b.i.d. 5. Cardizem drip. 6. TPN. 7. Lasix 40 mg IV q.8h. 8. Heparin 5000 subcu b.i.d. 9. NovoLog. 10.Levemir 35 units subcu q8h. 11.Levaquin 500 mg IV daily. 12.Lopressor 5 mg IV q.6 p.r.n. 13.Narcan. 14.Levophed drip p.r.n. PHYSICAL EXAM: Patient is alert and oriented x1. Pulse 116, irregular. Blood pressure 130/82, respiration 20, temperature normal, pulse ox 94% on 5 L. HEENT: Conjunctivae normal. Oral moist. NECK is no jugular venous distention. No carotid bruit. No lymph node enlargement. CARDIOVASCULAR: S1, S2. Irregular. Tachycardic. Ejection systolic murmur. Respirations: Breath sounds diminished in the bases. Bilateral scattered rhonchi and expiratory wheezing and crackles. ABDOMEN: Soft, obese, nontender. No mass palpable. Legs no edema. No swelling. NERVOUS SYSTEM: Higher functions as mentioned earlier. Moves all 4 limbs. Mild diffuse weakness. Lymphatics: No lymph nodes palpable in the neck, axillae or groin. Skin: No ulcer, rash or bleeding. JOINTS: No active deforming arthropathy. LABORATORY DATA: WBC 15.2, hemoglobin 9.9, sodium 138, potassium 3.1, magnesium 1.3. ASSESSMENT: 1. Status post multiple episodes of cardiac arrest with acute hypoxic respiratory failure status post mechanical ventilation. 2. On and off BiPAP. 3. Sepsis secondary to pneumonia left lower lobe possibly gram-negative. 4. Congestive heart failure acute exacerbation acute on chronic systolic and diastolic dysfunction ejection fraction 45-50 percent. 5. Septal hypokinesis. 6. LA severely dilated. 7. Mild to moderate mitral and tricuspid regurgitation. 8. Right-sided heart failure from pulmonary hypertension. 9. Recurrent atrial fibrillation, controlled with beta blockers and Cardizem drip p.r.n. 10.Diabetes mellitus type 2. 11.Hypertension. 12.Hyperlipidemia. 13.History of coronary artery disease. 14.History of generalized weakness. 15.Acute kidney injury. 16.FULL CODE. RECOMMENDATIONS AND DISCUSSION: Recommend to continue current medications, continue with monitoring, symptomatic treatment. Otherwise, at this time, I recommend continue with continue current medications. Continue the bronchodilators. Continue with antibiotics. Supplement potassium, magnesium, repeat labs. Cardizem drip. Cut down the IV fluids. Continue with Lasix. The patient is on negative balance yesterday. I would recommend to continue with current medications. Guarded prognosis. Further recommendations to follow. Continue intensive bronchodilator treatment also. MMODL / IJN: [id number] / VU
[2018-09-22 18:37] LABS: Glucose,Whole Blood 289 mg/dL (75-99)
[2018-09-22] MEDS ORDERED: LORazepam 2 MG/ML INJ IV STA (19:20)
[2018-09-22] MEDS: FORMOTEROL FUMARATE 20 MCG/2 ML NEBU INHALATION SCH (19:57)
[2018-09-22] MEDS: BUDESONIDE 1 MG/2 ML NEBU INHALATION SCH (19:57)
[2018-09-22] MEDS: INSULIN DETEMIR (LEVEMIR) 100 UNIT/ML SYR SQ SCH (21:10)
[2018-09-22 21:11] LABS: Glucose,Whole Blood 324 mg/dL (75-99)
[2018-09-22] MEDS ORDERED: INSULIN ASPART (NovoLOG) 100 UNIT/ML VIAL SQ ONE (21:35)
[2018-09-22 23:47] LABS: Glucose,Whole Blood 322 mg/dL (75-99)
[2018-09-23] MEDS ORDERED: INSULIN ASPART (NovoLOG) 100 UNIT/ML VIAL SQ SCH
[2018-09-23] MEDS: IPRATROPIUM-ALBUTEROL 3 ML NEB INHALATION SCH ×6 (00:37→20:28)
[2018-09-23] MEDS: NOREPINEPHRINE 4 MG in SODIUM CHLORIDE 0.9% 250 ML IV SCH (00:49)
[2018-09-23] MEDS: methylPREDNISolone SOD SUCCI 125 MG/2 ML VIAL IV SCH ×4 (00:53→18:09)
[2018-09-23] MEDS: FUROSEMIDE 10 MG/ML 4 ML VIAL IV SCH ×3 (00:53→16:31)
[2018-09-23] MEDS ORDERED: INSULIN REGULAR BOLUS (FROM DRIP BAG) IV PRN (01:49)
[2018-09-23 02:07] LABS: Glucose,Whole Blood 310 mg/dL (75-99)
[2018-09-23] MEDS: INSULIN REGULAR 100 UNIT in SODIUM CHLORIDE 0.9% 100 ML IV SCH ×2 (02:29→10:36)
[2018-09-23 03:06] LABS: Glucose,Whole Blood 314 mg/dL (75-99)
[2018-09-23] MEDS: METOPROLOL TARTRATE 5 MG/5 ML VIAL IVP SCH ×2 (03:17→09:16)
[2018-09-23 03:45] LABS: Glucose,Whole Blood 295 mg/dL (75-99)
[2018-09-23 04:08] LABS: Glucose,Whole Blood 290 mg/dL (75-99)
[2018-09-23 05:16] LABS: Glucose,Whole Blood 250 mg/dL (75-99)
[2018-09-23 05:47] LABS: Basophils % (A) 0 %; Eosinophils # (A) 0.1 k/uL (0-0.7); Eosinophils % (A) 0 %; HCT 32.6 % (34.0-46.0); HGB 10.2 gm/dL (11.4-16.0); Hypochromasia Moderate; Lymphocytes # (A) 0.4 k/uL (1.0-4.8); Lymphocytes % (A) 2 %; MCH 29.3 pg (25.0-35.0); MCHC 31.2 g/dL (31.0-37.0); MCV 93.9 fL (80.0-100.0); Mean Platelet Volume 8.5; Monocytes # (A) 0.4 k/uL (0-1.0); Monocytes % (A) 2 %; Neutrophils # (A) 17.5 k/uL (1.3-7.7); Neutrophils % (A) 95 %; Platelet Count 292 k/uL (150-450); RBC 3.47 m/uL (3.80-5.40); RDW 15.2 % (11.5-15.5); WBC 18.4 k/uL (3.8-10.6)
[2018-09-23 05:48] LABS: African American GFR (CKD) >90 (>60 ml/min/1.73 sqM); Anion Gap 9 mmol/L; Blood Urea Nitrogen 20 mg/dL (7-17); Calcium 8.6 mg/dL (8.4-10.2); Carbon Dioxide 22 mmol/L (22-30); Chloride 106 mmol/L (98-107); Glucose 253 mg/dL (74-99); Magnesium 1.7 mg/dL (1.6-2.3); Phosphorus 2.8 mg/dL (2.5-4.5); Potassium 3.5 mmol/L (3.5-5.1); Sodium 137 mmol/L (137-145)
[2018-09-23 06:02] LABS: Glucose,Whole Blood 263 mg/dL (75-99)
[2018-09-23] MEDS: POTASSIUM CHLORIDE 20 MEQ in WATER FOR INJECTION 1 100ML.BAG IVPB SCH ×2 (06:21→09:16)
[2018-09-23] MEDS: MAGNESIUM SULFATE-D5W PMX 1 GM in DEXTROSE/WATER 1 100ML.BAG IVPB SCH ×2 (06:22→09:15)
[2018-09-23 07:09] LABS: Glucose,Whole Blood 238 mg/dL (75-99)
[2018-09-23 08:26] LABS: Glucose,Whole Blood 204 mg/dL (75-99)
[2018-09-23] MEDS: BUDESONIDE 1 MG/2 ML NEBU INHALATION SCH ×2 (08:29→20:28)
[2018-09-23] MEDS: FORMOTEROL FUMARATE 20 MCG/2 ML NEBU INHALATION SCH ×2 (08:29→20:28)
[2018-09-23 09:15] LABS: Glucose,Whole Blood 191 mg/dL (75-99)
[2018-09-23] MEDS: FAT EMULSION 20% 250 ML IV SCH (09:16)
[2018-09-23] MEDS: CEFEPIME 1 GM in SODIUM CHLORIDE 0.9% 50 ML IVPB SCH ×2 (09:16→21:28)
[2018-09-23] MEDS: PANTOPRAZOLE 40 MG/10 ML VIAL IVP SCH (09:16)
[2018-09-23 10:37] LABS: Glucose,Whole Blood 214 mg/dL (75-99)
[2018-09-23 11:55] LABS: Glucose,Whole Blood 182 mg/dL (75-99)
[2018-09-23] MEDS: HEPARIN SOD,PORK IN 0.45% NACL 25,000 UNIT in 0.45% NACL 1 250ML.BAG IV SCH (12:17)
[2018-09-23] MEDS: POTASSIUM CHLORIDE IV SCH ×5 (12:18)
[2018-09-23] MEDS: MAGNESIUM SULFATE IV SCH ×5 (12:18)
[2018-09-23] MEDS: [UNRECOGNIZED DRUG - OTHER] IV SCH ×5 (12:18)
[2018-09-23] MEDS: METOPROLOL TARTRATE 50 MG TAB PO SCH ×2 (12:58→21:28)
[2018-09-23] MEDS: GABAPENTIN 400 MG CAP PO SCH ×2 (12:58→21:28)
[2018-09-23 13:13] LABS: Glucose,Whole Blood 232 mg/dL (75-99)
--- NOTE | 2018-09-23 13:46 | P.PN ---
Subjective Progress Note Date: 09/23/18 Principal diagnosis: Acute cardiopulmonary arrest requiring intubation and mechanical ventilation. This is a 71-year-old female patient who comes into the hospital because of gene ralized weakness, difficulty with mobility, frequent falls and suspicion for an underlying pneumonia. The patient was initially brought into the emergency department. She has fallen multiple times at home. She has fallen in the bathroom and she did have a head trauma. No reported history of loss of consciousness. The patient was laying down the floor for a couple of hours before she was found by friends. At that point the patient was transferred to our hospital. According to the family the patient gained weight in the order of 10 pounds over the past couple of weeks. The patient reported pain over her tailbone he has she denied having any chest pain. She denies having any other complaints. In the emergency, the patient was diagnosed having a left lower lobe pneumonia. The patient underwent CT angiogram of the chest that showed a limited left lower lobe pulmonary infiltration and for that reason the patient was hospitalized and she was started on antibiotics. Overnight, the patient went into an acute cardiac arrest. The patient was found to be in PEA. She was started on CPR. Code team was activated and the patient was immediately intubated with a #7 orotracheal tube. The initial code was for a total of 3 minutes and following that the patient got to the ICU. She had another episode of PEA here in the ICU that lasts for 4 minutes. During which the patient received CPR and the patient received epinephrine. She had spontaneous return and circulation. Initial blood gas showed metabolic acidosis with a pH of 6.9. Necessary vent changes were made by Dr. Kerr over the phone.. Gave the patient fluids and she immediately received a total of 3-1/2 L. The patient's subsequent blood gases showed a pH of 7.48 with a pCO2 of 26 and pO2 151 and this was done this morning while her being on an assist-control mode of ventilator with a rate of 24 and tidal volume of 500 with an FiO2 of 60% and a PEEP of 5. She briefly required some pressors in the form of levo fed and she's been off pressors since 3 AM this morning. Urine output was adequate in the order of 20-30 mL an hour. The patient was given Broderson spectrum of antibiotics and the patient was covered with a combination of vancomycin, Levaquin and cefepime and Zithromax were discontinued. She is currently afebrile. She is sedated with Diprivan. Cardiac rhythm is A. fib. CAT scan of the brain that was done in emergency department showed no acute abnormalities. Echocardiogram was ordered and the results are still pending for now. The cardiac enzymes showed a troponin of 0.06. The EKG was nonspecific and was consistent atrial fibrillation. The patient had a non-anion gap metabolic acidosis with serum bicarb level of 18 improving compared to yesterday. Creatinine was as high as 1.5 and has dropped down to 1.25. UA erythematous admission was also negative. No seizure activity. Upon getting a brief sedation holiday the patient was able to arouse and move extremities without any limitation the patient is known to have history of diabetes mellitus, history of chronic atrial fibrillation for which she has been maintained on long-term anticoagulation with Eliquis. The patient also has history of coronary artery disease. The patient had intermediate to severe disease involving the left circumflex and the last catheterization was done by Dr. Hartman back in February 2018 and the patient underwent a fractional flow reserve of the left circumflex and the findings were negative for ischemia. The patient also has history of hypertension, sleep apnea, hyperlipidemia and previous echocardiogram has revealed an ejection of 55-60% and this was based on a echocardiogram from June 2018. The patient had moderate severe RV enlargement, RA was mildly enlarged, mild aortic stenosis, moderate mitral regurgitation and severe tricuspid regurgitation and severe pulmonary hypertension was identified. Patient was reevaluated today on 09/17/2018, remains on mechanical ventilation, and her ventilator settings are assist control rate of 16 FiO2 of 40%, tidal volume of 450, and PEEP of 5. Patient has been off propofol for the last 2 days, she is arousable, followed all simple instructions, she was wiggling her toes, squeezing hands, and sticking out her tongue upon request. Patient seemed to be appropriate, hence I recommended a trial of pressure support of 10 and C PAP. Patient has a size 7.0 endotracheal tube. Chest x-ray was reviewed, showed improved aeration of the right lung base, small pleural effusion was noted, and atelectasis is noted. Slight interstitial edema is also suspected but improved since admission. ABG this morning showed a pO2 of 88 pCO2 of 33 pH of 7.39. Patient has orogastric tube in place, may consider initiation of tube feeding if the patient is not extubated today. Her basic metabolic profile is normal. And the rest of the labs were noted to be relatively unremarkable. Patient was reevaluated today on 09/18/2018, off mechanical ventilation, she was extubated yesterday uneventfully. She was marginal, and she required to be placed on BiPAP overnight. This morning the patient seems to be more awake, able to clear her secretions, and her cough seems to be a bit stronger, hence she was placed on a nasal cannula. In the meantime remains on bronchodilators, being evaluated at bedside for swallow evaluation. Her heart rate remains high despite of Cardizem at 10 mg per hour, and she may be placed on oral beta blockers. Patient seems to be weak, but appropriate. Her labs were reviewed including normal metabolic profile potassium is a bit low at 3.4 CBC is relatively normal. Chest x-ray showed mostly left lower lobe atelectasis, difficult to rule out underlying pneumonia involving the left lower lobe. Patient remains on Levaquin and cefepime in the meantime. Family is at bedside, and I updated them on her condition. Patient was reevaluated today on 09/19/2018, remains off mechanical ventilation, patient seems to be more lethargic this morning, she is a bit difficult to arouse, but she is arousable and follows simple instructions, but not as good as she was yesterday. Patient does have shallow breathing, seems to be using her abdominal muscles at times, her chest x-ray showed worsening left lower lobe hencChest x-ray did show slight increase in the interstitium, possible some pulmonary congestion, and a small left pleural effusion with retrocardiac atelectasis or consolidation. Patient did pass her swallow evaluation yesterday, and now she is receiving oral pills. After evaluating the patient, I recommended we placed the patient back on BiPAP. WBC count is up at 14.9, electrolytes and basic metabolic profile are normal. Cultures of the sputum and blood have been nondiagnostic so far. Patient remains empirically on antibiotics. Family is at bedside, and they were updated on her condition, there is definite worsening in her overall clinical status today compared to yesterday. Patient remains full code as per her own wishes previously expressed to her family members. Patient was reevaluated today on 09/20/2018, went on BiPAP through the night, seems to be more awake this morning, and she is able to swallow her medications without any issue. Patient is still weak, she has a very poor cough, follows simple instructions, in no distress. I switched the patient from BiPAP to nasal cannula, encourage the patient to do some deep coughing and deep breathing, recommended a dose of Lasix early today because of chest x-ray showed some pleural effusion and possibly some component of congestive heart failure. However ultrasound of the chest did not show much fluid to be safely drained by thoracentesis. Chest x-ray was reviewed and labs were reviewed her CBC is relatively normal left lites are normal renal profile is normal family is at bedside, and they were updated on her condition. Overall the patient remains marginal, and I don't feel she is ready to be transferred out of the ICU yet. As a matter of fact I have a strong feeling that if her condition gets any worse she may end up adding to be intubated again. In the meantime we have been managing her overall condition with BiPAP intermittently, and at times on nasal cannula. Patient remains on bronchodilators, she is back on Cardizem drip because of atrial fibrillation, he is also on beta blockers, antibiotics enriquez remains on Levaquin. She is also on cefepime. All cultures including sputum and blood have been negative so far. Patient was reevaluated today on 09/21/2018, presently on nasal cannula, patient is basically about the same. Continues to have very weak cough, and unable to clear secretions well on her own. She needs to be encouraged to cough, she remains on bronchodilators, remains on diuretics, and she remains on Cardizem drip. Her chest x-ray is showing worseningwith new bibasilar airspace disease, and small bilateral pleural effusions, retrocardiac opacity remains about the same. She did receive a dose of Lasix today at 60 mg IV push, and she will intermittently be placed on BiPAP. Family is at bedside, and I updated them on her condition, I will not be surprised if the patient entered requiring intubation and mechanical ventilation. Her overall pulmonary status is marginal at best.chest x-ray was reviewed and discussed with the family CBC is normal basic metabolic profile is normal. Patient is still in the intensive care unit, evaluated on 09/22/2018, overall critical status is about the same, intermittently on BiPAP, and sometimes on high flow nasal cannula. Patient is still generally weak, has some difficulty clearing his secretions, chest x-ray showed definite improvement. Remains on Cardizem drip, remains on beta blockers, I recommended reconsultation of cardiology to reevaluate. Patient remains on antibiotics, remains on diuretics, and intermittently [id number] on BiPAP. I will recommend increasing her Lasix dose on a daily basis since she is better with diuretics and better with BiPAP. Labs and chest x-ray were reviewed and discussed with the patient and her family at bedside Reevaluated today in the ICU on 09/23/2018, no significant change, patient remains in the ICU, intermittently on BiPAP, at times on nasal cannula, and she is now on 6 L high flow nasal cannula. Remained generally weak, unable to clear much of her sputum, patient is generally weak. No chest x-ray was done, however I ordered a chest x-ray for a.m. Remains on Cardizem drip, I did recommend placing her on oral metoprolol today 100 mg twice a day, will reconsult cardiology again, patient is still on diuretics, antibiotics, she is also on updrafts, she is not making any significant improvement over the last few days. Again the patient is basically about the same. Objective - Vital Signs Vital signs: Vital Signs Temp 97.7 F 09/23/18 08:00 Pulse 107 H 09/23/18 11:53 Resp 18 09/23/18 09:00 BP 130/109 09/23/18 09:00 Pulse Ox 91 L 09/23/18 09:00 Intake & Output 09/22/18 09/23/18 09/23/18 18:59 06:59 18:59 Intake Total 5333.581 9005.650 796.139 Output Total 1055 1275 325 Balance 824.256 -264.350 471.139 Weight 78.7 kg Intake: IV 1578.4 867.6 484.833 Cefepime 1 gm In Sodium 100 50 Chloride 0.9% 50 ml @ 100 mls/hr IVPB Q12HR [facility] Rx #:[id number] Dextrose 5%-0.45% NaCl 1, 450 000 ml @ 50 mls/hr IV . Q20H [facility] Rx#:[id number] Fat Emulsion 20% 250 ml @ 166.4 145.6 20.833 20.833 mls/hr IV DAILY [facility] Rx#:[id number] Levofloxacin 500Mg-D5w 100 Pmx 500 mg In Dextrose/ Water 1 100ml.bag @ 100 mls/hr IVPB Q24H [facility] Rx#: [id number] Magnesium Sulfate-D5w Pmx 200 100 1 gm In Dextrose/Water 1 100ml.bag @ 100 mls/hr IVPB Q1H [facility] Rx#: [id number] Mvi, Adult No.4 with Vit 330 K 10 ml Trace (Conc-1Ml/ Dose) 1 ml In Amino Acid 5%-D15w+Lytes*E* 1,000 ml @ 30 mls/hr IV .Q24H [facility] Rx#:[id number] Potassium Chloride 20 meq 100 100 In Water For Injection 1 100ml.bag @ 50 mls/hr IVPB Q2H [facility] Rx#: [id number] Potassium Chloride 20 meq 60 600 240 Magnesium Sulfate gm 1 gm In Amino Acid 5%-D15w+ Lytes*E* 1,000 ml @ 60 mls/hr IV .BY DURATION [facility] Rx#:[id number] Pressure Bags 72 72 24 Intake, IV Titration 300.856 143.050 311.306 Amount Diltiazem 125 mg In 65.25 Sodium Chloride 0.9% 100 ml @ Per Protocol IV .Q0M [facility] Rx#:[id number] Heparin Sod,Pork in 0.45% 235.606 243.073 NaCl 25,000 unit In 0.45 % NaCl 1 250ml.bag @ 12 UNITS/KG/HR 8.784 mls/hr IV .Q24H [facility] Rx#: [id number] Insulin Regular 100 unit 43.050 68.233 In Sodium Chloride 0.9% 100 ml @ Per Protocol IV .Q0M [facility] Rx#:[id number] Potassium Chloride 20 meq 100 In Water For Injection 1 100ml.bag @ 50 mls/hr IVPB Q2H [facility] Rx#: [id number] Output: Urine 1055 1275 325 Other: Voiding Method Indwelling Catheter Indwelling Catheter ABP, PAP, CO, CI - Last Documented Arterial Blood Pressure 150/60 - Exam Physical Exam: Revealed a 73-year-old female, 6 L high flow nasal cannula this morning. Head: Atraumatic, normocephalic. HEENT:[Neck is supple.] [No neck masses.] [No thyromegaly.] [No JVD.] Chest: [Diminished breath sounds and crackles at the bases especially at the left base. No rhonchi and no wheezes. No chest wall tenderness. Symmetrical chest expansion Cardiac Exam: [Normal S1 and S2, no S3 gallop, no murmur.] Abdomen: [Soft, nontender, no megaly, no rebound, no guarding, normal bowel sounds.] Extremities: [No clubbing, no edema, no cyanosis.] Neurological Exam: Noted to be generally weak, arousable, follows instructions. Psychiatric: Blunted mood and affect, questionable mental status at this point. Lymphatics: No lymphadenopathy. Skin: No rashes. - Labs CBC & Chem 7: 09/23/18 05:13 09/23/18 05:13 Labs: Abnormal Lab Results - Last 24 Hours (Table) 09/22/18 09/22/18 09/22/18 Range/Units 18:35 18:36 21:09 WBC (3.8-10.6) k/uL RBC (3.80-5.40) m/uL Hgb (11.4-16.0) gm/dL Hct (34.0-46.0) % Neutrophils # (1.3-7.7) k/uL Lymphocytes # (1.0-4.8) k/uL APTT (22.0-30.0) sec Potassium 3.3 L (3.5-5.1) mmol/L BUN (7-17) mg/dL Glucose (74-99) mg/dL POC Glucose (mg/dL) 289 H 324 H (75-99) mg/dL 09/22/18 09/23/18 09/23/18 Range/Units 23:46 02:05 03:04 WBC (3.8-10.6) k/uL RBC (3.80-5.40) m/uL Hgb (11.4-16.0) gm/dL Hct (34.0-46.0) % Neutrophils # (1.3-7.7) k/uL Lymphocytes # (1.0-4.8) k/uL APTT (22.0-30.0) sec Potassium (3.5-5.1) mmol/L BUN (7-17) mg/dL Glucose (74-99) mg/dL POC Glucose (mg/dL) 322 H 310 H 314 H (75-99) mg/dL 09/23/18 09/23/18 09/23/18 Range/Units 03:44 04:06 05:13 WBC 18.4 H (3.8-10.6) k/uL RBC 3.47 L (3.80-5.40) m/uL Hgb 10.2 L (11.4-16.0) gm/dL Hct 32.6 L (34.0-46.0) % Neutrophils # 17.5 H (1.3-7.7) k/uL Lymphocytes # 0.4 L (1.0-4.8) k/uL APTT (22.0-30.0) sec Potassium (3.5-5.1) mmol/L BUN (7-17) mg/dL Glucose (74-99) mg/dL POC Glucose (mg/dL) 295 H 290 H (75-99) mg/dL 09/23/18 09/23/18 09/23/18 Range/Units 05:13 05:13 05:15 WBC (3.8-10.6) k/uL RBC (3.80-5.40) m/uL Hgb (11.4-16.0) gm/dL Hct (34.0-46.0) % Neutrophils # (1.3-7.7) k/uL Lymphocytes # (1.0-4.8) k/uL APTT 49.5 H (22.0-30.0) sec Potassium (3.5-5.1) mmol/L BUN 20 H (7-17) mg/dL Glucose 253 H (74-99) mg/dL POC Glucose (mg/dL) 250 H (75-99) mg/dL 09/23/18 09/23/18 09/23/18 Range/Units 06:00 07:07 08:24 WBC (3.8-10.6) k/uL RBC (3.80-5.40) m/uL Hgb (11.4-16.0) gm/dL Hct (34.0-46.0) % Neutrophils # (1.3-7.7) k/uL Lymphocytes # (1.0-4.8) k/uL APTT (22.0-30.0) sec Potassium (3.5-5.1) mmol/L BUN (7-17) mg/dL Glucose (74-99) mg/dL POC Glucose (mg/dL) 263 H 238 H 204 H (75-99) mg/dL 09/23/18 09/23/18 09/23/18 Range/Units 09:07 10:35 11:53 WBC (3.8-10.6) k/uL RBC (3.80-5.40) m/uL Hgb (11.4-16.0) gm/dL Hct (34.0-46.0) % Neutrophils # (1.3-7.7) k/uL Lymphocytes # (1.0-4.8) k/uL APTT (22.0-30.0) sec Potassium (3.5-5.1) mmol/L BUN (7-17) mg/dL Glucose (74-99) mg/dL POC Glucose (mg/dL) 191 H 214 H 182 H (75-99) mg/dL 09/23/18 Range/Units 13:12 WBC (3.8-10.6) k/uL RBC (3.80-5.40) m/uL Hgb (11.4-16.0) gm/dL Hct (34.0-46.0) % Neutrophils # (1.3-7.7) k/uL Lymphocytes # (1.0-4.8) k/uL APTT (22.0-30.0) sec Potassium (3.5-5.1) mmol/L BUN (7-17) mg/dL Glucose (74-99) mg/dL POC Glucose (mg/dL) 232 H (75-99) mg/dL Microbiology - Last 24 Hours (Table) 09/21/18 22:50 Urine Culture - Final Urine,Catheterized 09/21/18 16:20 Blood Culture - Preliminary Blood No Growth after 24 hours Assessment and Plan Assessment: Impression: Cardiopulmonary arrest, exact etiology remains unclear. I suspect the patient may have sustained minimal degree of anoxic encephalopathy to explain her present mental status and profound weakness and lethargy. History of severe right sided congestive heart failure and pulmonary hypertension, presently improving. Increase the Lasix to 40 mg IV push every 12 hours, chest x-ray was ordered to be done in a.m. Chronic atrial fibrillation, on oral beta blockers. And on anticoagulation therapy. On Cardizem drip at 10 mg per hour, and metoprolol was added at 100 mg twice a day. Acute hypoxic respiratory failure requiring intubation and mechanical ventilation extubated on 09/17/2018 Acute kidney injury improving Carotid artery disease Possible left lower lobe pneumonia, could also be related to atelectasis, on antibiotics empirically. Patient is presently on Levaquin and cefepime. Ultrasound of the chest did not reveal much fluid to be drained on the left side. Type 2 diabetes Recommendation: I recommended that we continue the same treatment plan, continue incentive spirometry, bronchodilators, encourage patient to do some deep coughing and deep breathing, since the patient passed the swallow evaluation, we'll restart oral home meds, and metoprolol was restarted. Will encourage oral feeding as much as tolerated, patient in the meantime remains on TPN. Continue GI and DVT prophylaxis, continue TPN for now, again the patient is not quite ready to be transferred out of the ICU at this point yet. Prognosis is poor and guarded, family updated on her condition at bedside. Remains full code as per her and her family members. I would not be surprised 1. The patient eventually required reintubation and mechanical ventilation. Time with Patient: Less than 30
[2018-09-23] MEDS: DILTIAZEM 125 MG in SODIUM CHLORIDE 0.9% 100 ML IV SCH (15:32)
[2018-09-23 15:38] LABS: Glucose,Whole Blood 230 mg/dL (75-99)
[2018-09-23 16:31] LABS: Glucose,Whole Blood 243 mg/dL (75-99)
[2018-09-23] MEDS: LEVOFLOXACIN 500MG-D5W PMX 500 MG in DEXTROSE/WATER 1 100ML.BAG IVPB SCH (16:31)
[2018-09-23 17:24] LABS: Glucose,Whole Blood 226 mg/dL (75-99)
[2018-09-23 18:09] LABS: Glucose,Whole Blood 214 mg/dL (75-99)
[2018-09-23 19:02] LABS: Glucose,Whole Blood 204 mg/dL (75-99)
[2018-09-23 20:45] LABS: Glucose,Whole Blood 191 mg/dL (75-99)
[2018-09-23] MEDS ORDERED: METOPROLOL SUCCINATE (ER) 100 MG TAB.ER.24H PO SCH (21:00)
--- NOTE | 2018-09-23 21:22 | PN ---
PROGRESS NOTE I am covering for Dr. Dow. DATE OF SERVICE: 09/23/2018. HISTORY: This 73-year-old woman was admitted with multiple episodes of cardiac arrest, also had sepsis, pneumonia, CHF, and atrial fibrillation also. The patient is being closely monitored. Patient also respiratory failure, using on and off BiPAP. Also patient is being closely monitored in the ICU. PAST MEDICAL HISTORY: Reviewed. REVIEW OF SYSTEMS: CARDIOVASCULAR SYSTEM: No angina. RESPIRATORY: As mentioned earlier. GI: As mentioned. : No dysuria or hematuria. CURRENT MEDICATIONS: Reviewed, include: 1. Tylenol 650 every 6 hours p.r.n. 2. [place] 7.5 t.i.d. 3. DuoNeb q.i.d. and p.r.n. 4. Pulmicort mg b.i.d. 5. Cipro 1 g IV b.i.d. 6. Cardizem. 7. Colace 100 mg p.o. b.i.d. 8. Total parenteral nutrition. 9. Lasix 40 mg IV every 8 hours. 10.Neurontin. 11.Heparin subcu b.i.d. 12.Levaquin 500 mg IV daily. 13.Solu-Medrol 60 IV every 6 hours. 14.Lopressor 100 mg p.o. b.i.d. 15.Replacement protocols. 16.Narcan. 17.Zofran. 18.Protonix. PHYSICAL EXAM: Patient is alert, oriented x2. Pulse is 106. Blood pressure 116/100, respirations 18, temperature 97.1, pulse ox 93% on oxygen. HEENT: Conjunctivae normal. Oral mucosa moist. NECK: No jugular venous distention. No lymph nodes palpable. CARDIOVASCULAR: S1 and S2 normal. LUNGS: Breath sounds diminished at the bases. Few scattered rhonchi and crackles. Expiratory wheezing also present. ABDOMEN: Soft, nontender. No mass palpable. EXTREMITIES: Legs no edema, no swelling. NERVOUS SYSTEM: Higher functions as mentioned earlier. Moves all limbs equally. No ulcer, rash or bleeding. JOINTS: No acute deformity. LABS: WBC 18, hemoglobin 7.2, sodium is 137. ASSESSMENT: 1. Status post multiple episodes of cardiac arrest with acute hypoxic respiratory failure, status post mechanical ventilation, on and off BiPAP. 2. Sepsis secondary to pneumonia left lower lobe possibly gram-negative. 3. Congestive heart failure acute exacerbation, acute on chronic systolic and diastolic dysfunction, ejection fraction 40% to 50 percent. 4. Septal hypokinesis. 5. Left atrium severely dilated. 6. Mild to moderate mitral and tricuspid regurgitation. 7. Right-sided heart failure from pulmonary hypertension. 8. Recurrent atrial fibrillation, controlled with the beta blockers and Cardizem drip IV p.r.n. 9. Diabetes mellitus type 2. 10.Hypertension. 11.Hyperlipidemia. 12.History of coronary artery disease. 13.History of generalized weakness. 14.Acute kidney injury. 15.Change in mental status, acute metabolic encephalopathy, multifactorial. 16.FULL CODE. RECOMMENDATIONS AND DISCUSSION: I recommend to continue current management and symptomatic treatment. Continue the antibiotics. Continue with the bronchodilators. Continue with IV diuretics. Intake output monitoring showed that the patient is on a negative fluid balance. Adjust IV fluids and we will continue to monitor. Guarded prognosis. Further recommendations to follow. LAUREN / ANGEL: [id number] / MTDD
[2018-09-23] MEDS: DOCUSATE 100 MG CAP PO SCH (21:28)
[2018-09-23 22:08] LABS: Glucose,Whole Blood 202 mg/dL (75-99)
[2018-09-23 23:08] LABS: Glucose,Whole Blood 215 mg/dL (75-99)
[2018-09-23 23:55] LABS: Glucose,Whole Blood 241 mg/dL (75-99)
[2018-09-24] MEDS: methylPREDNISolone SOD SUCCI 125 MG/2 ML VIAL IV SCH ×2 (00:04→05:38)
[2018-09-24] MEDS: FUROSEMIDE 10 MG/ML 4 ML VIAL IV SCH ×3 (00:04→16:19)
[2018-09-24] MEDS: IPRATROPIUM-ALBUTEROL 3 ML NEB INHALATION SCH ×7 (00:09→23:36)
[2018-09-24] MEDS: INSULIN REGULAR 100 UNIT in SODIUM CHLORIDE 0.9% 100 ML IV SCH ×4 (00:09→21:05)
[2018-09-24] MEDS: NOREPINEPHRINE 4 MG in SODIUM CHLORIDE 0.9% 250 ML IV SCH (00:10)
[2018-09-24 01:16] LABS: Glucose,Whole Blood 220 mg/dL (75-99)
[2018-09-24 02:16] LABS: Glucose,Whole Blood 215 mg/dL (75-99)
[2018-09-24 03:11] LABS: Glucose,Whole Blood 186 mg/dL (75-99)
[2018-09-24 04:15] LABS: Glucose,Whole Blood 218 mg/dL (75-99)
[2018-09-24] MEDS: DILTIAZEM 125 MG in SODIUM CHLORIDE 0.9% 100 ML IV SCH (04:19)
[2018-09-24 04:35] LABS: Basophils % (A) 0 %; Eosinophils % (A) 0 %; HCT 32.4 % (34.0-46.0); Hypochromasia Slight; Lymphocytes # (A) 0.6 k/uL (1.0-4.8); Lymphocytes % (A) 3 %; MCH 28.6 pg (25.0-35.0); MCHC 30.8 g/dL (31.0-37.0); Mean Platelet Volume 8.2; Monocytes # (A) 0.6 k/uL (0-1.0); Monocytes % (A) 3 %; Neutrophils # (A) 20.5 k/uL (1.3-7.7); Neutrophils % (A) 94 %; Platelet Count 294 k/uL (150-450); RBC 3.49 m/uL (3.80-5.40); RDW 14.9 % (11.5-15.5); WBC 21.9 k/uL (3.8-10.6)
[2018-09-24 04:48] LABS: African American GFR (CKD) >90 (>60 ml/min/1.73 sqM); Anion Gap 8 mmol/L; Blood Urea Nitrogen 29 mg/dL (7-17); Calcium 8.5 mg/dL (8.4-10.2); Carbon Dioxide 24 mmol/L (22-30); Chloride 104 mmol/L (98-107); Glucose 204 mg/dL (74-99); Phosphorus 3.7 mg/dL (2.5-4.5); Potassium 3.6 mmol/L (3.5-5.1); Sodium 136 mmol/L (137-145)
[2018-09-24 05:10] LABS: Glucose,Whole Blood 202 mg/dL (75-99)
[2018-09-24] MEDS: [UNRECOGNIZED DRUG - OTHER] IV SCH ×10 (05:37→21:50)
[2018-09-24] MEDS: MAGNESIUM SULFATE IV SCH ×10 (05:37→21:50)
[2018-09-24] MEDS: POTASSIUM CHLORIDE IV SCH ×10 (05:37→21:50)
[2018-09-24] MEDS: POTASSIUM CHLORIDE 10 MEQ in WATER FOR INJECTION 1 100ML.BAG IVPB SCH ×2 (05:48→06:49)
[2018-09-24] MEDS: HEPARIN SODIUM,PORCINE 5,000 UNIT/ML 1 ML VIAL IV PRN ×2 (05:55→16:13)
[2018-09-24 06:21] LABS: Glucose,Whole Blood 196 mg/dL (75-99)
[2018-09-24 06:58] LABS: Glucose,Whole Blood 234 mg/dL (75-99)
--- NOTE | 2018-09-24 07:28 | XR ---
EXAMINATION TYPE: XR chest 1V portable DATE OF EXAM: 09/24/2018 CLINICAL HISTORY: Difficulty breathing and pneumonia progress study. TECHNIQUE: Single AP portable semiupright view of the chest is obtained. COMPARISON: Chest x-ray from 2 days earlier and older studies. FINDINGS: There is stable left subclavian central venous catheter. There is persistent cardiomegaly with increasing bibasilar opacities and central vascular congestion. Mitral annular calcifications ar e redemonstrated. Overlying EKG leads are redemonstrated. Multilevel spurring in thoracic spine is ag ain seen. IMPRESSION: Suspect worsening CHF exacerbation as there is cardiomegaly with increasing mild to moder ate central vascular congestion and worsening small to moderate-sized bilateral pleural effusions fel t present. Correlate clinically.
[2018-09-24 07:59] LABS: Glucose,Whole Blood 191 mg/dL (75-99)
[2018-09-24] MEDS: BUDESONIDE 1 MG/2 ML NEBU INHALATION SCH (08:05)
[2018-09-24] MEDS: FORMOTEROL FUMARATE 20 MCG/2 ML NEBU INHALATION SCH (08:05)
[2018-09-24 08:54] LABS: Glucose,Whole Blood 229 mg/dL (75-99)
[2018-09-24] MEDS: GABAPENTIN 400 MG CAP PO SCH ×3 (09:00→20:56)
[2018-09-24] MEDS: DOCUSATE 100 MG CAP PO SCH ×2 (09:00→20:45)
[2018-09-24] MEDS: METOPROLOL TARTRATE 50 MG TAB PO SCH ×3 (09:00→20:56)
[2018-09-24] MEDS: PANTOPRAZOLE 40 MG/10 ML VIAL IVP SCH (09:01)
[2018-09-24] MEDS: FAT EMULSION 20% 250 ML IV SCH (09:01)
[2018-09-24 09:56] LABS: Glucose,Whole Blood 260 mg/dL (75-99)
--- NOTE | 2018-09-24 10:02 | PN ---
PROGRESS NOTE DATE OF SERVICE: September 24, 2018 This is a 73-year-old female with a history of cardiac arrest x2. The patient is currently doing reasonably well. She was initially admitted back on 13 of September. She came in with pneumonia, sepsis and dehydration. She came to the ICU on the , having had cardiopulmonary arrest x2 with pulseless electrical activity. The patient was intubated from the through the . She was extubated on 17 of September. Currently remains in the ICU. She does have a history of heart failure, right carotid endarterectomy, pulmonary hypertension, and atrial fibrillation. Currently, the patient is very sleepy and lethargic but does arouse. She is on 5 L nasal cannula. The patient is also getting IV heparin via weight based protocol, Cardizem drip a 10 mg an hour, insulin drip of 5 units an hour and TPN at 60 mL an hour. Thus far all microbiologic studies are negative. In addition to the cardiopulmonary arrest, the patient has a history of carotid artery disease, acute kidney injury and chronic atrial fibrillation. In addition, the patient may have a left lower lobe infiltrate and does suffer from type 2 diabetes mellitus. She was thought to have a parapneumonic effusion, but ultrasound reveals a small amount of fluid. Currently, the patient does arouse. She does respond appropriately. Does seem sleepy. Current vital signs are reviewed. Temperature is 97.9, heart rate is 82, respiratory rate 12, blood pressure 140/75, mean 96, saturations are in the mid 90s to high 90s on 5 L nasal cannula. Appears in no acute distress. HEENT examination is grossly unremarkable. Nasal O2 in place. NECK: Supple. Full range of motion. No adenopathy. Neck veins are flat. Cardiovascular examination reveals regular rhythm and rate. S1, S2 normal. No S3, S4, or murmur. Lungs reveal mostly clear breath sounds. A few scattered rhonchi. No wheezes or crackles. Abdomen is soft. Bowel sounds are heard. Extremities are intact. No cyanosis, clubbing, or edema. Skin without rash. Neurologic examination is brief but nonfocal. She does move all 4 extremities symmetrically. Lab data is reviewed. From today, white count 21.9, hemoglobin 10, hematocrit 32.4, platelet count 294,000. PTT is 42.5. Sodium 136, potassium 3.6, chloride 104, CO2 is 24. Anion gap is normal. BUN and creatinine were 29 and 0.55. TSH was normal at 1.440. Microbiologic studies including urine, blood, and sputum are all negative. The patient's chest x-ray shows significant cardiomegaly, bilateral effusions and mild fluid overload. Current medications are reviewed. ASSESSMENT: 1. Cardiopulmonary arrest of unclear etiology with some mild anoxic brain injury. 2. Status post intubation and mechanical ventilation for respiratory failure, between September 15 and September 17 with successful extubation on September 17. 3. Pneumonia and sepsis. 4. Dehydration. 5. Heart failure. 6. Pulmonary hypertension. 7. Chronic atrial fibrillation. 8. Acute kidney injury. 9. Carotid artery disease, status post right carotid endarterectomy. 10.Possible left lower lobe pneumonia with small effusion, not thought to be able to be drained by thoracentesis based on ultrasound. 11.Type 2 diabetes mellitus. PLAN: Medications are reviewed. Additional recommendations and suggestions are forthcoming. So far all the microbiology is negative. The patient's medications will be reviewed carefully. Labs, x-rays and so forth are all reviewed. Prognosis is guarded. The patient will probably stay here in the unit for another day. Additional recommendations and suggestions are forthcoming. Her mental status is not great and that will need to be watched. Will continue with the IV Lasix. Additional recommendations and suggestions are forthcoming. MMODL / IJN: [id number] /
[2018-09-24 11:08] LABS: Glucose,Whole Blood 380 mg/dL (75-99)
[2018-09-24 11:08] LABS: Glucose,Whole Blood 378 mg/dL (75-99)
[2018-09-24 12:21] LABS: Glucose,Whole Blood 395 mg/dL (75-99)
--- NOTE | 2018-09-24 12:23 | P.PN ---
Subjective 73-year-old female continues to be in the intensive care unit. Patient on high flow nasal cannula oxygen. Patient lethargic but arousable. Continues in atrial fibrillation with controlled rate. Patient on insulin drip Objective - Vital Signs Vital signs: Vital Signs Temp 96.8 F L 09/24/18 08:00 Pulse 79 09/24/18 12:03 Resp 14 09/24/18 11:00 BP 113/77 09/24/18 11:00 Pulse Ox 97 09/24/18 11:00 Intake & Output 09/23/18 09/24/18 09/24/18 18:59 06:59 18:59 Intake Total 2542.237 2691.208 907.120 Output Total 1160 1295 345 Balance 4750.839 7231.208 562.120 Weight 79.1 kg 79.1 kg Intake: IV 1192.664 961.549 314.52 Cefepime 1 gm In Sodium 50 Chloride 0.9% 50 ml @ 100 mls/hr IVPB Q12HR [facility] Rx #:[id number] Fat Emulsion 20% 250 ml @ 166.664 62.549 62.52 20.833 mls/hr IV DAILY [facility] Rx#:[id number] Levofloxacin 500Mg-D5w 100 Pmx 500 mg In Dextrose/ Water 1 100ml.bag @ 100 mls/hr IVPB Q24H [facility] Rx#: [id number] Magnesium Sulfate-D5w Pmx 100 1 gm In Dextrose/Water 1 100ml.bag @ 100 mls/hr IVPB Q1H [facility] Rx#: [id number] Potassium Chloride 20 meq 100 In Water For Injection 1 100ml.bag @ 50 mls/hr IVPB Q2H [facility] Rx#: [id number] Potassium Chloride 20 meq 660 780 240 Magnesium Sulfate gm 1 gm In Amino Acid 5%-D15w+ Lytes*E* 1,000 ml @ 60 mls/hr IV .BY DURATION [facility] Rx#:[id number] Pressure Bags 66 69 12 Intake, IV Titration 1349.573 629.659 92.600 Amount Diltiazem 125 mg In 125 37 Sodium Chloride 0.9% 100 ml @ Per Protocol IV .Q0M [facility] Rx#:[id number] Heparin Sod,Pork in 0.45% 243.073 218.392 NaCl 25,000 unit In 0.45 % NaCl 1 250ml.bag @ 12 UNITS/KG/HR 8.784 mls/hr IV .Q24H [facility] Rx#: [id number] Insulin Regular 100 unit 94.500 86.267 55.600 In Sodium Chloride 0.9% 100 ml @ Per Protocol IV .Q0M [facility] Rx#:[id number] Potassium Chloride 10 meq 200 In Water For Injection 1 100ml.bag @ 100 mls/hr IVPB Q1H [facility] Rx#: [id number] Potassium Chloride 20 meq 1012 Magnesium Sulfate gm 1 gm In Amino Acid 5%-D15w+ Lytes*E* 1,000 ml @ 60 mls/hr IV .BY DURATION [facility] Rx#:[id number] Oral 1100 500 Output: Urine 1160 1295 345 Other: Voiding Method Indwelling Catheter Indwelling Catheter Indwelling Catheter ABP, PAP, CO, CI - Last Documented Arterial Blood Pressure 133/62 - Constitutional General appearance: Present: mild distress, obese - EENT Eyes: Present: PERRLA Ears: bilateral: normal - Neck Neck: Present: normal ROM - Respiratory Respiratory: bilateral: rhonchi, wheezing - Cardiovascular Rhythm: irregularly irregular - Gastrointestinal General gastrointestinal: Present: soft - Integumentary Integumentary: Present: normal - Neurologic Neurologic: Present: CNII-XII intact - Musculoskeletal Musculoskeletal: Present: generalized weakness - Psychiatric Psychiatric Comment(s): Patient lethargic but arousable - Labs CBC & Chem 7: 09/24/18 04:10 09/24/18 04:10 Labs: Abnormal Lab Results - Last 24 Hours (Table) 09/23/18 09/23/18 09/23/18 Range/Units 13:12 15:36 16:29 WBC (3.8-10.6) k/uL RBC (3.80-5.40) m/uL Hgb (11.4-16.0) gm/dL Hct (34.0-46.0) % MCHC (31.0-37.0) g/dL Neutrophils # (1.3-7.7) k/uL Lymphocytes # (1.0-4.8) k/uL APTT (22.0-30.0) sec Sodium (137-145) mmol/L BUN (7-17) mg/dL Glucose (74-99) mg/dL POC Glucose (mg/dL) 232 H 230 H 243 H (75-99) mg/dL 09/23/18 09/23/18 09/23/18 Range/Units 17:22 18:08 19:00 WBC (3.8-10.6) k/uL RBC (3.80-5.40) m/uL Hgb (11.4-16.0) gm/dL Hct (34.0-46.0) % MCHC (31.0-37.0) g/dL Neutrophils # (1.3-7.7) k/uL Lymphocytes # (1.0-4.8) k/uL APTT (22.0-30.0) sec Sodium (137-145) mmol/L BUN (7-17) mg/dL Glucose (74-99) mg/dL POC Glucose (mg/dL) 226 H 214 H 204 H (75-99) mg/dL 09/23/18 09/23/18 09/23/18 Range/Units 20:44 22:07 23:07 WBC (3.8-10.6) k/uL RBC (3.80-5.40) m/uL Hgb (11.4-16.0) gm/dL Hct (34.0-46.0) % MCHC (31.0-37.0) g/dL Neutrophils # (1.3-7.7) k/uL Lymphocytes # (1.0-4.8) k/uL APTT (22.0-30.0) sec Sodium (137-145) mmol/L BUN (7-17) mg/dL Glucose (74-99) mg/dL POC Glucose (mg/dL) 191 H 202 H 215 H (75-99) mg/dL 09/23/18 09/24/18 09/24/18 Range/Units 23:54 01:15 02:14 WBC (3.8-10.6) k/uL RBC (3.80-5.40) m/uL Hgb (11.4-16.0) gm/dL Hct (34.0-46.0) % MCHC (31.0-37.0) g/dL Neutrophils # (1.3-7.7) k/uL Lymphocytes # (1.0-4.8) k/uL APTT (22.0-30.0) sec Sodium (137-145) mmol/L BUN (7-17) mg/dL Glucose (74-99) mg/dL POC Glucose (mg/dL) 241 H 220 H 215 H (75-99) mg/dL 09/24/18 09/24/18 09/24/18 Range/Units 03:09 04:10 04:10 WBC 21.9 H (3.8-10.6) k/uL RBC 3.49 L (3.80-5.40) m/uL Hgb 10.0 L (11.4-16.0) gm/dL Hct 32.4 L (34.0-46.0) % MCHC 30.8 L (31.0-37.0) g/dL Neutrophils # 20.5 H (1.3-7.7) k/uL Lymphocytes # 0.6 L (1.0-4.8) k/uL APTT (22.0-30.0) sec Sodium 136 L (137-145) mmol/L BUN 29 H (7-17) mg/dL Glucose 204 H (74-99) mg/dL POC Glucose (mg/dL) 186 H (75-99) mg/dL 09/24/18 09/24/18 09/24/18 Range/Units 04:10 04:13 05:09 WBC (3.8-10.6) k/uL RBC (3.80-5.40) m/uL Hgb (11.4-16.0) gm/dL Hct (34.0-46.0) % MCHC (31.0-37.0) g/dL Neutrophils # (1.3-7.7) k/uL Lymphocytes # (1.0-4.8) k/uL APTT 42.5 H (22.0-30.0) sec Sodium (137-145) mmol/L BUN (7-17) mg/dL Glucose (74-99) mg/dL POC Glucose (mg/dL) 218 H 202 H (75-99) mg/dL 09/24/18 09/24/18 09/24/18 Range/Units 06:20 06:56 07:57 WBC (3.8-10.6) k/uL RBC (3.80-5.40) m/uL Hgb (11.4-16.0) gm/dL Hct (34.0-46.0) % MCHC (31.0-37.0) g/dL Neutrophils # (1.3-7.7) k/uL Lymphocytes # (1.0-4.8) k/uL APTT (22.0-30.0) sec Sodium (137-145) mmol/L BUN (7-17) mg/dL Glucose (74-99) mg/dL POC Glucose (mg/dL) 196 H 234 H 191 H (75-99) mg/dL 09/24/18 09/24/18 09/24/18 Range/Units 08:52 09:54 11:05 WBC (3.8-10.6) k/uL RBC (3.80-5.40) m/uL Hgb (11.4-16.0) gm/dL Hct (34.0-46.0) % MCHC (31.0-37.0) g/dL Neutrophils # (1.3-7.7) k/uL Lymphocytes # (1.0-4.8) k/uL APTT (22.0-30.0) sec Sodium (137-145) mmol/L BUN (7-17) mg/dL Glucose (74-99) mg/dL POC Glucose (mg/dL) 229 H 260 H 378 H (75-99) mg/dL 09/24/18 Range/Units 11:07 WBC (3.8-10.6) k/uL RBC (3.80-5.40) m/uL Hgb (11.4-16.0) gm/dL Hct (34.0-46.0) % MCHC (31.0-37.0) g/dL Neutrophils # (1.3-7.7) k/uL Lymphocytes # (1.0-4.8) k/uL APTT (22.0-30.0) sec Sodium (137-145) mmol/L BUN (7-17) mg/dL Glucose (74-99) mg/dL POC Glucose (mg/dL) 380 H (75-99) mg/dL Microbiology - Last 24 Hours (Table) 09/21/18 16:20 Blood Culture - Preliminary Blood No Growth after 48 hours 09/21/18 22:50 Urine Culture - Final Urine,Catheterized - Imaging and Cardiology Chest x-ray: report reviewed Assessment and Plan Plan: Assessment Post cardiac arrest with hypoxic respiratory failure patient was intubated now extubated Sepsis secondary to left lower lobe pneumonia probable gram-negative Right-sided heart failure with severe pulmonary hypertension systolic dysfunction with ejection fraction of 40-50% both acute and chronic Atrial fibrillation controlled rate Diabetes on insulin drip Hyperlipidemia History of coronary disease Generalized weakness Acute kidney injury Plan Patient continues to be full code Continue consultation with cardiology and pulmonology
[2018-09-24 12:25] LABS: Glucose,Whole Blood 395 mg/dL (75-99)
[2018-09-24 13:23] LABS: Glucose,Whole Blood 424 mg/dL (75-99)
[2018-09-24] MEDS: HEPARIN SOD,PORK IN 0.45% NACL 25,000 UNIT in 0.45% NACL 1 250ML.BAG IV SCH (13:27)
[2018-09-24 14:14] LABS: Glucose,Whole Blood 319 mg/dL (75-99)
[2018-09-24 15:08] LABS: Glucose,Whole Blood 283 mg/dL (75-99)
[2018-09-24 16:00] LABS: Glucose,Whole Blood 256 mg/dL (75-99)
[2018-09-24] MEDS: LEVOFLOXACIN 500MG-D5W PMX 500 MG in DEXTROSE/WATER 1 100ML.BAG IVPB SCH (16:19)
[2018-09-24 16:59] LABS: Glucose,Whole Blood 240 mg/dL (75-99)
--- NOTE | 2018-09-24 17:54 | P.PN ---
Subjective Patient resting in bed. No apparent respiratory distress but she remains in A. fib with RVR Denies chest discomfort Pulse rate between 100-120 bpm Blood pressure 144/99, 115/80 and 120/70. His mercury Breath sounds are reduced bilaterally Heart sounds are irregular no murmurs or gallop. Abdomen soft nontender No lower extremity edema Impression Atrial fibrillation with RVR despite metoprolol 100 mg twice daily and IV Cardizem at 10 mg per hour Plan Increase metoprolol to 100 mg 3 times a day Reduce Cardizem drip to 7 mg/h Gradual maximization of beta blockers and gradual tapering off of Cardizem Objective - Vital Signs Vital signs: Vital Signs Temp 96.8 F L 09/24/18 16:00 Pulse 113 H 09/24/18 17:00 Resp 19 09/24/18 17:00 BP 144/99 09/24/18 17:00 Pulse Ox 95 09/24/18 17:00 Intake & Output 09/23/18 09/24/18 09/24/18 18:59 06:59 18:59 Intake Total 2542.237 2691.208 1685.280 Output Total 1160 1295 685 Balance 8250.684 7380.208 1000.280 Weight 79.1 kg 79.1 kg Intake: IV 1192.664 961.549 917.56 Cefepime 1 gm In Sodium 50 Chloride 0.9% 50 ml @ 100 mls/hr IVPB Q12HR [facility] Rx #:[id number] Fat Emulsion 20% 250 ml @ 166.664 62.549 187.56 20.833 mls/hr IV DAILY [facility] Rx#:[id number] Levofloxacin 500Mg-D5w 100 100 Pmx 500 mg In Dextrose/ Water 1 100ml.bag @ 100 mls/hr IVPB Q24H [facility] Rx#: [id number] Magnesium Sulfate-D5w Pmx 100 1 gm In Dextrose/Water 1 100ml.bag @ 100 mls/hr IVPB Q1H [facility] Rx#: [id number] Potassium Chloride 20 meq 100 In Water For Injection 1 100ml.bag @ 50 mls/hr IVPB Q2H [facility] Rx#: [id number] Potassium Chloride 20 meq 660 780 600 Magnesium Sulfate gm 1 gm In Amino Acid 5%-D15w+ Lytes*E* 1,000 ml @ 60 mls/hr IV .BY DURATION [facility] Rx#:[id number] Pressure Bags 66 69 30 Intake, IV Titration 1349.573 629.659 267.720 Amount Diltiazem 125 mg In 125 37 Sodium Chloride 0.9% 100 ml @ Per Protocol IV .Q0M [facility] Rx#:[id number] Heparin Sod,Pork in 0.45% 243.073 218.392 70.087 NaCl 25,000 unit In 0.45 % NaCl 1 250ml.bag @ 12 UNITS/KG/HR 8.784 mls/hr IV .Q24H [facility] Rx#: [id number] Insulin Regular 100 unit 94.500 86.267 160.633 In Sodium Chloride 0.9% 100 ml @ Per Protocol IV .Q0M [facility] Rx#:[id number] Potassium Chloride 10 meq 200 In Water For Injection 1 100ml.bag @ 100 mls/hr IVPB Q1H [facility] Rx#: [id number] Potassium Chloride 20 meq 1012 Magnesium Sulfate gm 1 gm In Amino Acid 5%-D15w+ Lytes*E* 1,000 ml @ 60 mls/hr IV .BY DURATION [facility] Rx#:[id number] Oral 1100 500 Output: Urine 1160 1295 685 Other: Voiding Method Indwelling Catheter Indwelling Catheter Indwelling Catheter ABP, PAP, CO, CI - Last Documented Arterial Blood Pressure 187/76 - Labs CBC & Chem 7: 09/24/18 04:10 09/24/18 12:00 Labs: Abnormal Lab Results - Last 24 Hours (Table) 09/23/18 09/23/18 09/23/18 Range/Units 18:08 19:00 20:44 WBC (3.8-10.6) k/uL RBC (3.80-5.40) m/uL Hgb (11.4-16.0) gm/dL Hct (34.0-46.0) % MCHC (31.0-37.0) g/dL Neutrophils # (1.3-7.7) k/uL Lymphocytes # (1.0-4.8) k/uL APTT (22.0-30.0) sec Sodium (137-145) mmol/L BUN (7-17) mg/dL Glucose (74-99) mg/dL POC Glucose (mg/dL) 214 H 204 H 191 H (75-99) mg/dL 09/23/18 09/23/18 09/23/18 Range/Units 22:07 23:07 23:54 WBC (3.8-10.6) k/uL RBC (3.80-5.40) m/uL Hgb (11.4-16.0) gm/dL Hct (34.0-46.0) % MCHC (31.0-37.0) g/dL Neutrophils # (1.3-7.7) k/uL Lymphocytes # (1.0-4.8) k/uL APTT (22.0-30.0) sec Sodium (137-145) mmol/L BUN (7-17) mg/dL Glucose (74-99) mg/dL POC Glucose (mg/dL) 202 H 215 H 241 H (75-99) mg/dL 09/24/18 09/24/18 09/24/18 Range/Units 01:15 02:14 03:09 WBC (3.8-10.6) k/uL RBC (3.80-5.40) m/uL Hgb (11.4-16.0) gm/dL Hct (34.0-46.0) % MCHC (31.0-37.0) g/dL Neutrophils # (1.3-7.7) k/uL Lymphocytes # (1.0-4.8) k/uL APTT (22.0-30.0) sec Sodium (137-145) mmol/L BUN (7-17) mg/dL Glucose (74-99) mg/dL POC Glucose (mg/dL) 220 H 215 H 186 H (75-99) mg/dL 09/24/18 09/24/18 09/24/18 Range/Units 04:10 04:10 04:10 WBC 21.9 H (3.8-10.6) k/uL RBC 3.49 L (3.80-5.40) m/uL Hgb 10.0 L (11.4-16.0) gm/dL Hct 32.4 L (34.0-46.0) % MCHC 30.8 L (31.0-37.0) g/dL Neutrophils # 20.5 H (1.3-7.7) k/uL Lymphocytes # 0.6 L (1.0-4.8) k/uL APTT 42.5 H (22.0-30.0) sec Sodium 136 L (137-145) mmol/L BUN 29 H (7-17) mg/dL Glucose 204 H (74-99) mg/dL POC Glucose (mg/dL) (75-99) mg/dL 09/24/18 09/24/18 09/24/18 Range/Units 04:13 05:09 06:20 WBC (3.8-10.6) k/uL RBC (3.80-5.40) m/uL Hgb (11.4-16.0) gm/dL Hct (34.0-46.0) % MCHC (31.0-37.0) g/dL Neutrophils # (1.3-7.7) k/uL Lymphocytes # (1.0-4.8) k/uL APTT (22.0-30.0) sec Sodium (137-145) mmol/L BUN (7-17) mg/dL Glucose (74-99) mg/dL POC Glucose (mg/dL) 218 H 202 H 196 H (75-99) mg/dL 09/24/18 09/24/18 09/24/18 Range/Units 06:56 07:57 08:52 WBC (3.8-10.6) k/uL RBC (3.80-5.40) m/uL Hgb (11.4-16.0) gm/dL Hct (34.0-46.0) % MCHC (31.0-37.0) g/dL Neutrophils # (1.3-7.7) k/uL Lymphocytes # (1.0-4.8) k/uL APTT (22.0-30.0) sec Sodium (137-145) mmol/L BUN (7-17) mg/dL Glucose (74-99) mg/dL POC Glucose (mg/dL) 234 H 191 H 229 H (75-99) mg/dL 09/24/18 09/24/18 09/24/18 Range/Units 09:54 11:05 11:07 WBC (3.8-10.6) k/uL RBC (3.80-5.40) m/uL Hgb (11.4-16.0) gm/dL Hct (34.0-46.0) % MCHC (31.0-37.0) g/dL Neutrophils # (1.3-7.7) k/uL Lymphocytes # (1.0-4.8) k/uL APTT (22.0-30.0) sec Sodium (137-145) mmol/L BUN (7-17) mg/dL Glucose (74-99) mg/dL POC Glucose (mg/dL) 260 H 378 H 380 H (75-99) mg/dL 09/24/18 09/24/18 09/24/18 Range/Units 12:20 12:22 13:21 WBC (3.8-10.6) k/uL RBC (3.80-5.40) m/uL Hgb (11.4-16.0) gm/dL Hct (34.0-46.0) % MCHC (31.0-37.0) g/dL Neutrophils # (1.3-7.7) k/uL Lymphocytes # (1.0-4.8) k/uL APTT (22.0-30.0) sec Sodium (137-145) mmol/L BUN (7-17) mg/dL Glucose (74-99) mg/dL POC Glucose (mg/dL) 395 H 395 H 424 H (75-99) mg/dL 09/24/18 09/24/18 09/24/18 Range/Units 14:13 15:07 15:45 WBC (3.8-10.6) k/uL RBC (3.80-5.40) m/uL Hgb (11.4-16.0) gm/dL Hct (34.0-46.0) % MCHC (31.0-37.0) g/dL Neutrophils # (1.3-7.7) k/uL Lymphocytes # (1.0-4.8) k/uL APTT 44.2 H (22.0-30.0) sec Sodium (137-145) mmol/L BUN (7-17) mg/dL Glucose (74-99) mg/dL POC Glucose (mg/dL) 319 H 283 H (75-99) mg/dL 09/24/18 09/24/18 Range/Units 16:00 16:57 WBC (3.8-10.6) k/uL RBC (3.80-5.40) m/uL Hgb (11.4-16.0) gm/dL Hct (34.0-46.0) % MCHC (31.0-37.0) g/dL Neutrophils # (1.3-7.7) k/uL Lymphocytes # (1.0-4.8) k/uL APTT (22.0-30.0) sec Sodium (137-145) mmol/L BUN (7-17) mg/dL Glucose (74-99) mg/dL POC Glucose (mg/dL) 256 H 240 H (75-99) mg/dL Microbiology - Last 24 Hours (Table) 09/21/18 16:20 Blood Culture - Preliminary Blood No Growth after 48 hours
[2018-09-24 18:01] LABS: Glucose,Whole Blood 236 mg/dL (75-99)
[2018-09-24 19:00] LABS: Glucose,Whole Blood 217 mg/dL (75-99)
[2018-09-24 20:04] LABS: Glucose,Whole Blood 235 mg/dL (75-99)
[2018-09-24 23:15] LABS: Glucose,Whole Blood 198 mg/dL (75-99)
[2018-09-24 23:15] LABS: Glucose,Whole Blood 191 mg/dL (75-99)
[2018-09-24 23:15] LABS: Glucose,Whole Blood 237 mg/dL (75-99)
[2018-09-25 00:05] LABS: Glucose,Whole Blood 209 mg/dL (75-99)
[2018-09-25] MEDS: NOREPINEPHRINE 4 MG in SODIUM CHLORIDE 0.9% 250 ML IV SCH (00:16)
[2018-09-25] MEDS: FUROSEMIDE 10 MG/ML 4 ML VIAL IV SCH ×3 (00:17→21:08)
[2018-09-25] MEDS: DILTIAZEM 125 MG in SODIUM CHLORIDE 0.9% 100 ML IV SCH (00:22)
[2018-09-25 01:18] LABS: Glucose,Whole Blood 167 mg/dL (75-99)
[2018-09-25 02:10] LABS: Glucose,Whole Blood 140 mg/dL (75-99)
[2018-09-25 03:05] LABS: Glucose,Whole Blood 144 mg/dL (75-99)
[2018-09-25 03:34] LABS: Glucose,Whole Blood 153 mg/dL (75-99)
[2018-09-25] MEDS: IPRATROPIUM-ALBUTEROL 3 ML NEB INHALATION SCH ×5 (03:49→19:57)
[2018-09-25 04:07] LABS: Glucose,Whole Blood 145 mg/dL (75-99)
[2018-09-25 05:17] LABS: Glucose,Whole Blood 142 mg/dL (75-99)
[2018-09-25 06:05] LABS: Glucose,Whole Blood 125 mg/dL (75-99)
[2018-09-25 06:16] LABS: Basophils % (A) 0 %; Eosinophils % (A) 0 %; HCT 31.2 % (34.0-46.0); HGB 10.2 gm/dL (11.4-16.0); Hypochromasia Slight; Lymphocytes # (A) 0.5 k/uL (1.0-4.8); Lymphocytes % (A) 3 %; MCH 29.5 pg (25.0-35.0); MCHC 32.6 g/dL (31.0-37.0); MCV 90.6 fL (80.0-100.0); Mean Platelet Volume 8.6; Monocytes # (A) 0.8 k/uL (0-1.0); Monocytes % (A) 4 %; Neutrophils # (A) 18.7 k/uL (1.3-7.7); Neutrophils % (A) 93 %; Platelet Count 332 k/uL (150-450); RBC 3.44 m/uL (3.80-5.40); WBC 20.3 k/uL (3.8-10.6)
[2018-09-25 06:31] LABS: African American GFR (CKD) >90 (>60 ml/min/1.73 sqM); Anion Gap 9 mmol/L; Blood Urea Nitrogen 40 mg/dL (7-17); Calcium 8.8 mg/dL (8.4-10.2); Carbon Dioxide 23 mmol/L (22-30); Chloride 104 mmol/L (98-107); Glucose 115 mg/dL (74-99); Magnesium 1.9 mg/dL (1.6-2.3); Phosphorus 4.1 mg/dL (2.5-4.5); Potassium 3.9 mmol/L (3.5-5.1); Sodium 136 mmol/L (137-145)
[2018-09-25 06:54] LABS: Glucose,Whole Blood 139 mg/dL (75-99)
[2018-09-25] MEDS: MAGNESIUM SULFATE-D5W PMX 1 GM in DEXTROSE/WATER 1 100ML.BAG IVPB SCH ×2 (07:03→08:11)
[2018-09-25] MEDS: POTASSIUM CHLORIDE 10 MEQ in WATER FOR INJECTION 1 100ML.BAG IVPB SCH ×2 (07:15→10:33)
[2018-09-25 08:06] LABS: Glucose,Whole Blood 226 mg/dL (75-99)
[2018-09-25] MEDS: DOCUSATE 100 MG CAP PO SCH ×2 (08:12→20:57)
[2018-09-25] MEDS: GABAPENTIN 400 MG CAP PO SCH ×3 (08:13→20:57)
[2018-09-25] MEDS: METOPROLOL TARTRATE 50 MG TAB PO SCH ×3 (08:13→22:15)
[2018-09-25] MEDS: PANTOPRAZOLE 40 MG/10 ML VIAL IVP SCH (08:13)
[2018-09-25] MEDS: INSULIN REGULAR 100 UNIT in SODIUM CHLORIDE 0.9% 100 ML IV SCH ×2 (08:32→15:06)
[2018-09-25] MEDS: FAT EMULSION 20% 250 ML IV SCH (08:40)
[2018-09-25 09:45] LABS: Glucose,Whole Blood 263 mg/dL (75-99)
[2018-09-25] MEDS: NON-FORMULARY DRUG (Dulaglutide [Trulicity] 0.75 MG) SQ SCH (09:58)
[2018-09-25] MEDS: VERAPAMIL 40 MG TAB PO SCH ×3 (09:59→20:57)
--- NOTE | 2018-09-25 10:31 | PN ---
PROGRESS NOTE DATE OF SERVICE: September 25, 2018 A 73-year-old female with a history of cardiac arrest x2. The patient is doing reasonably well. Still very sleepy and lethargic. She may have suffered some mild anoxic brain injury. She was initially admitted back on the 13 of September. She came in with pneumonia, sepsis and dehydration. She came to the ICU on the , having had a cardiopulmonary arrest x2 with PEA. The patient was intubated from the through the . She was extubated on September 17August. She currently remains in the ICU. She does have a history of heart failure, right carotid endarterectomy, pulmonary hypertension, and atrial fibrillation. The patient remains somewhat lethargic and sleepy. She does arouse. Currently, she has been weaned down to 3 L nasal cannula. The Cardizem drip has been turned off. She is on heparin via weight based protocol. She is not receiving any IV fluids. We are going to DC the BiPAP because she is not using it. She is on TPN at 60 mL an hour. We are going to increase her oral intake. Microbiologic studies have been negative. Current vital signs are reviewed. They include a temperature of 97.1, heart rate 118, respiratory rate 13, blood pressure 133/71, mean 91, and saturations are 100% on 3 L. Appears in no acute distress. HEENT examination is grossly unremarkable. Mucous membranes are moist. No oral lesions. Nasal O2 noted. NECK: Supple. Full range of motion. No adenopathy or thyromegaly. Cardiovascular examination reveals regular rhythm and rate. S1, S2 normal. No S3, S4, or murmur. Lungs reveal a few scattered coarse rhonchi. No wheezes or crackles. Breath sounds equal bilaterally. She does not really take deep breaths. ABDOMEN: Soft. Bowel sounds are heard. Extremities are intact. No cyanosis, clubbing, or edema. Skin without rash. Neurologic examination is brief but nonfocal. Microbiologic studies are all negative thus far. Labs are reviewed. White count 20.3, hemoglobin 10.2, hematocrit 31.2, platelet count 332,000. PTT 66.5. Sodium 136, potassium 3.9, chloride 104 CO2 is 23. BUN and creatinine were 40 and 0.61. Her chest x-ray was done yesterday. It shows some mild fluid overload and pleural effusions bilaterally. Medications are reviewed. ASSESSMENT: 1. Cardiopulmonary arrest of unclear etiology with some suspected mild anoxic brain injury. 2. Status post intubation and mechanical ventilation for respiratory failure, between September 15 and with successful extubation on . 3. Pneumonia with sepsis. 4. Dehydration. 5. Heart failure. 6. Pulmonary hypertension. 7. Chronic atrial fibrillation. 8. Acute kidney injury. 9. Status post right carotid endarterectomy for carotid artery stenosis. 10.Possible left lower lobe pneumonia with small effusion. 11.Type 2 diabetes mellitus. PLAN: The patient's medications are reviewed. The patient's oral intake will be increased and her diet will be advanced and the TPN will be weaned off. The patient remains somewhat sleepy and lethargic. She was given Ativan yesterday. We discontinued all sedatives, hypnotics, narcotics, and tranquilizers. Additional recommendations and suggestions are forthcoming. We will continue to follow closely. We will continue with the IV Lasix. Prognosis is guarded. MMODL / IJN: [id number] /
[2018-09-25] MEDS: HEPARIN SOD,PORK IN 0.45% NACL 25,000 UNIT in 0.45% NACL 1 250ML.BAG IV SCH (10:35)
[2018-09-25 11:02] LABS: Glucose,Whole Blood 283 mg/dL (75-99)
--- NOTE | 2018-09-25 11:48 | P.PN ---
Subjective Patient remains in the intensive care unit. Patient is sleepy and lethargic but arousable. Nods appropriately to questions. Patient continues in atrial fib rate controlled plan is from Cardizem to metoprolol. Patient continues TPN we'll wean with increase of oral nutrition Objective - Vital Signs Vital signs: Vital Signs Temp 98.2 F 09/25/18 08:00 Pulse 86 09/25/18 11:33 Resp 8 L 09/25/18 11:00 BP 119/86 09/25/18 11:00 Pulse Ox 100 09/25/18 10:00 Intake & Output 09/24/18 09/25/18 09/25/18 18:59 06:59 18:59 Intake Total 2643.819 9202.358 606.023 Output Total 835 3175 400 Balance 991.753 -1919.642 206.023 Weight 79.1 kg 81.9 kg Intake: IV 1001.40 881.52 253.14 Fat Emulsion 20% 250 ml @ 208.40 62.52 61.14 20.833 mls/hr IV DAILY [facility] Rx#:[id number] Levofloxacin 500Mg-D5w 100 Pmx 500 mg In Dextrose/ Water 1 100ml.bag @ 100 mls/hr IVPB Q24H [facility] Rx#: [id number] Potassium Chloride 20 meq 660 780 180 Magnesium Sulfate gm 1 gm In Amino Acid 5%-D15w+ Lytes*E* 1,000 ml @ 60 mls/hr IV .BY DURATION [facility] Rx#:[id number] Pressure Bags 33 39 12 Intake, IV Titration 325.353 373.838 152.883 Amount Diltiazem 125 mg In 37 27.450 4.533 Sodium Chloride 0.9% 100 ml @ Per Protocol IV .Q0M [facility] Rx#:[id number] Heparin Sod,Pork in 0.45% 70.087 211.521 NaCl 25,000 unit In 0.45 % NaCl 1 250ml.bag @ 12 UNITS/KG/HR 8.784 mls/hr IV .Q24H [facility] Rx#: [id number] Insulin Regular 100 unit 218.266 134.867 48.35 In Sodium Chloride 0.9% 100 ml @ Per Protocol IV .Q0M [facility] Rx#:[id number] Magnesium Sulfate-D5w Pmx 100 1 gm In Dextrose/Water 1 100ml.bag @ 100 mls/hr IVPB Q1H [facility] Rx#: [id number] Oral 500 200 Output: Urine 835 3175 400 Other: Voiding Method Indwelling Catheter Indwelling Catheter Indwelling Catheter ABP, PAP, CO, CI - Last Documented Arterial Blood Pressure 129/64 - Constitutional General appearance: Present: mild distress - EENT Eyes: Present: PERRLA Ears: bilateral: normal - Neck Neck: Present: normal ROM - Respiratory Respiratory: bilateral: diminished - Cardiovascular Rhythm: irregularly irregular - Gastrointestinal General gastrointestinal: Present: soft - Integumentary Integumentary: Present: normal - Neurologic Neurologic: Present: CNII-XII intact - Musculoskeletal Musculoskeletal: Present: generalized weakness - Psychiatric Psychiatric Comment(s): Patient lethargic arousable we'll not appropriately to questions - Labs CBC & Chem 7: 09/25/18 06:00 09/25/18 06:00 Labs: Abnormal Lab Results - Last 24 Hours (Table) 09/24/18 09/24/18 09/24/18 Range/Units 12:20 12:22 13:21 WBC (3.8-10.6) k/uL RBC (3.80-5.40) m/uL Hgb (11.4-16.0) gm/dL Hct (34.0-46.0) % Neutrophils # (1.3-7.7) k/uL Lymphocytes # (1.0-4.8) k/uL APTT (22.0-30.0) sec Sodium (137-145) mmol/L BUN (7-17) mg/dL Glucose (74-99) mg/dL POC Glucose (mg/dL) 395 H 395 H 424 H (75-99) mg/dL 09/24/18 09/24/18 09/24/18 Range/Units 14:13 15:07 15:45 WBC (3.8-10.6) k/uL RBC (3.80-5.40) m/uL Hgb (11.4-16.0) gm/dL Hct (34.0-46.0) % Neutrophils # (1.3-7.7) k/uL Lymphocytes # (1.0-4.8) k/uL APTT 44.2 H (22.0-30.0) sec Sodium (137-145) mmol/L BUN (7-17) mg/dL Glucose (74-99) mg/dL POC Glucose (mg/dL) 319 H 283 H (75-99) mg/dL 09/24/18 09/24/18 09/24/18 Range/Units 16:00 16:57 18:00 WBC (3.8-10.6) k/uL RBC (3.80-5.40) m/uL Hgb (11.4-16.0) gm/dL Hct (34.0-46.0) % Neutrophils # (1.3-7.7) k/uL Lymphocytes # (1.0-4.8) k/uL APTT (22.0-30.0) sec Sodium (137-145) mmol/L BUN (7-17) mg/dL Glucose (74-99) mg/dL POC Glucose (mg/dL) 256 H 240 H 236 H (75-99) mg/dL 09/24/18 09/24/18 09/24/18 Range/Units 18:57 20:02 20:58 WBC (3.8-10.6) k/uL RBC (3.80-5.40) m/uL Hgb (11.4-16.0) gm/dL Hct (34.0-46.0) % Neutrophils # (1.3-7.7) k/uL Lymphocytes # (1.0-4.8) k/uL APTT (22.0-30.0) sec Sodium (137-145) mmol/L BUN (7-17) mg/dL Glucose (74-99) mg/dL POC Glucose (mg/dL) 217 H 235 H 237 H (75-99) mg/dL 09/24/18 09/24/18 09/25/18 Range/Units 22:01 23:02 00:00 WBC (3.8-10.6) k/uL RBC (3.80-5.40) m/uL Hgb (11.4-16.0) gm/dL Hct (34.0-46.0) % Neutrophils # (1.3-7.7) k/uL Lymphocytes # (1.0-4.8) k/uL APTT 92.0 H (22.0-30.0) sec Sodium (137-145) mmol/L BUN (7-17) mg/dL Glucose (74-99) mg/dL POC Glucose (mg/dL) 198 H 191 H (75-99) mg/dL 09/25/18 09/25/18 09/25/18 Range/Units 00:04 01:17 02:08 WBC (3.8-10.6) k/uL RBC (3.80-5.40) m/uL Hgb (11.4-16.0) gm/dL Hct (34.0-46.0) % Neutrophils # (1.3-7.7) k/uL Lymphocytes # (1.0-4.8) k/uL APTT (22.0-30.0) sec Sodium (137-145) mmol/L BUN (7-17) mg/dL Glucose (74-99) mg/dL POC Glucose (mg/dL) 209 H 167 H 140 H (75-99) mg/dL 09/25/18 09/25/18 09/25/18 Range/Units 03:03 03:33 04:05 WBC (3.8-10.6) k/uL RBC (3.80-5.40) m/uL Hgb (11.4-16.0) gm/dL Hct (34.0-46.0) % Neutrophils # (1.3-7.7) k/uL Lymphocytes # (1.0-4.8) k/uL APTT (22.0-30.0) sec Sodium (137-145) mmol/L BUN (7-17) mg/dL Glucose (74-99) mg/dL POC Glucose (mg/dL) 144 H 153 H 145 H (75-99) mg/dL 09/25/18 09/25/18 09/25/18 Range/Units 05:15 06:00 06:00 WBC 20.3 H (3.8-10.6) k/uL RBC 3.44 L (3.80-5.40) m/uL Hgb 10.2 L (11.4-16.0) gm/dL Hct 31.2 L (34.0-46.0) % Neutrophils # 18.7 H (1.3-7.7) k/uL Lymphocytes # 0.5 L (1.0-4.8) k/uL APTT (22.0-30.0) sec Sodium 136 L (137-145) mmol/L BUN 40 H (7-17) mg/dL Glucose 115 H (74-99) mg/dL POC Glucose (mg/dL) 142 H (75-99) mg/dL 09/25/18 09/25/18 09/25/18 Range/Units 06:00 06:03 06:52 WBC (3.8-10.6) k/uL RBC (3.80-5.40) m/uL Hgb (11.4-16.0) gm/dL Hct (34.0-46.0) % Neutrophils # (1.3-7.7) k/uL Lymphocytes # (1.0-4.8) k/uL APTT 66.5 H (22.0-30.0) sec Sodium (137-145) mmol/L BUN (7-17) mg/dL Glucose (74-99) mg/dL POC Glucose (mg/dL) 125 H 139 H (75-99) mg/dL 09/25/18 09/25/18 09/25/18 Range/Units 08:04 09:38 11:01 WBC (3.8-10.6) k/uL RBC (3.80-5.40) m/uL Hgb (11.4-16.0) gm/dL Hct (34.0-46.0) % Neutrophils # (1.3-7.7) k/uL Lymphocytes # (1.0-4.8) k/uL APTT (22.0-30.0) sec Sodium (137-145) mmol/L BUN (7-17) mg/dL Glucose (74-99) mg/dL POC Glucose (mg/dL) 226 H 263 H 283 H (75-99) mg/dL Microbiology - Last 24 Hours (Table) 09/21/18 16:20 Blood Culture - Preliminary Blood No Growth after 72 hours - Imaging and Cardiology Chest x-ray: report reviewed Assessment and Plan Plan: Assessment Post cardiac arrest with acute hypoxic respiratory failure patient was intubated now extubated on nasal cannula Severe sepsis secondary to pneumonia left lower lobe gram-negative Patient on TPN Right-sided heart failure with severe pulmonary hypertension systolic dysfunction with ejection fraction of 4050% History of CVA Chronic persistent atrial fibrillation with RVR Diabetes on insulin drip hypertension Hyperlipidemia History of coronary disease Acute kidney injury secondary to cardiac arrest Plan Continue consultation with cardiology and pulmonology Patient remains full code
--- NOTE | 2018-09-25 12:02 | P.PN ---
Subjective Patient is resting comfortably in bed. However her A. fib rates are still not controlled pulse rate between 95 210 beats a minute Breath sounds are reduced bilaterally with rhonchorous breath sounds bilaterally crackles at the bases Heart sounds are irregular and rapid Abdomen soft Minimal lower extremities edema Hemoglobin 10.2 Potassium 3.9 BUN increased to 40 Impression Persistent atrial fibrillation with RVR Suggest Continue metoprolol tartrate 100 mg 3 times a day Add verapamil 14 g 3 times a day Reduce Lasix to 40 mg every 12 Stop IV Cardizem Objective - Vital Signs Vital signs: Vital Signs Temp 98.2 F 09/25/18 08:00 Pulse 86 09/25/18 11:33 Resp 8 L 09/25/18 11:00 BP 119/86 09/25/18 11:00 Pulse Ox 100 09/25/18 10:00 Intake & Output 09/24/18 09/25/18 09/25/18 18:59 06:59 18:59 Intake Total 5397.204 3183.358 606.023 Output Total 835 3175 400 Balance 991.753 -1919.642 206.023 Weight 79.1 kg 81.9 kg Intake: IV 1001.40 881.52 253.14 Fat Emulsion 20% 250 ml @ 208.40 62.52 61.14 20.833 mls/hr IV DAILY [facility] Rx#:[id number] Levofloxacin 500Mg-D5w 100 Pmx 500 mg In Dextrose/ Water 1 100ml.bag @ 100 mls/hr IVPB Q24H [facility] Rx#: [id number] Potassium Chloride 20 meq 660 780 180 Magnesium Sulfate gm 1 gm In Amino Acid 5%-D15w+ Lytes*E* 1,000 ml @ 60 mls/hr IV .BY DURATION [facility] Rx#:[id number] Pressure Bags 33 39 12 Intake, IV Titration 325.353 373.838 152.883 Amount Diltiazem 125 mg In 37 27.450 4.533 Sodium Chloride 0.9% 100 ml @ Per Protocol IV .Q0M [facility] Rx#:[id number] Heparin Sod,Pork in 0.45% 70.087 211.521 NaCl 25,000 unit In 0.45 % NaCl 1 250ml.bag @ 12 UNITS/KG/HR 8.784 mls/hr IV .Q24H [facility] Rx#: [id number] Insulin Regular 100 unit 218.266 134.867 48.35 In Sodium Chloride 0.9% 100 ml @ Per Protocol IV .Q0M [facility] Rx#:[id number] Magnesium Sulfate-D5w Pmx 100 1 gm In Dextrose/Water 1 100ml.bag @ 100 mls/hr IVPB Q1H [facility] Rx#: [id number] Oral 500 200 Output: Urine 835 3175 400 Other: Voiding Method Indwelling Catheter Indwelling Catheter Indwelling Catheter ABP, PAP, CO, CI - Last Documented Arterial Blood Pressure 129/64 - Labs CBC & Chem 7: 09/25/18 06:00 09/25/18 06:00 Labs: Abnormal Lab Results - Last 24 Hours (Table) 09/24/18 09/24/18 09/24/18 Range/Units 12:20 12:22 13:21 WBC (3.8-10.6) k/uL RBC (3.80-5.40) m/uL Hgb (11.4-16.0) gm/dL Hct (34.0-46.0) % Neutrophils # (1.3-7.7) k/uL Lymphocytes # (1.0-4.8) k/uL APTT (22.0-30.0) sec Sodium (137-145) mmol/L BUN (7-17) mg/dL Glucose (74-99) mg/dL POC Glucose (mg/dL) 395 H 395 H 424 H (75-99) mg/dL 09/24/18 09/24/18 09/24/18 Range/Units 14:13 15:07 15:45 WBC (3.8-10.6) k/uL RBC (3.80-5.40) m/uL Hgb (11.4-16.0) gm/dL Hct (34.0-46.0) % Neutrophils # (1.3-7.7) k/uL Lymphocytes # (1.0-4.8) k/uL APTT 44.2 H (22.0-30.0) sec Sodium (137-145) mmol/L BUN (7-17) mg/dL Glucose (74-99) mg/dL POC Glucose (mg/dL) 319 H 283 H (75-99) mg/dL 09/24/18 09/24/18 09/24/18 Range/Units 16:00 16:57 18:00 WBC (3.8-10.6) k/uL RBC (3.80-5.40) m/uL Hgb (11.4-16.0) gm/dL Hct (34.0-46.0) % Neutrophils # (1.3-7.7) k/uL Lymphocytes # (1.0-4.8) k/uL APTT (22.0-30.0) sec Sodium (137-145) mmol/L BUN (7-17) mg/dL Glucose (74-99) mg/dL POC Glucose (mg/dL) 256 H 240 H 236 H (75-99) mg/dL 09/24/18 09/24/18 09/24/18 Range/Units 18:57 20:02 20:58 WBC (3.8-10.6) k/uL RBC (3.80-5.40) m/uL Hgb (11.4-16.0) gm/dL Hct (34.0-46.0) % Neutrophils # (1.3-7.7) k/uL Lymphocytes # (1.0-4.8) k/uL APTT (22.0-30.0) sec Sodium (137-145) mmol/L BUN (7-17) mg/dL Glucose (74-99) mg/dL POC Glucose (mg/dL) 217 H 235 H 237 H (75-99) mg/dL 09/24/18 09/24/18 09/25/18 Range/Units 22:01 23:02 00:00 WBC (3.8-10.6) k/uL RBC (3.80-5.40) m/uL Hgb (11.4-16.0) gm/dL Hct (34.0-46.0) % Neutrophils # (1.3-7.7) k/uL Lymphocytes # (1.0-4.8) k/uL APTT 92.0 H (22.0-30.0) sec Sodium (137-145) mmol/L BUN (7-17) mg/dL Glucose (74-99) mg/dL POC Glucose (mg/dL) 198 H 191 H (75-99) mg/dL 09/25/18 09/25/18 09/25/18 Range/Units 00:04 01:17 02:08 WBC (3.8-10.6) k/uL RBC (3.80-5.40) m/uL Hgb (11.4-16.0) gm/dL Hct (34.0-46.0) % Neutrophils # (1.3-7.7) k/uL Lymphocytes # (1.0-4.8) k/uL APTT (22.0-30.0) sec Sodium (137-145) mmol/L BUN (7-17) mg/dL Glucose (74-99) mg/dL POC Glucose (mg/dL) 209 H 167 H 140 H (75-99) mg/dL 09/25/18 09/25/18 09/25/18 Range/Units 03:03 03:33 04:05 WBC (3.8-10.6) k/uL RBC (3.80-5.40) m/uL Hgb (11.4-16.0) gm/dL Hct (34.0-46.0) % Neutrophils # (1.3-7.7) k/uL Lymphocytes # (1.0-4.8) k/uL APTT (22.0-30.0) sec Sodium (137-145) mmol/L BUN (7-17) mg/dL Glucose (74-99) mg/dL POC Glucose (mg/dL) 144 H 153 H 145 H (75-99) mg/dL 09/25/18 09/25/18 09/25/18 Range/Units 05:15 06:00 06:00 WBC 20.3 H (3.8-10.6) k/uL RBC 3.44 L (3.80-5.40) m/uL Hgb 10.2 L (11.4-16.0) gm/dL Hct 31.2 L (34.0-46.0) % Neutrophils # 18.7 H (1.3-7.7) k/uL Lymphocytes # 0.5 L (1.0-4.8) k/uL APTT (22.0-30.0) sec Sodium 136 L (137-145) mmol/L BUN 40 H (7-17) mg/dL Glucose 115 H (74-99) mg/dL POC Glucose (mg/dL) 142 H (75-99) mg/dL 09/25/18 09/25/18 09/25/18 Range/Units 06:00 06:03 06:52 WBC (3.8-10.6) k/uL RBC (3.80-5.40) m/uL Hgb (11.4-16.0) gm/dL Hct (34.0-46.0) % Neutrophils # (1.3-7.7) k/uL Lymphocytes # (1.0-4.8) k/uL APTT 66.5 H (22.0-30.0) sec Sodium (137-145) mmol/L BUN (7-17) mg/dL Glucose (74-99) mg/dL POC Glucose (mg/dL) 125 H 139 H (75-99) mg/dL 09/25/18 09/25/18 09/25/18 Range/Units 08:04 09:38 11:01 WBC (3.8-10.6) k/uL RBC (3.80-5.40) m/uL Hgb (11.4-16.0) gm/dL Hct (34.0-46.0) % Neutrophils # (1.3-7.7) k/uL Lymphocytes # (1.0-4.8) k/uL APTT (22.0-30.0) sec Sodium (137-145) mmol/L BUN (7-17) mg/dL Glucose (74-99) mg/dL POC Glucose (mg/dL) 226 H 263 H 283 H (75-99) mg/dL Microbiology - Last 24 Hours (Table) 09/21/18 16:20 Blood Culture - Preliminary Blood No Growth after 72 hours
[2018-09-25 12:06] LABS: Glucose,Whole Blood 248 mg/dL (75-99)
[2018-09-25 13:13] LABS: Glucose,Whole Blood 165 mg/dL (75-99)
[2018-09-25 14:26] LABS: Glucose,Whole Blood 140 mg/dL (75-99)
[2018-09-25 15:06] LABS: Glucose,Whole Blood 154 mg/dL (75-99)
[2018-09-25] MEDS: POTASSIUM CHLORIDE IV SCH ×5 (16:00)
[2018-09-25] MEDS: MAGNESIUM SULFATE IV SCH ×5 (16:00)
[2018-09-25] MEDS: [UNRECOGNIZED DRUG - OTHER] IV SCH ×5 (16:00)
[2018-09-25 16:16] LABS: Glucose,Whole Blood 151 mg/dL (75-99)
[2018-09-25] MEDS: LEVOFLOXACIN 500MG-D5W PMX 500 MG in DEXTROSE/WATER 1 100ML.BAG IVPB SCH (16:28)
[2018-09-25 17:25] LABS: Glucose,Whole Blood 153 mg/dL (75-99)
[2018-09-25] MEDS: INSULIN ASPART (NovoLOG) 100 UNIT/ML VIAL SQ SCH ×2 (18:11→21:06)
[2018-09-25 20:31] LABS: Glucose,Whole Blood 369 mg/dL (75-99)
[2018-09-25] MEDS: INSULIN DETEMIR (LEVEMIR) 100 UNIT/ML SYR SQ SCH (21:08)
[2018-09-26] MEDS: HEPARIN SOD,PORK IN 0.45% NACL 25,000 UNIT in 0.45% NACL 1 250ML.BAG IV SCH ×2 (00:42→18:31)
[2018-09-26] MEDS: IPRATROPIUM-ALBUTEROL 3 ML NEB INHALATION SCH ×6 (00:58→19:54)
[2018-09-26 01:23] LABS: Glucose,Whole Blood 360 mg/dL (75-99)
[2018-09-26] MEDS: NOREPINEPHRINE 4 MG in SODIUM CHLORIDE 0.9% 250 ML IV SCH (01:23)
[2018-09-26] MEDS: INSULIN ASPART (NovoLOG) 100 UNIT/ML VIAL SQ SCH ×5 (01:25→21:20)
[2018-09-26 06:44] LABS: Basophils # (A) 0.1 k/uL (0-0.2); Basophils % (A) 0 %; Eosinophils # (A) 0.1 k/uL (0-0.7); Eosinophils % (A) 1 %; HCT 31.6 % (34.0-46.0); HGB 10.1 gm/dL (11.4-16.0); Hypochromasia Slight; Lymphocytes # (A) 0.9 k/uL (1.0-4.8); Lymphocytes % (A) 6 %; MCH 29.4 pg (25.0-35.0); MCV 91.8 fL (80.0-100.0); Mean Platelet Volume 8.5; Monocytes # (A) 1.2 k/uL (0-1.0); Monocytes % (A) 7 %; Neutrophils # (A) 14.4 k/uL (1.3-7.7); Neutrophils % (A) 86 %; Platelet Count 335 k/uL (150-450); RBC 3.44 m/uL (3.80-5.40); RDW 14.8 % (11.5-15.5); WBC 16.8 k/uL (3.8-10.6)
[2018-09-26 07:06] LABS: Glucose,Whole Blood 241 mg/dL (75-99)
[2018-09-26 07:46] LABS: African American GFR (CKD) >90 (>60 ml/min/1.73 sqM); Anion Gap 9 mmol/L; Blood Urea Nitrogen 56 mg/dL (7-17); Calcium 8.5 mg/dL (8.4-10.2); Carbon Dioxide 22 mmol/L (22-30); Chloride 102 mmol/L (98-107); Glucose 228 mg/dL (74-99); Magnesium 2.1 mg/dL (1.6-2.3); Potassium 4.7 mmol/L (3.5-5.1); Sodium 133 mmol/L (137-145)
[2018-09-26] MEDS: VERAPAMIL 40 MG TAB PO SCH ×2 (07:54→15:23)
[2018-09-26] MEDS: METOPROLOL TARTRATE 50 MG TAB PO SCH ×3 (07:54→21:16)
[2018-09-26] MEDS: GABAPENTIN 400 MG CAP PO SCH ×3 (08:47→21:16)
[2018-09-26] MEDS: DOCUSATE 100 MG CAP PO SCH ×2 (08:47→21:16)
[2018-09-26] MEDS: FUROSEMIDE 10 MG/ML 4 ML VIAL IV SCH ×2 (08:47→21:20)
[2018-09-26] MEDS: PANTOPRAZOLE 40 MG/10 ML VIAL IVP SCH (08:48)
[2018-09-26] MEDS: [UNRECOGNIZED DRUG - OTHER] IV SCH ×5 (09:01)
[2018-09-26] MEDS: MAGNESIUM SULFATE IV SCH ×5 (09:01)
[2018-09-26] MEDS: POTASSIUM CHLORIDE IV SCH ×5 (09:01)
[2018-09-26] MEDS: FAT EMULSION 20% 250 ML IV SCH (09:02)
--- NOTE | 2018-09-26 10:23 | PN ---
PROGRESS NOTE DATE OF SERVICE: September 26, 2018 This is a 73-year-old female with history of cardiac arrest x2. The patient is doing reasonably well and is a bit more awake and alert today. We stopped all her sedatives, hypnotics, narcotics and tranquilizers. The patient may have sustained or suffered some mild anoxic brain injury from her cardiac arrest. She was initially admitted back on September 13. She came in with pneumonia, sepsis and dehydration. She came to the ICU on the , having had a cardiopulmonary arrest x2 with pulseless electrical activity. The patient was intubated from the through the . The patient was extubated on September 17. She currently remains in the ICU. She does have a history of heart failure, right carotid endarterectomy secondary to right carotid artery stenosis, pulmonary hypertension, and atrial fibrillation. The patient is currently on O2 by nasal cannula at 3 L and IV heparin drip via weight based protocol. TPN was cut in half from 60 to 30 mL an hour and can be weaned off. She has no basic IV fluids. The patient's art line can be discontinued. We could hopefully DC the patient's TPN. We are going to order an EEG for the patient to evaluate for anoxic/metabolic encephalopathy. We will also increase her oral or p.o. intake. Again, she seems to be doing a bit better this morning than she was yesterday. Current vital signs are reviewed. Temperature 99, heart rate 118, respiratory rate 16, blood pressure 121/76, mean 91, saturation on 3 L is 99%. Appears in no acute distress. HEENT examination is grossly unremarkable. Mucous membranes are moist. No oral lesions. NECK: Supple. Full range of motion. No adenopathy or thyromegaly. Neck veins are flat. Cardiovascular examination reveals regular rhythm and rate. S1, S2 normal. No S3, S4, murmur. She is tachycardic. Heart rate about 118. It is sinus. Lungs reveal mostly clear breath sounds. She doesn't take deep breaths. There is a few scattered mild rhonchi. No wheezes. ABDOMEN: Soft. Bowel sounds are heard. Extremities are intact. No cyanosis, clubbing, or edema. Skin without rash. Neurologic examination is brief but nonfocal. Interesting, her mental status is still somewhat blunted. She does respond appropriately, but very, very slowly. She almost has a blank stare in her face. EEG will be ordered to see whether or she sustained some sort of anoxic or metabolic event. Laboratory data is reviewed. White count 16.8, hemoglobin 10.1, hematocrit 31.6, platelet count 335,000. PTT 56.3. Sodium 133, potassium 4.7, chloride 102, CO2 of 22. Anion gap is 9. BUN 56, creatinine 0.74. Microbiologic studies are all negative including blood, urine and sputum. Medications are reviewed. ASSESSMENT: 1. Cardiopulmonary arrest of unclear etiology with some suspected mild anoxic brain injury and/or metabolic encephalopathy. 2. Status post intubation, mechanical ventilation for respiratory failure between September 15 and with successful extubation on September 17. 3. Pneumonia with sepsis. 4. Dehydration. 5. Congestive heart failure. 6. Pulmonary hypertension. 7. History of chronic atrial fibrillation. 8. Acute kidney injury. 9. Status post right carotid endarterectomy for carotid artery stenosis. 10.Possible left lower lobe pneumonia with small effusion. 11.Type 2 diabetes mellitus. PLAN: The patient remains on antibiotic. The patient's TPN will be discontinued in favor of advancing her oral intake. The TPN was cut in half yesterday. We are going to discontinue the art line. The patient will have an EEG to evaluate brain function. Will discontinue the TPN. The patient will continue on IV heparin. No additional recommendations are made. Microbiologic studies are negative. We will continue to follow closely. Prognosis is very guarded given her poor mental status. MMODL / IJN: [id number] / [id number]
--- NOTE | 2018-09-26 11:07 | P.PN ---
Subjective Patient continues to be in intensive care unit patient lethargic but arousable orientated only to self. EEG in progress. Continues atrial fib controlled rate. Goal is to discontinue TPN with increased oral intake. Continues with consultation with cardiology and: Objective - Vital Signs Vital signs: Vital Signs Temp 99 F 09/26/18 08:00 Pulse 104 H 09/26/18 10:00 Resp 15 09/26/18 10:00 BP 109/86 09/26/18 10:00 Pulse Ox 98 09/26/18 10:00 Intake & Output 09/25/18 09/26/18 09/26/18 18:59 06:59 18:59 Intake Total 3131.113 1922.175 469 Output Total 840 1645 510 Balance 2291.113 277.175 -41 Weight 84.3 kg 84.3 kg Intake: IV 1084.78 713.84 69 Fat Emulsion 20% 250 ml @ 228.78 20.84 20.833 mls/hr IV DAILY [facility] Rx#:[id number] Levofloxacin 500Mg-D5w 100 Pmx 500 mg In Dextrose/ Water 1 100ml.bag @ 100 mls/hr IVPB Q24H [facility] Rx#: [id number] Potassium Chloride 20 meq 720 660 60 Magnesium Sulfate gm 1 gm In Amino Acid 5%-D15w+ Lytes*E* 1,000 ml @ 60 mls/hr IV .BY DURATION [facility] Rx#:[id number] Pressure Bags 36 33 9 Intake, IV Titration 9866.879 3260.335 Amount Diltiazem 125 mg In 4.533 Sodium Chloride 0.9% 100 ml @ Per Protocol IV .Q0M [facility] Rx#:[id number] Heparin Sod,Pork in 0.45% 196.335 NaCl 25,000 unit In 0.45 % NaCl 1 250ml.bag @ 12 UNITS/KG/HR 8.784 mls/hr IV .Q24H [facility] Rx#: [id number] Insulin Regular 100 unit 118.80 In Sodium Chloride 0.9% 100 ml @ Per Protocol IV .Q0M [facility] Rx#:[id number] Magnesium Sulfate-D5w Pmx 100 1 gm In Dextrose/Water 1 100ml.bag @ 100 mls/hr IVPB Q1H [facility] Rx#: [id number] Mvi, Adult No.4 with Vit 1023 K 10 ml Trace (Conc-1Ml/ Dose) 1 ml Potassium Chloride 20 meq Magnesium Sulfate gm 1 gm In Amino Acid 5%-D15w+Lytes*E* 1, 000 ml @ 60 mls/hr IV .BY DURATION [facility] Rx#: [id number] Potassium Chloride 20 meq 1012 Magnesium Sulfate gm 1 gm In Amino Acid 5%-D15w+ Lytes*E* 1,000 ml @ 60 mls/hr IV .BY DURATION [facility] Rx#:[id number] Oral 800 400 Output: Urine 840 1645 510 Other: Voiding Method Indwelling Catheter Indwelling Catheter Indwelling Catheter # Bowel Movements 1 ABP, PAP, CO, CI - Last Documented Arterial Blood Pressure 146/78 - Constitutional General appearance: Present: mild distress - EENT Eyes: Present: PERRLA Ears: bilateral: normal - Neck Neck: Present: normal ROM - Respiratory Respiratory: bilateral: diminished - Cardiovascular Rhythm: irregularly irregular - Gastrointestinal General gastrointestinal: Present: normal bowel sounds, soft - Integumentary Integumentary: Present: normal - Neurologic Neurologic: Present: CNII-XII intact - Musculoskeletal Musculoskeletal: Present: generalized weakness - Psychiatric Psychiatric Comment(s): Orientated only to self - Labs CBC & Chem 7: 09/26/18 06:25 09/26/18 06:25 Labs: Abnormal Lab Results - Last 24 Hours (Table) 09/25/18 09/25/18 09/25/18 Range/Units 11:01 12:04 13:11 WBC (3.8-10.6) k/uL RBC (3.80-5.40) m/uL Hgb (11.4-16.0) gm/dL Hct (34.0-46.0) % Neutrophils # (1.3-7.7) k/uL Lymphocytes # (1.0-4.8) k/uL Monocytes # (0-1.0) k/uL APTT (22.0-30.0) sec Sodium (137-145) mmol/L BUN (7-17) mg/dL Glucose (74-99) mg/dL POC Glucose (mg/dL) 283 H 248 H 165 H (75-99) mg/dL 09/25/18 09/25/18 09/25/18 Range/Units 14:14 15:04 16:14 WBC (3.8-10.6) k/uL RBC (3.80-5.40) m/uL Hgb (11.4-16.0) gm/dL Hct (34.0-46.0) % Neutrophils # (1.3-7.7) k/uL Lymphocytes # (1.0-4.8) k/uL Monocytes # (0-1.0) k/uL APTT (22.0-30.0) sec Sodium (137-145) mmol/L BUN (7-17) mg/dL Glucose (74-99) mg/dL POC Glucose (mg/dL) 140 H 154 H 151 H (75-99) mg/dL 09/25/18 09/25/18 09/26/18 Range/Units 17:14 20:30 01:21 WBC (3.8-10.6) k/uL RBC (3.80-5.40) m/uL Hgb (11.4-16.0) gm/dL Hct (34.0-46.0) % Neutrophils # (1.3-7.7) k/uL Lymphocytes # (1.0-4.8) k/uL Monocytes # (0-1.0) k/uL APTT (22.0-30.0) sec Sodium (137-145) mmol/L BUN (7-17) mg/dL Glucose (74-99) mg/dL POC Glucose (mg/dL) 153 H 369 H 360 H (75-99) mg/dL 09/26/18 09/26/18 09/26/18 Range/Units 06:25 06:25 06:25 WBC 16.8 H (3.8-10.6) k/uL RBC 3.44 L (3.80-5.40) m/uL Hgb 10.1 L (11.4-16.0) gm/dL Hct 31.6 L (34.0-46.0) % Neutrophils # 14.4 H (1.3-7.7) k/uL Lymphocytes # 0.9 L (1.0-4.8) k/uL Monocytes # 1.2 H (0-1.0) k/uL APTT 56.3 H (22.0-30.0) sec Sodium 133 L (137-145) mmol/L BUN 56 H (7-17) mg/dL Glucose 228 H (74-99) mg/dL POC Glucose (mg/dL) (75-99) mg/dL 09/26/18 Range/Units 07:05 WBC (3.8-10.6) k/uL RBC (3.80-5.40) m/uL Hgb (11.4-16.0) gm/dL Hct (34.0-46.0) % Neutrophils # (1.3-7.7) k/uL Lymphocytes # (1.0-4.8) k/uL Monocytes # (0-1.0) k/uL APTT (22.0-30.0) sec Sodium (137-145) mmol/L BUN (7-17) mg/dL Glucose (74-99) mg/dL POC Glucose (mg/dL) 241 H (75-99) mg/dL Microbiology - Last 24 Hours (Table) 09/21/18 16:20 Blood Culture - Preliminary Blood No Growth after 96 hours Assessment and Plan Plan: Assessment Post cardiac arrest with acute hypoxic respiratory failure Severe sepsis secondary to pneumonia left lower lobe probable gram-negative History of CVA Right-sided heart failure with a pulmonary hypertension systolic dysfunction with the EF of 40-50% Atrial fibrillation with RVR Diabetes type 2 Hypertension Hyperlipidemia History of coronary disease Generalized weakness Acute kidney injury secondary to cardiac arrest Plan Continue consultation with cardiology and pulmonology EEG and progress to be read by neurologist patient continues on antibiotics
[2018-09-26 11:48] LABS: Glucose,Whole Blood 253 mg/dL (75-99)
[2018-09-26] MEDS: LEVOFLOXACIN 500MG-D5W PMX 500 MG in DEXTROSE/WATER 1 100ML.BAG IVPB SCH (16:31)
[2018-09-26 16:57] LABS: Glucose,Whole Blood 224 mg/dL (75-99)
[2018-09-26] MEDS ORDERED: VERAPAMIL 40 MG TAB PO STA (17:28)
[2018-09-26 20:21] LABS: Glucose,Whole Blood 257 mg/dL (75-99)
[2018-09-26] MEDS: INSULIN DETEMIR (LEVEMIR) 100 UNIT/ML SYR SQ SCH (21:20)
[2018-09-26] MEDS: VERAPAMIL 80 MG TAB PO SCH (21:21)
[2018-09-27] MEDS: IPRATROPIUM-ALBUTEROL 3 ML NEB INHALATION SCH ×7 (00:25→23:55)
[2018-09-27] MEDS: NOREPINEPHRINE 4 MG in SODIUM CHLORIDE 0.9% 250 ML IV SCH (00:46)
[2018-09-27 03:02] LABS: Glucose,Whole Blood 136 mg/dL (75-99)
[2018-09-27] MEDS: INSULIN ASPART (NovoLOG) 100 UNIT/ML VIAL SQ SCH ×5 (03:04→22:22)
[2018-09-27 06:43] LABS: HCT 33.4 % (34.0-46.0); HGB 10.6 gm/dL (11.4-16.0); Hypochromasia Slight; MCH 29.5 pg (25.0-35.0); MCHC 31.8 g/dL (31.0-37.0); MCV 92.7 fL (80.0-100.0); Mean Platelet Volume 9.8; Platelet Count 303 k/uL (150-450); RDW 15.2 % (11.5-15.5); WBC 17.7 k/uL (3.8-10.6)
--- NOTE | 2018-09-27 06:50 | XR ---
EXAMINATION TYPE: XR chest 1V portable DATE OF EXAM: 09/27/2018 CLINICAL HISTORY: Difficulty breathing progress study. TECHNIQUE: Single AP portable upright view of the chest is obtained. COMPARISON: Chest x-ray from September 24, 2018 and older x-rays. FINDINGS: There is stable left subclavian central venous catheter. There is cardiomegaly with centra l vascular congestion and left greater than right bibasilar opacity silhouetting left hemidiaphragm. No pneumothorax is seen. Multilevel spurring in thoracic spine is redemonstrated. IMPRESSION: Overall stable findings, correlate for persistent CHF exacerbation as there is cardiome michelle with mild to moderate central vascular congestion and suspected small left pleural effusion with left greater than right bibasilar atelectasis and/or infiltrate all redemonstrated.
[2018-09-27 06:57] LABS: Glucose,Whole Blood 91 mg/dL (75-99)
[2018-09-27 07:08] LABS: Band Neutrophils % 5 %; Eosinophils # (M) 0.35 k/uL (0-0.7); Lymphocytes # (M) 1.06 k/uL (1.0-4.8); Metamyelocytes # (M) 0.53 k/uL (0); Metamyelocytes % 3 %; Monocytes # (M) 0.71 k/uL (0-1.0); Myelocytes # (M) 0.18 k/uL (0); Myelocytes % 1 %; Neutrophils % (M) 79 %; Nucleated Red Blood Cells 0 /100 WBC (0-0); Total Cells Counted 200
[2018-09-27 07:09] LABS: Ovalocytes Present
[2018-09-27] MEDS: METOPROLOL TARTRATE 50 MG TAB PO SCH ×2 (09:03→16:55)
[2018-09-27] MEDS: DOCUSATE 100 MG CAP PO SCH ×2 (09:03→22:22)
[2018-09-27] MEDS: FUROSEMIDE 10 MG/ML 4 ML VIAL IV SCH ×2 (09:03→22:22)
[2018-09-27] MEDS: PANTOPRAZOLE 40 MG/10 ML VIAL IVP SCH (09:03)
[2018-09-27] MEDS: GABAPENTIN 400 MG CAP PO SCH ×3 (09:05→22:23)
[2018-09-27] MEDS: VERAPAMIL 80 MG TAB PO SCH (09:05)
--- NOTE | 2018-09-27 10:36 | PN ---
PROGRESS NOTE DATE OF SERVICE: September 27, 2018 A 73-year-old female with a history of cardiac arrest x2. The patient is doing reasonably well, although still having a bit of sleepiness and lethargy. She likely sustained some anoxic brain injury with her cardiac arrest. She did have an EEG which suggested diffuse slowing consistent with anoxic or metabolic encephalopathy. All her sedatives, hypnotics, narcotics and tranquilizers were stopped. The patient was admitted back on September 13. She came in initially with pneumonia, sepsis and dehydration. She ended up coming to the ICU because of a rapid response team evaluation on . At that time, she had a cardiopulmonary arrest x2 with pulseless electrical activity (PEA). The patient was intubated from the to 17 of September. She was extubated on the . She remains here in the ICU. In addition to the above, she has a history of heart failure, right carotid endarterectomy secondary to right carotid artery stenosis, pulmonary hypertension, and atrial fibrillation. Currently, the patient is on 2.5 L nasal cannula. She is on a heparin drip via weight based protocol. Her EEG was done yesterday. The patient could stay here in the unit today and/or go out to the cardiac floor, either was appropriate. Again, the patient's mental status is a bit better. She still seems somewhat distant with a blank stare on her face. She does respond appropriately, albeit slowly. Current vital signs are reviewed. Temperature is 98.3, heart rate about 100, respiratory rate 14, blood pressure 129/72, mean 91, saturations are 98% on a couple liters. Appears in no acute distress. Again, does seem to have a blank stare on her face and seems somewhat lethargic and distant. HEENT examination is grossly unremarkable. Nasal O2 noted. Mucous membranes are dry. NECK: Supple. Full range of motion. No adenopathy or thyromegaly. Cardiovascular examination reveals irregular rhythm and rate. She is clearly in atrial fibrillation today. Heart rate about 110. S1, S2 normal. No murmur. Lungs reveal a few scattered rhonchi. No wheezes or crackles. Abdomen is soft. Bowel sounds are heard. Extremities are intact. No cyanosis, clubbing, or edema. Skin without rash. Neurologic examination is difficult to assess because of her mental status. She does respond appropriately. She has profound weakness in all 4 extremities. She can barely lift her arms and legs. She certainly arousable and a bit more awake day by day. Microbiologic studies are all negative. Labs are reviewed. White count 17.7, hemoglobin 10.6, hematocrit 33.4, platelet count 303,000. No additional labs are noted. Her chest x-ray shows findings of congestive heart failure. There is cardiomegaly. There is central vascular congestion. There may be small pleural effusions as well. ASSESSMENT: 1. Cardiopulmonary arrest of unclear etiology with some suspected mild anoxic brain injury and/or metabolic encephalopathy, as seen on EEG. 2. Status post intubation and mechanical ventilation for respiratory failure between September 15 and with successful extubation on the . 3. Pneumonia with sepsis. 4. Dehydration. 5. Acute congestive heart failure. 6. Pulmonary hypertension. 7. Chronic atrial fibrillation. 8. Acute kidney injury. 9. Status post right carotid endarterectomy for carotid artery stenosis. 10.Possible left lower lobe pneumonia with small effusion. 11.Type 2 diabetes mellitus. PLAN: The patient will remain on the heparin drip and the O2. The patient will stay here in the unit or go out to 6 selective. She still has atrial fibrillation with a ventricular response rate of about 110 beats per minute. Additional recommendations and suggestions are forthcoming. Prognosis is guarded. We hope her mental status continues to improve. No additional recommendations are made. Labs, x-rays and medications are all reviewed. MMODL / ANGEL: [id number] /
--- NOTE | 2018-09-27 11:18 | EEG ---
ELECTROENCEPHALOGRAM REPORT PROCEDURE DATE: September 26, 2018. ELECTROENCEPHALOGRAM (EEG): TECHNIQUE: A routine 18 channel EEG was performed with video using the 10/20 international placement system. HISTORY: Patient was originally admitted for pneumonia and sepsis. After being admitted, the patient had 2 cardiac arrest with PEA. Patient was intubated from 09/15 to09/17/2018. Since extubation, patient has been lethargic. CURRENT MEDICATIONS: Verapamil, Protonix, Zofran, norepinephrine, and others. STUDY DURATION: 24 minutes. FINDINGS: Background: The background activity consisted of poorly modulated 2-4 hertz waveforms. Activation: Hyperventilation: Not performed. Photic stimulation: No driving seen. Sleep: Drowsy. ABNORMALITIES: Diffuse synchronous and asynchronous 2-5 hertz slow wave activity was seen. IMPRESSION: Abnormal EEG. The diffuse synchronous and asynchronous theta delta range slowing mentioned above is not epileptiform in nature. In combination with the poorly modulated and slow background frequencies, these findings indicate moderate to severe diffuse cerebral dysfunction as may be seen in a toxic metabolic encephalopathy. No seizures were recorded. No epileptiform activity was present. These findings were called to the patient's nurse at 9:07 pm on 09/26/2018. MMODL / IJN: [id number] /
--- NOTE | 2018-09-27 11:33 | P.PN ---
Subjective patient ID EEG yesterday showing toxic metabolic encephalopathy. Patient awake and alert mumbling speech. Patient has been stabilized and will be moved from the intensive care to stepdown unit. Goal is transferred to [facility] for extended care rehab. Discussed with family patient still is full code. TPN has been discontinued Cardizem drip is been discontinued arterial line discontinued Objective - Vital Signs Vital signs: Vital Signs Temp 98.4 F 09/27/18 08:00 Pulse 80 09/27/18 11:24 Resp 13 09/27/18 10:00 BP 116/91 09/27/18 10:00 Pulse Ox 99 09/27/18 10:00 Intake & Output 09/26/18 09/27/18 09/27/18 18:59 06:59 18:59 Intake Total 1416.794 834.745 Output Total 2200 2550 700 Balance -783.206 -2550 134.745 Weight 84.3 kg 84.6 kg Intake: IV 169 Levofloxacin 500Mg-D5w 100 Pmx 500 mg In Dextrose/ Water 1 100ml.bag @ 100 mls/hr IVPB Q24H STACI Rx#: [id number] Potassium Chloride 20 meq 60 Magnesium Sulfate gm 1 gm In Amino Acid 5%-D15w+ Lytes*E* 1,000 ml @ 60 mls/hr IV .BY DURATION STACI Rx#:[id number] Pressure Bags 9 Intake, IV Titration 247.794 184.745 Amount Heparin Sod,Pork in 0.45% 247.794 184.745 NaCl 25,000 unit In 0.45 % NaCl 1 250ml.bag @ 12 UNITS/KG/HR 8.784 mls/hr IV .Q24H STACI Rx#: [id number] Oral 1000 650 Output: Urine 2200 2550 700 Other: Voiding Method Indwelling Catheter Indwelling Catheter Indwelling Catheter # Voids 1 ABP, PAP, CO, CI - Last Documented Arterial Blood Pressure 146/78 - Constitutional General appearance: Present: mild distress - EENT Eyes: Present: PERRLA Ears: bilateral: normal - Neck Neck: Present: normal ROM - Respiratory Respiratory: bilateral: diminished - Cardiovascular Rhythm: irregularly irregular - Gastrointestinal General gastrointestinal: Present: normal bowel sounds, soft - Integumentary Integumentary: Present: normal - Musculoskeletal Musculoskeletal: Present: generalized weakness - Psychiatric Psychiatric Comment(s): awake and alert mumbling speech - Labs CBC & Chem 7: 09/27/18 05:07 09/26/18 06:25 Labs: Abnormal Lab Results - Last 24 Hours (Table) 09/26/18 09/26/18 09/26/18 Range/Units 11:46 16:55 20:19 WBC (3.8-10.6) k/uL RBC (3.80-5.40) m/uL Hgb (11.4-16.0) gm/dL Hct (34.0-46.0) % Neutrophils # (Manual) (1.3-7.7) k/uL Metamyelocytes # (Man) (0) k/uL Myelocytes # (Manual) (0) k/uL POC Glucose (mg/dL) 253 H 224 H 257 H (75-99) mg/dL 09/27/18 09/27/18 Range/Units 03:00 05:07 WBC 17.7 H (3.8-10.6) k/uL RBC 3.60 L (3.80-5.40) m/uL Hgb 10.6 L (11.4-16.0) gm/dL Hct 33.4 L (34.0-46.0) % Neutrophils # (Manual) 14.80 H (1.3-7.7) k/uL Metamyelocytes # (Man) 0.53 H (0) k/uL Myelocytes # (Manual) 0.18 H (0) k/uL POC Glucose (mg/dL) 136 H (75-99) mg/dL Microbiology - Last 24 Hours (Table) 09/21/18 16:20 Blood Culture - Preliminary Blood No Growth after 120 hours - Imaging and Cardiology Chest x-ray: report reviewed Assessment and Plan Plan: assessment Post cardiac arrest with acute hypoxic rest for a failure patient was intubated now extubated Severe sepsis secondary to left lower lobe pneumonia History of CVA Metabolic encephalopathy Right-sided heart failure with severe pulmonary hypertension systolic dysfunction with EF of 40-50% atrial fibrillation with RVR diabetes type 2 Hypertension Hyperlipidemia History of coronary disease Generalized weakness Acute kidney injury secondary to cardiac arrest Plan Patient will be moved to stepdown unit Ultimate goal transfer to [facility] for extended care rehab Patient remains full code per family Awaiting clearance with pulmonology and cardiology for transfer to [facility]
[2018-09-27 12:23] LABS: Magnesium 1.8 mg/dL (1.6-2.3); Phosphorus 4.1 mg/dL (2.5-4.5); Potassium 4.6 mmol/L (3.5-5.1)
[2018-09-27 13:03] LABS: Glucose,Whole Blood 128 mg/dL (75-99)
--- NOTE | 2018-09-27 13:53 | P.PN ---
Subjective Patient is resting comfortably in bed. Heart rates are still about 100-110 beats a minute Blood pressure 140/71 mmHg afebrile 97.9F She is on metoprolol 100 mg 3 times a day and verapamil 80 mg 3 times a day she is on IV heparin She denies any chest discomfort she looks comfortable she started to eat Impression Persistent atrial fibrillation with RVR Suggest Her prolonged 150 g twice daily Verapamil 240 mg once daily long acting ELIQUIS 5 g twice daily Stop short-acting medications and stop heparin Objective - Vital Signs Vital signs: Vital Signs Temp 97.9 F 09/27/18 12:00 Pulse 92 09/27/18 12:00 Resp 15 09/27/18 12:00 BP 114/71 09/27/18 12:00 Pulse Ox 94 L 09/27/18 12:00 Intake & Output 09/26/18 09/27/18 09/27/18 18:59 06:59 18:59 Intake Total 1416.794 934.745 Output Total 2200 2550 1100 Balance -783.206 -2550 -165.255 Weight 84.3 kg 84.6 kg Intake: IV 169 Levofloxacin 500Mg-D5w 100 Pmx 500 mg In Dextrose/ Water 1 100ml.bag @ 100 mls/hr IVPB Q24H [facility]ACI Rx#: [id number] Potassium Chloride 20 meq 60 Magnesium Sulfate gm 1 gm In Amino Acid 5%-D15w+ Lytes*E* 1,000 ml @ 60 mls/hr IV .BY DURATION STACI Rx#:[id number] Pressure Bags 9 Intake, IV Titration 247.794 184.745 Amount Heparin Sod,Pork in 0.45% 247.794 184.745 NaCl 25,000 unit In 0.45 % NaCl 1 250ml.bag @ 12 UNITS/KG/HR 8.784 mls/hr IV .Q24H STACI Rx#: [id number] Oral 1000 750 Output: Urine 2200 2550 1100 Other: Voiding Method Indwelling Catheter Indwelling Catheter Indwelling Catheter # Voids 1 1 ABP, PAP, CO, CI - Last Documented Arterial Blood Pressure 146/78 - Labs CBC & Chem 7: 09/27/18 05:07 09/27/18 05:07 Labs: Abnormal Lab Results - Last 24 Hours (Table) 09/26/18 09/26/18 09/27/18 Range/Units 16:55 20:19 03:00 WBC (3.8-10.6) k/uL RBC (3.80-5.40) m/uL Hgb (11.4-16.0) gm/dL Hct (34.0-46.0) % Neutrophils # (Manual) (1.3-7.7) k/uL Metamyelocytes # (Man) (0) k/uL Myelocytes # (Manual) (0) k/uL BUN (7-17) mg/dL Glucose (74-99) mg/dL POC Glucose (mg/dL) 224 H 257 H 136 H (75-99) mg/dL 09/27/18 09/27/18 09/27/18 Range/Units 05:07 05:07 13:02 WBC 17.7 H (3.8-10.6) k/uL RBC 3.60 L (3.80-5.40) m/uL Hgb 10.6 L (11.4-16.0) gm/dL Hct 33.4 L (34.0-46.0) % Neutrophils # (Manual) 14.80 H (1.3-7.7) k/uL Metamyelocytes # (Man) 0.53 H (0) k/uL Myelocytes # (Manual) 0.18 H (0) k/uL BUN 49 H (7-17) mg/dL Glucose 73 L (74-99) mg/dL POC Glucose (mg/dL) 128 H (75-99) mg/dL Microbiology - Last 24 Hours (Table) 09/21/18 16:20 Blood Culture - Preliminary Blood No Growth after 120 hours
[2018-09-27 16:31] LABS: Glucose,Whole Blood 268 mg/dL (75-99)
[2018-09-27] MEDS: LEVOFLOXACIN 500MG-D5W PMX 500 MG in DEXTROSE/WATER 1 100ML.BAG IVPB SCH (16:33)
[2018-09-27 20:55] LABS: Glucose,Whole Blood 294 mg/dL (75-99)
[2018-09-27] MEDS ORDERED: DILTIAZEM ORAL 30 MG TAB PO STA (22:03)
[2018-09-27] MEDS: APIXABAN 5 MG TAB PO SCH (22:21)
[2018-09-27 22:22] LABS: Glucose,Whole Blood 294 mg/dL (75-99)
[2018-09-27] MEDS: INSULIN DETEMIR (LEVEMIR) 100 UNIT/ML SYR SQ SCH (22:22)
[2018-09-28] MEDS: NOREPINEPHRINE 4 MG in SODIUM CHLORIDE 0.9% 250 ML IV SCH (00:42)
[2018-09-28 02:22] LABS: Glucose,Whole Blood 237 mg/dL (75-99)
[2018-09-28] MEDS: INSULIN ASPART (NovoLOG) 100 UNIT/ML VIAL SQ SCH ×7 (02:31→21:52)
[2018-09-28] MEDS: IPRATROPIUM-ALBUTEROL 3 ML NEB INHALATION SCH ×5 (03:34→20:33)
[2018-09-28 05:41] LABS: Basophils # (A) 0.1 k/uL (0-0.2); Basophils % (A) 0 %; Eosinophils # (A) 0.4 k/uL (0-0.7); Eosinophils % (A) 2 %; HCT 30.6 % (34.0-46.0); HGB 9.8 gm/dL (11.4-16.0); Hypochromasia Slight; Lymphocytes # (A) 0.8 k/uL (1.0-4.8); Lymphocytes % (A) 5 %; MCV 90.6 fL (80.0-100.0); Mean Platelet Volume 9.5; Monocytes % (A) 6 %; Neutrophils % (A) 85 %; Platelet Count 288 k/uL (150-450); RBC 3.38 m/uL (3.80-5.40); RDW 15.6 % (11.5-15.5); WBC 16.4 k/uL (3.8-10.6)
[2018-09-28 06:06] LABS: African American GFR (CKD) >90 (>60 ml/min/1.73 sqM); Anion Gap 5 mmol/L; Blood Urea Nitrogen 40 mg/dL (7-17); Calcium 8.4 mg/dL (8.4-10.2); Carbon Dioxide 31 mmol/L (22-30); Chloride 100 mmol/L (98-107); Glucose 137 mg/dL (74-99); Magnesium 1.5 mg/dL (1.6-2.3); Phosphorus 3.8 mg/dL (2.5-4.5); Sodium 136 mmol/L (137-145)
[2018-09-28 07:13] LABS: Glucose,Whole Blood 150 mg/dL (75-99)
--- NOTE | 2018-09-28 07:27 | XR ---
EXAMINATION TYPE: XR chest 1V portable DATE OF EXAM: 09/28/2018 COMPARISON: Prior chest x-ray 09/27/2018 HISTORY: Shortness of breath with exertion TECHNIQUE: Single frontal view of the chest is obtained. FINDINGS: Heart remains enlarged. Pulmonary artery may be prominent. Aorta is dense. Left subclavian central venous catheter is in place the distal tip in the right atrium. No pneumothorax. Retrocardia c density is present, there may be mitral annular calcifications. Lap band is in place. Lung volumes are low. There may be some improvement in aeration. Postop changes noted to the shoulders. IMPRESSION: Suspect some improvement in aeration, volume status. Correlate for pulmonary artery hype rtension.
[2018-09-28] MEDS: METOPROLOL TARTRATE 50 MG TAB PO SCH ×2 (08:28→21:54)
[2018-09-28] MEDS: GABAPENTIN 400 MG CAP PO SCH ×3 (08:30→21:51)
[2018-09-28] MEDS: DOCUSATE 100 MG CAP PO SCH ×2 (08:30→21:51)
[2018-09-28] MEDS: APIXABAN 5 MG TAB PO SCH ×2 (08:30→21:50)
[2018-09-28] MEDS: FUROSEMIDE 10 MG/ML 4 ML VIAL IV SCH ×2 (08:31→21:50)
[2018-09-28] MEDS: PANTOPRAZOLE 40 MG/10 ML VIAL IVP SCH (08:32)
--- NOTE | 2018-09-28 09:18 | P.PN ---
Subjective Progress Note Date: 09/28/18 Principal diagnosis: Cardiopulmonary arrest of unclear etiology, suspected mild anoxic brain injury and or metabolic encephalopathy This is a 73-year-old white female patient that was admitted to the hospital on 09/13/2018 with pneumonia, sepsis and dehydration. Patient did suffer cardiopulmonary arrest 2 with pulseless electrical activity on or 09/15/2018. Patient was intubated and ventilated from it. From September 15 through September 17. She was successfully extubated. Current antibiotic coverage is in the form of Levaquin, blood sputum and urine cultures are negative. Patient is awake and alert, currently on 2 L of oxygen her pulse ox is 99%, she is afebrile, hemodyn amically stable, she remains in A. fib with RVR, and currently heart rate is ranging from 120-140 at times. Cardiology is following, currently patient is on Eliquis for oral anticoagulation, and oral Cardizem as well as metoprolol which was increased to 150 mg twice daily per cardiology. Patient has been relatively stable, awaiting a bed on selective care unit, no vasopressor support, currently on no IV fluids. Denies any difficulty breathing, denies any chest pain, she is somewhat slow to respond, she did have an EEG on 09/26/2018 and was consistent with encephalopathy. Today's chest x-ray has been reviewed with Dr. Cullen, and showed some improvement in aeration of volume status, she still has a low lung volumes, and interstitial prominence consistent with congestive heart failure. Patient remains on IV diuretics, at 40 mg every 12 hours. She is in - 1490 mL fluid balance over the last 24 hours. Patient is extremely weak, she has been requiring extensive assistance with all ADLs, she is trying to feed herself, her appetite has been poor, and in addition she's been having swa llowing issues, she is coughing with thin liquids, we will make the patient nothing by mouth right now and have the speech therapy evaluate her Objective - Vital Signs Vital signs: Vital Signs Temp 99.2 F 09/28/18 04:00 Pulse 122 H 09/28/18 07:40 Resp 16 09/28/18 04:00 BP 128/89 09/28/18 04:00 Pulse Ox 99 09/28/18 04:00 Intake & Output 09/27/18 09/28/18 09/28/18 18:59 06:59 18:59 Intake Total 1584.745 50 Output Total 2200 925 Balance -615.600 -743 Intake: Intake, IV Titration 184.745 Amount Heparin Sod,Pork in 0.45% 184.745 NaCl 25,000 unit In 0.45 % NaCl 1 250ml.bag @ 12 UNITS/KG/HR 8.784 mls/hr IV .Q24H [facility]ACI Rx#: [id number] Oral 1400 50 Output: Urine 2200 925 Other: Voiding Method Indwelling Catheter Indwelling Catheter # Voids 1 ABP, PAP, CO, CI - Last Documented Arterial Blood Pressure 146/78 - Exam GENERAL EXAM: Alert, pleasant, 73-year-old white female, on 2 L of oxygen comfortable in no apparent distress. HEAD: Normocephalic/atraumatic. EYES: Normal reaction of pupils, equal size. Conjunctiva pink, sclera white. NOSE: Clear with pink turbinates. THROAT: No erythema or exudates. NECK: No masses, no JVD, no thyroid enlargement, no adenopathy. CHEST: No chest wall deformity. Symmetrical expansion. LUNGS: Equal air entry with fine crackles at the bases CVS: Regular rate and rhythm, normal S1 and S2, no gallops, no murmurs, no rubs ABDOMEN: Soft, nontender. No hepatosplenomegaly, normal bowel sounds, no guarding or rigidity. EXTREMITIES: No clubbing, no edema, no cyanosis, 2+ pulses and upper and lower extremities. MUSCULOSKELETAL: Muscle strength and tone normal. SPINE: No scoliosis or deformity SKIN: No rashes CENTRAL NERVOUS SYSTEM: Alert and oriented -3. No focal deficits, tone is normal in all 4 extremities. PSYCHIATRIC: Alert and oriented -3. Appropriate affect. Intact judgment and insight. - Labs CBC & Chem 7: 09/28/18 05:30 09/28/18 05:30 Labs: Abnormal Lab Results - Last 24 Hours (Table) 09/27/18 09/27/18 09/27/18 Range/Units 05:07 13:02 16:29 WBC (3.8-10.6) k/uL RBC (3.80-5.40) m/uL Hgb (11.4-16.0) gm/dL Hct (34.0-46.0) % RDW (11.5-15.5) % Neutrophils # (1.3-7.7) k/uL Lymphocytes # (1.0-4.8) k/uL Sodium (137-145) mmol/L Carbon Dioxide (22-30) mmol/L BUN 49 H (7-17) mg/dL Glucose 73 L (74-99) mg/dL POC Glucose (mg/dL) 128 H 268 H (75-99) mg/dL Magnesium (1.6-2.3) mg/dL 09/27/18 09/27/18 09/28/18 Range/Units 20:54 22:21 02:20 WBC (3.8-10.6) k/uL RBC (3.80-5.40) m/uL Hgb (11.4-16.0) gm/dL Hct (34.0-46.0) % RDW (11.5-15.5) % Neutrophils # (1.3-7.7) k/uL Lymphocytes # (1.0-4.8) k/uL Sodium (137-145) mmol/L Carbon Dioxide (22-30) mmol/L BUN (7-17) mg/dL Glucose (74-99) mg/dL POC Glucose (mg/dL) 294 H 294 H 237 H (75-99) mg/dL Magnesium (1.6-2.3) mg/dL 09/28/18 09/28/18 09/28/18 Range/Units 05:30 05:30 07:12 WBC 16.4 H (3.8-10.6) k/uL RBC 3.38 L (3.80-5.40) m/uL Hgb 9.8 L (11.4-16.0) gm/dL Hct 30.6 L (34.0-46.0) % RDW 15.6 H (11.5-15.5) % Neutrophils # 14.0 H (1.3-7.7) k/uL Lymphocytes # 0.8 L (1.0-4.8) k/uL Sodium 136 L (137-145) mmol/L Carbon Dioxide 31 H (22-30) mmol/L BUN 40 H (7-17) mg/dL Glucose 137 H (74-99) mg/dL POC Glucose (mg/dL) 150 H (75-99) mg/dL Magnesium 1.5 L (1.6-2.3) mg/dL Microbiology - Last 24 Hours (Table) 09/21/18 16:20 Blood Culture - Final Blood No Growth after 144 hours Assessment and Plan Plan: Assessment: Cardiopulmonary arrest, exact etiology remains unclear. I suspect the patient may have sustained minimal degree of anoxic encephalopathy to explain her present mental status and profound weakness and lethargy. History of severe right sided congestive heart failure and pulmonary hypertension, presently improving. Increase the Lasix to 40 mg IV push every 12 hours, chest x-ray was ordered to be done in a.m. Chronic atrial fibrillation, on oral beta blockers. And on anticoagulation therapy. On Cardizem drip at 10 mg per hour, and metoprolol was added at 100 mg twice a day. Acute hypoxic respiratory failure requiring intubation and mechanical ventilation extubated on 09/17/2018 Acute kidney injury improving Carotid artery disease Possible left lower lobe pneumonia, could also be related to atelectasis, on antibiotics empirically. Patient is presently on Levaquin and cefepime. Ultrasound of the chest did not reveal much fluid to be drained on the left side. Type 2 diabetes Plan: Continue current plan of treatment, IV diuretics, nebulized bronchodilators, encourage deep breathing and coughing, nasal and A. fib, and the rate is tachycardic, cardiology is following, and making adjustments to patient's rate control medications, patient is on oral anticoagulation, hemodynamically patient is stable, she is extremely weak, and she is having difficulty swallowing, we will obtain speech therapy evaluation, will keep patient nothing by mouth for now, from pulmonary perspective patient is stable to go out of the ICU, but not ready for discharge to [facility] yet. I performed a history & physical examination of the patient and discussed their management with my nurse practitioner, Maria Del Carmen [place]. I reviewed the nurse practitioner's note and agree with the documented findings and plan of care. Lung sounds are positive for fine bibasilar crackles. The findings and the impression was discussed with the patient. I attest to the documentation by the nurse practitioner. Time with Patient: Less than 30
[2018-09-28] MEDS: VERAPAMIL SR 240 MG TABLET.ER PO SCH (12:42)
[2018-09-28 12:46] LABS: Glucose,Whole Blood 143 mg/dL (75-99)
[2018-09-28 17:10] LABS: Glucose,Whole Blood 218 mg/dL (75-99)
[2018-09-28] MEDS: LEVOFLOXACIN 500MG-D5W PMX 500 MG in DEXTROSE/WATER 1 100ML.BAG IVPB SCH (17:30)
[2018-09-28 21:08] LABS: Glucose,Whole Blood 253 mg/dL (75-99)
[2018-09-28] MEDS ORDERED: INSULIN ASPART (NovoLOG) 100 UNIT/ML VIAL SQ ONE (21:46)
[2018-09-28] MEDS: INSULIN DETEMIR (LEVEMIR) 100 UNIT/ML SYR SQ SCH (21:51)
[2018-09-29] MEDS: IPRATROPIUM-ALBUTEROL 3 ML NEB INHALATION SCH ×6 (00:23→19:27)
[2018-09-29 02:10] LABS: Glucose,Whole Blood 217 mg/dL (75-99)
[2018-09-29] MEDS: INSULIN ASPART (NovoLOG) 100 UNIT/ML VIAL SQ SCH ×8 (02:22→21:21)
[2018-09-29 06:53] LABS: Anisocytosis Slight; HCT 31.9 % (34.0-46.0); HGB 10.1 gm/dL (11.4-16.0); Hypochromasia Slight; MCH 28.7 pg (25.0-35.0); MCHC 31.7 g/dL (31.0-37.0); MCV 90.5 fL (80.0-100.0); Mean Platelet Volume 11.2; Platelet Count 311 k/uL (150-450); RBC 3.53 m/uL (3.80-5.40); RDW 16.6 % (11.5-15.5); WBC 19.1 k/uL (3.8-10.6)
[2018-09-29 07:08] LABS: Glucose,Whole Blood 157 mg/dL (75-99)
[2018-09-29 07:13] LABS: African American GFR (CKD) >90 (>60 ml/min/1.73 sqM); Anion Gap 7 mmol/L; Blood Urea Nitrogen 36 mg/dL (7-17); Calcium 8.6 mg/dL (8.4-10.2); Carbon Dioxide 30 mmol/L (22-30); Chloride 98 mmol/L (98-107); Glucose 178 mg/dL (74-99); Potassium 4.1 mmol/L (3.5-5.1); Sodium 135 mmol/L (137-145)
[2018-09-29] MEDS: APIXABAN 5 MG TAB PO SCH ×2 (08:08→21:21)
[2018-09-29] MEDS: METOPROLOL TARTRATE 50 MG TAB PO SCH ×2 (08:08→21:15)
[2018-09-29] MEDS: DOCUSATE 100 MG CAP PO SCH ×2 (08:08→21:21)
[2018-09-29] MEDS: FUROSEMIDE 10 MG/ML 4 ML VIAL IV SCH ×2 (08:08→21:21)
[2018-09-29] MEDS: PANTOPRAZOLE 40 MG/10 ML VIAL IVP SCH (08:08)
[2018-09-29] MEDS: GABAPENTIN 400 MG CAP PO SCH ×3 (08:09→21:21)
--- NOTE | 2018-09-29 09:05 | PN ---
PROGRESS NOTE I am covering for Dr. Dow. DATE OF SERVICE: 09/28/2018 HISTORY: This 73-year-old woman who was admitted with multiple episodes of cardiac arrest and sepsis is being closely monitored. The patient is slightly improved. Patient closely monitored in the ICU. The most recent chest x-ray which was personally reviewed by me showed some improvement. PT/OT evaluated the patient for possible ECF rehab. Past medical history reviewed. REVIEW OF SYMPTOMS: Could not be taken, the patient is sleepy at this time. CURRENT MEDICATIONS ARE: Reviewed and include: 1. Tylenol 650 q.6h p.r.n. 2. DuoNeb q.i.d. and p.r.n. 3. Eliquis 5 mg p.o. b.i.d. 4. Colace 100 mg p.o. b.i.d. 5. Lasix 40 mg IV b.i.d. 6. Neurontin. 7. NovoLog scale. 8. Levemir. 9. Levaquin 500 mg IV daily. 10.Lopressor. 11.Replacement protocols. 12.Narcan. 13.Trulicity. 14.Zofran. 15.Protonix. 16.Isoptin. PHYSICAL EXAM: Patient is alert, oriented times three. Pulse is 112, blood pressure 125/70, respiration 15, temperature 98.6, pulse ox 94% on 2 L. HEENT: Conjunctivae normal. Neck is no jugular venous distention. No carotid bruit. No lymph node enlargement. Cardiovascular: S1, S2 muffled. Respiratory: Breath sounds diminished in the bases. Bilateral scattered rhonchi and crackles. ABDOMEN: Soft, nontender. No mass palpable. Legs are no edema, no swelling. CENTRAL NERVOUS SYSTEM: No focal deficits. LAB STUDIES: WBC 16.2, hemoglobin 9.2, sodium 130, potassium 4, glucose 156, magnesium 1.5. ASSESSMENT: 1. Status post multiple episodes of cardiac arrest with acute hypoxic respiratory failure status post mechanical ventilation and on and off BiPAP. 2. Sepsis secondary to pneumonia left lower lobe possibly gram-negative. 3. Congestive heart failure, acute exacerbation with acute on chronic systolic and diastolic dysfunction, diastolic dysfunction ejection fraction 40 to 50%. 4. Septal hypokinesis. 5. Left atrium severely dilated. 6. Mild to moderate mitral and tricuspid regurgitation. 7. Right-sided heart failure from pulmonary hypertension. 8. Recurrent atrial ablation, continue with beta blockers. 9. Diabetes mellitus type 2. 10.Hypertension. 11.Hyperlipidemia. 12.History of coronary artery disease. 13.History of generalized weakness. 14.Acute kidney injury. 15.Change in mental status acute metabolic encephalopathy multifactorial. 16.FULL CODE. RECOMMENDATIONS AND DISCUSSION: Recommend to continue current medications, monitoring, symptomatic treatment, management and otherwise at this time I recommend continue with current medications. Continue with antibiotics. Continue with the rest of medications. Repeat labs. Otherwise, closely follow with multiple consultants. PT/OT evaluation. Eventually once the patient is stabilized, ECF rehab. Further recommendations to follow. MMODL / IJN: [id number] /
--- NOTE | 2018-09-29 10:06 | P.PN ---
Subjective Progress Note Date: 09/29/18 Principal diagnosis: Cardiopulmonary arrest of unclear etiology, suspect mild anoxic brain injury and/or metabolic encephalopathy. The patient is seen today in 08/29/2018 in follow-up in the intensive care unit. She is opening her eyes spontaneously. Suspect some mild encephalopathy secondary to cardiopulmonary arrest and anoxic brain injury. She remains extremely weak and unable to clear her secretions. She still having loose nonproductive cough. She is maintaining O2 saturations in the 90s on 2 L/m per nasal cannula. She is afebrile. Blood, sputum, urine cultures are all reveal no growth. White count 19.1. Hemoglobin 10.1. Creatinine 0.57. She remains on DuoNeb inhalations, IV diuretics, Levaquin. She is anticoagulated with Eliquis. Objective - Vital Signs Vital signs: Vital Signs Temp 98.8 F 09/29/18 04:00 Pulse 108 H 09/29/18 08:15 Resp 14 09/29/18 04:00 BP 128/86 09/29/18 04:00 Pulse Ox 96 09/29/18 08:26 Intake & Output 09/28/18 09/29/18 09/29/18 18:59 06:59 18:59 Intake Total 50 100 Output Total 400 1800 Balance -350 -1700 Weight 84.5 kg Intake: IV 100 Levofloxacin 500Mg-D5w 100 Pmx 500 mg In Dextrose/ Water 1 100ml.bag @ 100 mls/hr IVPB Q24H [facility] Rx#: [id number] Oral 50 Output: Urine 400 1800 Other: Voiding Method Indwelling Catheter Indwelling Catheter ABP, PAP, CO, CI - Last Documented Arterial Blood Pressure 146/78 - Exam GENERAL EXAM: Alert, 73-year-old female, on 2 L of oxygen, comfortable in no apparent distress. HEAD: Normocephalic/atraumatic. EYES: Normal reaction of pupils, equal size. Conjunctiva pink, sclera white. NOSE: Clear with pink turbinates. THROAT: No erythema or exudates. NECK: No masses, no JVD, no thyroid enlargement, no adenopathy. CHEST: No chest wall deformity. Symmetrical expansion. LUNGS: Equal air entry with fine crackles at the bases CVS: Regular rate and rhythm, normal S1 and S2, no gallops, no murmurs, no rubs ABDOMEN: Soft, nontender. No hepatosplenomegaly, normal bowel sounds, no guard ing or rigidity. EXTREMITIES: No clubbing, no edema, no cyanosis, 2+ pulses and upper and lower extremities. MUSCULOSKELETAL: Muscle strength and tone normal. SPINE: No scoliosis or deformity SKIN: No rashes CENTRAL NERVOUS SYSTEM: Mild encephalopathy. No focal deficits, tone is extremely weak in all 4 extremities. PSYCHIATRIC: Mild encephalopathy. - Labs CBC & Chem 7: 09/29/18 04:45 09/29/18 04:45 Labs: Abnormal Lab Results - Last 24 Hours (Table) 09/28/18 09/28/18 09/28/18 Range/Units 12:41 17:08 21:06 WBC (3.8-10.6) k/uL RBC (3.80-5.40) m/uL Hgb (11.4-16.0) gm/dL Hct (34.0-46.0) % RDW (11.5-15.5) % Sodium (137-145) mmol/L BUN (7-17) mg/dL Glucose (74-99) mg/dL POC Glucose (mg/dL) 143 H 218 H 253 H (75-99) mg/dL 09/29/18 09/29/18 09/29/18 Range/Units 02:09 04:45 04:45 WBC 19.1 H (3.8-10.6) k/uL RBC 3.53 L (3.80-5.40) m/uL Hgb 10.1 L (11.4-16.0) gm/dL Hct 31.9 L (34.0-46.0) % RDW 16.6 H (11.5-15.5) % Sodium 135 L (137-145) mmol/L BUN 36 H (7-17) mg/dL Glucose 178 H (74-99) mg/dL POC Glucose (mg/dL) 217 H (75-99) mg/dL 09/29/18 Range/Units 07:05 WBC (3.8-10.6) k/uL RBC (3.80-5.40) m/uL Hgb (11.4-16.0) gm/dL Hct (34.0-46.0) % RDW (11.5-15.5) % Sodium (137-145) mmol/L BUN (7-17) mg/dL Glucose (74-99) mg/dL POC Glucose (mg/dL) 157 H (75-99) mg/dL Assessment and Plan Assessment: Assessment: Cardiopulmonary arrest, exact etiology remains unclear. I suspect the patient may have sustained minimal degree of anoxic encephalopathy to explain her present mental status and profound weakness and lethargy. History of severe right sided congestive heart failure and pulmonary hypertension, presently improving. Increase the Lasix to 40 mg IV push every 12 hours, chest x-ray was ordered to be done in a.m. Chronic atrial fibrillation, on oral beta blockers. And on anticoagulation therapy. On Cardizem drip at 10 mg per hour, and metoprolol was added at 100 mg twice a day. Acute hypoxic respiratory failure requiring intubation and mechanical ventilation extubated on 09/17/2018 Acute kidney injury improving Carotid artery disease Possible left lower lobe pneumonia, could also be related to atelectasis, on antibiotics empirically. Patient is presently on Levaquin and cefepime. Ultrasound of the chest did not reveal much fluid to be drained on the left side. Type 2 diabetes Plan: The patient was seen and evaluated by Dr. Howell. She is currently stable from the pulmonary and critical care standpoint and will be transferred out of the ICU once a bed becomes available on the selective care unit. In the interim we'll continue with her current treatment plan. She'll need significant PT/OT and probable ECF placement. We'll continue to follow. I, the cosigning physician, performed a history & physical examination of the pa tient. Lungs sounds with crackles in the posterior bases. Maintaining good O2 saturations in the 90s on 2 L/m per nasal cannula. I discussed the assessment and plan of care with my nurse practitioner, Lisa Gramajo. I attest to the above note as dictated by her.
--- NOTE | 2018-09-29 11:46 | P.PN ---
Subjective Patient is doing recently well. She is still short of breath she still in atrial fibrillation heart rates are 100 beats a minute. She is on high doses of verapamil and Lopressor recurrent but according to the nurse verapamil seems to work better than the Lopressor Breath sounds are reduced bilaterally bilateral crackles at the bases Heart sounds are irregular abdomen is soft The patient passed a swallow test Suggest Decrease metoprolol to 100 mg twice daily Increase verapamil to 240 mg by mouth daily in the morning and 120 mg in the evening Rate control of atrial fibrillation Continue ELIQUIS Objective - Vital Signs Vital signs: Vital Signs Temp 96.1 F L 09/29/18 08:00 Pulse 108 H 09/29/18 08:15 Resp 17 09/29/18 08:02 BP 128/78 09/29/18 08:00 Pulse Ox 96 09/29/18 08:26 Intake & Output 09/28/18 09/29/18 09/29/18 18:59 06:59 18:59 Intake Total 50 100 Output Total 400 1800 Balance -350 -1700 Weight 84.5 kg Intake: IV 100 Levofloxacin 500Mg-D5w 100 Pmx 500 mg In Dextrose/ Water 1 100ml.bag @ 100 mls/hr IVPB Q24H [facility] Rx#: [id number] Oral 50 Output: Urine 400 1800 Other: Voiding Method Indwelling Catheter Indwelling Catheter Indwelling Catheter ABP, PAP, CO, CI - Last Documented Arterial Blood Pressure 146/78 - Labs CBC & Chem 7: 09/29/18 04:45 09/29/18 04:45 Labs: Abnormal Lab Results - Last 24 Hours (Table) 09/28/18 09/28/18 09/28/18 Range/Units 12:41 17:08 21:06 WBC (3.8-10.6) k/uL RBC (3.80-5.40) m/uL Hgb (11.4-16.0) gm/dL Hct (34.0-46.0) % RDW (11.5-15.5) % Sodium (137-145) mmol/L BUN (7-17) mg/dL Glucose (74-99) mg/dL POC Glucose (mg/dL) 143 H 218 H 253 H (75-99) mg/dL 09/29/18 09/29/18 09/29/18 Range/Units 02:09 04:45 04:45 WBC 19.1 H (3.8-10.6) k/uL RBC 3.53 L (3.80-5.40) m/uL Hgb 10.1 L (11.4-16.0) gm/dL Hct 31.9 L (34.0-46.0) % RDW 16.6 H (11.5-15.5) % Sodium 135 L (137-145) mmol/L BUN 36 H (7-17) mg/dL Glucose 178 H (74-99) mg/dL POC Glucose (mg/dL) 217 H (75-99) mg/dL 09/29/18 Range/Units 07:05 WBC (3.8-10.6) k/uL RBC (3.80-5.40) m/uL Hgb (11.4-16.0) gm/dL Hct (34.0-46.0) % RDW (11.5-15.5) % Sodium (137-145) mmol/L BUN (7-17) mg/dL Glucose (74-99) mg/dL POC Glucose (mg/dL) 157 H (75-99) mg/dL
[2018-09-29 12:20] LABS: Glucose,Whole Blood 229 mg/dL (75-99)
[2018-09-29] MEDS: VERAPAMIL SR 240 MG TABLET.ER PO SCH (12:36)
[2018-09-29 17:11] LABS: Glucose,Whole Blood 239 mg/dL (75-99)
[2018-09-29] MEDS: LEVOFLOXACIN 500MG-D5W PMX 500 MG in DEXTROSE/WATER 1 100ML.BAG IVPB SCH (17:46)
[2018-09-29] MEDS ORDERED: VERAPAMIL SR 120 MG TABLET.ER PO SCH (18:00)
[2018-09-29 20:51] LABS: Glucose,Whole Blood 274 mg/dL (75-99)
[2018-09-29] MEDS ORDERED: INSULIN DETEMIR (LEVEMIR) 100 UNIT/ML SYR SQ SCH (21:00)
--- NOTE | 2018-09-29 21:53 | PN ---
PROGRESS NOTE DATE OF SERVICE: 09/29/2018 I am covering for Dr. Dow. This 73-year-old woman was admitted with multiple medical problems including multiple also has sepsis and pneumonia. Patient had CHF also. Patient also had significant edema. Chest x-ray shows significant improvement. PT/OT evaluating the patient closely. Possible ECF rehab is being planned. PAST MEDICAL HISTORY: Reviewed. REVIEW OF SYSTEMS: CARDIOVASCULAR: No angina or palpitations. RESPIRATORY: As mentioned earlier. GASTROINTESTINAL: As mentioned earlier. no dysuria. Nervous system: Diffusely weak. CURRENT MEDICATIONS: Reviewed and include: 1. Tylenol suppository. 2. DuoNeb q.i.d. and p.r.n. 3. Eliquis 5 mg p.o. b.i.d. 4. Colace 100 mg p.o. b.i.d. 5. Lasix 40 mg b.i.d. 6. Neurontin. 7. NovoLog scale. 8. Levemir 35 units subcu q.h.s. 9. Levaquin 500 mg daily. 10.Replacement protocol. 11.Zofran. 12.Protonix. 13.Isoptin. PHYSICAL EXAM: Patient is alert, oriented x3, pulse 73, blood pressure 93/58, respirations 17, temperature 99.8, pulse ox 98% on 3 L. HEENT is conjunctivae normal. Oral mucosa moist. Neck is no jugular venous distention. No carotid bruit. No lymph node enlargement. Cardiovascular: S1, S2 muffled. RESPIRATORY: Breath sounds diminished in the bases. Bilateral scattered rhonchi and crackles. ABDOMEN: Soft, nontender. No mass palpable. LEGS: Bilateral leg edema. CENTRAL NERVOUS SYSTEM: Higher functions as mentioned earlier. Moves all 4 limbs. Mild diffuse weakness. LAB STUDIES: WBC 19.2, hemoglobin 10.1, sodium 135. Other labs are noted. Magnesium 1.5. ASSESSMENT: 1. Status post multiple episodes of cardiac arrest with acute hypoxic respiratory failure status post mechanical ventilation on and off BiPAP. 2. Sepsis secondary to pneumonia left lower lobe possibly gram-negative. 3. Congestive heart failure acute exacerbation with acute on chronic systolic and diastolic dysfunction, ejection fraction 40-50 percent. 4. Septal hypokinesis. 5. Left atrium severely dilated. 6. Mild to moderate mitral and tricuspid regurgitation. 7. Right-sided heart failure from pulmonary hypertension. 8. Recurrent atrial fibrillation. Continue with beta blockers. 9. Diabetes type 2. 10.Hypertension. 11.Hyperlipidemia. 12.History of coronary artery disease. 13.History of generalized weakness. 14.Acute kidney injury. 15.Change in mental status acute metabolic encephalopathy multifactorial. 16.Hypomagnesia. 17.FULL CODE. RECOMMENDATIONS AND DISCUSSION: Recommend to continue current medications, monitor and symptomatic treatment. Otherwise, at this time, I would recommend to continue current medications and symptomatic treatment. Otherwise, I would recommend PT/OT evaluation. Otherwise, I would also recommend repeat magnesium. Closely follow with multiple consultants. Possible ECF rehab. Further recommendations to follow. MMODL / IJN: [id number] / VU
[2018-09-30] MEDS: IPRATROPIUM-ALBUTEROL 3 ML NEB INHALATION SCH ×6 (00:36→19:20)
[2018-09-30] MEDS: INSULIN ASPART (NovoLOG) 100 UNIT/ML VIAL SQ SCH ×7 (05:15→19:02)
[2018-09-30 05:17] LABS: Glucose,Whole Blood 90 mg/dL (75-99)
[2018-09-30] MEDS: METOPROLOL TARTRATE 50 MG TAB PO SCH (05:50)
[2018-09-30 06:18] LABS: Anisocytosis Slight; Basophils % (A) 0 %; Eosinophils # (A) 0.1 k/uL (0-0.7); Eosinophils % (A) 0 %; HCT 29.1 % (34.0-46.0); HGB 9.7 gm/dL (11.4-16.0); Lymphocytes # (A) 0.9 k/uL (1.0-4.8); Lymphocytes % (A) 4 %; MCH 29.3 pg (25.0-35.0); MCHC 33.3 g/dL (31.0-37.0); Monocytes # (A) 1.4 k/uL (0-1.0); Monocytes % (A) 7 %; Neutrophils # (A) 16.8 k/uL (1.3-7.7); Neutrophils % (A) 86 %; Platelet Count 312 k/uL (150-450); RDW 17.1 % (11.5-15.5); WBC 19.5 k/uL (3.8-10.6)
[2018-09-30 06:52] LABS: Calcium 8.3 mg/dL (8.4-10.2); Magnesium 1.7 mg/dL (1.6-2.3); Potassium 4.3 mmol/L (3.5-5.1)
[2018-09-30] MEDS ORDERED: Magnesium Replacement Protocol 1 EACH MISC MISCELLANE PRN (06:54)
[2018-09-30 06:59] LABS: Glucose,Whole Blood 83 mg/dL (75-99)
--- NOTE | 2018-09-30 09:30 | P.PN ---
Subjective Progress Note Date: 09/30/18 Principal diagnosis: Cardiopulmonary arrest of unclear etiology, suspected mild anoxic brain injury and or metabolic encephalopathy This is a 73-year-old white female patient that was admitted to the hospital on 09/13/2018 with pneumonia, sepsis and dehydration. Patient did suffer cardiopulmonary arrest 2 with pulseless electrical activity on or 09/15/2018. Patient was intubated and ventilated from it. From September 15 through September 17. She was successfully extubated. Current antibiotic coverage is in the form of Levaquin, blood sputum and urine cultures are negative. Patient is awake and alert, currently on 2 L of oxygen her pulse ox is 99%, she is afebrile, hemodyn amically stable, she remains in A. fib with RVR, and currently heart rate is ranging from 120-140 at times. Cardiology is following, currently patient is on Eliquis for oral anticoagulation, and oral Cardizem as well as metoprolol which was increased to 150 mg twice daily per cardiology. Patient has been relatively stable, awaiting a bed on selective care unit, no vasopressor support, currently on no IV fluids. Denies any difficulty breathing, denies any chest pain, she is somewhat slow to respond, she did have an EEG on 09/26/2018 and was consistent with encephalopathy. Today's chest x-ray has been reviewed with Dr. Cullen, and showed some improvement in aeration of volume status, she still has a low lung volumes, and interstitial prominence consistent with congestive heart failure. Patient remains on IV diuretics, at 40 mg every 12 hours. She is in - 1490 mL fluid balance over the last 24 hours. Patient is extremely weak, she has been requiring extensive assistance with all ADLs, she is trying to feed herself, her appetite has been poor, and in addition she's been having swa llowing issues, she is coughing with thin liquids, we will make the patient nothing by mouth right now and have the speech therapy evaluate her. On 09/30/2018 patient seen in follow-up in the intensive care unit. Patient is lethargic, but arousable to verbal stimuli, is generally weak, but no acute complaints, she is on 2 L of oxygen per nasal cannula and her pulse ox is 98%, she is afebrile, hemodynamically patient is stable, lung sounds are clear, diminished at the bases, fine rales at the bases. No IV fluids. Urine, sputum and blood cultures are all negative, labs have been reviewed, showed a white blood cell, 19.5, hemoglobin of 9.7, sodium is 134, the rest of the electrolytes are within normal limits, BUN is 48 and creatinine 0.85. Antibiotic coverage in the form of Levaquin. Patient is on breathing treatments, she is on oral anticoagulation for her A. fib, and she continues on IV Lasix at 40 mg every 12 hours. Objective - Vital Signs Vital signs: Vital Signs Temp 98.3 F 09/30/18 08:00 Pulse 108 H 09/30/18 08:22 Resp 15 09/30/18 08:00 BP 120/66 09/30/18 08:00 Pulse Ox 98 09/30/18 08:00 Intake & Output 09/29/18 09/30/18 09/30/18 18:59 06:59 18:59 Intake Total 50 20 Output Total 1200 1900 400 Balance -1150 -1880 -400 Weight 80.4 kg Intake: Oral 50 20 Output: Urine 1200 1900 400 Other: Voiding Method Indwelling Catheter Indwelling Catheter Indwelling Catheter # Voids 1 # Bowel Movements 1 ABP, PAP, CO, CI - Last Documented Arterial Blood Pressure 146/78 - Exam GENERAL EXAM: Lethargic, but but arousable to voice pleasant, 73-year-old white female, on 2 L of oxygen comfortable in no apparent distress. HEAD: Normocephalic/atraumatic. EYES: Normal reaction of pupils, equal size. Conjunctiva pink, sclera white. NOSE: Clear with pink turbinates. THROAT: No erythema or exudates. NECK: No masses, no JVD, no thyroid enlargement, no adenopathy. CHEST: No chest wall deformity. Symmetrical expansion. LUNGS: Equal air entry with fine crackles at the bases CVS: Regular rate and rhythm, normal S1 and S2, no gallops, no murmurs, no rubs ABDOMEN: Soft, nontender. No hepatosplenomegaly, normal bowel sounds, no guarding or rigidity. EXTREMITIES: No clubbing, no edema, no cyanosis, 2+ pulses and upper and lower extremities. MUSCULOSKELETAL: Muscle strength and tone normal. SPINE: No scoliosis or deformity SKIN: No rashes CENTRAL NERVOUS SYSTEM: Alert and oriented -3. No focal deficits, tone is normal in all 4 extremities. PSYCHIATRIC: Alert and oriented -3. Appropriate affect. Intact judgment and insight. - Labs CBC & Chem 7: 09/30/18 06:00 09/30/18 06:00 Labs: Abnormal Lab Results - Last 24 Hours (Table) 09/29/18 09/29/18 09/29/18 Range/Units 11:48 16:55 20:50 WBC (3.8-10.6) k/uL RBC (3.80-5.40) m/uL Hgb (11.4-16.0) gm/dL Hct (34.0-46.0) % RDW (11.5-15.5) % Neutrophils # (1.3-7.7) k/uL Lymphocytes # (1.0-4.8) k/uL Monocytes # (0-1.0) k/uL Sodium (137-145) mmol/L BUN (7-17) mg/dL POC Glucose (mg/dL) 229 H 239 H 274 H (75-99) mg/dL Calcium (8.4-10.2) mg/dL 09/30/18 09/30/18 Range/Units 06:00 06:00 WBC 19.5 H (3.8-10.6) k/uL RBC 3.30 L (3.80-5.40) m/uL Hgb 9.7 L (11.4-16.0) gm/dL Hct 29.1 L (34.0-46.0) % RDW 17.1 H (11.5-15.5) % Neutrophils # 16.8 H (1.3-7.7) k/uL Lymphocytes # 0.9 L (1.0-4.8) k/uL Monocytes # 1.4 H (0-1.0) k/uL Sodium 134 L (137-145) mmol/L BUN 48 H (7-17) mg/dL POC Glucose (mg/dL) (75-99) mg/dL Calcium 8.3 L (8.4-10.2) mg/dL Assessment and Plan Plan: Assessment: Cardiopulmonary arrest, exact etiology remains unclear. I suspect the patient may have sustained minimal degree of anoxic encephalopathy to explain her present mental status and profound weakness and lethargy. History of severe right sided congestive heart failure and pulmonary hypertension, presently improving. Increase the Lasix to 40 mg IV push every 12 hours, chest x-ray was ordered to be done in a.m. Chronic atrial fibrillation, on oral beta blockers. And on anticoagulation therapy. On Cardizem drip at 10 mg per hour, and metoprolol was added at 100 mg twice a day. Acute hypoxic respiratory failure requiring intubation and mechanical ventilation extubated on 09/17/2018 Acute kidney injury improving Carotid artery disease Possible left lower lobe pneumonia, could also be related to atelectasis, on antibiotics empirically. Patient is presently on Levaquin and cefepime. U ltrasound of the chest did not reveal much fluid to be drained on the left side. Type 2 diabetes Plan: We'll continue current medical treatment, patient is lethargic, although arousable and she has severe generalized weakness. We'll continue the antibiotics, IV Lasix oral anticoagulation. Encourage deep breathing and coughing, therapy is working with the patient, her heart rate is better con trolled. No specific complaints overnight. I performed a history & physical examination of the patient and discussed their management with my nurse practitioner, Maria Del Carmen Orona. I reviewed the nurse practitioner's note and agree with the documented findings and plan of care. Lung sounds are positive for fine bibasilar crackles. The findings and the impression was discussed with the patient. I attest to the documentation by the nurse practitioner. Time with Patient: Less than 30
[2018-09-30] MEDS: PANTOPRAZOLE 40 MG/10 ML VIAL IVP SCH (09:33)
[2018-09-30] MEDS: GABAPENTIN 400 MG CAP PO SCH ×2 (09:33→18:59)
[2018-09-30] MEDS: APIXABAN 5 MG TAB PO SCH (09:34)
[2018-09-30] MEDS: FUROSEMIDE 10 MG/ML 4 ML VIAL IV SCH (09:34)
[2018-09-30] MEDS: DOCUSATE 100 MG CAP PO SCH (09:34)
[2018-09-30] MEDS ORDERED: ETOMIDATE 2 MG/ML 10 ML VIAL ONE (11:09)
[2018-09-30] MEDS ORDERED: SUCCINYLCHOLINE CHLORIDE VIAL 200 MG/10 ML VIAL IV ONE (11:09)
[2018-09-30] MEDS: VERAPAMIL SR 240 MG TABLET.ER PO SCH (11:19)
[2018-09-30 12:29] LABS: Glucose,Whole Blood 134 mg/dL (75-99)
--- NOTE | 2018-09-30 12:55 | P.CRDCN ---
History of Present Illness History of present illness: Patient has experienced hypotension overnight. She continues to be in atrial fibrillation with heart rates in the 100-120 bpm, however her evening dose of metoprolol was held last night. She continues to have shortness of breath. She denies any chest discomfort, dizziness, or lightheadedness. Patient's friend is at the bedside and states she has been confused since her admission. GENERAL: Well-appearing, well-nourished and in mild distress. NECK: Supple without JVD or thyromegaly. LUNGS: Breath sounds are coarse and reduced bilaterally. Respiration equal and unlabored. No wheezes or rales. HEART: Irregular rate without murmurs, rubs or gallops. EXTREMITIES: Generalized weakness. 3+ lower extremity pitting edema. No clubbing or cyanosis. Peripheral pulses intact and strong. Labs: WBC 19.5, hemoglobin 7, sodium 134, potassium 4.3, magnesium 1.7, BUN 48, creatinine 0.85 Impression: Persistent atrial fibrillation, heart rate in the low 100s, on novel anticoagulation Hypotension, currently stable Congestive heart failure Plan: Continue verapamil 240 mg at 6 AM and verapamil 120 mg at 6 PM; continue metoprolol 50 mg at 9 AM and 9 PM. Stagger medications to avoid hypotension and keep heart rates controlled in the 90s. Continue Lasix 40 mg twice a day. Past Medical History Past Medical History: Atrial Fibrillation, Heart Failure, COPD, Diabetes Mellitus, Hyperlipidemia, Hypertension, Pneumonia, Sleep Apnea/CPAP/BIPAP Additional Past Medical History / Comment(s): Severe pulmonary hypertension, preserved LV function with an ejection fraction of 55%, diabetes mellitus, chronic atrial fibrillation, hypertension, hyperlipidemia, obstructive sleep apnea, history of falls, chronic arthritis, chronic back pain, History of Any Multi-Drug Resistant Organisms: None Reported Past Surgical History: Section Additional Past Surgical History / Comment(s): bilateral rotator cuff, right carotid endartectomy, lap band 2007, bilateral cataracts removed Past Anesthesia/Blood Transfusion Reactions: No Reported Reaction Past Psychological History: Anxiety, Depression Smoking Status: Former smoker Past Alcohol Use History: None Reported Past Drug Use History: None Reported - Past Family History Mother Family Medical History: No Reported History, Hypertension Father Family Medical History: Unable to Obtain Medications and Allergies Home Medications Medication Instructions Recorded Confirmed Type ALPRAZolam [Xanax] 0.25 mg PO DAILY PRN 01/15/16 09/13/18 History Ascorbic Acid [Vitamin C] 1,000 mg PO DAILY 01/15/16 09/13/18 History Cholecalciferol [Vitamin D3] 1,000 unit PO DAILY 01/15/16 09/13/18 History Citalopram Hydrobromide 40 mg PO DAILY 01/15/16 09/13/18 History [Citalopram HBr] Furosemide [Lasix] 40 mg PO DAILY 01/15/16 09/13/18 History Gabapentin 800 mg PO TID 01/15/16 09/13/18 History Vitamin B Complex 1 cap PO DAILY 01/15/16 09/13/18 History Vitamin E (Dl,Tocopheryl Acet) 400 unit PO DAILY 01/15/16 09/13/18 History [Vitamin E] Atorvastatin [Lipitor] 20 mg PO HS #30 tab 01/17/16 09/13/18 Rx Dulaglutide [Trulicity] 0.75 mg SQ TU 03/06/18 09/13/18 History Metoprolol Tartrate [Lopressor] 100 mg PO BID 03/06/18 09/13/18 History Apixaban [Eliquis] 5 mg PO BID 06/30/18 09/13/18 History Pantoprazole [Protonix] 40 mg PO CRISTIANA-SADIAFSAlvin #30 tablet. 07/03/18 09/13/18 Rx HYDROcodone/APAP 7.5-325MG [[place] 1 tab PO TID PRN 09/13/18 09/13/18 History 7.5-325] Insulin Glargine [Lantus] 30 unit SQ HS 09/13/18 09/13/18 History metFORMIN HCL [metFORMIN HCL ER 1,000 mg PO BID 09/13/18 09/13/18 History Osmotic] Allergies Allergy/AdvReac Type Severity Reaction Status Date / Time digoxin Allergy Rash/Hives Verified 09/13/18 19:14 meperidine HCl [From Demerol] AdvReac SEIZURES Verified 09/13/18 19:14 morphine AdvReac Vomiting Verified 09/13/18 19:14 Physical Exam Vitals: Vital Signs Temp Pulse Pulse Resp BP BP Pulse Ox 09/30/18 12:18 110 H 09/30/18 12:09 108 H 09/30/18 08:22 108 H 09/30/18 08:10 116 H 09/30/18 08:00 98.3 F 77 15 120/66 98 09/30/18 07:00 87 16 105/62 96 09/30/18 05:00 138 H 16 125/93 95 09/30/18 04:33 105 H 09/30/18 04:30 137 H 18 109/75 97 09/30/18 04:01 112 H 16 116/64 09/30/18 04:00 106 H 73 20 09/30/18 03:30 96 16 114/68 09/30/18 03:00 100 14 114/68 97 09/30/18 02:30 109 H 16 111/69 98 09/30/18 02:00 122 H 15 109/61 09/30/18 01:30 131 H 15 109/61 93 L 09/30/18 01:00 109 H 17 117/79 09/30/18 00:51 106 H 09/30/18 00:36 104 H 09/30/18 00:30 115 H 18 119/89 09/30/18 00:17 102 H 16 119/89 93 L 09/30/18 00:00 99.9 F H 106 H 73 20 119/89 91 L 09/29/18 23:30 105 H 18 91/60 09/29/18 23:00 81 16 104/62 94 L 09/29/18 22:30 87 17 100/52 09/29/18 22:00 75 17 105/52 09/29/18 21:30 75 21 91/48 09/29/18 21:00 68 18 81/50 09/29/18 20:30 69 19 85/40 09/29/18 20:00 99.3 F 64 73 20 84/43 95 09/29/18 19:37 66 09/29/18 19:27 62 21 09/29/18 19:00 77 19 97/53 93 L 09/29/18 17:37 112/71 09/29/18 16:28 99.8 F H 73 17 93/50 96 09/29/18 15:57 72 09/29/18 15:48 71 18 09/29/18 13:00 122 H 15 122/100 Intake and Output 09/29/18 09/30/18 09/30/18 22:59 06:59 14:59 Intake Total 20 Output Total 1750 150 400 Balance -1730 -150 -400 Intake: Oral 20 Output: Urine 1750 150 400 Other: Voiding Method Indwelling Catheter Indwelling Catheter Indwelling Catheter # Voids 1 # Bowel Movements 1 Weight 80.4 kg Results 09/30/18 06:00 09/30/18 06:00 CBC 09/30/18 Range/Units 06:00 WBC 19.5 H (3.8-10.6) k/uL RBC 3.30 L (3.80-5.40) m/uL Hgb 9.7 L (11.4-16.0) gm/dL Hct 29.1 L (34.0-46.0) % Plt Count 312 (150-450) k/uL Comprehensive Metabolic Panel 09/30/18 Range/Units 06:00 Sodium 134 L (137-145) mmol/L Potassium 4.3 (3.5-5.1) mmol/L Chloride 98 (98-107) mmol/L Carbon Dioxide 30 (22-30) mmol/L BUN 48 H (7-17) mg/dL Creatinine 0.85 (0.52-1.04) mg/dL Glucose 81 (74-99) mg/dL Calcium 8.3 L (8.4-10.2) mg/dL Current Medications Generic Name Dose Route Start Last Admin Trade Name Freq PRN Reason Stop Dose Admin Acetaminophen 650 mg 09/21/18 18:13 09/22/18 18:52 Tylenol Suppository RECTAL 650 mg Q6HR PRN Administration Fever and/ or Pain Albuterol/Ipratropium 3 ml 09/15/18 04:00 09/30/18 12:07 Duoneb 0.5 Mg-3 Mg/3 Ml Soln INHALATION 3 ml RT-Q4H STACI Administration Apixaban 5 mg 09/27/18 21:00 09/30/18 09:34 Eliquis PO 5 mg BID STACI Administration Docusate Sodium 100 mg 09/23/18 21:00 09/30/18 09:34 Colace PO 100 mg BID STACI Administration Furosemide 40 mg 09/25/18 09:00 09/30/18 09:34 Lasix IV 40 mg Q12HR STACI Administration Gabapentin 800 mg 09/23/18 13:30 09/30/18 09:33 Neurontin PO 800 mg TID STACI Administration Levofloxacin 500 mg/ IV 100 mls @ 100 mls/hr 09/21/18 17:00 09/29/18 17:46 Solution IVPB 100 mls/hr Q24H [facility] Administration Insulin Aspart 0 unit 09/25/18 17:30 09/30/18 12:37 Novolog SQ 1 unit [id number] STACI Administration Protocol Insulin Aspart 5 unit 09/28/18 12:30 09/30/18 12:36 Novolog SQ 5 unit AC-LUNCH [facility]ACI Administration Insulin Aspart 5 unit 09/28/18 17:30 09/29/18 17:46 Novolog SQ 5 unit AC-SUPPER [facility]AC[facility] Administration Insulin Aspart 5 unit 09/29/18 07:30 09/30/18 08:55 Novolog SQ 5 unit [id number] [facility] Administration Insulin Detemir 35 unit 09/29/18 21:00 09/29/18 21:21 Levemir SQ 35 unit HS [facility] Administration Metoprolol Tartrate 50 mg 09/30/18 21:00 Lopressor PO BID [facility] Miscellaneous Information 1 each 09/16/18 05:59 Magnesium Per Protocol MISCELLANE DAILY PRN Per Protocol Protocol Miscellaneous Information 1 each 09/16/18 05:59 Phosphorus Per Protocol MISCELLANE DAILY PRN Per Protocol Protocol Miscellaneous Information 1 each 09/20/18 05:56 Potassium Per Protocol MISCELLANE DAILY PRN Per Protocol Protocol Miscellaneous Information 1 each 09/30/18 06:54 Magnesium Per Protocol MISCELLANE DAILY PRN Per Protocol Protocol Naloxone HCl 0.2 mg 09/13/18 21:49 Narcan IV Q2M PRN Opioid Reversal Non-Formulary Medication 0.75 mg 09/18/18 09:00 09/25/18 09:58 Dulaglutide [Trulicity] SQ Not Given Tu@0900 [facility] Ondansetron HCl 4 mg 09/14/18 22:59 Zofran IVP Q6HR PRN Nausea And Vomiting Pantoprazole Sodium 40 mg 09/21/18 09:00 09/30/18 09:33 Protonix IVP 40 mg DAILY [facility] Administration Verapamil HCl 240 mg 09/28/18 12:00 09/30/18 11:19 Isoptin Sr PO 240 mg DAILY@1200 [facility] Administration Verapamil HCl 120 mg 09/29/18 18:00 09/29/18 17:46 Isoptin Sr PO 120 mg DAILY@1800 [facility] Administration Intake and Output 09/29/18 09/30/18 09/30/18 22:59 06:59 14:59 Intake Total 20 Output Total 1750 150 400 Balance -1730 -150 -400 Intake: Oral 20 Output: Urine 1750 150 400 Other: Voiding Method Indwelling Catheter Indwelling Catheter Indwelling Catheter # Voids 1 # Bowel Movements 1 Weight 80.4 kg 09/30/18 06:00 09/30/18 06:00
[2018-09-30 14:38] VITALS: BMI 39.7
[2018-09-30] MEDS ORDERED: SODIUM CHLORIDE 0.9% 1,000 ML IV ONE ×3 (15:20→17:04)
[2018-09-30 15:59] LABS: Glucose,Whole Blood 257 mg/dL (75-99)
[2018-09-30] MEDS ORDERED: GLUCAGON 1 MG/ML VIAL IVP STA (16:22)
[2018-09-30] MEDS ORDERED: CALCIUM GLUCONATE 1 GM in SODIUM CHLORIDE 0.9% 100 ML IVPB ONE (16:22)
[2018-09-30 16:26] LABS: Allen Test Performed? Yes
[2018-09-30 16:34] LABS: ABG PCO2 22 mmHg (35-45); ABG PH 7.46 (7.35-7.45)
[2018-09-30 16:35] LABS: ABG HCO3 16 mmol/L (21-25); ABG Oxygen Saturation 94.8 % (94-97); ABG PO2 133 mmHg (83-108); ABG TCO2 17 mmol/L (19-24)
[2018-09-30] MEDS ORDERED: NOREPINEPHRINE 4 MG in SODIUM CHLORIDE 0.9% 250 ML IV SCH (16:45)
[2018-09-30] MEDS ORDERED: PROPOFOL 1,000 MG in EMPTY BAG 1 BAG IV SCH ×2 (16:45→17:15)
[2018-09-30 16:56] LABS: Glucose,Whole Blood 234 mg/dL (75-99)
--- NOTE | 2018-09-30 17:34 | XR ---
EXAMINATION TYPE: XR chest 1V portable DATE OF EXAM: 09/30/2018 COMPARISON: Prior chest x-ray 09/28/2018 HISTORY: Intubated TECHNIQUE: Single frontal view of the chest is obtained. FINDINGS: Endotracheal tube has been placed and is overlying the tracheal air column in appropriate position. NG tube is also been placed in the distal tip is within the stomach. Heart remains enlarged . There is some improvement in the interstitium and central vascularity. No evident pneumothorax. Ret rocardiac density persists. Left subclavian central venous catheter is stable. There are cardiac lead s. Aorta is dense. Postop changes noted to the shoulders. IMPRESSION: Interval extubation. Improvement in aeration. Retrocardiac density could be related to a telectasis or pneumonia, effusion. Follow-up recommended.
[2018-09-30 17:43] VITALS: TEMP 98.6
--- NOTE | 2018-09-30 17:48 | PN ---
PROGRESS NOTE DATE OF SERVICE: 09/30/2018 I am covering for Dr. Dow. This 73-year-old woman was admitted with multiple medical problems after cardiac arrest also had pneumonia, suspicion of CHF also. The blood pressure is fluctuating which is relative hypotension. Multiple consultants are following the patient closely. Patient had elevated heart rate, which is being controlled with beta blockers at this time. PAST MEDICAL HISTORY: Reviewed. REVIEW OF SYSTEMS: Cardiovascular: As mentioned earlier. RESPIRATORY: As mentioned earlier. GASTROINTESTINAL: No nausea or vomiting. GENITOURINARY: No dysuria. CENTRAL NERVOUS SYSTEM: No numbness or weakness. CURRENT MEDICATIONS ARE: Reviewed and include: 1. Tylenol p.r.n. 2. DuoNeb q.i.d. and p.r.n. 3. Eliquis 5 mg p.o. b.i.d. 4. Colace 100 mg p.o. b.i.d. 5. Lasix 40 mg b.i.d. 6. Neurontin 800 mg t.i.d. 7. NovoLog scale. 8. Levemir 35 units subcu q.h.s. 9. Levaquin 500 mg p.o. daily. 10.Lopressor 50 mg p.o. b.i.d. 11.P.r.n. medications. 12.Narcan p.r.n. 13.Trulicity p.r.n. 14.Zofran. 15.Protonix. 16.Isoptin. PHYSICAL EXAM: Patient is alert, oriented x3. The pulse is 82, blood pressure 140/80, respiration 17, temperature 98 degrees, pulse ox 94% on room air. HEENT: Conjunctivae normal. NECK: No jugular venous distention. CARDIOVASCULAR: S1, S2 muffled. RESPIRATORY: Breath sounds diminished in the bases. Bilateral scattered rhonchi and crackles. ABDOMEN: Soft, nontender. No mass palpable. Legs no edema. No swelling. NERVOUS SYSTEM: Higher functions as mentioned earlier. Moves all four extremities. No focal deficits. Lymphatics: No lymph nodes palpable in the neck, axillae or groin. SKIN: No ulcer, no rash. No bleeding. JOINTS: No active deforming arthropathy. LABS: WBC 9.2, hemoglobin 9.7, sodium 134. ASSESSMENT: 1. Status post multiple episodes of cardiac arrest with acute hypoxic respiratory failure status post mechanical ventilation on and off BiPAP. 2. Sepsis. Secondary to pneumonia left lower lobe possibly gram-negative. 3. Congestive heart failure acute exacerbation with acute on chronic systolic and diastolic dysfunction, ejection fraction 40 to 50%. 4. Septal hypokinesis in the 2D echo. 5. Left atrium severely dilated in the 2D echo. 6. Mild to moderate mitral and tricuspid regurgitation. 7. Right sided heart failure from pulmonary hypertension. 8. Recurrent atrial fibrillation, controlled with beta blockers. 9. Diabetes mellitus type 2. 10.Hypertension. 11.Hyperlipidemia. 12.History of coronary artery disease. 13.Change in mental status, metabolic encephalopathy, acute. 14.History of generalized weakness. 15.Acute kidney injury. 16.Hypomagnesemia. 17.FULL CODE. RECOMMENDATIONS AND DISCUSSION: I recommend to continue current medications, monitoring, management and symptomatic treatment. We will continue with beta blockers. Monitor blood pressure closely. The patient might need fluid boluses at this time. The patient is also on Lasix 40 twice daily. We will continue to monitor. Repeat lytes and overall prognosis guarded. PT/OT evaluation and ECF rehab once the patient is stabilized and Dr. Dow will follow. MMODL / IJN: [id number] /
[2018-09-30 17:53] LABS: Glucose,Whole Blood 195 mg/dL (75-99)
[2018-09-30] MEDS ORDERED: SODIUM BICARB 8.4% 50 ML SYR (1 MEQ/ML) ONE ×2 (18:35→19:52)
[2018-09-30] MEDS ORDERED: EPINEPHrine 10 ML SYRINGE (0.1 MG/ML) ONE (18:35)
[2018-09-30] MEDS ORDERED: DEXTROSE 5% IN WATER 1,000 ML with SODIUM BICARB (1 MEQ/ML) 150 ML IV SCH (18:45)
[2018-09-30] MEDS ORDERED: SODIUM CHLORIDE 0.9% 50 ML with VASOPRESSIN 20 UNIT IVPB SCH ×2 (19:00)
[2018-09-30 19:08] LABS: ABG Base Excess -13.8 mmol/L; ABG HCO3 15 mmol/L (21-25); ABG Oxygen Saturation 87.5 % (94-97); ABG PCO2 46 mmHg (35-45); ABG PO2 77 mmHg (83-108); ABG TCO2 17 mmol/L (19-24); Allen Test Performed? Yes
--- NOTE | 2018-09-30 19:28 | XR ---
EXAMINATION TYPE: XR chest 1V portable DATE OF EXAM: 09/30/2018 COMPARISON: Prior chest x-ray same dated earlier time HISTORY: Cardiac arrest TECHNIQUE: Single frontal view of the chest is obtained. FINDINGS: Some interval development of airspace disease is suspected in the perihilar locations. NG tube and endotracheal tube are overlying appropriate positions, left subclavian central venous cathet er is stable. No pneumothorax or interval change in the enlarged heart. Retrocardiac density obscures the hemidiaphragm. There is mitral annular calcification. IMPRESSION: There may be some interval development of pulmonary edema. Expiratory rotated exam.
[2018-09-30] MEDS ORDERED: METOPROLOL TARTRATE 50 MG TAB PO SCH (21:00)
[2018-09-30] MEDS ORDERED: CHLORHEXIDINE GLUCONATE 15 ML CUP MUCOUS MEM SCH (21:00)
[2018-10-01 00:31] VITALS: BP 85/56; PULSE 85; RESP 8
[2018-10-01] MEDS ORDERED: VERAPAMIL SR 240 MG TABLET.ER PO SCH (06:00)
[2018-10-01] MEDS: IPRATROPIUM-ALBUTEROL 3 ML NEB INHALATION SCH (07:24)
[2018-10-03 07:54] LABS: ABG PH 7.13 (7.35-7.45)
--- NOTE | 2018-10-03 07:57 | DS ---
DISCHARGE SUMMARY SUMMARY I am covering for Dr. Luis Carlos Dow. PRELIMINARY CAUSE OF : Multiple episodes of cardiac arrest and coronary atherosclerosis . OTHER DIAGNOSES: 1. Multiple episodes of cardiac arrest with acute hypoxic respiratory failure, status post mechanical ventilation and BiPAP. 2. Left lower lobe pneumonia possibly gram negative pneumonia with sepsis. 3. Congestive heart failure acute exacerbation with acute on chronic systolic and diastolic dysfunction, ejection fraction 40% to 50%. 4. Septal hypokinesis with 2D echo. 5. Left atrium severely dilated on 2-D echo. 6. Mild to moderate mitral and tricuspid regurgitation. 7. Right-sided heart failure from pulmonary hypertension. 8. Recurrent atrial fibrillation, controlled with beta blockers. 9. Diabetes mellitus type 2. 10.Hypertension. 11.Hyperlipidemia. 12.History of coronary artery disease. 13.Change in mental status, metabolic encephalopathy, acute. 14.History of generalized weakness. 15.Acute kidney injury. 16.Hypomagnesemia. 17.FULL CODE. HISTORY OF PRESENT ILLNESS: This 73-year-old woman with a past medical history of multiple medical problems was being followed by Dr. Luis Carlos Dow in the outpatient setting admitted with multiple episodes of cardiac arrest. Patient also had multiple complex medical issues as listed above with pneumonia, CHF acute exacerbation as well as severe septal hypokinesia on the 2D echo. The patient was monitored in ICU. The patient was mechanically ventilated initially. Subsequently, patient was able to tolerate BiPAP. Patient was seen on auto BiPAP. Patient also had some change in mental status also. Patient was seen multiple consultants during hospitalization included Pulmonary and Cardiology. Please refer to their respective notes for further details. The patient had multiple cardiac arrhythmias which were also treated with medications. It seems like patient is improving to some extent but however the patient went into cardiopulmonary arrest one more time and this time the patient was unable to be resuscitated. Please refer to the CPR sheet for further details and the patient because of the above mentioned multiple complex medical comorbidities. The prognosis remained extremely guarded throughout the hospital stay and please refer to the multiple progress notes and multiple consultants notes for more information. The case was discussed with the family on multiple occasions. LAUREN / GREGORION: [id number] / VU
== END 2018-09-30 19:53 | disposition expired | DRG 871 ==
LOC: EC 18:29 → 3SCARD 21:49 → 2SICU 09-14 23:35
PROVIDERS: ADMIT Family Medicine; ATTEND Family Medicine
PROC: 5A12012 Performance of Cardiac Output, Single, Manual (ICD-10-PCS; 2018-09-14)
PROC: 5A1945Z Respiratory Ventilation, 24-96 Consecutive Hours (ICD-10-PCS; principal; 2018-09-15)
PROC: 0BH17EZ Insertion of Endotracheal Airway into Trachea, Via Natural or Artificial Opening (ICD-10-PCS; 2018-09-15)
PROC: 5A09357 Assistance with Respiratory Ventilation, Less than 24 Consecutive Hours, Continuous Positive Airway Pressure (ICD-10-PCS; 2018-09-17)
PROC: 02HV33Z Insertion of Infusion Device into Superior Vena Cava, Percutaneous Approach (ICD-10-PCS; 2018-09-17)
PROC: 3E0336Z Introduction of Nutritional Substance into Peripheral Vein, Percutaneous Approach (ICD-10-PCS; 2018-09-21)
DX: A41.50 Gram-negative sepsis, unspecified (principal); J96.01 Acute respiratory failure with hypoxia; J15.6 Pneumonia due to other Gram-negative bacteria; I50.43 Acute on chronic combined systolic (congestive) and diastolic (congestive) heart failure; G93.41 Metabolic encephalopathy; E87.4 Mixed disorder of acid-base balance; G93.1 Anoxic brain damage, not elsewhere classified; I48.1 Persistent atrial fibrillation; J44.0 Chronic obstructive pulmonary disease with (acute) lower respiratory infection; J98.11 Atelectasis; N17.9 Acute kidney failure, unspecified; R65.20 Severe sepsis without septic shock; I46.2 Cardiac arrest due to underlying cardiac condition; J84.10 Pulmonary fibrosis, unspecified; R13.10 Dysphagia, unspecified; I11.0 Hypertensive heart disease with heart failure; I27.29 Other secondary pulmonary hypertension; I50.812 Chronic right heart failure; S09.90XA Unspecified injury of head, initial encounter; Z99.81 Dependence on supplemental oxygen; I08.3 Combined rheumatic disorders of mitral, aortic and tricuspid valves; E83.42 Hypomagnesemia; E86.0 Dehydration; E11.9 Type 2 diabetes mellitus without complications; I49.8 Other specified cardiac arrhythmias; I25.10 Atherosclerotic heart disease of native coronary artery without angina pectoris; G47.33 Obstructive sleep apnea (adult) (pediatric); E78.5 Hyperlipidemia, unspecified; F32.9 Major depressive disorder, single episode, unspecified; F41.9 Anxiety disorder, unspecified; M43.10 Spondylolisthesis, site unspecified; R29.6 Repeated falls; G89.29 Other chronic pain; M19.90 Unspecified osteoarthritis, unspecified site; M54.9 Dorsalgia, unspecified; R26.9 Unspecified abnormalities of gait and mobility; R01.1 Cardiac murmur, unspecified; Z79.01 Long term (current) use of anticoagulants; Z79.4 Long term (current) use of insulin; Z79.899 Other long term (current) drug therapy; Z88.5 Allergy status to narcotic agent; Z88.8 Allergy status to other drugs, medicaments and biological substances; Z87.01 Personal history of pneumonia (recurrent); Z87.891 Personal history of nicotine dependence; Z98.84 Bariatric surgery status; Z91.81 History of falling; Z86.73 Personal history of transient ischemic attack (TIA), and cerebral infarction without residual deficits; Z82.49 Family history of ischemic heart disease and other diseases of the circulatory system; W18.30XA Fall on same level, unspecified, initial encounter; Y92.002 Bathroom of unspecified non-institutional (private) residence as the place of occurrence of the external cause; Y95 Nosocomial condition
CPT/HCPCS: 36415; 36600; 70450; 71045; 71046; 71275; 72110; 74230; 76604; 80048; 80053; 81001; 82040; 82330; 82550; 82805; 83605; 83735; 83880; 84100; 84132; 84443; 84478; 84484; 85025; 85027; 85379; 85610; 85730; 87040; 87070; 87086; 87205; 93005; 93306; 94002; 94003; 94640; 94660; 94760; 95816; 96365; 96366; 96375; 99285